=== PATIENT | female | born 1930 | race Caucasian/White ===

== ENCOUNTER 2017-12-10 09:51 | Inpatient (IN) | payer MEDICARE, OTHER ==
[~2017-12-10] VITALS: Ht 160 cm; Wt 65.5 kg
[~2017-12-10 09:51] MED LIST: ACETAMINOPHEN500 MG PO; AMLODIPINE BESYL5 MG PO; ASCORBIC ACID500 M2 PO; COUMADIN5 MG PO; CRANBERRY TABL1 EACH PO; FEROSUL325 MG PO; FUROSEMIDE20 MG PO; GLUCOSAMINE H1500 MG PO; LANOXIN125 MCG PO; LEVOTHYROXINE100 MCG PO; LOSARTAN POTAS100 MG PO; METFORMIN HCL500 M1 PO; METFORMIN HCL500 MG PO; POTASSIUM CHLO20 ME1 PO; SIMVASTATIN20 MG PO; SLOW-MAG71.5 MG PO; VERAPAMIL ER240 M1 PO; WARFARIN SODIUM5 MG PO
--- NOTE | 2017-12-10 16:32 | NUR ---
MD AWARE OF SATS AND RESPIRATIONS.
--- NOTE | 2017-12-10 18:11 | NUR ---
Patient has had her evening medications and is now eating her dinner with family at the bedside. called and ordered another 40mg IV Lasix, which has been given.
--- NOTE | 2017-12-10 19:16 | NUR ---
AT 1828 PATIENT HAD WHAT APPEARED TO BE A VASOVAGAL EPISODE GETTING UP FROM THE COMMODE. HR DROPPED INTO THE HIGH 40'S SHE SAID SHE FELT VERY HOT, BUT WAS NOT DIAPHORETIC, SHE HAD NO CHEST PAIN, NO JAW OR LEFT ARM PAIN OR NUMBNESS, BUT DID HAVE SOME NAUSEA. INCREASED HER FROM 4L/NC TO 6L/NC AND CALLED . AT THE TIME OF PHONE CALL PATIENT WAS BACK TO 4L/NC AND FEELING BACK TO NORMAL. ALSO FELT THIS WAS A VASOVAGAL EVENT AND ASKED THAT WE JUST MONITOR THE PATIENT. PATIENT IS RESTING QUIETLY NOW AT THIS TIME.
--- NOTE | 2017-12-10 19:45 | NUR ---
pt shift report recived from day shift rn. pt resting in bed with fmaily at bedside. will continue to closely monitor pt. call light in hand.
--- NOTE | 2017-12-10 20:15 | NUR ---
FAMILY HEADING HOME FOR THE NIGHT. PT USING BEDPAN TO DECREASE ACTIVITY D/T SOB AND SPO2 DESATURATION. PT IS NOT TOLERATING GETTING UP TO THE CAMMODE WELL WITH WORK OF BREATHING. PT TOLERATED BEDPAN. SPOKE WITH PT LOREE HAN PT DOES NOT WISH TO HAVE ONE AT THIS TIME, SHE FEELS THE BEDPAN IS TOLERABLE. WILL CONTINUE TO CLSOELY MONITOR SOB WITH ACTIVITY AND ENCOURAGE MUCH REST TONIGHT. PT ASSESSMENT COMPLTED. PT HAS SOME CRACKLES BILATERALLY. PT IS ON 4L NC. VITALS COMPLTED. ACTIVE BT NOTED. PT PREFERES TO SLEEP WITH LIIGHT ON. PT HAS CALL LIGHT. PT DENTURES CLEANED. WILL CONTINUE TO CLSOELY MONITOR.
--- NOTE | 2017-12-10 20:49 | EKG ---
[facility] [address] [place], [place] [address] Signed Atrial fibrillation with premature ventricular or aberrantly conducted complexes Low voltage QRS Cannot rule out Anterior infarct , age undetermined ST \T\ T wave abnormality, consider inferior ischemia Abnormal ECG No previous ECGs available Confirmed by GRACE ALMONTE MD ([id number]) on 12/10/2017 8:49:25 PM Electronically Signed By: GRACE ALMONTE MD 12/10/17 2049 PATIENT NAME: ZANDRA JAIME Electrocardiogram DATE OF : 34 PHYSICIAN: GRACE ALMONTE MD REPORT #: [id number] REPORT IS CONFIDENTIAL AND NOT TO BE RELEASED WITHOUT AUTHORIZATION
--- NOTE | 2017-12-10 21:52 | NUR ---
PT ASSISTED TO USE BEDPAN. PT STATES SHE TOLERATES THE BEDPAN MUCH BETTER THAN GETTING UP TO THE CAMMODE. BEDDING CHANGED. NO OTHER ISSUES AT THIS TIME.
--- NOTE | 2017-12-11 00:11 | NUR ---
PT CALLED TO USE BEDPAN. PT TOLERATED EVEN BETTER THAN EARLIER IN THE SHIFT. PT STATES SHE DOES NOT FEEL SOB WITH MOVING IN BED. PT TURNED TO ALLOW NEW CHUCKS PAD PLACED. PT ASSESSMENT UNCHANGED FROM PREVIOUS. WILL CONTINUE TO CLOSELY MONITOR.
--- NOTE | 2017-12-11 02:00 | NUR ---
PT RESTING WELL AT THIS TIME. PT ASKED STAFF NOT TO TURN LIGHTS OUT WHEN SHE IS SLEEPING. PTPREFFERS LIGHTS TO BE LEFT ON. LIGHTS REMAIN ON. WILL CONTINUE TO CLSOELY MONITOR.
--- NOTE | 2017-12-11 03:20 | NUR ---
PT CALLED TO USE BEDPAN. PT TOLERATES BED YU WELL. TURNED PT OXYGEN DOWN TO 3.5L NC WITH SPO2 92-95%. PT ASSESSMENT COMPLTED. PT BREATH SOUNDS ARE CLEAR BILATERALLY. WILL CONTINUE TO CLOSELY MONITOR.
--- NOTE | 2017-12-11 05:30 | NUR ---
PT CALLED TO GO TO THE BATHROOM. OTHER RN IN TO HELP PT AND SHE GOT UP TO CAMMODE PT TOLERATED WELL. PT SPO2 STAYED ABOVE 92% ON 3L NC. WILL CONTINUE O CLSOELY MONITOR. NO OTHER ISSUES AT THIS TIME. CALL LIGHT IN REACH.
--- NOTE | 2017-12-11 09:35 | NUR ---
Heart failure education and initial home management assessment. Lives independently with daughter living in upper floor apartment. Manages own meds-denies difficulty, uses 4 seperate weekly pill boxes. Owns scales, does not currently weigh QD but states she can. Transportation-drives self to coumadin clinic.Daughter, Darby,takes her to all other provider appointments. 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 She enjoys 1 caffeine free diet soda Q AM, daughter will check sodium content. When eats out does not use full amount of salad dressing. Rarely eats at [employer] but makes a meal last 2 days. Given heart failure packet with Living with HF book, zones form, daily weight/symptom log, blank [employer] home medication schedule. Rufina and her daughter were receptive to new information and agrees to follow ups and to receive more information. Plan of Care: View HF video, discuss Zones/sx management, review new drugs PRN, ensure follow up with PCP or cardiology within 7 days of DC.
--- NOTE | 2017-12-11 09:35 | NUR ---
PT AWAKE AND UP TO [facility] CHAIR FOR BREAKFAST WITH ONE PERSON ASSIST. PT ATE APPROX 50% OF BREAKFAST, DAUGHTER IN ROOM. PT USED BSC AND RETURNED TO BED. NADIA IN TO DISCUSS WITH PT AND DAUGHTER ABOUT HER HEART MEDICATIONS AND DIET. AND ANSWER ANY QUESTIONS THEY MAY HAVE. SHE WILL RETURN TOMORROW TO DISCUSS INFORMATION AGAIN.
--- NOTE | 2017-12-11 09:55 | NUR ---
UP TO BS WITH ONE PERSON ASSIST. VOIDED 375 MLS YELLOW URINE, RETURNED TO BED AND RESTING WITH HOB ELEVATED - NO C/O.
--- NOTE | 2017-12-11 14:50 | NUR ---
REPORT GIVEN FROM JASON CHAMPION. BROUGHT PATIENT OVER IN CHAIR.PATIENT TITRATED TO RA. TOLERATING SATING AT 95 PERCENT. VITALS TAKEN. ASSISTED PATIENT TO BED. TOLERATING AMBULATING TO BED WITH A STBY ASSIST. PATIENT IS STEADY ON HIS FEET. CURRENTLY PATIENT IS ORDERING DINNER. WILL BE BACK IN ROOM TO DO ASSESSMENT.
--- NOTE | 2017-12-11 15:23 | NUR ---
PATIENT ASSISTED TO THE BR. PATIENT VOIDED CLEAR YELLOW URINE. ASSISTED BACK TO BED. TOLERATED WELL.
--- NOTE | 2017-12-11 16:30 | NUR ---
PATIENT BLOOD SUGAR TAKEN. PATIENT DOING WELL. FAMILY AT BEDSIDE. EVENING MEDICATON GIVEN. REQUESTING THAT NADIA COME WITH CHF VIDEO. PATIENT HAS NO OTHER COMPLAINT AT THIS TIME. PATIENT IS CONTINUE TO TOLEATE RA. NADIA CALLED TO GIVE CHF INFORMATION.
--- NOTE | 2017-12-11 17:31 | NUR ---
NADIA IN ROOM WITH CHF VIDEO.
--- NOTE | 2017-12-11 17:31 | NUR ---
MASOUD WAS A CCU TRANSFER THIS AFTERNOON. STBY ASSIST TO BR. PATIENT IS ADA DIET. 1500 FLUID RESTRICTION. DAILY WT. NADIA FOR CARDIAC REHAB HAS BEEN IN TO PROVIDE EDUCATION. SL. LASIX AND PO POTASSIUM GIVEN. PATIENT REPORTS THAT SHE HAD A BM THIS MORNING.
--- NOTE | 2017-12-11 17:40 | NUR ---
PATIENT RESTING IN BED EATING DINNER. PATIENTS FAMILY MEMBERS IN ROOM. CALL LIGHT WITHIN REACH. PATIENT STATES SHE HAS NO PAIN. NO OTHER NEEDS AT THIS TIME.
--- NOTE | 2017-12-11 19:20 | NUR ---
RECEIVED REPORT FROM DAY SHIFT RN. PATIENT IS RESTING IN BED. PATIENT DENIES ANY NEEDS AT THIS TIME. CALL LIGHT IN REACH. FAMILY AT THE BEDSIDE.
--- NOTE | 2017-12-11 21:25 | NUR ---
PATIENT ASSSEMENT COMPLETED. PATIENTS VITALS TAKEN AND RECORDED. PATIENT RECIEVED NO INSULIN BS WAS WNL. PATIENT DENIES ANY PAIN OR SOB. PATIENTS EVENING MEDICATIONS GIVEN PER ORDER. PATIENT ASSISTED TO THE RESTROOM A SBA. PATIENT IS STEADY ON HER FEET. PATIENT GIVEN SUPPLIES TO COMPLETE NIGHTLY ORAL CARE. PATIENT IS NOW BACK IN BED RESTING. PATIENTS FAMILY IS AT THE BEDISDE. NO FURTHER NEEDS NOTED. CALL LIGHT IN REACH.
--- NOTE | 2017-12-11 22:22 | NUR ---
Up to brpw ith one assist, voided, back to bed, tolerated well, no c/o pain, no requests
--- NOTE | 2017-12-12 00:10 | NUR ---
PATIENT RESTING IN BED WATCHING TV. PATIENT DENIES ANY NEEDS CALL LIGHT IN REACH.
--- NOTE | 2017-12-12 00:11 | NUR ---
PATIENT IS RESTING IN BED WITH EYES CLOSED, RR 17. CALL LIGHT IN REACH.
--- NOTE | 2017-12-12 01:30 | NUR ---
PT SLEEPING WILL CHECK BACK ON LATER.
--- NOTE | 2017-12-12 01:36 | NUR ---
PATIENT ASSISTED TO THE RESTROOM SBA. PATIENT WAS ABLE TO VOID. PATIENT IS NOW BACK IN BED RESTING. PATIENT DENIES ANY FURTHER NEEDS CALL LIGHT IN REACH.
--- NOTE | 2017-12-12 03:12 | NUR ---
PATIENT IS RESTING IN BED WITH EYES CLOSED. PATIENTS BREATHING IS EVEN AND UNLABORED, RR 17. CALL LIGHT IN REACH.
--- NOTE | 2017-12-12 05:06 | NUR ---
PATIENT IS RESTING IN BED WITH EYES CLOSED. PATIENTS BREATHING IS EVEN ADN UNLABORED, RR 17. CALL LIGHT IN REACH.
--- NOTE | 2017-12-12 05:13 | NUR ---
PATIENT RESTED WELL THROUGHOUT THE SHIFT. PATIENT IS ON AN ADA DIET AND TOLERATING WELL, NO NAUSEA NOTED. PATIENT IS ON A 1500ML FLUID RESTRICTION. PATIENT IS A SBA AND IS STEADY ON HER FEET. PATIENT IS ON RA, NO SOB NOTED. PATIENT IS SL. PATIENT IS AAOX3 AND CALLS APPROPRIATELY.
--- NOTE | 2017-12-12 05:45 | NUR ---
did vitals and i and o on pt
--- NOTE | 2017-12-12 05:56 | NUR ---
PATIENTS DAILY WEIGHT TAKEN AND RECORDED. PATIENTS VITALS TAKE AND RECORDED BY CHAR CONVEYOR TENDER. PATIENT ASSISTED TO THE RESTROOM A SBA AND IS STEADY ON HER FEET. PATIENT IS BACK IN BED RESTING. NO FURTHER NEEDS NOTED. CALL LIGHT IN REACH.
--- NOTE | 2017-12-12 06:10 | NUR ---
PATIENTS MORNING MEDICATIONS GIVEN PER ORDER. PATIENT IN BED RESTING. PATIENT DENIES ANY FURTHER NEEDS AT THIS TIME. CALL LIGHT IN REACH.
--- NOTE | 2017-12-12 07:34 | NUR ---
RECIEVED REPORT FROM CONTENT PRODUCTION SPECIALIST NURSE. PATIENT RESTING IN BED QUILTING. DENIES NEEDS. CALL LIGHT IN REACH.
--- NOTE | 2017-12-12 07:54 | NUR ---
ASSISTED PATIENT TO BATHROOM. VOIDED. BACK TO BED. REYES (PT'S DAUGHTER) IN ROOM. REYES WOULD LIKE TO SPEAK WITH DR. URIBE BEFORE PATIENT IS D/C. COURSE SOUNDS HEARD IN LLL, OTHERWISE CLEAR. HR IRREG., NO PEDAL EDEMA. PATIENT DID BECOME MILDLY SOB WITH AMBULATING TO THE TOILET BUT SHE STATES IT HAS IMPROVED. DENIES PAIN. CALL LIGHT IN REACH.
--- NOTE | 2017-12-12 07:57 | NUR ---
PATIENT SITTING UP IN BED, DAUGHTER IN ROOM. TEETH BRUSHED, WILL DO AM CARE AFTER BREAKFAST. WOULD LIKE TO SHOWER TODAY. IS CONCERNED ABOUT KNOWING HOW TO MEASURE HER FLUIDS WHEN AT HOME. CALL LIGHT IN REACH.
[2017-12-12] MEDS ORDERED: VERAPAMIL ER P300 MG PO (09:24)
[2017-12-12] MEDS ORDERED: TYLENOL325 MG PO (09:26)
--- NOTE | 2017-12-12 09:28 | NUR ---
MED REC COMPLETE
[2017-12-12] MEDS ORDERED: LASIX40 MG PO (09:40)
--- NOTE | 2017-12-12 10:15 | NUR ---
KILEY NURSE BLANE WILL BE DOING SHOWER, VITALS AND I/O'S THIS MORNING FOR PATIENT.
--- NOTE | 2017-12-12 10:28 | NUR ---
Pt ambulated to the the bathoo and showered independently with SBA. Pt stated she experienced slight SOB with exetrion but appeared to tolerate the activity well as noted by an absence of audible wheezes or use of accessory muscles. Pt continued to persfuse well notable by pinkness in the face and an absence of cyanosis. Pt is currently resting in bed. Pt states no concerns at this time. Call light within reach.
--- NOTE | 2017-12-12 10:59 | NUR ---
E M ASSEMBLER ASSISTING PATIENT TO BATHROOM. SHE IS ALSO REMOVING HER IV SITE. PATIENT TO BE D/C SHORTLY AFTER REYES RETURNS.
--- NOTE | 2017-12-12 11:28 | NUR ---
ASSISTED PATIENT TO BATHROOM. VOIDED. BACK TO BED. REVIEWED D/C INSTRUCTIONS WITH PATIENT AND DAUGHTER REYES. QUESTIONS ANSWERED. NO FURTHER QUESTIONS. DENY NEEDS.
--- NOTE | 2017-12-12 13:30 | NUR ---
PT RESTING IN BED, ALERT AND ORIENTED. SHE SMILED AND TOLD ME SHE WAS FEELING SO MUCH BETTER. WELL ENOUGH SHE FELT TO BE DC'D TODAY. HAD A VERY PLEASANT VISIT WITH PT, PRAYED FOR HER. WILL FOLLOW NEEDED
--- NOTE | 2017-12-16 08:19 | NUR ---
Heart Failure Discharge Follow Up Call #1- Patient states she is feeling very well and plans to get out to do business this afternoon. Able to states medication changes. Pt DC on 12/12. During f/u call today patient revealed home wts have went up. Is adherent to new order for Lasix 40 mg q AM. Denies diet change. Weighs at same time q AM. DC wt 144 lb. Home wt day after DC 144#, then 150#, 148#, today 149#. States "legs are skinny", SOB when "over does it", pants are not as tight as they were on admit. Prefers afternoon visits so her daughter can accompany her. She could not get in to see Dr Menendez PCP until 01/08 for f/u visit. I have left him a high priority message requesting she sees someone in PCP office as soon as possible.
[2018-01-10] MEDS ORDERED: TOPROL XL200 MG PO (18:49)
== END 2017-12-12 11:33 | disposition home or self-care (01) | DRG 291 ==
LOC: ED 09:51 → CCU 12:11 → MS 12-11 14:40
PROVIDERS: ADMIT Internal Medicine
DX: I11.0 Hypertensive heart disease with heart failure (principal); J96.01 Acute respiratory failure with hypoxia; I50.33 Acute on chronic diastolic (congestive) heart failure; I48.2 Chronic atrial fibrillation; E11.9 Type 2 diabetes mellitus without complications; E03.9 Hypothyroidism, unspecified; E78.5 Hyperlipidemia, unspecified; Z79.84 Long term (current) use of oral hypoglycemic drugs; Z66 Do not resuscitate; Z79.01 Long term (current) use of anticoagulants; Z86.73 Personal history of transient ischemic attack (TIA), and cerebral infarction without residual deficits
CPT/HCPCS: 36415; 71045; 80048; 80053; 81001; 83735; 83880; 84484; 85025; 85610; 85730; 87502; 93005; 93010; 93306; 94640; 94667; 94668

== ENCOUNTER 2018-05-30 15:46 | Inpatient (IN) | payer MEDICARE, OTHER ==
[~2018-05-30] VITALS: Ht 160 cm; Wt 66.9 kg
--- OUTSIDE RECORDS SUMMARY | ~2018-05-30 | XMS | Encounter Summary ---
Demographics + + + | Address | [address] | | | [place] [address] | + + + | Home Phone | | + + + | Preferred Language | Unknown | + + + | Marital Status | | + + + | Restorationist Affiliation | Unknown | + + + | Race | Unknown | + + + | Ethnic Group | Unknown | + + + Author + + + | Author | [facility] [employer] [facility] | + + + | Organization | [facility] [employer] [facility] | + + + | Address | Unknown | + + + | Phone | Unavailable | + + + Support + + +---------+ + | Name | Relationship | Address | Phone | + + +---------+ + | Darby Kate | ECON | Unknown | | + + +---------+ + Care Team Providers + +------+ + | Care Water Pollution Specialist Name | Role | Phone | + +------+ + | Renan Menendez MD | PCP | | + +------+ + Reason for Referral Consultation (Routine) + + + + + + + | Status | Reason | Specialty | Diagnoses / | Referred By | Referred To | | | | | Procedures | Contact | Contact | + + + + + + + | Authorized | Specialty | Cardiology | Diagnoses | Mirza, | | | | Services | | Acute on | Arnaldo Oshea, | [facility] | | | Required | | chronic | [address] | | | | | diastolic | Denise Fountain | Abel Bond | | | | | congestive | Kev F | Saray Isbell, | | | | | heart | [place], [place] | [place] , [place] | | | | | failure | [address] | [address] | | | | | ([facility]) | Phone: | Phone: | | | | | Persistent | [phone] | [phone] | | | | | atrial | Fax: | Fax: | | | | | fibrillation | [phone] | [phone] | | | | | ([facility]) | | | | | | | Severe | | | | | | | mitral | | | | | | | regurgitatio | | | | | | | n Severe | | | | | | | tricuspid | | | | | | | regurgitatio | | | | | | | n Pulmonary | | | | | | | | | | | | | | hypertension | | | | | | | , moderate | | | | | | | to severe | | | | | | | ([facility]) | | | + + + + + + + Reason for Visit + + + | Reason | Comments | + + + | Consultation | | + + + Consultation (Routine) + +--------+ + + + + | Status | Reason | Specialty | Diagnoses / | Referred By | Referred To | | | | | Procedures | Contact | Contact | + +--------+ + + + + | New Request | | Cardiology | Diagnoses | Gemma, | Tammy, | | | | | Heart | MD Renan | MD Manohar | | | | | failure, | [address] | [address] | | | | | unspecified | [place] [address] | Dr [address] | | | | | ([facility]) | [address] [place] | | | | | Procedures | [place], | [address] Phone: | | | | | Consult | [place] [address] | [phone] | | | | | | Phone: | Fax: | | | | | | [phone] | [phone] | | | | | | Fax: | | | | | | | [phone] | | + +--------+ + + + + Encounter Details +--------+ + + + + | Date | Type | Department | Care Team | Description | +--------+ + + + + | 05/20/ | Initial | [facility] | Arnaldo Blue, | Persistent atrial | | 2018 | consult | [facility] [place] | MD [address] | fibrillation (HCC) | | | | [address] | [place], | (Primary Dx); Acute | | | | [address] | [place] [address] | on chronic diastolic | | | | [place] [address] | [phone] | congestive heart | | | | [phone] | | failure (HCC); | | | | | | Severe mitral | | | | | | regurgitation; | | | | | | Severe tricuspid | | | | | | regurgitation; | | | | | | Pulmonary | | | | | | hypertension, | | | | | | moderate to severe | | | | | | (HCC) | +--------+ + + + + Social History + +-------+ [...] + +---------+ + | Alcohol Use | Drinks/We | oz/Week | Comments | | | ek | | | + + +---------+ + | No | | | | + + +---------+ + + + + | Sex Assigned at | Date Recorded | | | | + + + | Not on file | | + + + as of this encounter Last Filed Vital Signs + + + + | Vital Sign | Reading | Time Taken | + + + + | Blood Pressure | 112/54 | 05/20/2018 9:50 AM PDT | + + + + | Pulse | 95 | 05/20/2018 9:34 AM PDT | + + + + | Temperature | - | - | + + + + | Respiratory Rate | - | - | + + + + | Oxygen Saturation | 97% | 05/20/2018 9:34 AM PDT | + + + + | Inhaled Oxygen | - | - | | Concentration | | | + + + + | Weight | 66 kg (145 lb 6.4 | 05/20/2018 9:34 AM PDT | | | oz) | | + + + + | Height | 160 cm (5' 3") | 05/20/2018 9:34 AM PDT | + + + + | Body Mass Index | 25.76 | 05/20/2018 9:34 AM PDT | + + + + in this encounter Progress Notes Arnaldo Blue MD - 05/20/2018 9:30 AM PDTFormatting of this note may be different from the original. Subjective: Patient ID: Rufina Spap is a 88 y.o. female. HPI The following portions of the patient's history were reviewed and updated as appropriate an d is available elsewhere in the record: allergies, current medications, past family history, past medical history, past social history, past surgical history and problem list. Mrs. Sapp, accompanied by her daughter (who lives with her and a separate apartment), petra rodriges to the office today for a cardiology evaluation. She was hospitalized at [facility] twice this year, the first time in November for acute diastolic heart failure, althou gh she believes that her symptoms actually began as long ago as the end of 2015, when she de veloped dyspnea on exertion with a cold. She had severe dyspnea, to the point where she cou ld not walk 1/4 block to her mailbox. She had no dyspnea at rest, denies orthopnea, PND or nocturia, but had significant pedal edema. She was hospitalized again in February, for the same problem. She has hyperdynamic LV systolic function on her echocardiogram, but marked valvul ar disease, with severe mitral regurgitation, moderately severe tricuspid regurgitation, and mild aortic stenosis. She denies any history of rheumatic fever, but had scarlet fever at age 15, which clearly could have been misdiagnosed. There is no mitral stenosis. I reviewe d the images from her echocardiogram, which also showed moderately severe pulmonary hyperten adeel and a small secundum ASD with minor etfq-rm-yofav shunting. She continues to have sign ificant dyspnea on exertion, walking about one half block, and because of this, now leaves h er home only about once per week, whereas previously, she was quite active, participating in multiple activities such as quilting. It has clearly affected her quality of life. She wo uld be classified as [place] Heart Association class III. At age 88, I do not think she is a very good candidate for open heart surgery, as she already has some mild memory deficits which would likely become worse. The MR jet is central, and she may be a candidate for a Mi traClip procedure. Experimental he, this is sometimes done on the tricuspid valve is well. After a prolonged discussion, she agreed to have an evaluation for this, and I referred her to [facility] for this purpose. She is on appropriate medications, and I made no changes. I umm l see her back in several months for follow-up. Review of Systems CONSTITUTIONAL: 15 lb weight decrease due to diuretics in the last year, previously lost 6 0-70 lbs since the with diet, denies recent fever, chills, night sweats, c/o significa nt fatigue with even minor exertion NEUROLOGIC: No history of CVA, had 2 TIAs (memory deficits 1-2 days in 2008, resolved; the other was c.2007, cannot recall the symptoms). She has a prior h/o migraines, resolved. S he denies seizures, has had 2 Syncopal events due to UTI, and another at age 18, probably va sovagal, getting BP checked in both arms simultaneously ("pumped up all the way"). No dizzi ness, lightheadedness. No numbness, tingling, paresthesias. She has mild short term memory problems ("repeats stories frequently"). EYES: No amaurosis, diplopia, recent visual changes, has early stage Cataracts, no h/o gla ucoma ENT: She has mild bilateral Hearing loss, denies tinnitus, epistaxis, has occasional dysph agia with certain foods ENDOCRINE: Type II Diabetes mellitus. Hypothyroidism, no other endocrine problems. No exc essive hunger, thirst. PULMONARY/SLEEP: Severe Dyspnea on Exertion but not at rest, denies orthopnea, paroxysmal nocturnal dyspnea. No history of asthma, emphysema. She had pneumonia at age 6. She has mil d snoring, no significant daytime somnolence. Sleep is refreshing. CARDIOVASCULAR: Denies chest pain, pressure or discomfort. No history of CAD. She has a history of acute Diastolic Heart Failure. She has persistent Atrial Fibrillation, on warfar in. No recent palpitations. She has had a heart Murmur since age 15, with marked Valvular H eart Disease, severe MR, moderately severe TR, mild . She denies a h/o rheumatic fever bu t had scarlet fever in childhood. She has moderately severe Pulmonary HTN. She has Essenti al Hypertension, Hyperlipidemia. She had significant Edema prior to diuretic treatment, use s compression stockings, no claudication symptoms. No h/o an AAA. -- Echo (12/12/17): EF > 70%, normal RV size, function. Marked bi-AE. Mild (RUFINA 1.7 cm , peak/mean gradient 17/9 mmHg). Severe MR. Moderately severe TR. Moderately severe pulmo nary hypertension, RVSP 55.8-60.8 mmHg. Small secundum ASD with mild left-to- right shuntin g GASTROINTESTINAL: No recent abdominal pain, nausea, vomiting or diarrhea. Denies PUD, dana na, hematochezia, hepatitis. RENAL/: No history of kidney disease. No dysuria, hematuria, urinary urgency, hesitancy . No active Helmet Hat Sweatband Puncher disorders. HEMATOLOGY/ONCOLOGY: No h/o bleeding disorders, DVT, PE. Denies easy bruisability or ble eding. She has a history of Iron-deficiency Anemia, denies prior blood transfusions. No hi story of cancer. MUSCULOSKELETAL: Osteoporosis. No myalgias, has Osteoarthritis with no significant arthra lgias. No history of rheumatologic or autoimmune diseases. CUTANEOUS: Eczema. No rashes, pruritus, lesions. PSYCHIATRIC: No history of significant depression, has Anxiety, denies any other psychiatr ic problems. Past Medical History Diagnosis Date Acute diastolic heart failure (HCC) ASD secundum Atrial fibrillation (HCC) 1995 persistent since then, never attempted cardioversion Congestive heart failure (HCC) 11/2017 acute/chronic Diastolic Heart Failure, NYHA class III Diabetes mellitus, type II (HCC) 2006 controlled, no complications Edema Essential hypertension Heart murmur 1944 had scarlet fever Hyperlipidemia Hypothyroidism Iron deficiency anemia Migraines resolved Mild aortic stenosis Osteoarthritis Osteoporosis Pulmonary hypertension, moderate to severe (HCC) Severe mitral regurgitation Severe tricuspid regurgitation moderately severe Past Surgical History Procedure Laterality Date APPENDECTOMY BLADDER SUSPENSION BLEPHAROPLASTY Bilateral BREAST SURGERY Right benign lesion removed BUNIONECTOMY HYSTERECTOMY partial hysterectomy separate salpingo-oophorectomy Bilateral TOE FUSION TONSILLECTOMY Family History Problem Relation Age of Onset CVA Mother 71 recurrent CVA at 74, a few days later Heart failure Mother Diabetes Mellitus II Mother CVA Father cerebral hemorrhage Coronary Artery Disease Father 63 Leukemia Sister basophilic leukemia CVA Brother Heart Disease Sister ? thrombus, not clear Deep vein thrombosis Sister CVA Daughter Obesity Daughter Arthritis Daughter Thyroid cancer Daughter Social History Substance Use Topics Smoking status: Never Smoker Smokeless tobacco: Never Used Alcohol use No Allergies Allergen Reactions Morphine Other (See Comments) Pt felt fidgety Percocet [Oxycodone-Acetaminophen] Other (See Comments) Pt felt fidgety Current Outpatient Prescriptions: acetaminophen (TYLENOL) 325 MG tablet, Take 650 mg by mouth every 6 (six) hours as nee ded for Pain., Disp: , Rfl: ascorbic acid (VITAMIN C) 1000 MG tablet, Take 1,000 mg by mouth daily., Disp: , Rfl: Cholecalciferol 2000 units CAPS, Take 2,000 Units by mouth daily., Disp: , Rfl: Cranberry 1000 MG CAPS, Take 1 capsule by mouth daily., Disp: , Rfl: furosemide (LASIX) 40 MG tablet, Take 40 mg by mouth daily., Disp: , Rfl: Lvly-Qpsoq-XEF-Boswellia-Vit D (GLUCOSAMINE CHOND TRIPLE/VIT D) TABS, Take 1 tablet by mouth daily., Disp: , Rfl: levothyroxine (SYNTHROID) 100 MCG tablet, Take 100 mcg by mouth every morning before b reakfast., Disp: , Rfl: losartan (COZAAR) 100 MG tablet, Take 100 mg by mouth daily., Disp: , Rfl: magnesium chloride (MAG64) 64 mg EC tablet, Take 1 tablet by mouth daily., Disp: , Rfl : metFORMIN (GLUMETZA) 500 MG (MOD) 24 hr tablet, Take 500 mg by mouth 2 (two) times garry ly with meals., Disp: , Rfl: metoprolol (TOPROL-XL) 200 MG 24 hr tablet, Take 100 mg by mouth every morning., Disp: , Rfl: potassium chloride SA (K-DUR,KLOR-CON) 20 MEQ tablet, Take 20 mEq by mouth daily., Dis p: , Rfl: simvastatin (ZOCOR) 20 MG tablet, Take 20 mg by mouth nightly., Disp: , Rfl: warfarin (COUMADIN) 5 MG tablet, Take 5 mg by mouth daily. 5mg daily on Mond, Wed, Sat d, Sat, and 2.5mg daily on , , Disp: , Rfl: Objective: Physical Exam BP 112/54 (BP Location: Left upper arm, Patient Position: Sitting) | Pulse 95 | Ht 1.6 m (5' 3") | Wt 66 kg (145 lb 6.4 oz) | SpO2 97% | BMI 25.76 kg/m BP 118/48 right arm GENERAL: Well developed, well nourished elderly woman, in no distress. Appears approximately stated age. HEENT: Normocephalic, atraumatic. EYES: PERRL, sclerae anicteric, no xanthelsasmas MOUTH: Oral mucosae moist, dentition adequate, no lesions noted NECK: No JVD, lymphadenopathy, thyromegaly, bruits. Carotid pulses are 2+ bilaterally LUNGS: Clear bilaterally, with no rales, rhonchi or wheezing noted, respirations unlabored HEART: Nondisplaced PMI, regular rate, irregularly irregular rhythm, S1 varied in intensit y, S2 normal. 100 2/6 systolic crescendo decrescendo murmur at the base, without radiation. 1I-6 holosystolic murmur at the apex radiating to the lower left sternal border. No rubs or gallops noted. ABDOMEN: Soft, nontender, no organomegaly, masses or bruits. Bowel sounds are normal in a ll 4 quadrants. The abdominal aortic pulsation is not palpable. EXTREMITIES: No edema. Radial pulses 2+ bilaterally. Femoral pulses are 2+ bilaterally wi thout bruits. DP and PT pulses are 1+ bilaterally. SKIN: Warm and dry, capillary refill is normal, no lesions. NEUROLOGIC: Awake, alert and oriented x 3. No focal motor deficits. PSYCHIATRIC: Appropriate, affect appears normal EKG: Atrial fibrillation, ventricular rate 68, poor R-wave progression V1-V4, cannot exclud e an old anteroseptal infarct. Nonspecific inferior ST-T abnormalities, possibly due to isc hemia. Assessment and Plan: Rufina was seen today for consultation. Persistent atrial fibrillation (HCC) - Electrocardiogram, 12-lead - AMB ref to Interventional Cardiology Acute on chronic diastolic congestive heart failure (HCC) - AMB ref to Interventional Cardiology Severe mitral regurgitation - AMB ref to Interventional Cardiology Severe tricuspid regurgitation - AMB ref to Interventional Cardiology Pulmonary hypertension, moderate to severe (HCC) - AMB ref to Interventional Cardiology in this encounter Plan of Treatment +--------+---------+ + + + | Date | Type | Specialty | Care Team | Description | +--------+---------+ + + + | 09/16/ | Office | Cardiology | Arnaldo Blue, | | | 2018 | Visit | | MD [address] | | | | | | [place], | | | | | | [place] [address] | | | | | | [phone] | | | | | | | | +--------+---------+ + + + + +--------+ + + | Name | Priori | Associated Diagnoses | Order Schedule | | | ty | | | + +--------+ + + | AMB ref to Interventional | Routin | Acute on chronic | Ordered: 05/20/2018 | | Cardiology | e | diastolic congestive | | | | | heart failure (HCC) | | | | | Persistent atrial | | | | | fibrillation (HCC) | | | | | Severe mitral | | | | | regurgitation | | | | | Severe tricuspid | | | | | regurgitation | | | | | Pulmonary | | | | | hypertension, | | | | | moderate to severe | | | | | (HCC) | | + +--------+ + + as of this encounter Procedures + +--------+ + + + | Procedure Name | Priori | Date/Time | Associated Diagnosis | Comments | | | ty | | | | + +--------+ + + + | EKG STANDARD 12 LEAD | Routin | 05/20/2018 | Persistent atrial | Results for this | | | e | 9:57 AM | fibrillation (HCC) | procedure are in the | | | | PDT | | results section. | + +--------+ + + + in this encounter Results EK STANDARD 12 LEAD (05/20/2018 9:57 AM) + + + + + | Component | Value | Ref Range | Performed At | + + + + + | Ventricular Rate | 68 | BPM | [facility] | + + + + + | Atrial Rate | 357 | BPM | [facility] | + + + + + | QRS Duration | 102 | ms | [facility] | + + + + + | Q-T Interval | 396 | ms | [facility] | + + + + + | QTC Calculation | 421 | ms | [facility] | | (Bezet) | | | | + + + + + | Calculated R [place] | 80 | degrees | [facility] | + + + + + | Calculated T [place] | 4 | degrees | [facility] | + + + + + | Diagnosis | Atrial | | [facility] | | | fibrillationAnterior | | | | | infarct , age | | | | | undeterminedAbnormal | | | | | ECGNo previous ECGs | | | | | availablePlease refer to | | | | | Providers office visit | | | | | note for Providers | | | | | Interpretation.Confirmed | | | | | by [facility] Hostetter Read Only, | | | | | [facility] Denise ([id number]), | | | | | offline editor Alec Guzman | | | | | ([id number]) on 05/20/2018 | | | | | 10:00:11 AM | | | + + + + + + + + + + | Performing | Address | City/State/Zipcode | Phone Number | | Organization | | | | + + + + + | [facility] | [address] | [place] [address] | | + + + + + in this encounter Visit Diagnoses + + | Diagnosis | + + | Persistent atrial fibrillation (HCC) - Primary | + + | Atrial fibrillation | + + | Acute on chronic diastolic congestive heart failure (HCC) | + + | Acute on chronic diastolic heart failure | + + | Severe mitral regurgitation | + + | Mitral valve disorders | + + | Severe tricuspid regurgitation | + + | Diseases of tricuspid valve | + + | Pulmonary hypertension, moderate to severe (HCC) | + + | Other chronic pulmonary heart diseases | + +
--- OUTSIDE RECORDS SUMMARY | ~2018-05-30 | XMS | Clinical Summary ---
Demographics + + + | Address | [address] | | | [place] [address] | + + + | Home Phone | | + + + | Preferred Language | Unknown | + + + | Marital Status | | + + + | Congregational Affiliation | Unknown | + + + | Race | Unknown | + + + | Ethnic Group | Unknown | + + + Author + + + | Author | [facility] | + + + | Organization | [facility] | + + + | Address | Unknown | + + + | Phone | Unavailable | + + + Support + + +---------+ + | Name | Relationship | Address | Phone | + + +---------+ + | Darby Kate | ECON | Unknown | | + + +---------+ + Care Team Providers + +------+ + | Care Cotton Picking Machine Operator Name | Role | Phone | + +------+ + | Renan Menendez MD | PP | | + +------+ + Allergies + + + + + + | Active Allergy | Reactions | Severity | Noted | Comments | | | | | Date | | + + + + + + | Morphine | Other (See Comments) | Medium | 05/19/20 | Pt felt fidgety | | | | | 18 | | + + + + + + | Oxycodone-Acetaminop | Other (See Comments) | Medium | 05/19/20 | Pt felt fidgety | | hen | | | 18 | | + + + + + + Current Medications + + +-------+---------+------+------+-------+ | Prescription | Sig. | Disp. | Refills | Star | End | Statu | | | | | | t | Date | s | | | | | | Date | | | + + +-------+---------+------+------+-------+ | levothyroxine | Take 100 mcg by | | | | | Activ | | (SYNTHROID) 100 MCG | mouth every morning | | | | | e | | tablet | before breakfast. | | | | | | + + +-------+---------+------+------+-------+ | losartan (COZAAR) | Take 100 mg by mouth | | | | | Activ | | 100 MG tablet | daily. | | | | | e | + + +-------+---------+------+------+-------+ | simvastatin | Take 20 mg by mouth | | | | | Activ | | (ZOCOR) 20 MG tablet | nightly. | | | | | e | + + +-------+---------+------+------+-------+ | warfarin | Take 5 mg by mouth | | | | | Activ | | (COUMADIN) 5 MG | daily. 5mg daily on | | | | | e | | tablet | , Sat, , | | | | | | | | Sat, and 2.5mg | | | | | | | | daily on , | | | | | | + + +-------+---------+------+------+-------+ | potassium chloride | Take 20 mEq by mouth | | | | | Activ | | SA (KJESENIA THURMAN) | daily. | | | | | e | | 20 MEQ tablet | | | | | | | + + +-------+---------+------+------+-------+ | metFORMIN | Take 500 mg by mouth | | | | | Activ | | (GLUMETZA) 500 MG | 2 (two) times daily | | | | | e | | (MOD) 24 hr tablet | with meals. | | | | | | + + +-------+---------+------+------+-------+ | magnesium chloride | Take 1 tablet by | | | | | Activ | | (MAG64) 64 mg EC | mouth daily. | | | | | e | | tablet | | | | | | | + + +-------+---------+------+------+-------+ | | Take 1 tablet by | | | | | Activ | | Vrko-Lrldd-EKSBrody | mouth daily. | | | | | e | | llia-Vit D | | | | | | | | (GLUCOSAMINE CHOND | | | | | | | | TRIPLE/VIT D) TABS | | | | | | | + + +-------+---------+------+------+-------+ | Cranberry 1000 MG | Take 1 capsule by | | | | | Activ | | CAPS | mouth daily. | | | | | e | + + +-------+---------+------+------+-------+ | ascorbic acid | Take 1,000 mg by | | | | | Activ | | (VITAMIN C) 1000 MG | mouth daily. | | | | | e | | tablet | | | | | | | + + +-------+---------+------+------+-------+ | furosemide (LASIX) | Take 40 mg by mouth | | | | | Activ | | 40 MG tablet | daily. | | | | | e | + + +-------+---------+------+------+-------+ | acetaminophen | Take 650 mg by mouth | | | | | Activ | | (TYLENOL) 325 MG | every 6 (six) hours | | | | | e | | tablet | as needed for Pain. | | | | | | + + +-------+---------+------+------+-------+ | metoprolol | Take 100 mg by mouth | | | 07/3 | | Activ | | (TOPROL-XL) 200 MG | every morning. | | | 0/20 | | e | | 24 hr tablet | | | | 18 | | | + + +-------+---------+------+------+-------+ | Cholecalciferol | Take 2,000 Units by | | | | | Activ | | 2000 units CAPS | mouth daily. | | | | | e | + + +-------+---------+------+------+-------+ | Verapamil HCl CR | Take 1 capsule by | | | | 05/07 | Disco | | 300 MG CP24 | mouth daily. | | | | 01/24 | ntinu | | | | | | | 18 | ed | + + +-------+---------+------+------+-------+ Active Problems + + + | Problem | Noted Date | + + + | Congestive heart failure (HCC) | 11/07/2017 | + + + + + | Overview: acute/chronic Diastolic Heart Failure, NYHA class | | III | + + + + + | Atrial fibrillation (HCC) | 10/07/1995 | + + + + + | Overview: persistent since then, never attempted | | cardioversion | + + + +---+ | Pulmonary hypertension, moderate to severe (HCC) | | + +---+ | Severe tricuspid regurgitation | | + +---+ + + | Overview: moderately severe | + + + +---+ | Severe mitral regurgitation | | + +---+ Encounters +--------+ + + + + | Date | Type | Specialty | Care Team | Description | +--------+ + + + + | 05/20/ | Initial | | Arnaldo Blue, | Persistent atrial | | 2018 | consult | | MD | fibrillation (HCC) | | | | | | (Primary Dx); Acute | | | | | | on chronic diastolic | | | | | | [...] (HCC) | +--------+ + + + + from Last 3 Months Family History + + +---------+ + | Medical History | Relation | Name | Comments | + + +---------+ + | CVA | Brother Ju Naylor | | + + +---------+ + | Arthritis | Daughter | | | + + +---------+ + | CVA | Daughter | | | + + +---------+ + | Obesity | Daughter | | | + + +---------+ + | Thyroid cancer | Daughter | Bia | | + + +---------+ + | CVA | Father | | cerebral hemorrhage | + + +---------+ + | Coronary Artery | Father | | | | Disease | | | | + + +---------+ + | CVA | Mother | | recurrent CVA at 74, a few days later | + + +---------+ + | Diabetes Mellitus II | Mother | | | + + +---------+ + | Heart failure | Mother | | | + + +---------+ + | Leukemia | Sister | Patricia | basophilic leukemia | + + +---------+ + | Heart Disease | Sister | Linda | ? thrombus, not clear | + + +---------+ + | Deep vein thrombosis | Sister | Carmelina | | + + +---------+ + + +---------+ + + | Relation | Name | Status | Comments | + +---------+ + + | Brother | Dayday | | CVA | | | | (Age | | | | | 75) | | + +---------+ + + | Daughter | | | cerebral thrombosis post umbilical hernia | | | | (Age | repair | | | | 56) | | + +---------+ + + | Daughter | | Alive | | + +---------+ + + | Daughter | Bia | Alive | | + +---------+ + + | Father | | | cerebral hemorrhage | | | | (Age | | | | | 63) | | + +---------+ + + | Mother | | | CHF | | | | (Age | | | | | 74) | | + +---------+ + + | Sister | Patricia | | | | | | (Age | | | | | 56) | | + +---------+ + + | Sister | Linda | Alive | | + +---------+ + + | Sister | Carmelina | Alive | | + +---------+ + + | Son | | Alive | | + +---------+ + + Social History + +-------+ +--------+------+ [...] on file | | + + + Last Filed Vital Signs + [...] AM PDT | + + + + Plan of Treatment +--------+---------+ + + + | Date | Type | Specialty | Care Team | Description | +--------+---------+ + + + | 09/16/ | Office | | Arnaldo Blue, | | | 2018 | Visit | | MD [address] | | | | | | [place], | | | | | | [place] [address] | | | | | | [phone] | | | | | | | | +--------+---------+ + + + + + + + + | Health Maintenance | Due Date | Last Done | Comments | + + + + + | Vaccine: | | | | | Dtap/Tdap/Td (1 - | 1 | | | | Tdap) | | | | + + + + + | Vaccine: Zoster (1 | | | | | of 2) | 2 | | | + + + + + | DEXA SCAN SCREENING | | | | | | 7 | | | + + + + + | Vaccine: | | | | | Pneumococcal 65+ | 7 | | | | Low/Medium Risk (1 | | | | | of 2 - PCV13) | | | | + + + + + | Vaccine: Influenza | | | | | (#1) | 8 | | | + + + + + Procedures + +--------+ + + + | [...] section. | + +--------+ + + + from Last 3 Months Results EKG STANDARD 12 LEAD (05/20/2018 9:57 AM) + + + + + | Component | Value | Ref Range | Performed At | + + + + + | Ventricular Rate | 68 | BPM | [facility] | + [...] + + + + | Calculated R [place] | 80 | degrees | [facility] | + + + + + | Calculated T [place] | 4 | degrees | [facility] | + + + + + | Diagnosis | Atrial | | [facility] | | | fibrillationAnterior | | [...] | | | | | by [facility] [place] Read Only, | | | | | I[facility] Denise ([id number]), | | | | | television news video editor Alec Guzman | | | | | ([id number]) on 05/20/2018 | | | | | 10:00:11 AM | | | + + + + + + + + + + | Performing | Address | City/State/Zipcode | Phone Number | | Organization | | | | + + + + + | [facility] | [address] | [place] [address] | | + + + + + from Last 3 Months Insurance + +--------+ +------+-------+ + | Payer | Benefi | Subscriber | Type | Phone | Address | | | t Plan | ID | | | | | | / | | | | | | | Group | | | | | + +--------+ +------+-------+ + | MEDICARE | MEDICA | [id number] | | | [address] | | | RE | | | | [place] [address] | | | IP-OP | | | | | + +--------+ +------+-------+ + | COMMERCIAL OTHER | BANKER | [id number] | | | | | | S LIFE | | | | | | | AND | | | | | | | CASUAL | | | | | | | TY | | | | | + +--------+ +------+-------+ + + +--------+ +--------+ + + | Guarantor Name | Accoun | Relation to | Date | Phone | Billing Address | | | t Type | Patient | of | | | | | | | | | | + +--------+ +--------+ + + | ZANDRA JAIME | Person | Self [birth year] | Home: | [address] | | | al/Fam | | [phone] | [phone] [place] | | | [place] | | | [phone] | [phone] | + +--------+ +--------+ + +
--- OUTSIDE RECORDS SUMMARY | ~2018-05-30 | XMS | Encounter Summary ---
Demographics + + + | Address | [address] | | | [place] [address] | + + + | Home Phone | | + + + | Preferred Language | Unknown | + + + | Marital Status | Unknown | + + + | Moravian Affiliation | Unknown | + + + | Race | Unknown | + + + | Ethnic Group | Unknown | + + + Author + + + | Author | [facility] | + + + | Organization | [facility] | + + + | Address | Unknown | + + + | Phone | Unavailable | + + + Support + + +---------+ + | Name | Relationship | Address | Phone | + + +---------+ + | Darby Kate | ECON | Unknown | | + + +---------+ + Care Team Providers + +------+ + | Care Plastic Block Boiler Reliner Name | Role | Phone | + +------+ + PCP | Unavailable | + +------+ + Reason for Visit + + + | Reason | Comments | + + + | Medical Records | [facility] review | | Review | | + + + Encounter Details +--------+ + + + + | Date | Type | Department | Care Team | Description | +--------+ + + + + | 05/21/ | Abstract | Cardiology at [facility] | Unknown . | Medical Records | | 2017 | | [address] | | Review ([facility] review) | | | | Mailcode: CH9A | | | | | | [facility] | | | | | | and Healing | | | | | | Floor [place], [place] | | | | | | [address] | | | | | | [phone] | | | +--------+ + + + [...] + + + as of this encounter Progress Notes Lorrie Mittal - 05/21/2018 10:26 AM PDTFormatting of this note may be different from the original. Heart Valve Tier 1 Review Patient Name: Rufina Sapp Referring Provider: Arnaldo Blue Designated Family/Support Person Name: Contact Number: Data Elements / Results Needed Prior Medical Review Required for Medical Review Required f or Clinic Received (Y / N) Records / Notes (Care Everywhere / Abstract Enc) Imaging (IMPAX / Disc / Not Available) Comments ECHO/TTE (if performed within the last two years) Report Report / Images yes Care Everywhere IMPAX 12/12/17 [facility] LABS CBC, BMP (from last 6 months) Results Results no CT Scan Chest / Abd / Pelvis (if performed within last two years) Report Report / Images no Stress Tests (if applicable) Report no Provider Notes - Cardiology / Cardiac Surgeon (Last two years) Notes Notes yes Abstract Encounter Provider Note PCP (Last note) Note Note no PFTs (if performed within the last two years) Report Report no CATH (if performed within the last two years) Report / Images no JUAN MANUEL (if performed within the last two years) no Operative Notes (Most recent thoracic, cardiac, vascular surgeries, breast implants) no Additional Comments: Heart Valve Tier 2 Review Patient Name: Rufina Sapp Referring Provider: Designated Family/Support Person Name: Contact Number: Refer to Tier 3 No If Yes, rationale: Tests to Schedule Yes / No Comments ECHO - TTE Y Pre HVC ECHO - JUAN MANUEL Y Post HVC LABS CBC, BMP Y Pre HVC CT Scan Chest / Abd / Pelvis Y Post HVC Dobutamine Stress Echo PFTs CATH Y Post HVC 6 Min Walk Test Y Pre-HVC For Tier 2 Review, place orders immediately For Tier 3 Review, place orders at time of HVC Attending response This data is from outside sources, and has not been individually verified. Heart Valve Tier 3 Response: Since coming from [facility], will need to consolidate trips if possible Would like to see on a Saturday, have baseline testing, 6 min walk, TTE that AM. Gated CT o f chest that afternoon. Would have her stay the night for JUAN MANUEL on Saturday. Would then need to come back for interventional HVC on a Saturday afternoon but be pre-booke d for angiogram Saturday morning prior to Int HVC that afternoon Would have to come over Saturday night for that appointment likely May need surgical MVR based on imaging of severe mitral regurgitation and moderate to sever e mitral annular calcification vs TMVR if less MAC or Valve in MAC if severe MAC. Please lena patient to see if they are up for all that testing. Will place orders once confirmed. Danny Adams MD Senior Power Plant Operator [facility] [place] in this encounter Plan of Treatment Not on fileas of this encounter Visit Diagnoses Not on filein this encounter"
--- OUTSIDE RECORDS SUMMARY | ~2018-05-30 | XMS | Encounter Summary ---
Demographics + + + | Address | [address] | | | [place] [address] | + + + | Home Phone | | + + + | Preferred Language | Unknown | + + + | Marital Status | Unknown | + + + | Catholic Affiliation | Unknown | + + + | Race | Unknown | + + + | Ethnic Group | Unknown | + + + Author + + + | Author | [facility] | + + + | Organization | [facility] | + + + | Address | Unknown | + + + | Phone | Unavailable | + + + Support + + +---------+ + | Name | Relationship | Address | Phone | + + +---------+ + | Darby Kate | ECON | Unknown | | + + +---------+ + Care Team Providers + +------+ + | Care Grating Machine Operator Name | Role | Phone | + +------+ + PCP | Unavailable | + +------+ + Reason for Visit + + + | Reason | Comments | + + + | Medical Records | [facility] review | | Review | | + + + Encounter Details +--------+ + + + + | Date | Type | Department | Care Team | Description | +--------+ + + + + | 05/21/ | Abstract | Cardiology at [facility] | Unknown . | Medical Records | | 2017 | | [address] | | Review ([facility] review) | | | | Mailcode: CH9A | | | | | | [facility] | | | | | | and Healing | | | | | | Floor [place], [place] | | | | | | [address] | | | | | | [phone] | | | +--------+ + + + [...] / Images yes Care Everywhere IMPAX 12/12/17 [facility] LABS CBC, BMP (from last 6 [...] Valve Tier 3 Response: Since coming from [facility], will need to consolidate trips if possible [...] place orders once confirmed. Danny Adams MD Clerk Entry Level [facility] Cardiovascular [place] in this encounter Plan of Treatment Not on fileas of this encounter Visit Diagnoses Not on filein this encounter"
--- OUTSIDE RECORDS SUMMARY | ~2018-05-30 | XMS | Clinical Summary ---
Demographics + + + | Address | [address] | | | [place] [address] | + + + | Home Phone | | + + + | Preferred Language | Unknown | + + + | Marital Status | | + + + | Buddhism Affiliation | Unknown | + + + | Race | Unknown | + + + | Ethnic Group | Unknown | + + + Author + + + | Author | [facility] | + + + | Organization | [facility] | + + + | Address | Unknown | + + + | Phone | Unavailable | + + + Support + + +---------+ + | Name | Relationship | Address | Phone | + + +---------+ + | Darby Kate | ECON | Unknown | | + + +---------+ + Care Team Providers + +------+ + | Care Information Technology Data Analyst Name | Role | Phone | [...] | | | | Activ | | Gyrw-Babjx-DIDBrody | mouth daily. | | | | [...] | | | | | | [place] [address] | | | | | | [phone] | | | | | | | [...] + + + + | Calculated R [place] | 80 | degrees | [facility] | + + + + + | Calculated T [place] | 4 | degrees | [facility] [...] | | | | | by [facility] [place] Read Only, | | | | | [facility]CA Denise ([id number]), | | | | | video editor Alec Guzman | | | | | ([id number]) on 05/20/2018 | | | | | 10:00:11 AM | | | + + + + + + + + + + | Performing | Address | City/State/Zipcode | Phone Number | | Organization | | | | + + + + + | [facility] | [address] | [place] [address] | | + + + + + [...] +------+-------+ + | MEDICARE | MEDICA | [id number] | | | [address] | | | RE | | | | [place] [address] | | | IP-OP | | | | | + +--------+ +------+-------+ + | COMMERCIAL OTHER | BANKER | [id number] | | | | | | S [...] | [place] | | | [address]90 | [address] | + +--------+ +--------+ + +
--- OUTSIDE RECORDS SUMMARY | ~2018-05-30 | XMS | Encounter Summary ---
Demographics + + + | Address | [address] | | | [place] [address] | + + + | Home Phone | | + + + | Preferred Language | Unknown | + + + | Marital Status | Unknown | + + + | Baptism Affiliation | Unknown | + + + | Race | Unknown | + + + | Ethnic Group | Unknown | + + + Author + + + | Author | [facility] | + + + | Organization | [facility] | + + + | Address | Unknown | + + + | Phone | Unavailable | + + + Support + + +---------+ + | Name | Relationship | Address | Phone | + + +---------+ + | Darby Kate | ECON | Unknown | | + + +---------+ + Care Team Providers + +------+ + | Care Body Cleaner Name | Role | Phone | + +------+ + PCP | Unavailable | + +------+ + Reason for Visit +--------+ + | Reason | Comments | +--------+ + | Other | [facility] appt | +--------+ + Encounter Details +--------+ + + + + | Date | Type | Department | Care Team | Description | +--------+ + + + + | 05/30/ | Telephone | Cardiology at [facility] | Danny Adams | Other ([facility] appt) | | 2017 | | [address] | | | | | Mailcode: CHACHO | [place], [place] | | | | | [facility] | [address] | | | | | and | [phone] | | | | | Floor [place], [place] | | | | | | [address] | | | | | | [phone] | | | +--------+ + + + [...] + + + as of this encounter Plan of Treatment Not on fileas of this encounter Visit Diagnoses Not on filein this encounter"
--- OUTSIDE RECORDS SUMMARY | ~2018-05-30 | XMS | Clinical Summary ---
Demographics + + + | Address | [address] | | | [place] [address] | + + + | Home Phone | | + + + | Preferred Language | Unknown | + + + | Marital Status | | + + + | Holiness Affiliation | Unknown | + + + | Race | Unknown | + + + | Ethnic Group | Unknown | + + + Author + + + | Author | [facility] | + + + | Organization | [facility] | + + + | Address | Unknown | + + + | Phone | Unavailable | + + + Support + + +---------+ + | Name | Relationship | Address | Phone | + + +---------+ + | Darby Kate | ECON | Unknown | | + + +---------+ + Care Team Providers + +------+ + | Care Desk Editor Name | Role | Phone | + [...] | | | | Activ | | Klbv-Ztuqr-FGXBrody | mouth daily. | | | | [...] | | | | | | [place] [address] | | | | | | [phone] | | | | | | | [...] + + + + | Calculated R [place] | 80 | degrees | [facility] | + + + + + | Calculated T [place] | 4 | degrees | [facility] [...] | | | | | by [facility] [place] Read Only, | | | | | [facility] Denise ([id number]), | | | | | film editor Alec Guzman | | | | | ([id number]) on 05/20/2018 | | | | | 10:00:11 AM | | | + + + + + + + + + + | Performing | Address | City/State/Zipcode | Phone Number | | Organization | | | | + + + + + | [facility] | [address] | [place] [address] | | + + + + + [...] +------+-------+ + | MEDICARE | MEDICA | [id number] | | | [address] | | | RE | | | | [place] [address] | | | IP-OP | | | | | + +--------+ +------+-------+ + | COMMERCIAL OTHER | BANKER | [id number] | | | | | | S [...] | [place] | | | [address]90 | [phone] | + +--------+ +--------+ + +
--- OUTSIDE RECORDS SUMMARY | ~2018-05-30 | XMS | Clinical Summary ---
Demographics + + + | Address | [address] | | | [place] [address] | + + + | Home Phone | | + + + | Preferred Language | Unknown | + + + | Marital Status | Unknown | + + + | Episcopal Affiliation | Unknown | + + + | Race | Unknown | + + + | Ethnic Group | Unknown | + + + Author + + + | Author | [facility] | + + + | Organization | [...] Team Providers + +------+ + | Care Grind Operator Name | Role | Phone | + +------+ + PP | Unavailable | + +------+ + Source Comments TAIWO is fully live on both [facility] Ambulatory and [facility] InPatient.[facility] Allergies Not on File Current Medications Not on file Active Problems Not on file Encounters +--------+ + + + + | Date | Type | Specialty | Care Team | Description | +--------+ + + + + | 05/30/ | Telephone | | Danny Adams | Other ([facility] appt) | | 2017 | | | MD Dayo | | +--------+ + + + + | 05/21/ | Abstract | | Unknown | Medical Records | | 2017 | | | | Review ([facility] review) | +--------+ + + + + from Last 3 Months Social History + +-------+ +--------+------+ | Tobacco [...] on file | | + + + Plan of Treatment + + + + + | Health Maintenance | Due Date | Last Done | Comments | + + + + + | INFLUENZA VACCINE | | | | | (FLU SHOT) | 8 | | | + + + + + Results Not on filefrom Last 3 Months"
--- OUTSIDE RECORDS SUMMARY | ~2018-05-30 | XMS | Encounter Summary ---
Demographics + + + | Address | [address] | | | [place] [address] | + + + | Home Phone | | + + + | Preferred Language | Unknown | + + + | Marital Status | Unknown | + + + | Spiritism Affiliation | Unknown | + + + [...] Providers + +------+ + | Care University Librarian Name | Role | Phone | + +------+ + PCP | Unavailable | + +------+ + Reason for Visit + + + | Reason | Comments | + + + | Medical Records | [facility] review | | Review | | + + + Encounter Details +--------+ + + + + | Date | Type | Department | Care Team | Description | +--------+ + + + + | 05/21/ | Abstract | Cardiology at [facility] | Unknown . | Medical Records | | 2017 | | [address] | | Review ([facility] review) | | | | Mailcode: CH9A | | | | | | [facility] | | | | | | and Healing | | | | | | Floor [place], [place] | | | | | | [address] | | | | | | [phone] | | | +--------+ + + + [...] / Images yes Care Everywhere IMPAX 12/12/17 [facility] LABS CBC, BMP (from last 6 [...] Valve Tier 3 Response: Since coming from [facility], will need to consolidate trips if possible [...] place orders once confirmed. Danny Adams MD Aligning Inspector [facility] Cardiovascular [place] in this encounter Plan of Treatment Not on fileas of this encounter Visit Diagnoses Not on filein this encounter"
--- OUTSIDE RECORDS SUMMARY | ~2018-05-30 | XMS | Clinical Summary ---
Demographics + + + | Address | [address] | | | [place] [address] | + + + | Home Phone | | + + + | Preferred Language | Unknown | + + + | Marital Status | Unknown | + + + | Orthodoxy Affiliation | Unknown | + + + [...] Team Providers + +------+ + | Care Roof Bolter Name | Role | Phone | + +------+ + PP | Unavailable | + +------+ + Source Comments TAIWO is fully live on both [facility] and [facility] InPatient.[facility] Allergies Not on File Current Medications Not on file Active Problems Not on file Encounters +--------+ + + + + | Date | Type | Specialty | Care Team | Description | +--------+ + + + + | 05/30/ | Telephone | | Danny Adams | Other ([facility] appt) | | 2017 | | | MD Dayo | | +--------+ + + + + | 05/21/ | Abstract | | Unknown | Medical Records | | 2017 | | | | Review ([facility] review) | +--------+ + + + [...]
--- OUTSIDE RECORDS SUMMARY | ~2018-05-30 | XMS | Encounter Summary ---
Demographics + + + | Address | [address] | | | [place] [address] | + + + | Home Phone | | + + + | Preferred Language | Unknown | + + + | Marital Status | Unknown | + + + | Religion Affiliation | Unknown | + + + [...] Team Providers + +------+ + | Care Marketing Assistant Manager Name | Role | Phone | + +------+ + PCP | Unavailable | + +------+ + Reason for Visit +--------+ + | Reason | Comments | +--------+ + | Other | [facility] appt | +--------+ + Encounter Details +--------+ + + + + | Date | Type | Department | Care Team | Description | +--------+ + + + + | 05/30/ | Telephone | Cardiology at [facility] | Danny Adams | Other ([facility] appt) | | 2017 | | [address] | | | | | Mailcode: CHACHO | [place], [place] | | | | | [facility] | [address] | | | | | and | [phone] | | | | | Floor [place], [place] | | | | | | [address] | | | | | | [phone] | | | +--------+ + + + [...]
--- OUTSIDE RECORDS SUMMARY | ~2018-05-30 | XMS | Clinical Summary ---
Demographics + + + | Address | [address] | | | [place] [address] | + + + | Home Phone | | + + + | Preferred Language | Unknown | + + + | Marital Status | Unknown | + + + | Scientologist Affiliation | Unknown | + + + [...] Team Providers + +------+ + | Care Horticultural Farmworker Name | Role | Phone | + +------+ + PP | Unavailable | + +------+ + Source Comments TAIWO is fully live on both [facility] and [facility] InPatient.[facility] Allergies Not on File Current Medications Not on file Active Problems Not on file Encounters +--------+ + + + + | Date | Type | Specialty | Care Team | Description | +--------+ + + + + | 05/30/ | Telephone | | Danny Adams | Other ([facility] appt) | | 2017 | | | MD Dayo | | +--------+ + + + + | 05/21/ | Abstract | | Unknown | Medical Records | | 2017 | | | | Review ([facility] review) | +--------+ + + + [...]
--- OUTSIDE RECORDS SUMMARY | ~2018-05-30 | XMS | Encounter Summary ---
Demographics + + + | Address | [address] | | | [place] [address] | + + + | Home Phone | | + + + | Preferred Language | Unknown | + + + | Marital Status | Unknown | + + + | Christian Affiliation | Unknown | + + + [...] Team Providers + +------+ + | Care Specialty Molder Name | Role | Phone | + +------+ + PCP | Unavailable | + +------+ + Reason for Visit +--------+ + | Reason | Comments | +--------+ + | Other | [facility] appt | +--------+ + Encounter Details +--------+ + + + + | Date | Type | Department | Care Team | Description | +--------+ + + + + | 05/30/ | Telephone | Cardiology at [facility] | Danny Adams | Other ([facility] appt) | | 2017 | | [address] | | | | | Mailcode: CHACHO | [place], [place] | | | | | [facility] | [address] | | | | | and | [phone] | | | | | Floor [place], [place] | | | | | | [address] | | | | | | [phone] | | | +--------+ + + + [...]
--- OUTSIDE RECORDS SUMMARY | ~2018-05-30 | XMS | Encounter Summary ---
Demographics + + + | Address | [address] | | | [place] [address] | + + + | Home Phone | | + + + | Preferred Language | Unknown | + + + | Marital Status | | + + + | Rastafarian Affiliation | Unknown | + + + | Race | Unknown | + + + | Ethnic Group | Unknown | + + + Author + + + | Author | [facility] | + + + | Organization | [facility] [facility] | + + + | Address | Unknown | + + + | Phone | Unavailable | + + + Support + + +---------+ + | Name | Relationship | Address | Phone | + + +---------+ + | Darby Kate | ECON | Unknown | | + + +---------+ + Care Team Providers + +------+ + | Care Evp And Chief Operating Officer Name | Role | Phone | [...] | | | | | heart | [place], [place] | [place] , [place] | | | | | failure | [address] | [address] | | | | | ([facility]) | Phone: | Phone: | | | | | Persistent | [phone] | [phone] | | | | | atrial | Fax: | Fax: | | | | | fibrillation | [phone] | [phone] | | | | | ([facility]) | | | | | | | [...] | | | | | | | ([facility]) | | | + + + + [...] Dr Jenkins | | | | | ([facility]) | [address] [place] | | | | | Procedures | [place], | [address] Phone: | | | | | Consult | [place] [address] | [phone] | | | | | | Phone: | Fax: | | | | | | [phone] | [phone] | | | | | | Fax: | | | | | | | [phone] | | + +--------+ + + + + Encounter Details +--------+ + + + + | Date | Type | Department | Care Team | Description | +--------+ + + + + | 05/20/ | Initial | [facility] | Arnaldo Blue, | Persistent atrial | | 2018 | consult | Cardiology [place] | MD [address] | fibrillation (HCC) | | | | [address] | [place], | (Primary Dx); Acute | | | | [address] | [place] [address] | on chronic diastolic | | | | [place]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 Subjective: Patient ID: Rufina Sapp is a 88 y.o. female. HPI The [...] a cardiology evaluation. She was hospitalized at 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 She continues to have sign ificant dyspnea on exertion, walking about one half block, and because of this, now leaves h er home only about once per week, whereas previously, she was quite active, participating in multiple activities such as quilting. It has clearly affected her quality of life. She wo uld be classified as [place] Heart Association class III. At age 88, [...] for this, and I referred her to [facility] for this purpose. She is on appropriate [...] hematuria, urinary urgency, hesitancy . No active Second Operator disorders. HEMATOLOGY/ONCOLOGY: No h/o bleeding disorders, DVT, [...] mg by mouth daily., Disp: , Rfl: Iomz-Hlyyu-XVX-Boswellia-Vit D (GLUCOSAMINE CHOND TRIPLE/VIT D) TABS, Take [...] [place], | | | | | | [place] [address] | | | | | | [phone] | | | | | | | [...] + + + + | Calculated R [place] | 80 | degrees | [facility] | + + + + + | Calculated T [place] | 4 | degrees | [facility] | + + + + + | Diagnosis | Atrial | | [facility] | | | fibrillationAnterior | | [...] | | | | | by [facility] [place] Read Only, | | | | | [facility] Denise ([id number]), | | | | | online editor Alec Guzman | | | | | ([id number]) on 05/20/2018 | | | | | 10:00:11 AM | | | + + + + + + + + + + | Performing | Address | City/State/Zipcode | Phone Number | | Organization | | | | + + + + + | [facility] | [address] | [place] [address] | | + + + + + [...]
--- OUTSIDE RECORDS SUMMARY | ~2018-05-30 | XMS | Encounter Summary ---
Demographics + + + | Address | [address] | | | [place] [address] | + + + | Home Phone | | + + + | Preferred Language | Unknown | + + + | Marital Status | | + + + | Latter Day Affiliation | Unknown | + + + | Race | Unknown | + + + | Ethnic Group | Unknown | + + + Author + + + | Author | [facility] | + + + | Organization | [facility] [facility] | + + + | Address | Unknown | + + + | Phone | Unavailable | + + + Support + + +---------+ + | Name | Relationship | Address | Phone | + + +---------+ + | Darby Kate | ECON | Unknown | | + + +---------+ + Care Team Providers + +------+ + | Care Student Teacher Name | Role | Phone | [...] | | | | | heart | [place], [place] | [place] , [place] | | | | | failure | [address] | [address] | | | | | ([facility]) | Phone: | Phone: | | | | | Persistent | [phone] | [phone] | | | | | atrial | Fax: | Fax: | | | | | fibrillation | [phone] | [phone] | | | | | ([facility]) | | | | | | | [...] | | | | | | | ([facility]) | | | + + + + [...] Dr Jenkins | | | | | ([facility]) | [address] [place] | | | | | Procedures | [place], | [address] Phone: | | | | | Consult | [place] [address] | [phone] | | | | | | Phone: | Fax: | | | | | | [phone] | [phone] | | | | | | Fax: | | | | | | | [phone] | | + +--------+ + + + + Encounter Details +--------+ + + + + | Date | Type | Department | Care Team | Description | +--------+ + + + + | 05/20/ | Initial | [facility] [place] [facility] | Arnaldo Blue, | Persistent atrial | | 2018 | consult | Cardiology [place] | MD [address] | fibrillation (HCC) | | | | [address] | [place], | (Primary Dx); Acute | | | | [address] | [place] [address] | on chronic diastolic | | | | [place] [address] | [phone] | congestive heart | | | | [phone] | | failure (HCC); | | | [...] was hospitalized at [facility] twice this year, the first time in [...] and a small secundum ASD with minor gxkc-mz-vbpix shunting. She continues to have sign ificant dyspnea on exertion, walking about one half block, and because of this, now leaves h er home only about once per week, whereas previously, she was quite active, participating in multiple activities such as quilting. It has clearly affected her quality of life. She wo uld be classified as [place] Heart Association class III. At age 88, [...] for this, and I referred her to [facility] for this purpose. She is on [...] hematuria, urinary urgency, hesitancy . No active Heating Worker disorders. HEMATOLOGY/ONCOLOGY: No h/o bleeding disorders, DVT, [...] mg by mouth daily., Disp: , Rfl: Vnve-Dhoiy-BKW-Boswellia-Vit D (GLUCOSAMINE CHOND TRIPLE/VIT D) TABS, Take [...] [place], | | | | | | [place] [address] | | | | | | [phone] | | | | | | | [...] + + + + | Calculated R [place] | 80 | degrees | [facility] | + + + + + | Calculated T [place] | 4 | degrees | [facility] | + + + + + | Diagnosis | Atrial | | [facility] | | | fibrillationAnterior [...] | | | | | by [facility] [place] Read Only, | | | | | [facility] Denise ([id number]), | | | | | loan expeditor Alec Guzman | | | | | ([id number]) on 05/20/2018 | | | | | 10:00:11 AM | | | + + + + + + + + + + | Performing | Address | City/State/Zipcode | Phone Number | | Organization | | | | + + + + + | [facility] | [address] | [place] [address] | | + + + + + [...]
[~2018-05-30 15:46] MED LIST changes: +LASIX40 MG PO; +MAG6464 MG PO; -SLOW-MAG71.5 MG PO; +TOPROL XL200 MG PO; +TYLENOL325 MG PO; +VERAPAMIL ER P300 MG PO; +VITAMIN D2000 UNI1 PO
--- NOTE | 2018-05-30 19:15 | NUR ---
RECEIVED REPORT FROM BRAYDEN IN ER. PT WILL ARRIVE ON FLOOR SOON.
--- NOTE | 2018-05-30 19:35 | NUR ---
PT ARRIVED ON FLOOR FORM ER. CHARGE TO DO ADMISSION.
--- NOTE | 2018-05-30 19:58 | NUR ---
PATIENT ARRIVED VIA STRETCHER AND WAS ABLE TO SCOOT ACROSS FROM THE STRETCHER TO THE HOSPITAL BED W/NO ASSISTANCE. PATIENTS ADMISSION COMPLETED. PATIENT GIVEN SOUP AND CRAKERS PER REQUEST. PATIENT PLACED ON TELE #4. PATIENT DENIES ANY PAIN. PATIENT OREINTED TO FLOOR AND ROOM. NO FURTHER NEEDS NOTED. CALL LIGHT IN REACH.
--- NOTE | 2018-05-30 21:52 | NUR ---
GOT PT A PILLOW FOR HER LEGS AND A BOX OF TISSUES. PT NEEDS NOTHING ELSE AT THIS TIME.
--- NOTE | 2018-05-30 22:00 | NUR ---
ALL LOBES ARE CLEAR, BOWEL TONES ARE ACTIVE. PT HAS MINIMAL PAIN IN LOWER ABD. NO FLANK PAIN. PT IS VOIDING WELL. NO EDEMA NOTED. NO NEW CONCERNS AT THIS TIME.
--- NOTE | 2018-05-31 | NUR ---
PT IS SLEEPING AT THIS TIME.
--- NOTE | 2018-05-31 00:58 | NUR ---
HELPED PT TO THE BATHROOM AND BACK TO BED. BEDSIDE TABLE AND CALL LIGHT WITHIN REACH. PT NEEDS NOTHING MORE AT THIS TIME.
--- NOTE | 2018-05-31 01:50 | NUR ---
VITALS AND I&OS DONE AND CHARTED. FRESH WATER GIVEN. BEDSIDE TABLE AND CALL LIGHT WITHIN REACH. SHE NEEDS NOTHING AT THIS TIME.
--- NOTE | 2018-05-31 02:00 | NUR ---
PT IS SLEEPING AT THIS TIME.
--- NOTE | 2018-05-31 04:40 | NUR ---
PT IS AWAKE IN BED READING A BOOK. PT DENIES PAIN AND NAUSEA. ABD SOUNDS ARE PRESENT, ALL LOBES ARE CLEAR, NO EDEMA NOTED. NO NEW CONCERNS AT THIS TIME.
--- NOTE | 2018-05-31 05:11 | NUR ---
PT ARRIVED ON FLOOR AT 1935. PT SINCE HAD NO NAUSEA, AND PAIN IN LOWER ABD IS MINIMAL. PT AT AROUND 0130 DID DEVELOPE A TEMP OF 99.4. WILL CONTINUE TO MONITOR. ABD SOUNDS ARE PRESENT. PT IS VOIDING WELL. NO EDEMA NOTED. PT STATED THIS MORNING THAT SHE IS FEELING MUCH BETTER. AT THIS TIME I HAVE NO NEW CONCERNS BESIDES HER TEMP.
--- NOTE | 2018-05-31 07:57 | NUR ---
RECEIVED REPORT FROM DAY SHIFT RN. PT IN BED, APPEARS TO BE SLEEPING. CALL LIGHT IN REACH.
--- NOTE | 2018-05-31 09:43 | NUR ---
pt had othrostatic vitals done, then pt walked to bathroom, voided, and walked back to bed. pt is now restin in bed safely with call light in reach. pt did not need anything else at the moment
--- NOTE | 2018-05-31 10:27 | NUR ---
PT IN BED. VERY TIRED. TELE #4 WITH IRREGULAR HR. HR 59. DENIES PAIN. CALL LIGHT IN REACH.
--- NOTE | 2018-05-31 11:15 | NUR ---
PT REPORTED NAUSEA. ZOFRAN GIVEN. CALL LIGHT IN REACH. FAMILY AT BEDSIDE. DENIES FURTHER NEEDS.
--- NOTE | 2018-05-31 11:27 | NUR ---
SBA TO BATHROOM. VOIDED 100ML. BACK TO BED. CALL LIGHT IN REACH. PERSONAL ITEMS AT BEDSIDE.
--- NOTE | 2018-05-31 13:15 | NUR ---
MED REC COMPLETE
--- NOTE | 2018-05-31 13:53 | NUR ---
PT RESTING AT THIS TIME. REPORTS NO N/V OR PAIN. CALL LIGHT IN REACH. DENIES NEEDS AT THIS TIME.
--- NOTE | 2018-05-31 14:01 | NUR ---
pt is resting in bed with call light in reach. pt asked for her water to be moved closer to her.
--- NOTE | 2018-05-31 16:20 | NUR ---
PT IN BED WITH FAMILY AT BEDSIDE. REPORTS NO N/V AND NO ABDOMINAL PAIN. CALL LIGHT AT REACH/ DENIES FURTHER NEEDS.
--- NOTE | 2018-05-31 16:57 | EKG ---
[facility] [address] 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 rate has increased BY 50 BPM QRS axis shifted right Nonspecific T wave abnormality no longer evident in Anterior leads Confirmed by GRACE ALMONTE MD ([id number]) on 05/31/2018 4:56:56 PM Electronically Signed By: GRACE ALMONTE MD 05/31/18 1657 PATIENT NAME: ZANDRA JAIME Electrocardiogram DATE OF : 34 PHYSICIAN: GRACE ALMONTE MD REPORT #: [id number] REPORT IS CONFIDENTIAL AND NOT TO BE RELEASED WITHOUT AUTHORIZATION
--- NOTE | 2018-05-31 17:51 | NUR ---
pt resting in bed safely. pt family in room with her. pt has no needs at this time. call light within reach.
--- NOTE | 2018-05-31 18:49 | NUR ---
GOOD DAY. MAG RIDER. NO PAIN, N/V. LR @ 75 ADDED. DECREASED APPETITE. SBA. NO NEW CONCERNS.
--- NOTE | 2018-05-31 20:00 | NUR ---
RECEIVED REPORT AT 1900, FOUND PT IN BED ON THE PHONE. PT HAD NO CONCERNS AT THAT TIME.
--- NOTE | 2018-05-31 20:25 | NUR ---
VITALS AND I&OS DONE AND CHARTED. FRESH WATER GIVEN. BEDSIDE TABLE AND CALL LIGHT WITHIN REACH. PT NEEDS NOTHING AT THIS TIME.
--- NOTE | 2018-05-31 22:00 | NUR ---
V/S AND MEDS WERE GIVEN BY TEMI CHAMPION. PT HAD A TEMP OF 100.5 AND SOME PAIN. TYLENOL PRN WAS GIVEN. WILL CONTINUE TO MONITOR. PT STATED THAT OVERALL SHE IS FEELING STRONGER. ALL LOBES ARE CLEAR, ABD SOUNDS ARE PRESENT. NO EDEMA NOTED.
--- NOTE | 2018-06-01 | NUR ---
PT IS SLEEPING AT THIS TIME.
--- NOTE | 2018-06-01 02:00 | NUR ---
PT IS AWAKE IN BED READING HER BOOK. NO NEEDS AT THIS TIME.
--- NOTE | 2018-06-01 04:05 | NUR ---
NEW IV WAS PLACED IN RIGHT AC. PT IS BACK IN BED.
--- NOTE | 2018-06-01 05:19 | NUR ---
PT AT BEGINNING OF SHIFT HAD A HEADACHE AND A TEMP OF 100.5. PRN TYLENOL WAS GIVEN. BOTH HAVE RESOLVED SINCE. PT OVERALL HAD NO ISSUES TO SPEAK OF OTHERWISE THIS SHIFT. ALL LOBES ARE CLEAR, ABD SOUNDS ARE PRESENT. NO EDEMA NOTED. PT HOWEVER WOULD BENEFIT FROM PHYSICAL THERAPY DUE TO ACTIVITY INTOLERANCE SHE STATED STARTED AFTER HER DX OF CHF. THIS ALSO MAY BE HER NEW BASELINE... IV SITE HAD TO BE CHANGED DUE TO LEAKING. NO OTHER CONCERNS AT THIS TIME.
--- NOTE | 2018-06-01 06:22 | NUR ---
VITALS AND I&OS DONE AND CHARTED. FRESH WATER GIVEN. GARBAGES EMPTIED. BEDSIDE TABLE AND CALL LIGHT WITHIN REACH.
--- NOTE | 2018-06-01 08:05 | NUR ---
PT RESTING IN BED READING HER BOOK AT THIS TIME. PT HAS NO C/O PAIN. SALINE LOCKED. BM THIS MORNING. A/0 X4 WITH NO QUESTIONS OR CONCERNS. PT REQUESTING TO TAKE HER METFORMIN AFTER HAVING SOME BITES OF BREAKFAST SO I WILL RETURN IN A WHILE WITH THAT MEDICATION. ASSESSMENT COMPLETED AT THIS TIME. CALL LIGHT AND BELONGINGS WITHIN REACH. WILL CONTINUE TO MONITOR.
--- NOTE | 2018-06-01 09:06 | NUR ---
PT RESTING IN BED AT THIS TIME. PT C/O HEADACHE OF 3/1O WITH A GOAL OF O TO 2. PRN TYLENOL GIVEN. NO OTHER REQUESTS AT THIS TIME. CALL LIGHT AND BELONGINGS WITHIN REACH. WILL CONTINUE TO MONITOR.
--- NOTE | 2018-06-01 10:31 | NUR ---
DR. ALMONTE IN ROOM WITH PT AT THIS TIME; I REASSESSED PT'S HEADACHE PAIN AFTER GETTING TYLENOL AND SHE STATED THAT HER HEAD IS BETTER AND HAS NO PAIN. CALL LIGHT WITHIN REACH. WILL CONTINUE TO MONITOR.
--- NOTE | 2018-06-01 10:46 | NUR ---
pt resting in bed. pt has no needs at this time. pt refused shower said possibly after lunch. call light within reach.
--- NOTE | 2018-06-01 10:55 | NUR ---
PT EDUCATED ON LASIX AND KCHLOR TABLETS DURING ADMINISTRATION AT THIS TIME. PT STATES HER UNDERSTANDING OF THESE MEDICATIONS AND HAS NO FURTHER QUESTIONS. CALL LIGHT WITHIN REACH. WILL CONTINUE TO MONITOR AND ENCOURAGE INCREASED CALORIC INTAKE. GLUCERNA ADDED TO PT'S DIET ORDER.
--- NOTE | 2018-06-01 12:45 | NUR ---
PT RESTING IN BED READING HER BOOK WITH NO C/O PAIN AT THIS TIME. PT HAS NO QUESTIONS OR CONCERNS AT THIS TIME. BREATHING UNDER CONTROL SHE'S RESTING. CALL LAYNE PASTRANA. WILL CONTINUE TO MONITOR.
--- NOTE | 2018-06-01 14:50 | NUR ---
PT RELAXING IN BED WITH C/O PAIN AT THIS TIME. ERICKSON AT BEDSIDE VISITING WITH PT. PT HAS NO QUESTIONS OR CONCERNS AT THIS TIME. CALL LIGHT WITHIN REACH. WILL CONTINUE TO MONITOR.
--- NOTE | 2018-06-01 15:42 | NUR ---
PT ASSISTED WITH SHOWER. HAIR WASHED. CLEAN GOWN AND SOCKS GIVEN. LINEN CHANGED. PT RESTING IN BED AND VISITING WITH FAMILY.
--- NOTE | 2018-06-01 18:30 | NUR ---
PT VS AND CONDITION STABLE TODAY ON 06/01/18 DAY SHIFT. PT PLEASANT, CALM AND COOPERATIVE WITH ONLY ONE C/O PAIN TODAY (HEADACHE) WHICH WENT AWAY AFTER GETTING PRN TYLENOL. LUNG SOUNDS GREATLY IMPROVED AFTER GETTING X1 DOSE OF PIV LASIX THIS MORNING. PT STILL HAS NO APPETITE AND TAKING IN LITTLE CALORIES. GLUCERNAS ADDED TO PT'S DIET WHICH PT HAS DONE WELL WITH DRINKING TODAY. SALINE LOCKED. ROOM AIR. PT IN BED READING HER BOOK AT THIS TIME WITH NO C/O OF PAIN, NO REQUESTIONS OR CONCERNS. CALL LIGHT WITHIN REACH, PT CALLS APPROPRIATELY. WILL CONTINUE TO MONITOR.
--- NOTE | 2018-06-01 20:00 | NUR ---
RECEIVED REPORT AT 1900, FOUND PT IN BED ON THE PHONE. NO NEW CONCERNS AT THIS TIME.
--- NOTE | 2018-06-01 21:05 | NUR ---
VITALS AND I&OS DONE AND CHARTED, NOTIFIED RN OF TEMP. FRESH WATER GIVEN. BEDSIDE TABLE AND CALL LIGHT WITHIN REACH.
--- NOTE | 2018-06-01 22:00 | NUR ---
PT HAD A TEMP OF 99.4. WILL CONTINUE TO MONITOR. OTHERWISE ALL V/S WERE WDL. ALL LOBES ARE CLEARN NO CRACKLES NOTED. PT DENIES PAIN AND NAUSEA. ABD SOUNDS ARE PRESENT, NO EDEMA NOTED PT STATED THAT SHE FEELS MUCH BETTER TODAY. PT DID NOT WANT A GLUCERNA AT THIS TIME.
--- NOTE | 2018-06-02 | NUR ---
PT IS SLEEPING AT THIS TIME BUT WILL BE WOKEN UP TO RE-EVALUATE TEMP.
--- NOTE | 2018-06-02 02:00 | NUR ---
PT IS IN RESTROOM AT THIS TIME. PT HAS BEEN SLEEPING SO FAR.
--- NOTE | 2018-06-02 03:55 | NUR ---
PT IS AWAKE IN BED READING HER BOOK. ALL LOBES ARE CLEAR. PT HAS MINIMAL PAIN IN LOWER ABD. NO NEW CONCERN AT THIS TIME. WILL CONTINUE TO MONITOR HER ELEVATED TEMP.
--- NOTE | 2018-06-02 05:08 | NUR ---
PT AT START OF SHIFT HAD A TEMP OF 99.4. AT MIDNIGHT TEMP WAS 99.3. WILL CONTINUE TO MONITOR. PT DENIES PAIN SO FAR THAT NEEDS INTERVENTION. ALL LOBES HAVE BEEN CLEAR THIS SHIFT AND PT IS VOIDING WELL. NO EDEMA NOTED ABD SOUNDS ARE PRESENT. NO OTHER CONCERNS NOTED SO FAR THIS SHIFT.
--- NOTE | 2018-06-02 05:16 | NUR ---
VITALS AND I&OS DONE AND CHARTED. FRESH WATER GIVEN. BEDSIDE TABLE AND CALL LIGHT IN REACH. HELPED PT TO THE BATHROOM AND BACK TO BED.
--- NOTE | 2018-06-02 07:50 | NUR ---
ASSESSMENT AND MEDICATIONS DUE. PATIENT IN BED. ASSISTED PATIENT UP TO BATHROOM. ASSESSMENT DONE. PATIENT REPORTS PAIN IN LOWER ABDOMEN "ONCE IN A WHILE". PATIENT REPORTS FEELING "85% BETTER" SINCE ADMISSION. PATIENT EATING BREAKFAST. NO FURTHER REQUESTS AT THIS TIME. CALL LIGHT WITHIN REACH.
--- NOTE | 2018-06-02 09:30 | NUR ---
PATIENT UP TO BATHROOM AND BACK TO BED WITH ONE PERSON ASSIST. PATIENT STATES THAT SHE ALREADY WASHED HER HANDS AND FACE ALONG WIHT ORAL CARE EARLIER THIS AM. PATIENT REFUSED SHOWER AT THIS TIME. FRESH WATER GIVEN. CALL BUTTON IN REACH. NO OTHER NEEDS AT THIS TIME.
--- NOTE | 2018-06-02 10:24 | NUR ---
MEDICATIONS DUE. THIS RN TO BEDSIDE. PT RESTING IN BED. DENIES PAIN AND NAUSEA. MEDICATIONS GIVEN ORDERED. PT READING NEWSPAPER. NO REQUESTS OR COMPALINTS. BED RAILSUP. CALL LIGHT WITHIN REACH.
--- NOTE | 2018-06-02 12:02 | NUR ---
ASSESSMENT DUE. PATIENT IN BED. TALKED ABOUT AMBULATING PATIENT AGREED TO WALK BEFORE LUNCH. PATIENT DENIES PAIN. ASSESSMENT DONE. LUNCH DELIVERED. PATIENT AMBULATED KAMLESH AGUILERA, WITH AKIRA TAO. NO FURTHER REQUESTS AT THIS TIME.
--- NOTE | 2018-06-02 12:49 | NUR ---
PT CALL LIGHT ON. PT ASSISTED BACK TO BED AFTER VOIDING. PT FINISHED WITH LUNCH. MODERATE INTAKE. PT STATES "i'M JUST GOING TO SIT HERE AND MAC AND PUFF FOR A WHILE." PT ENCOURAGED TO REST BEFORE PHYSICAL THERAPY BUT REMINDED TO WALK ANOTHER 3 TIMES TODAY (1 LAP AROUND UNIT DONE BEFORE LUNCH). PT VERBALIZES UNDERSTANDING. CALL LIGHT WITHIN REACH. BED RAILS UP.
--- NOTE | 2018-06-02 14:19 | NUR ---
THIS RN TO PATIENT'S ROOM TO CHECK IN WITH PATIENT. PATIENT UP WITH PHYSICAL THERAPY.
--- NOTE | 2018-06-02 17:21 | NUR ---
ASSESSMENT AND MEDICATIONS DUE. PATIENT EATING DINNER. PATIENT DENIED PAIN. ASSESSMENT DONE. MEDICATIONS GIVEN (SEE MAR). PATIENT VERBALIZED PLAN TO WALK HALLWAY AFTER DINNER AND A SHOWER. THREE LAPS DONE ALREADY TODAY. IS USE ENCOURAGED. PATIENT TALKING WITH CASE MANAGEMENT. CALL LIGHT WITHIN REACH.
--- NOTE | 2018-06-02 18:59 | NUR ---
PATIENT AMBULATES SBA WITH FWW/CANE. PHYSICAL THERAPY WORKED WITH PATIENT. PATIENT AMBULATED X3. PATIENT CONSUMED 60% OF MEALS ON THIS SHIFT. PATIENT USES CALL LIGHT APPROPRIATELY. EXPECTED DISCHARGE TOMORROW. SHOWER TODAY. IV ANTIBIOTICS.
--- NOTE | 2018-06-02 19:10 | NUR ---
IN ROOM FOR REPORT, PT IS AWAKE IN BED AND DENIES NEEDS AT THIS TIME. CALL LIGHT IS WITHIN REACH.
--- NOTE | 2018-06-02 19:51 | NUR ---
HELPED PT TO THE RESTROOM AND BACK TO BED, SHE DENIES PAIN AND DIZZINES. CALL LIGHT IS WITHIN REACH.
--- NOTE | 2018-06-02 21:19 | NUR ---
IN ROOM TO ASSESS PT AND ADMINISTER MEDICATIONS. VS AND I AND O COMPLETE. PT DENIES PAIN, AND DIZZINES. SHE STATES SHE JUST FEELS TIRE AFTER GETTING UP TO THE RESTROOM. VS ARE WNL. SHE HAS FRESH WATER AT BEDSIDE AND SHE DENIES FURTHER NEEDS. CALL LIGHT IS WITHIN REACH.
--- NOTE | 2018-06-02 23:05 | NUR ---
PT IS RESTING WITH EYES CLOSED, RESPIRATIONS ARE EVEN AND NONLABORED. CALL LIGHT IS WITHIN REACH.
--- NOTE | 2018-06-03 00:52 | NUR ---
PT IS RESTING WITH EYES CLOSED, RESPIRATIONS ARE EVEN AND NONLABORED. CALL LIGHT IS WITHIN REACH.
--- NOTE | 2018-06-03 01:30 | NUR ---
HELPED PT TO THE RESTROOM AND BACK TO BED. SHE DENIES FURTHER NEEDS.
--- NOTE | 2018-06-03 04:16 | NUR ---
PT CALLED REQUESTING WATER, SHE DENIES FURTHER NEEDS.
--- NOTE | 2018-06-03 05:40 | NUR ---
SBA TO THE BATHROOM AND BACK TO BED. PATIENT DID A.M. CARE, WASH HANDS AND FACE AND BRUSH TEETH.
--- NOTE | 2018-06-03 08:38 | NUR ---
PT SHOWERED WITH ASSISTANCE. HAIR WASHED. CLEAN GOWN AND SOCKS ON. PT RESTING IN BED.
--- NOTE | 2018-06-03 09:08 | NUR ---
PT REQUESTED TO AMBULATE IN HALLS. THIS RN STOOD BY PATIENT AMBULATED WITH FWW 1 LAP OF MED SURG UNIT. UP IN RECLINER NOW WITH BELONGINGS IN REACH. CALL LIGHT IN REACH. NO OTHER NEEDS AT THIS TIME.
--- NOTE | 2018-06-03 09:28 | NUR ---
PATIENT SITTING IN CHAIR SEWING. CALL LIIGHT IN REACH. NO FURTHER NEEDS AT THIS TIME.
--- NOTE | 2018-06-03 10:03 | NUR ---
ASSESMENT AND MEDICATIONS DUE. PATIENT IN CHAIR SEWING. PATIENT DENIES PAIN. PATIENT REPORTS "GREEN RUNNY STOOL". PATIENT EDUCATED TO KEEP RN INFORMED IF DIARRHEA CONTINUES OR GETS WORSE. PATIENT AMBULATED THIS AM. PATIENT REPORTS FEELING STRONG ENOUGH TO AMBULATE ALONE. ASSESSMENT DONE. MEDICATIONS GIVEN. PATIENT RETURNED TO BED AND RESTING. NO FURTHER REQUESTS AT THIS TIME. CALL LIGHT WITHIN REACH. PATIENT ANTICIPATING DISCHARGE THIS AFTERNOON. STATES DAUGHTER WILL PROVIDE TRANSPORTATION AND DAUGHTER GETS OFF WORK AROUND 1400.
[2018-06-03] MEDS ORDERED: CEPHALEXIN500 MG PO ×2 (11:07→11:09)
--- NOTE | 2018-06-03 11:46 | NUR ---
ASSESSMENT AND MEDICATIONS DUE. PATIENT IN BED EATING LUNCH. PATIENT AMBULATED TO TOILET, SBA. PATIENT REPORTED IMPROVEMENT IN APPETITE TODAY. PATIENT IS WILLING TO GET UP AND AMBULATE AGAIN. ASSESSMENT DONE. MEDICATIONS GIVEN. DISCHARGE INSTRUCTIONS GIVEN. PATIENT VERBALIZES UNDERSTANDING OF DISCHARGE INSTRUCTIONS AND STATES ALL QUESTIONS HAVE BEEN ANSWERED.
--- NOTE | 2018-06-03 12:21 | NUR ---
PATIENT WAS READING A BOOK RIGHT BEFORE LUNCH WAS DELIVERED. I CHECKED ON HER TO SEE HOW SHE WAS EATING. SHE SAID HER APPETITE WASN'T GOOD FOR SEVERAL DAYS. SHE ALWAYS FELT NAUSEOUS. SHE IS FEELING BETTER YESTERDAY AND TODAY. NOT WANTING TO EAT A LOT AT ONCE. SHE DID DRINK A FEW ENSURES SINCE SHE HAS BEEN HERE BECAUSE SHE DIDN'T WANT TO EAT SOLID FOOD. CARDIAC DIET IN PLACE. PLANS TO GO HOME THIS AFTERNOON. NO NUTRITION INTERVENTION NEEDED AT THIS TIME.
--- NOTE | 2018-06-03 14:05 | NUR ---
CHECKED IN ON PATIENT. PATIENT REPORTED THAT PHARMACY HAD SPOKEN WITH HER ABOUT DISCHARGE AND PATIENT STATED SHE HAD NO UNANSWERED QUESTIONS. SBA WHILE PATIENT AMBULATED TO TOILET. PATIENT SETTLED IN CHAIR. CALL LIGHT WITHIN REACH. DAUGHTER EXPECTED TO ARRIVE AROUND 1445 FOR DISCHARGE.
--- NOTE | 2018-06-03 15:56 | NUR ---
PATIENT READY FOR DISCHARGE. PATIENT DISCHARGE INSTRUCTIONS GIVEN. PATIENT VERBALIZES UNDERSTANDING OF INSTRUCTIONS. PATIENT STATES ALL OF HER QUESTIONS HAVE BEEN ANSWERED AND SHE HAS NO FURTHER QUESTIONS. DAUGHTER ACCOMPANIED PATIENT. PATIENT WHEELED FROM UNIT BY LEONIDES. DAUGHTER STATES HER QUESTIONS HAVE BEEN ANSWERED.
== END 2018-06-03 14:55 | disposition home or self-care (01) | DRG 872 ==
LOC: ED 15:46 → MS 18:24
PROVIDERS: ADMIT Internal Medicine
DX: A41.51 Sepsis due to Escherichia coli [E. coli] (principal); N39.0 Urinary tract infection, site not specified; E87.1 Hypo-osmolality and hyponatremia; I50.32 Chronic diastolic (congestive) heart failure; I11.0 Hypertensive heart disease with heart failure; I48.2 Chronic atrial fibrillation; Z79.01 Long term (current) use of anticoagulants; E03.9 Hypothyroidism, unspecified; E11.9 Type 2 diabetes mellitus without complications; Z79.4 Long term (current) use of insulin; E78.5 Hyperlipidemia, unspecified; I05.2 Rheumatic mitral stenosis with insufficiency
CPT/HCPCS: 36415; 51701; 71045; 80048; 80053; 81001; 83605; 83735; 83880; 85025; 85610; 93005; 93010; 96361; 96374; 96375; 97116; 97162; 99285; J0696; J0744; J2405; J3475; J7030; J7120

== ENCOUNTER 2018-10-29 14:30 | Inpatient (IN) | payer MEDICARE, OTHER ==
[~2018-10-29] VITALS: Ht 160 cm; Wt 62.8 kg
[~2018-10-29 14:30] MED LIST changes: +CEPHALEXIN500 MG PO; +GLUCOSAMINE CH1 EAC7 PO; -GLUCOSAMINE H1500 MG PO
--- NOTE | 2018-10-29 18:05 | NUR ---
PT HAS ARRIVED TO THE UNIT VIA STRETCHER AT 1805. PT ARRIVES WITH DAUGHTER AND GLASSES, PARTIAL UPPERS AND LOWERS AND GOLD WATCH ON HER WRIST. PT STATES SHE'S IN NO PAIN, NO N/V, JUST SOB AND TACHYPNEA. ARRIVES ON 2 L O2/MIN VIA NC. A/O X4. ARRIVES WITH AZITHRO RUNNING INTO RIGHT AC PIV. AFIB ON TELE.
--- NOTE | 2018-10-29 18:30 | NUR ---
URINE SAMPLE OBTAINED AND SENT TO LAB
[2018-10-29] MEDS ORDERED: CLOPIDOGREL75 MG PO (18:55)
[2018-10-29] MEDS ORDERED: ASPIR-LOW81 MG PO (18:56)
--- NOTE | 2018-10-29 19:05 | NUR ---
MED REC COMPLETE
--- NOTE | 2018-10-29 20:00 | NUR ---
ON BEDPAN TO VOID. SOMEWHAT SOB WITH MOVING IN BED, MAINTAINED SATS. RECOVERED QUICKLY AND ABLE TO SPEAK IN LONG SENTENCES. SON AT BEDSIDE.
--- NOTE | 2018-10-29 20:14 | NUR ---
UP TO BSC TO VOID, EASIER FOR PT TO USE COMMODE THAN BEDPAN, ADRIANA FAIR, HR DID GO UP TO 120 TRANSIENTLY. BACK TO BED HR 90-100.
--- NOTE | 2018-10-29 21:35 | NUR ---
HS CARE DONE THEN UP TO BSC TO VOID. ADRIANA WELL.
--- NOTE | 2018-10-29 23:00 | NUR ---
REPORT GIVEN TO ME BY AKIRA ALEXIS. PATIENT AWAKE QUILTING AND WATCHING GAME SHOWS. PATIENT IS IN NO DISTRESS. INTRODUCED MY SELF. PATIENT IN NEED OF NOTHING AT THIS TIME. WILL PERFORM FULL ASSESSMENT AT 12AM. VS STABLE.
--- NOTE | 2018-10-29 23:01 | EKG ---
[facility] [address] [place] [address] Signed Atrial fibrillation with premature ventricular or aberrantly conducted complexes Low voltage QRS Abnormal ECG When compared with ECG of 30-MAY-2018 16:34, No significant change was found Confirmed by GRACE ALMONTE MD ([id number]) on 10/29/2018 11:00:55 PM Electronically Signed By: GRACE ALMONTE MD 10/29/18 2301 PATIENT NAME: ADDISONZANDRA COELHO Electrocardiogram DATE OF : 34 PHYSICIAN: GRACE ALMONTE MD REPORT #: [id number] REPORT IS CONFIDENTIAL AND NOT TO BE RELEASED WITHOUT AUTHORIZATION
--- NOTE | 2018-10-30 | NUR ---
PATIENT JUST USED THE BEDSIDE COMMODE AND IS GOING TO TRY AND GET SOME REST NOW.
--- NOTE | 2018-10-30 01:00 | NUR ---
PATIENT READING QUIETLY IN BED.
--- NOTE | 2018-10-30 01:57 | NUR ---
PATIENT STILL CONTINUES TO LAY IN BED AND READ IN NO DISTRESS.
--- NOTE | 2018-10-30 04:35 | NUR ---
PATIENT CURRENTLY STILL READING HER BOOK IN BED.
--- NOTE | 2018-10-30 05:04 | NUR ---
PATIENT CONTINUES LAYING ON HER LEFT SIDE READING HER BOOK IN NO DISTRESS.
--- NOTE | 2018-10-30 06:26 | NUR ---
PATIENT STILL READING AND JUST ASK FOR HER THYROID WHICH WAS GIVEN. PATIENT IN NO DISTRESS AND CONTINUES TO READ HER BOOK. REALLY HAS NOT SLEPT TONIGHT.
--- NOTE | 2018-10-30 06:48 | NUR ---
PATIENT CURRENTLY UP USING THE BEDSIDE COMMODE.
--- NOTE | 2018-10-30 06:54 | NUR ---
PATIENT BACK IN BED AT THIS TIME TRYING TO DECIDE WHAT SHE WANTS FOR BREAKFAST.
--- NOTE | 2018-10-30 10:30 | NUR ---
PT UP TO BEDSIDE COMMODE TO VOID, ONE PERSON STAND BY ASSIST. PT IS ALERT AND ORIENTED X4, COOPERATIVE. PT REMAINS ON ROOM AIR, EVEN WITH ACTIVITY O2 SATS REMAIN ABOVE 90%.
--- NOTE | 2018-10-30 13:41 | NUR ---
pt up to bedside commode with standby assist. O2 SATS REMAIN ABOVE 90% WITH ACTIVITY. PT DENIES PAIN, NAUSEA AND SOB. PT HAS OCCASIONAL PRODUCTIVE COUGH. PT ALERT AND ORIENTED X4, COOPERATIVE. IV SITE INTACT, NO REDNESS OR SWELLING NOTED, PT DENIES PAIN AT SITE WITH FLUSH. HR REMAINS 60'S-70'S.
--- NOTE | 2018-10-30 17:58 | NUR ---
pt sitting up in bed eating dinner and visiting with her daughter. pt denies nausea, sob, and pain. pt alert and oiented x4. iv site intact, no redness or swelling noted, flushes easily. pt vitals wnl at this time.
--- NOTE | 2018-10-30 18:45 | NUR ---
PT TRANSPORTED TO ROOM 109 FROM ROOM 130. ALL PERSONAL BELONGINGS WENT WITH PT. PT ALERT AND ORIENTED X4. PT DAUGHTER IS AT THE BEDSIDE DURING MOVE.
--- NOTE | 2018-10-30 19:26 | NUR ---
FULL REPORT GIVEN TO CRISTIAN CHAMPION ON MED/SURG.
--- NOTE | 2018-10-30 19:50 | NUR ---
HELPED PT TO THE BSC AND BACK TO BED. BEDSIDE TABLE AND CALL LIGHT IN REACH.
--- NOTE | 2018-10-30 20:00 | NUR ---
AWAKE, VISITING WITH FAMILY, NO C/O PAIN OR SOB, TELE IN PLACE, FLUIDS AND CALL LIGHT AT BEDSIDE, NO REQUESTS
--- NOTE | 2018-10-30 20:54 | NUR ---
VITALS AND I&OS DONE AND CHARTED. BEDSIDE TABLE AND CALL LIGHT IN REACH.
--- NOTE | 2018-10-30 21:15 | NUR ---
PATIENT IN BED AND HAVING NO PAIN. PATIENT VISITING WITH FAMILY MEMBERS.
--- NOTE | 2018-10-30 23:15 | NUR ---
PATIENT UP TO THE BEDSIDE COMMODE AND THEN BACK TO BED.
--- NOTE | 2018-10-31 00:50 | NUR ---
PATIENT RESTING QUIETLY ON RIGHT SIDE. RESPIRATIONS EVEN AND REGULAR. HR ON TELE A-FIB AT 56.
--- NOTE | 2018-10-31 01:58 | NUR ---
PATIENT CONTINUES RESTING ON HER RIGHT SIDE, EYES CLOSED, RESPIRATIONS EVEN AND REGULAR. HR 58 AND IN A-FIB ON THE TELE.
--- NOTE | 2018-10-31 04:00 | NUR ---
PATIENT LAYING IN BED READING HER BOOK, HAS NOT BEEN SYMPTOMATIC FROM THE BRADYCARDIA IN THE 40'S SHE HAS HAD.
--- NOTE | 2018-10-31 05:00 | NUR ---
PATIENT UP TO THE BED SIDE COMMODE WITH 1PSBA, VS TAKEN, AND STANDING SCALE WEIGHT TAKEN. PATIENT HAS HAD SOME BRADYCARDIA INTO THE 40'S BUT HAS NOT BEEN SYMPTOMATIC.
--- NOTE | 2018-10-31 05:03 | NUR ---
up to bsc, voided dark yellow urine, back to bed, no c/o pain, slight sob noted with exertion. Continues on fluid restriction. call lit at bedside
--- NOTE | 2018-10-31 06:12 | NUR ---
PATIENT HAS RESTED WITH EYES CLOSED AND REGULAR EVEN RESPIRATIONS ABOUT HALF THE SHIFT. THE REST OF THE TIME SHE HAS READ HER BOOK IN BED, AND WAS VISITING WITH FAMILY WHEN I FIRST ARRIVED. PATIENT NAEEM HAD NO C/O PAIN. PATIENT HAS BEEN IN A FIB ON THE MONITOR AND HAS HAD SOME PAUSES AND HER HEART RATE HAS DIPPED INTO THE 40'S BUT HAS NOT BEEN SYMPTOMATIC. PATIENT DOES WELL WITH 1PSBA TO THE BEDSIDE COMMODE. PATIENT REMAINS ON TELE AND IS CURRENTLY RESTING EYES CLOSED, RESPIRATIONS REGULAR AND EVEN, HEART RATE CURRENTLY IN THE 50'S.
--- NOTE | 2018-10-31 06:46 | NUR ---
CALLED TO LET HIM KNOW ABOUT THE ASYMPTOMATIC BRADICARDIA EPISODES INTO THE 40'S THE PATIENT HAD WHILE SHE WAS SLEEPING. VERBALIZED UNDERSTANDING AND NO NEW ORDERS WERE GIVEN.
--- NOTE | 2018-10-31 08:00 | NUR ---
RECEIVED REPORT AT 0700, BRYAN PT IN BED SLEEPING. NO NEW CONCERNS NOTED AT THIS TIME.
--- NOTE | 2018-10-31 09:32 | NUR ---
PATIENT IN BED. RN IN ROOM. PATIENT WALKS TO USE BATHROOM. TWO PERSON ASSISTING. PATIENT BACKS TO BED. ONE PERSON ASSISTING. VITAL SIGNS AND I&O DONE. CALL LIGHT WITHIN REACH. NO OTHER NEEDS AT THIS TIME
--- NOTE | 2018-10-31 10:05 | NUR ---
RESPORATORY RATE IS WDL IF IN BED. WHEN PT IS UP HOWEVER, RR IS >20. PT STATED THOUGH THAT SHE FEELS BETTER WHILE WALKING THAN YESTERDAY. PT HOWEVER STILL HAS SOB WITH AMBULATING JUST SHORT DISTANCES FROM BED TO BATHROOM. ALL LOBES WERE CLEAR FOR THE MOST PART WITH MORNING ASSESSMENTBUT PT HAD SOME OCCASIONAL WHEEZES PRESENT.HR AT THIS TIME 50'S-LOWER 60'S. NO PERIPHERAL EDEMA NOTED.
--- NOTE | 2018-10-31 11:15 | NUR ---
PATIENT CALLS TO USE BATHROOM. PATIENT IN BED. PATIENT WALKS TO USE BATHROOM. ONE PERSON ASSISTING. PATIENT BACKS TO BED. PATIENT REFUSED TO TAKE A SHOWER NOW BECAUSE SHE FEELS WITHOUT ENERGY. MAYBE SHE IS GOING A TAKE A TELEMETRY REGISTERED NURSE IN THE AFTERNOON.
--- NOTE | 2018-10-31 12:06 | NUR ---
PT SINCE LASIX ADMIN HAS BEEN DIURIESING WELL. V/S ARE WDL, PT WILL WORK WITH PT AT 1300 AND ALSO GET A SHOWER BEFOREHAND. NO NEW CONCERNS NOTED SO FAR.
--- NOTE | 2018-10-31 13:18 | NUR ---
PATIENT IN BED. PATIENT WALKS TO BATHROOM TO TAKE A SHOWER. ONE PERSON ASSISTING. PATIENT TAKES A SHOWER. PATIENT BACKS TO BED. VITAL SIGNS AND I&O DONE. CALL LIGHT WITHIN REACH. NO OTHER NEEDS AT THIS TIME
--- NOTE | 2018-10-31 14:00 | NUR ---
PT DID WELL WITH PHYSICAL THERAPY AND WAS ABLE TO MAINTAIN HER O2 SATS >93% ON RA. PT IS RESTING AT THIS TIME.
--- NOTE | 2018-10-31 16:24 | NUR ---
ONLY COARSE LOBE IS HER LLL, ALL OTHER LOBES ARE CLEAR AND PT HAS NO SOB AT THIS TIME. OVERALL THERE ARE NO NEW CONCERNS NOTED SO FAR THIS PT.
--- NOTE | 2018-10-31 17:22 | NUR ---
PT OVERALL PROGRESSED WELL THE DAY WENT ON. PT WAS ABLE TO AMBULATE AND MAINTAIN HER O2 SATS>90% ON RA. LOBES IN THE MORING HAD SOME OCCASIONAL WHEEZING PRESENT. THIS AFTERNOON, LLL WAS COARSE AND OTHER LOBES WERE CLEAR. NO PERIHERAL EDEMA NOTED. URINE OUTPUT IS ADEQUATE. NO NEW ISSUES NOTED THIS SHIFT..
--- NOTE | 2018-10-31 17:58 | NUR ---
PATIENT IN BED TAKING DINNER. VITAL SIGNS AND I&O DONE. CALL LIGHT WITHIN REACH. NO OTHER NEEDS AT THIS TIME
--- NOTE | 2018-10-31 19:15 | NUR ---
REPORT RECEIVED, PT RESTING IN BED, FAMILY AT BEDSIDE, PT ON RA, NO C/O SOB/CP AT THIS TIME, PT AOX4, APPROPRIATE, PT GIVEN 200 MLS OF WATER PER FLUID RESTRICTION, NO FURTHER REQUESTS AT THIS TIME, CALL LAYNE FRANCIS REACH, FALL PRECAUITONS IN PLACE.
--- NOTE | 2018-10-31 21:19 | NUR ---
IN ROOM TO ADMIN EVENING MEDS, SHIFT ASSESSMENT COMPLETE. PT TOLERATED PO MEDS WELL, PT AOX4, LS CLEAR UPPER LOBES, BILATERAL LOWER LOBES HAVE CRACKLES, SOME SLIGHT EXP. WHEEZES IN RIGHT MIDDLE LOBES. PT DENIES ANY SOB/CP, ON RA, PT DENIES ANY NAUSEA, DENIES PAIN. CMS INTACT, NO REQUESTS AT THIS TIME, PT AGREEABLE TO POC, CALL LIGHT WITHIN REACH, FALL PRECAUTIONS IN PLACE.
--- NOTE | 2018-10-31 22:50 | NUR ---
PATIENT STATED SHE NEEDED TO USE THE RESTROOM, I ASSISTED. PATIENT WOULD LIKE TO LAY BACK DOWN IN BED.
--- NOTE | 2018-10-31 23:35 | NUR ---
PT RESTING IN BED, EYES CLOSED, BREATHS EVEN, UNLABORED, NO REQUESTS AT THIS TIME, CALL LIGHT WITHIN REACH, FALL PRECAUTIONS IN PLACE. ON TELE #9, HR 60'S.
--- NOTE | 2018-11-01 01:59 | NUR ---
PT RESTING IN BED, BREATHS EVEN, UNLABORED, ON RA, NO REQUESTS AT THIS TIME, CALL LIGHT WITHIN REACH. FALL PRECAUTIONS IN PLACE.
--- NOTE | 2018-11-01 03:30 | NUR ---
PT HELPED TO BATHROOM WITH 1PERSON SBA/FWW, TOLERATED WELL, NO C/O LIGHT HEADEDNESS OR DIZZINESS, PT ON RA, PT VOIDED AND HAD BM, PT BACK TO BED, LS REMAIN TO HAVE CRACKLES IN BILATERAL LOWER LOBES, ASSSESSMENT COMPLETE, PT ENCOURAGED TO USE IS WELL DEEP BREATH AND COUGH. PT AGREEABLE. NO FURTHER REQUESTS AT THIS TIME. CALL LIGHT WITHIN REACH.
--- NOTE | 2018-11-01 05:09 | NUR ---
PT AOX4 THIS SHIFT, APPROPRIATE, PT 1 PERSON SBA/FWW, TOLERATING AMBULATING WELL, ACTIVITY INTOLERANCE HAS DECREASED PER PT. ON RA, NO C/O SOB/CP, NO C/O PAIN. PT ON 1600 ML FLUID RESTRICTION, TOLERATING WELL, IV SL, SLEPT MOST OF THE NIGHT, VSS.
--- NOTE | 2018-11-01 06:00 | NUR ---
MORNING MEDS ADMINISTERED, PT UP TO BATHROOM, VOIDED 100 MLS OF CLEAR YELLOW URINE, PT PERFORMED ORAL HYGIENE, AND MORNING CARE, PT BACK TO BED, DENIES ANY SOB/CP, DENIES DIZZINESS OR LIGHT HEADEDNESS, PT AOX4, DENIES ANY NEEDS AT THIS TIME, CALL LIGHT WITHIN REACH, FALL PRECAUTIONS IN PLACE. LAB IN ROOM NOW.
--- NOTE | 2018-11-01 10:03 | NUR ---
AOX4. CLAM AND PLEASTNET DEMEANIOR. FACE SYMMETERICAL GLASSES ON. CRACKELS IN THE BASES BI-LATERALLY, ENCOURAGED DEEP BREATHING AND MOVEMENT. TELLY #9. ABD WNL. NORMOACTIVE BOWLE TONES. FLUID RESTIRCTION.
--- NOTE | 2018-11-01 10:17 | NUR ---
PATIENT RESTING IN BED. VITAL SIGNS AND I&O DONE. CALL LIGHT WITHIN REACH. NO OTHER NEEDS AT THIS TIME
--- NOTE | 2018-11-01 10:46 | NUR ---
pT IN BED READING BOOK. REPORTED pt WALK WENT WELL, AND SHE FEELS GOOD, NO C/O sob OR PAIN OR NAUSEA. PT HAS 150ML FREE WATER LEFT IN CUP AT THIS TIME. CALL LIGHT IN REACH
[2018-11-01] MEDS ORDERED: METOPROLOL SUCC50 MG PO (11:28)
[2018-11-01] MEDS ORDERED: LASIX40 MG PO (11:29)
--- NOTE | 2018-11-01 11:59 | NUR ---
IN TO ANSWER CALL LIGHT. PT STANDING AT BATHROOM DOOR AND AMBULATES WITH STEADY GAIT TO BED. CALL LIGHT AND H20 IN REACH AND PT DENIES FURTHER NEEDS AND APPEARS TO BE IN NO ACUTE DISTRESS.
--- NOTE | 2018-11-01 12:07 | NUR ---
PT EATIGN LUNCH. TALKING WTIH pHARM ABOUT d/c MED CHANGES. SLIGHT COUGH, EDUCATED ON DEEP BREATHING AND FORECEFUL COUGH WILL HELP TO CLEAR. PT IN GOOD SPIRITS AND WAITING FOR DAUGHTER TO ARRIVE SO SHE CAN GO HOME. COUMADIN ADMINISTERED ONCE. EDUCATED ON NOT TAKING 1600 DOSE AT HOME.
--- NOTE | 2018-11-01 12:58 | NUR ---
PT UP IN BED. PRODUCTIVE COUGH. SLOWLY EATING LUNCH. CALL LIGHT IN REACH.
== END 2018-11-01 13:21 | disposition home or self-care (01) | DRG 291 ==
LOC: ED 14:30 → CCU 17:18 → MS 10-30 18:50
PROVIDERS: ADMIT Internal Medicine
DX: I50.33 Acute on chronic diastolic (congestive) heart failure (principal); J96.01 Acute respiratory failure with hypoxia; N39.0 Urinary tract infection, site not specified; I10 Essential (primary) hypertension; I05.2 Rheumatic mitral stenosis with insufficiency; I48.2 Chronic atrial fibrillation; E78.5 Hyperlipidemia, unspecified; E11.9 Type 2 diabetes mellitus without complications; E03.9 Hypothyroidism, unspecified; J22 Unspecified acute lower respiratory infection; B96.20 Unspecified Escherichia coli [E. coli] as the cause of diseases classified elsewhere; D72.829 Elevated white blood cell count, unspecified; I25.10 Atherosclerotic heart disease of native coronary artery without angina pectoris; Z98.61 Coronary angioplasty status; Z88.5 Allergy status to narcotic agent; Z79.01 Long term (current) use of anticoagulants; Z79.84 Long term (current) use of oral hypoglycemic drugs; Z79.02 Long term (current) use of antithrombotics/antiplatelets; Z79.82 Long term (current) use of aspirin; Z79.899 Other long term (current) drug therapy
CPT/HCPCS: 36415; 71045; 80048; 80053; 81001; 83605; 83735; 83880; 84484; 85025; 85610; 85730; 87040; 87077; 87088; 87186; 87502; 93005; 93010; 94640; 96374; 96375; 97110; 97161; 97530; 99285-25; J0456; J0696; J2930

== ENCOUNTER 2019-10-07 16:41 | Observation (INO) | payer MEDICARE, OTHER ==
[~2019-10-07] VITALS: Ht 160 cm; Wt 64.5 kg
--- OUTSIDE RECORDS SUMMARY | ~2019-10-07 | XMS | Encounter Summary ---
Demographics + + + | Address | [address] | | | [place] [address] | + + + | Home Phone | | + + + | Preferred Language | Unknown | + + + | Marital Status | Single | + + + | Sikh Affiliation | NON | + + + | Race | White | + + + | Ethnic Group | Not or | + + + Author + + + | Author | [facility] | + + + | Organization | [facility] | + + + | Address | Unknown | + + + | Phone | Unavailable | + + + Support + + +---------+ + | Name | Relationship | Address | Phone | + + +---------+ + | Darby Kate | ECON | Unknown | | + + +---------+ + Care Team Providers + +------+ + | Care Vice President Investor Relations Name | Role | Phone | + +------+ + | Renan Menendez MD | PCP | | + +------+ + Reason for Visit + + + | Reason | Comments | + + + | New patient | | | consultation | | + + + Consultation (Routine) +--------+--------+ + + + + | Status | Reason | Specialty | Diagnoses / | Referred By | Referred To | | | | | Procedures | Contact | Contact | +--------+--------+ + + + + | Closed | | Cardiology | Diagnoses | Mirza, | Torri Ordonez | | | | | | Arnaldo Oshea, | MD Jared | | | | | Nonrheumatic | [address] | | | | | mitral | [address] | [address] | | | | | (valve) | [address] | [address] [place], | | | | | insufficienc | [place], [place] | [place] | | | | | y Rheumatic | [address] | [address] | | | | | tricuspid | Phone: | Phone: | | | | | insufficienc | [phone] | [phone] | | | | | y Pulmonary | Fax: | Fax: | | | | | | [phone] | [phone] | | | | | hypertension | | | | | | | , | | | | | | | unspecified | | | | | | | Procedures | | | | | | | CA NEW | | | | | | | PATIENT | | | | | | | LEVEL V | | | +--------+--------+ + + + + Encounter Details +--------+---------+ + + + | Date | Type | Department | Care Team | Description | +--------+---------+ + + + | 07/01/ | Office | Cardiology Complex | Torri Ordonez, | Non-rheumatic mitral | | 2018 | Visit | Valve at [facility] [address] | [address] | regurgitation | | | | [address] | [address] | (Primary Dx); Mitral | | | | Mailcode: [id number] | [place], [place] | annular | | | | [facility] | [address] | calcification | | | | [address] [place], | [phone] | | | | | [place] [address] | | | | | | [phone] | | | +--------+---------+ + + + Social History + +-------+ +--------+------+ | Tobacco Use | Types | Packs/Day | Years | Date | | | | | Used | | + +-------+ +--------+------+ | Never Smoker | | | | | + +-------+ +--------+------+ + +---+---+---+ | Smokeless Tobacco: | | | | | Never Used | | | | + +---+---+---+ + + +---------+ + | Alcohol Use | Drinks/Week | oz/Week | Comments | + + +---------+ + | No | | | | + + +---------+ + + + + | Sex Assigned at | Date Recorded | | | | + + + | Not on file | | + + + + + + + | Job Start Date | Occupation | Industry | + + + + | Not on file | Not on file | Not on file | + + + + + + + + | Travel History | Travel Start | Travel End | + + + + + + | No recent travel history available. | + + documented as of this encounter Last Filed Vital Signs + + + + + | Vital Sign | Reading | Time Taken | Comments | + + + + + | Blood Pressure | 110/59 | 07/01/2018 2:09 PM | | | | | PDT | | + + + + + | Pulse | 78 | 07/01/2018 2:09 PM | | | | | PDT | | + + + + + | Temperature | 36.7 C (98 F) | 07/01/2018 2:09 PM | | | | | PDT | | + + + + + | Respiratory Rate | 20 | 07/01/2018 2:09 PM | | | | | PDT | | + + + + + | Oxygen Saturation | 99% | 07/01/2018 2:09 PM | | | | | PDT | | + + + + + | Inhaled Oxygen | - | - | | | Concentration | | | | + + + + + | Weight | 66 kg (145 lb 9.6 | 07/01/2018 2:09 PM | | | | oz) | PDT | | + + + + + | Height | 160 cm (5' 3") | 07/01/2018 2:09 PM | | | | | PDT | | + + + + + | Body Mass Index | 25.79 | 07/01/2018 2:09 PM | | | | | PDT | | + + + + + documented in this encounter Progress Notes Torri Ordonez MD - 07/01/2018 2:00 PM PDTFormatting of this note might be different fr om the original. Author: TORRI ORDONEZ MD Referring Provider: Kelsey Stokes HPI: Mrs Sapp is a very pleasant 88 y/o female with a hx of recurrent heart failure adm ission for "diastolic heart failure" and valvular heart disease over the past 6 months who i s referred for considerations of options to treat severe mitral annular calcification and se ray mitral regurgitation. She has a past med Hx signifncat for persistent Afib, Tyep 2 DM, hypertension, hyperlipidemia, hypothyroidism, iron deficiency anemia, pulmonary hypertension , moderate to severe TR, and severe MR. Mrs Sapp, lives in [facility] and is brought in by her daughter today who lives w ith her. 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 She was first hospitalized at [facility] in [facility] i n November 2017 with s/s of heart failure. Over the course of the spring she has noticed new and progressive MAYA as well as new LE edema. She was previously active but could no longer walk a 1/4 block. She was re-admitted to the hospital in [facility] in February 2018 again with he art failure. Echo in february was notable for normal to hyperdynamic LV systolic function, severe MAC, severe MR, moderate to severe TR, and mild . 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 She has followed up with Dr Barbara Blue at [facility] in the [facility] and referred to [facility] consideration of MitraClip . Since February she has had no further decompensated heart failure episodes To expidite her evaluation, she has already been referred and undergone TTE, JUAN MANUEL, CT scan o f chest a week ago a well as angiogrpahy yesterday on 06/30/2018. Symptoms & Exercise/Activity Levels: Lives in [facility] with her Daughter in a 2 story house. She lives in the ground floor and her Daughter lives up stairs. She She has 7 steps to get up into the house and can still dianna erate gettign in to the house but is markedly winded and would have to rest going up stirs ( 19 steps) When walkinf up the stairs he endorses no chest pain but predominatly MAYA. Her ac tivity is limited and does not describe chest discomfort in her brief activities. She is abl e to make her bed but feels tired afterwards. 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 Any little activty such as mopping or vaccuming makes her short of breath and tired. She is worn out after activiti es and needs to rest. She walks outside of the home with a large walking stick and no walker . Denies any swellign in her legs since February 2018 but does wear compression stockings. Has no w been on Lasix 40 mg daily was previously on 20 daily prior to February and has at stable. She i s sumanth tto lay flat in bed at night and at first there is orthopnea but after a couple deep breaths she can tolerate it. She has no PND. Currently she is limited by lack of energy. On some days she can walk up to a mile, but sh e no longer feels comfortable shopping by herself [place] summer Her energy level was great. She previously was working out at [employer]. She would g o out ot her [employer]itting groups. Was completely independent In all activities and shopping co oking and cleaning. She typically has lunch outside of the house, cooks her own simple dinne rs, and has oatmeal for breakfast. She has had an appointment for consultation with Dr. Blue who will continue to follow her u p in [facility]. The patient denies rest or exertional chest pain or shortness of breath, palpitations, pres yncope, syncope, PND, orthopnea, abdominal swelling, lower extremity edema, or claudication. Review of Systems: 14 point review of systems as stated in the HPI, otherwise remainder is negative. Past Medical History: Diagnosis Date Anemia resolved with iron supplements - no large GI bleed, negative EGD. Atrial fibrillation (HCC) Hyperlipidemia Hypertension Hypothyroid Pulmonary hypertension (HCC) Type 2 diabetes mellitus (HCC) No past surgical history on file. Current Medications Include: Current Medication List Name Sig ACETAMINOPHEN 325 MG TABLET Take by mouth. ASCORBIC ACID (VITAMIN C) 500 MG TABLET Take 500 mg by mouth once daily. CHOLECALCIFEROL (VITAMIN D3) 2,000 UNIT CAPSULE Take by mouth. FUROSEMIDE 40 MG TABLET Take by mouth. GLUCOSAMINE CHONDROITIN PLUS ORAL Take 2 tablets by mouth once daily. LEVOTHYROXINE 100 MCG TABLET Take by mouth. LOSARTAN 100 MG TABLET Take 100 mg by mouth once daily. MAGNESIUM CHLORIDE ORAL Take by mouth. METFORMIN ER 500 MG 24 HR TABLET,EXTENDED RELEASE Take by mouth. METOPROLOL SUCCINATE ER 200 MG TABLET,EXTENDED RELEASE 24 HR Take 100 mg by mouth once saturnino y. POTASSIUM CHLORIDE ER 20 MEQ TABLET,EXTENDED RELEASE(PART/CRYST) Take by mouth. SIMVASTATIN 20 MG TABLET Take by mouth once daily in the evening. WARFARIN 5 MG TABLET Take by mouth. Allergies Allergen Reactions Morphine Anxiety "felt fidgety" Percocet [Oxycodone-Acetaminophen] Anxiety "felt fidgety" SocialHistory Social History Social History Marital status: Single Spouse name: N/A Number of children: N/A Years of education: N/A Occupational History Not on file. Social History Main Topics Smoking status: Never Smoker Smokeless tobacco: Never Used Alcohol use No Drug use: No Sexual activity: Not on file Other Topics Concern Not on file Social History Narrative No narrative on file FAmily Hx: non contrinbutory. Physical Exam: Last Vitals: BP 110/59 | Pulse 78 | Temp (Src) 36.7 C (98 F) (Oral) | RR 20 | Ht 1.6 m (5' 3") | Wt 66 kg (145 lb 9.6 oz) | SpO2 99% | BMI 25.79 kg/(m^2) Body mass index is 25.79 kg/m. General Appearance: Ederly appearing, well developed well nourished adult female appearing stated age in NAD. HEENT: PERRLA, EOMI, mouth without lesions. Neck: Neck w/o LAD Respiratory: CTA bilaterally. No wheezes or rales Cardiovascular: JVP at 5 cm. 2+ carotid pulses without bruits. PMI nondisplaced. RRR. Nor mal S1 covered & soft S2. 3/6 holosystolic murmur best audible at LLSB radiating to axilla. No gallops, or rubs. 2+ distal pulses. Gastrointestinal: +BS, soft, nondistended, nontender, no abdominal bruits Musculoskeletal: No gross deformities Extremities: No cyanosis, clubbing, or edema. Neurologic: Grossly nonfocal. UE and LE proximal and distal strength 5/5 and equal bilater ally. Skin: No rash or ulcers. Data Lab Results Component Value Date WBC 7.45 06/30/2018 HB 12.6 06/30/2018 HCT 37.5 06/30/2018 PLT 315 06/30/2018 MCV 87.4 06/30/2018 RDW 49.3 06/30/2018 Lab Results Component Value Date NA 136 06/30/2018 K 3.9 06/30/2018 CL 100 06/30/2018 BICARB 26 06/30/2018 BUN 16 06/30/2018 CR 0.78 06/30/2018 GLU 122 06/30/2018 CA 9.1 06/30/2018 ANIONGAP 10 06/30/2018 No results found for: NTPROBNP No results found for: A1C Lab Results Component Value Date INRPT 1.27 (H) 06/30/2018 FRAILTY ASSESSMENT: Frailty Index Date Taken: 07/01/2018 1. 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 Five Meter Walk (sec): NA 3. Serum albumin: 4. Dubois ADL (#/6) :5 Frailty Outcome: Based on Partner trial definition the patient does not qualify as frail. Dubois ADL Date Taken: 07/01/2018 Bathing: No Dressing: No Toileting: No Transferring: No Continence: Yes Feeding: No EFT FRAILTY ASSESSMENT EFT 1 to possibly 2 points 1 for low sit to stand No known albumin level EKG: Atrial fibrillation Poor anterior R wave progression Inferior mild st depression 0.5 mm 11/09. TTE 12/10/2017 1. Left ventricular systolic function is hyperdynamic with an estimated EF of >70%. 2. The right ventricle is normal in size and function. 3. The left atrium is markedly enlarged. 4. The right atrium is markedly enlarged. 5. Mild aortic stenosis with peak/mean pressure gradient of 16.83mmHg / 9.02mmHg, the aorti c valve area by continuity equation is 1.7cm. 6. Severe mitral regurgitation is present. 7. Moderate mitral stenosis, with peak/mean transvalvular gradients measured at 25.2 / 8.0 mm Hg, and MVA (by VTI) 1.50 cm . There is mi 8. Moderate to severe tricuspid regurgitation present. 9. There is moderate to severe pulmonary hypertension.The peak right ventricular systol ic pressure (pulmonary artery systolic pressure), as measured by Doppler, is 55.8 - 60.8 mm Hg. 10. There is a small secundum atrial septal defect measuring <10 mm in diameter.There i s [id number] shunting noted on color Doppler. TTE: 06/19/2018 Final Impressions: 1. The left ventricular cavity size is normal. 2. The LV function is hyperdynamic. 3. Visually estimated left ventricular ejection fraction is 70 - 75%. 4. The aortic valve is trileaflet and moderately calcified. 5. Severe mitral annular calcification as well as papillary and subchordal bulky calcification. 6. While there is calcification of the bases of the mitral valve leaflets due to the severe mitral annular calcificaiton, the mid portions of the leaflets themseleves are only midly calcified and thin, however there is the severe central mitral valve regurgitation. 7. The mean transmitral gradient is 5.5 mmHg at a heart rate of 77 bpm. The mitral valve effective regurgitant orifice area is 7 mm2. 8. Severe biatrial enlargement. 9. Right ventricular size, thickness and function are normal. JUAN MANUEL: 06/19/2018 Final Impressions: 1. The LV function is hyperdynamic. 2. The visually estimated ejection fraction is > 75%. 3. Right ventricular size, thickness and function are normal. 4. Severe circumferential mitral annular calcification. A large deposit of calcium at the posterolateral atrial aspect of themitral annulus that partially disrupts the normal mitral annular shape and size. Mitral annular area is measured at 8.26 cm2, with an AP diameter of 3.76 cm, and CC diameter of 2.52 cm. However, there is no significant mitral stenosis. Mean mitral gradient is approximately 4 mmHg at a heart rate of 83 bpm. 5. Severe mitral valve regurgitation. The EROA is 0.47 cm2 (using a PISA radius of 1.1 cm, an aliasing velocity of 0.32 m/s, and a mean MR regurgitant velocity of 5.1 m/s), the calculated regurgitant volume is 67 mL, and the calculated regurgitant fraction is 52%. 6. The mitral valve anterior leaflet measures 2.0 cm. 7. There is subvalvar and papilary muscle head calcifidation noted as well. 8. The mechanism for the severe mitral regurgitation is leaflet and annular calcification and degerneration with poor coaptation across all portions of the valve. 9. The aortic valve is moderately sclerotic and restricted. No aortic stenosis. 10. Severely enlarged left atrium. 11. There is a small fenestrated secundum atrial septal defect, with intermittent mofz-fa-cvcpf flow via color-flow Doppler. 12. Moderate tricuspid regurgitation. 13. Small plaque involving the ascending and transverse aorta. 14. The left atrial appendage is well visualized and there is no evidence of thrombus present. CARDIAC CATH: 06/30/2018 Preliminary repoot Severe MAC There is non-obstructive disease in LAD andCirc There is 95% stenosis of the distal RCA prior to the PDA and PLV's RHC: Unremarkable filling pressures Coronary Angiography: Obstructive CAD of RCA PFTS: None STS (Based Off Available Data): MV Replacement + CAB Risk of Mortality: 7.374% Morbidity or Mortality: 30.831% Long Length of Stay: 19.775% Short Length of Stay: 7.384% Permanent Stroke: 2.652% Prolonged Ventilation: 19.662% DSW Infection: 0.263% Renal Failure: 8.237% Reoperation: 12.335% Assessment and Recommendations: Ms. Rufina Sapp is a 88 y.o. female referred [facility] for assessment of treatment options for mitral valve disease. Ms. Sapp has developed progressive MAYA and LE edema over the last 6 months and currentl y reports symptoms that are NYHA functional class 3-4. A review of the echocardiogram and t he transesophageal echo show severe mitral annular calcification, severe mitral regurgitaito n, with largest jet centrally but also extending to the commisures, with a mean trasmitral g radient of 4-5 mmHg and an annular are of 830-930 mm2. In addition the echocardiogram is n otable for moderate to severe pulmonary hypertesnion with RVSP 55-60 mmHg. Additional diagno stics that have been performed include coronary angiogrpahy that demonstrates severe distal RCA stenosis. Based on her symptoms, physical exam, and diagnostic studies we agree that she has severe symptomatic Mitral regurgitation. The patient states a goal of being able to continue quilt ing, continuing with her quality of life the best she can, and not having a stroke. The patient's STS based on available data is 7-8% . I am concerned about the risk of LVOT obstruction with valve and Mac, and I explained to the patient that this procedure is off la bel use of the Wilkerson valve and it carries high risk of valve embolization, perivalvular le ak, LVOT obstruction. I also explained to her that mitral clip might be challenging given se ray mitral annulus calcification as well as already elevated transmitral gradient. The simplest option would be to either continue medical therapy plus minus PCI to the RCA a nd if she continues to be symptomatic we can consider hybrid procedure with resection of ant erior leaflet and Wilkerson valve deployment in severe dense mitral annulus I spent 45 minutes with the patient explaining all treatment options TORRI ORDONEZ MD documented in this e ncounter Plan of Treatment Not on filedocumented as of this encounter Visit Diagnoses + + | Diagnosis | + + | Non-rheumatic mitral regurgitation - Primary | + + | Mitral annular calcification Mitral valve disorders | + + documented in this encounter
--- OUTSIDE RECORDS SUMMARY | ~2019-10-07 | XMS | Encounter Summary ---
Demographics + + + | Address | [address] | | | [place] [address] | + + + | Home Phone | | + + + | Preferred Language | Unknown | + + + | Marital Status | | + + + | Faith Affiliation | Unknown | + + + | Race | Unknown | + + + | Ethnic Group | Unknown | + + + Author + + + | Author | [facility] | | | and [place] | + + + | Organization | [facility] | | | and [place] | + + + | Address | Unknown | + + + | Phone | Unavailable | + + + Support + + +---------+ + | Name | Relationship | Address | Phone | + + +---------+ + | Darby Kate | ECON | Unknown | | + + +---------+ + Care Team Providers + +------+ + | Care President [employer] Name | Role | Phone | + +------+ + | Renan Menendez MD | PCP | | + +------+ + Reason for Visit + + + | Reason | Comments | + + + | Follow-up, Office | 4 month | | Visit | | + + + Encounter Details +--------+---------+ + + + | Date | Type | Department | Care Team | Description | +--------+---------+ + + + | 06/22/ | Office | [facility] | Rochelle Gibbons | Paroxysmal atrial | | 2019 | Visit | [facility] | [address] | fibrillation (HCC) | | | | [address] | [address] | (Primary Dx); | | | | [address] | [place] [address] | Coronary artery | | | | [place] | [phone] | disease of [place]op[place] | | | | [address] | | artery of [place]op[place] | | | | [phone] | | heart with stable | | | | | | angina pectoris | | | | | | (HCC); Status post | | | | | | insertion of | | | | | | drug-eluting stent | | | | | | into right coronary | | | | | | artery for coronary | | | | | | artery disease; | | | | | | Essential | | | | | | hypertension; Severe | | | | | | mitral | | | | | | regurgitation; | | | | | | Severe tricuspid | | | | | | regurgitation; | | | | | | Chronic diastolic | | | | | | congestive heart | | | | | | failure (HCC); | | | | | | Pulmonary | | | | | | hypertension, | | | | | | moderate to severe | | | | | | (HCC); Mixed | | | | | | hyperlipidemia; | | | | | | Stage 3 chronic | | | | | | kidney disease (HCC) | +--------+---------+ + + + Social History [...] Comments | + + +---------+ + | Not Currently | | | | + + +---------+ [...] + + + | Blood Pressure | 114/52 | 06/22/2019 12:25 PM | | | | | PDT | | + + + + + | Pulse | 75 | 06/22/2019 12:25 PM | | | | | PDT | | + + + + + | Temperature | - | - | | + + + + + | Respiratory Rate | - | - | | + + + + + | Oxygen Saturation | 94% | 06/22/2019 12:25 PM | | | | | PDT | | + + + + + | Inhaled Oxygen | - | - | | | Concentration | | | | + + + + + | Weight | 65.3 kg (143 lb 14.4 | 06/22/2019 12:25 PM | | | | oz) | PDT | | + + + + + | Height | 160 cm (5' 3") | 06/22/2019 12:25 PM | | | | | PDT | | + + + + + | Body Mass Index | 25.49 | 06/22/2019 12:25 PM | | | | | PDT | | + + + + + documented in this encounter Patient Instructions Patient Instructions Rochelle Gibbons BethCHAKA - 06/22/2019 12:30 PM PDT I made no changes to medications today, but if blood pressure gets too low, or if you becom e dizzy, may need to decrease losartan . You seem very stable today, and can let me know if you want to do Echo next time See me back in 6 months , see Dr. Blue in 1 year documented in this encounter Progress Notes GustaboalyxRochelleCharlotteCHAKA - 06/22/2019 12:30 PM PDTFormatting of this note might be differe nt from the original. Date of visit: 06/22/2019 Primary Care Physician: Renan Menendez MD CHIEF COMPLAINT: Chief Complaint Patient presents with Follow-up, Office Visit 4 month HISTORY OF PRESENT ILLNESS: Ms. Rufina Sapp is a 89 year old woman who is here today for 4 month follow up. She is accompanied today by her daughter Darby, who contributed to history, and who lives n ext door to her in shared duplex. She is a patient of and last seen by him 02/17/2019 . Today, I reviewed all previous documentation available to me in electronic medical jude rd and from external sources. 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 Blue had noted at age 88 she was not a good candidate for open heart surgery, as she also had some mild memory deficits which were progressing. He reported she had an extensiv e evaluation at [facility] in the latter part of 2017, and was ultimately felt not to be a good ca ndidate for a mitral clip due to severe calcification of the mitral annulus, and not a good candidate for an off label TAVR valve in the mitral position. He noted she should be on aspirin for life, Plavix could be stopped at the end of her cu rrent prescription and she should be back on warfarin for stroke prevention for atrial fibri llation. He reported she previously been hospitalized from October 29 until November 01, 2018 for d ecompensated diastolic heart failure, that she had ongoing dyspnea with exertion, occasiona l PND but no orthopnea and no pedal edema and her weight had been stable and her blood press ure well controlled and he made no changes to her medication. Her current and previous testing and procedures are detailed below . She reports today that she continues to have dyspnea with more extreme exertion, but over all feels that it is stable since last seen, she is occasionally lightheaded, but it is very transient, her lower extremity swelling has been controlled with compression socks, and she has no edema today, and she has some mild ongoing fatigue. She denies any chest pain, palpitations, or syncope. She also denies any signs or symptoms of stroke or TIA, or any emergency room admissions or hospitalizations since last seen. She recently saw her PCP, Dr. Menendez June 18, and he has started her on iron for anemia, and she had recent labs with him as well. She brought her medications to the clinic today, and personally reviewed by me. Ports she continues to be monitored by the [facility], and that her INRs have been therapeutic, and denies any bleeding. She is a lifelong non-smoker, does not drink alcohol and denies any use of recreational o r illicit drug. Reports she is mostly independent in her activities of daily living, but does have some sit uational depression related to her loss of ability to mobilize without a cane, and needing m ore help from her daughter. REVIEW OF SYSTEMS: Negative except for pertinent items noted in HPI. Constitutional: Reports mild ongoing fatigue. Denies unexplained weight loss. Appetite is good. Weight is stable. Denies night sweats fevers or chills HENT: Denies nosebleeds. Bilateral hearing loss. Denies dysphagia Eyes: Early cataracts denies visual disturbance or double vision. Respiratory/Sleep:: MAYA more extreme exertion, not very active. Occasional PND. Denies co ugh. Denies hemoptysis or excessive sputum production. Reports mild snoring, denies orthopn ea. Cardiovascular: Lower extremity edema controlled with compression sock. Denies chest pain, palpitations. Denies history of rheumatic fever. Denies claudication . Gastrointestinal: Denies GERD. Denies PUD . Denies nausea, vomiting, abdominal pain and b lood in stool. Genitourinary:Chronic Kidney disease stage III denies hematuria. Musculoskeletal: Osteoporosis, osteoarthritis.Denies myalgias. Ambulates with cane. Skin: Eczema denies color change. Denies rash . Neurological: Short-term memory deficits. two TIA's: 2007, and [address] [place].Denies history of seizures. Denies dizziness, syncope and numbness. Hematological/Oncology . History of iron deficiency anemia. Denies previous blood transf usions. bruises easily. Denies bleeding Denies history of cancer Endocrine: Type II diabetes. Hypothyroidism. Denies excessive thirst or hunger. Psychiatric/Behavioral: Anxiety, denies previous history of depression or other psychiatr ic illness. Vaccines: Current on 2018 flu vaccine. Current on post 65 pneumonia vaccine. Habits/Social : Denies history of smoking. Denies EtOH use. Drinks 2 servings of caffeine daily . Denies recreational or illicit drug use. Exercises seldom due to joint and back p ed . Lives in [place], shares duplex with daughter Darby, independent in ADL. . Outpatient Medications Prior to Visit Medication Sig Dispense Refill acetaminophen (TYLENOL) 325 mg tablet Take 650 mg by mouth every 6 (six) hours as neede d for Pain. (Patient taking differently: Take 500 mg by mouth every 6 hours as needed (Pain) .) ascorbic acid (VITAMIN C) 1000 MG tablet Take 1,000 mg by mouth daily. aspirin 81 MG tablet Take 1 tablet by mouth daily. Start 07/28/18 30 tablet 11 Cranberry Juice Extract 1000 MG CAPS Take 1 capsule by mouth daily. furosemide (LASIX) 40 mg tablet Take 40 mg by mouth daily. (Patient taking differently: Take 40 mg by mouth 2 times daily.) Ylka-Zmfns-LEU-Boswellia-Vit D (GLUCOSAMINE CHOND TRIPLE/VIT D) TABS Take 1 tablet by m outh daily. (Patient not taking: Reported on 06/22/2019) IRON PO Take 50 mg by mouth 2 times daily. Every other day , levothyroxine (SYNTHROID) 100 mcg tablet Take 100 mcg by mouth every morning before abbey akfast. losartan (COZAAR) 100 MG tablet Take 100 mg by mouth daily. magnesium chloride (MAG64) 64 mg EC tablet Take 1 tablet by mouth daily. metFORMIN (GLUMETZA) 500 MG 24 hr tablet Take 500 mg by mouth 2 (two) times daily with meals. metoprolol succinate (TOPROL-XL) 200 mg ER tablet Take 100 mg by mouth every morning. ( Patient not taking: Reported on 06/22/2019) metoprolol succinate (TOPROL-XL) 50 mg 24 hr tablet Take 150 mg by mouth Daily. Take th ree tablets by mouth daily at bedtime potassium chloride (KLOR-CON M20) 20 mEq ER tablet Take 20 mEq by mouth daily. simvastatin (ZOCOR) 20 mg tablet Take 10 mg by mouth nightly. Turmeric Curcumin 500 MG CAPS Take by mouth. warfarin (COUMADIN) 5 mg tablet Take 5 mg by mouth daily. 1 pill daily Ndv-Ijo-Kao-Sat- Sat, 1/2 pill (2.5 mg) Sat- No facility-administered medications prior to visit. PHYSICAL EXAM: Wt Readings from Last 3 Encounters: 06/22/19 65.3 kg (143 lb 14.4 oz) 07/31/18 66.7 kg (147 lb 0.8 oz) 05/20/18 66 kg (145 lb 6.4 oz) Temp Readings from Last 3 Encounters: 07/31/18 36.6 C (97.9 F) BP Readings from Last 3 Encounters: 06/22/19 114/52 07/31/18 123/59 05/20/18 112/54 Pulse Readings from Last 3 Encounters: 06/22/19 75 07/31/18 70 05/20/18 95 Vital signs:02/17/2019: Wt: 147 Lbs. BP:126/66 . HR. 65 GENERAL: Well developed, well nourished, in no distress. Appears approximately stated age . HEENT: Normocephalic, atraumatic. EYES: PERRL, EOM normal. MOUTH: Oral mucosae moist, dentition adequate, no lesions noted NECK: No JVD, lymphadenopathy, thyromegaly, bruits. Carotid pulses are 2+ bilaterally LUNGS/CHEST: Clear bilaterally, with no rales, rhonchi or wheezing noted, respirations unl abored HEART: Nondisplaced PMI, irregularly irregular rhythm with controlled rate, S1, S2 normal. Murmur RUSB 3/6 .2/6 diastolic murmur LLB towards apex. No rubs or gallops noted. ABDOMEN: Soft, nontender, no organomegaly, masses or bruits. Bowel sounds are normal in a ll 4 quadrants. The abdominal aortic pulsation is not palpable. EXTREMITIES: No edema. Radial pulses 2+ bilaterally. Femoral pulses are 2+ bilaterally wi thout bruits. DP and PT pulses are 2+ bilaterally. No clubbing. SKIN: Warm and dry, capillary refill is normal, no lesions. NEUROLOGIC: Awake, alert and oriented x 3. No focal motor or sensory deficits. PSYCHIATRIC: Appropriate, affect appears normal DATA: Blood tests: Lab Results Component Value Date WBC 9.88 07/31/2018 RBC 3.67 (L) 07/31/2018 HGB 10.9 (L) 07/31/2018 Lab Results Component Value Date NA 136 07/31/2018 K 4.6 07/31/2018 CL 106 07/31/2018 CO2 19 (L) 07/31/2018 ANIONGAP 16 07/31/2018 GLUF 147 (H) 07/31/2018 BUN 21 07/31/2018 BCR 23 07/31/2018 EGFR 59 (L) 07/31/2018 Lab Results Component Value Date GLUF 147 (H) 07/31/2018 No results found for: BNP, TSH, CRP No results found for: TOTEPI CARDIAC PROCEDURES/IMAGING PCI (07/30/18): 3.0 x 16 mm Synergy MINH in right Posterolateral artery, complicated by a s mall branch perforation. Right/Left Cardiac Cath (06/30/18 - [facility]): RA-5, PA-mean 25, 41/13, PCWP-16, v wave-33, CO- 3.4, CI-1.93, PA sat-66%, PVI-2.64 wood units. LM-distal 20%, LAD-mid 20-30%, LCx-distal ta ndem 30-40% stenoses, dominant RCA-prox 30-40%, distal calcified 99% ECHO Limited Echo (07/31/18): EF 65-70%, no pericardial effusion Echo: 06/19/2018: [facility]: EF 70-75%. LV normal in size. Normal wall motion. Severe biatrial enlargement. RV normal in size thickness and function. Aortic valve trileaflet, moderatel y calcified, no AI, left coronary cusp immobile. Serum MAC. Mean transmitral gradient 5.5 mmHg at heart rate of 77 bpm. Severe MR. Mitral valve affected regurgitant orifice area is 7 mm. Tricuspid valve normal, mild TR. RVSP upper limits of normal at 39.9 mmHg, mild p ulmonary hypertension. Trace PI. IVC WNL. No pericardial effusion JUAN MANUEL 06/19/2018: [facility]: LV hyperdynamic. EF greater than 75%. RV normal in size thickness an d function. Severe MAC. Large positive calcium at the posterolateral atrial aspect of the mitral annulus that partially disrupts the normal mitral annular shape and size. Mitral lavell ular area 8.26 cm with an AP diameter of 3.76 cm, and a cc diameter of 2.52 cm. No signif icant mitral stenosis. Mean mitral gradient is approximately 4 mmHg at a heart rate of 83 b pm. Severe MR. EROA 0.47 cm squares regurgitant volume 67 mm, calculated regurgitant fract ion is 52%. Mitral valve anterior leaflet measures 2 cm. Subvalvular and papillary muscles had calcification noted as well. It is some of severe MR is leaflet and annular calcificat ion and degeneration with poor coaptation cross all portions of the valve. Aortic valve cur rently sclerotic and restricted no stenosis. Severely enlarged left atrium. Small fenestra rasheed secundum ASD with intermittent mxbt-dg-dyoib flow. Moderate TR. Small plaque involving the ascending and transverse aorta. Left atrial appendage is well visualized and no thromb us. 6-minute walk test: 08/26/2018: [facility]:Gait speed (time in seconds first 15 feet walked): 4 P atient walked: 720 feet in 6 minutes Beginning heart rate: 78 Beginning blood pressure: 144/70 Beginning Sp02: 99% Beginning dy spnea index (Jackelyn scale) : 0 Ending heart rate: 90 Ending blood pressure: 157/60 Ending Sp02: 98% Ending dyspnea index ( Jackelyn scale): 4 Oxygen level: Observations: No level of distress noted, patient tolerated test fairly well Physician interpretation:High risk 6 minute walk test with moderate reported dyspnea (b org scale 4) , no desaturations, and inability to walk > 900 ft. EKG/EVENT MONITOR EK05/20/2018: Atrial fibrillation, old anterior infarct, low voltage QRS to limb leads, a nd anterior leads. Rate 60 bpm, QRS 102 ms, QTC 421 ms, tracing personally reviewed by me. EK06/22/2019: Atrial fibrillation, old septal infarct, improved QRS voltage to leads II, III and aVF. Rate 81 bpm, QRS 100 ms, QTC 448 ms, tracing personally reviewed by me LABS Labs: 07/30/2018: BMP: Sodium 136, potassium 4.2, chloride 102, glucose 119, BUN 20, creati nine 0.91, GFR 59. CBC: WBC 7.58, RBC 4.06, hemoglobin 11.9, hematocrit 35.7, platelets 285 labs: 11/03/2018: CBC: WBC 10.6, RBC 4.72, hemoglobin 13, hematocrit 40, platelets 377 Labs: : 02/18/2019: Lipids: ( simvastatin 10 mg) cholesterol 150, triglycerides 135, HDL 55, LDL 68 CMP: Sodium 133, potassium 4.1, chloride 100, glucose 129, BUN 32, creatinine 0.96, GFR 55, AST 22, ALT 18, alk phos 54, total bili 0.5, albumin 4.3. Hgb A1c: 6.4 (137). Thyr oid: TSH 1.81 CBC: WBC 6.6, RBC 3.99, hemoglobin 11, hematocrit 33.8, platelets 279 ASSESSMENT & PLAN: She was is here today with her daughter Darby for 4-month follow-up. She has problems as detailed below. Overall she seems quite stable today EKG performed in the clinic showing atrial fibrillatio n with controlled ventricular response, and she seems stable since last seen by Dr. Blue. Labs performed in February by her PCP are detailed above, and show that her lipids are well c ontrolled on low-dose simvastatin 10 mg, and her CMP is normal with stable GFR in the mid 50 's, and her thyroid function is normal, but some mild anemia and her CBC, and her hemoglobin A1c was 6.4 Her blood pressure is a little lower than when previously seen, and I discussed with her and her daughter that if it continued to trend down, or if she became lightheaded or dizzy, that her losartan dose may need to be decreased. Today though she is asymptomatic. I made no changes to her cardiac medications today, and she should continue aspirin 81 m g daily, furosemide 40 mg twice daily, losartan 100 mg daily, metoprolol succinate 150 mg ni ghtly, simvastatin 10 mg nightly, and warfarin for target INR of 2-3, which is regulated by the [facility] . I discussed with her and her daughter today whether or not she wishes to have any further echoes or evaluation, as she was not felt to be a candidate for any intervention for her sev ere valvular disease. They are going to think about it and let me know, and I will follow-up with her 6 months , but sooner if needed, and she can see Dr. Blue in 1 year. 1. Paroxysmal atrial fibrillation (HCC) 2. Coronary artery disease of [place] artery of [place] heart with stable angina pectoris (HC C) 3. Status post insertion of drug-eluting stent into right coronary artery for coronary izzy ry disease 4. Essential hypertension 5. Severe mitral regurgitation 6. Severe tricuspid regurgitation 7. Chronic diastolic congestive heart failure (HCC) 8. Pulmonary hypertension, moderate to severe (HCC) 9. Mixed hyperlipidemia 10. Stage 3 chronic kidney disease (HCC) Orders Placed This Encounter Procedures ECG 12 lead The following portions of the patient's history were personally reviewed by me and updated as appropriate: EKG tracings, other specialty provider and PCP notes,any Hospital admission and discharge summaries, any ER records , current and previous cardiac testing and procedure reports and d best, medication bottles brought to visit today personally reviewed by me. Allergies, current medications.labs Family history, past medical history, past social history, past surgical history. Problem list. [facility] Cardiology 06/22/2019 Pamela aguilar in this encounter Plan of Treatment +--------+---------+ + + + | Date | Type | Specialty | Care Team | Description | +--------+---------+ + + + | 12/20/ | Office | Cardiology | Rochelle Gibbons | | | 2020 | Visit | | [facility] [address] | | | | | | [address] | | | | | | [place] [address] | | | | | | [phone] | | | | | | | | +--------+---------+ + + + documented as of this encounter Procedures + +--------+ + + + | Procedure Name | Priori | Date/Time | Associated Diagnosis | Comments | | | ty | | | | + +--------+ + + + | ECG 12 LEAD | Routin | 06/22/2019 | Paroxysmal atrial | Results for this | | | e | 12:41 PM | fibrillation (HCC) | procedure are in the | | | | PDT | Coronary artery | results section. | | | | | disease of [place]op[place] | | | | | | artery of [place] | | | | | | heart with stable | | | | | | angina pectoris | | | | | | (HCC) Status post | | | | | | insertion of | | | | | | drug-eluting stent | | | | | | into right coronary | | | | | | artery for coronary | | | | | | artery disease | | | | | | Essential | | | | | | hypertension Severe | | | | | | mitral | | | | | | regurgitation | | | | | | Severe tricuspid | | | | | | regurgitation | | | | | | Chronic diastolic | | | | | | congestive heart | | | | | | failure (HCC) | | | | | | Pulmonary | | | | | | hypertension, | | | | | | moderate to severe | | | | | | (HCC) Mixed | | | | | | hyperlipidemia | | + +--------+ + + + documented in this encounter Results ECG 12 lead (06/22/2019 12:41 PM PDT) + + + + + + | Component | Value | Ref Range | Performed | Pathologist | | | | | At | Signature | + + + + + + | VENTRICULAR | 81 | BPM | [facility] | | | RATE EKG | | | | | + + + + + + | ATRIAL RATE | 85 | BPM | [facility] | | + + + + + + | QRS | 100 | ms | [facility] | | | DURATION | | | | | + + + + + + | Q-T | 386 | ms | [facility] | | | INTERVAL | | | | | + + + + + + | Q-T | 448 | ms | [facility] | | | INTERVAL | | | | | | (CORRECTED) | | | | | + + + + + + | QRS AXIS | 83 | degrees | [facility] | | + + + + + + | T AXIS | 75 | degrees | [facility] | | + + + + + + | INTERPRETAT | Please refer to | | [facility] | | | ION TEXT | Providers office visit | | | | | | note for Providers | | | | | | Interpretation.Confirmed | | | | | | by [facility] Read Only, | | | | | | [facility] ([id number]), | | | | | | medical editor SHANIA GERARDO | | | | | | [id number]) on 06/22/2019 | | | | | | 12:48:59 PM | | | | + + + + + + + + | Specimen | + + | | + + + + + | Narrative | Performed At | + + + | | | + + + + +---------+ + + | Performing | Address | City/State/Zipcode | Phone Number | | Organization | | | | + +---------+ + + | [facility] | | | | + +---------+ + + documented in this encounter Visit Diagnoses + + | Diagnosis | + + | Paroxysmal atrial fibrillation (HCC) - Primary Atrial fibrillation | + + | Coronary artery disease of [place] artery of [place] heart with stable angina pectoris | | (HCC) | + + | Status post insertion of drug-eluting stent into right coronary artery for coronary | | artery disease | + + | Essential hypertension Unspecified essential hypertension | + + | Severe mitral regurgitation Mitral valve disorders | + + | Severe tricuspid regurgitation Diseases of tricuspid valve | + + | Chronic diastolic congestive heart failure (HCC) Chronic diastolic heart failure | + + | Pulmonary hypertension, moderate to severe (HCC) Other chronic pulmonary heart | | diseases | + + | Mixed hyperlipidemia | + + | Stage 3 chronic kidney disease (HCC) | + + documented in this encounter
--- OUTSIDE RECORDS SUMMARY | ~2019-10-07 | XMS | Encounter Summary ---
Demographics + + + | Address | [address] | | | [place] [address] | + + + | Home Phone | | + + + | Preferred Language | Unknown | + + + | Marital Status | Single | + + + | Synagogue Affiliation | NON | + + + | Race | White | + + + | Ethnic Group | Not or | + + + Author + + + | Author | [facility] | + + + | Organization | [facility] | + + + | Address | Unknown | + + + | Phone | Unavailable | + + + Support + + +---------+ + | Name | Relationship | Address | Phone | + + +---------+ + | Darby Kate | ECON | Unknown | | + + +---------+ + Care Team Providers + +------+ + | Care Store Standards Associate Name | Role | Phone | + [...] + + + | Closed | | Cardiac | Diagnoses | Mirza, | Sai, | | | | Surgery | | Arnaldo Oshea, | Lucille Arellano, | | | | | Nonrheumatic | [address] | | | | | mitral | [address] | [address] | | | | | (valve) | [address]FFANY [address] | [address] | | | | | insufficienc | [place], [place] | [place], [place] | | | | | y Rheumatic | [address] | [address] | | | | | tricuspid | Phone: | Phone: | | | | | insufficienc | [phone] | [phone] | | | | | y Pulmonary | Fax: | Fax: | | | | | | [phone] | [phone] | | | | | hypertension | | | | | | | , | | | | | | | unspecified | | | | | | | Procedures | | | | | | | LA NEW | | | | | | | PATIENT | | | | | | | LEVEL V | | | +--------+--------+ + + + + Encounter Details +--------+---------+ + + + | Date | Type | Department | Care Team | Description | +--------+---------+ + + + | 07/01/ | Office | Cardiothoracic | Emery Antunez MD | Non-rheumatic mitral | | 2018 | Visit | Surgery at [facility] [address] | [address] | regurgitation | | | | [address] | [address] [place], | (Primary Dx) | | | | Mailcode: [id number] | [place] [address] | | | | | '[facility] [place] | [phone] | | | | | [place], [place] | | | | | | [address] | | | | | | [phone] | | | +--------+---------+ + + + [...] | Blood Pressure | 110/59 | 07/01/2018 2:07 PM | | | | | PDT | | + + + + + | Pulse | 78 | 07/01/2018 2:07 PM | | | | | PDT | | + + + + + | Temperature | 36.7 C (98 F) | 07/01/2018 2:07 PM | | | | | PDT | | + + + + + | Respiratory Rate | 20 | 07/01/2018 2:07 PM | | | | | PDT | | + + + + + | Oxygen Saturation | 99% | 07/01/2018 2:07 PM | | | | | PDT | | + + + + + | Inhaled Oxygen | - | - | | | Concentration | | | | + + + + + | Weight | 66 kg (145 lb 9.6 | 07/01/2018 2:07 PM | | | | oz) | PDT | | + + + + + | Height | 160 cm (5' 3") | 07/01/2018 2:07 PM | | | | | PDT | | + + + + + | Body Mass Index | 25.79 | 07/01/2018 2:07 PM | | | | | PDT | | + + + + + documented in this encounter Progress Notes Emery Antunez MD - 07/01/2018 2:00 PM [facility] Date of Service: 07/01/2018 Referring Providers: Kelsey Stokes Patient Care Team: Renan Menendez MD as PCP - General (Internal Medicine) Chief Complaint: New patient consultation History: Ms. 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 She has developed severe progressive functional limitation. The [facility] further evaluation. Allergies: The patient is allergic to morphine and percocet [oxycodone-acetaminophen]. Medications: acetaminophen 325 mg oral tablet, Take by mouth. ascorbic acid (vitamin C) 500 mg oral tablet, Take 500 mg by mouth once daily. cholecalciferol (Vitamin D3) 2,000 unit oral capsule, Take by mouth. furosemide 40 mg oral tablet, Take by mouth. gluc/chnd/om3/dha/epa/fish/str (GLUCOSAMINE CHONDROITIN PLUS ORAL), Take 2 tablets by mouth once daily. levothyroxine 100 mcg oral tablet, Take by mouth. losartan 100 mg oral tablet, Take 100 mg by mouth once daily. MAGNESIUM CHLORIDE ORAL, Take by mouth. metFORMIN SR 500 mg oral tablet,ER todd.retention 24 hr, Take by mouth. metoprolol succinate 200 mg oral tablet extended release 24 hr, Take 100 mg by mouth once d aily. potassium chloride SR 20 mEq oral tablet,ER particles/crystals, Take by mouth. simvastatin 20 mg oral tablet, Take by mouth once daily in the evening. warfarin 5 mg oral tablet, Take by mouth. Past Medical History: No date: Anemia Comment: resolved with iron supplements - no large GI bleed, negative EGD. No date: Atrial fibrillation (HCC) No date: Hyperlipidemia No date: Hypertension No date: Hypothyroid No date: Pulmonary hypertension (HCC) No date: Type 2 diabetes mellitus (HCC) Past Surgical History: No past surgical history on file. Family History: Noncontributory Social History: The patient reports that she has never smoked. She has never used smokeless tobacco. She r eports that she does not drink alcohol or use drugs. Review of Systems: Constitutional: positive for symptoms of fatigue. Eyes:negative for symptoms ENT: negative for symptoms Respiratory: negative for symptoms Cardiovascular: MAYA Gastrointestinal: negative Genitourinary: negative. Neurological: negative for symptoms Integumentary: negative for symptoms Endocrine: negative for symptoms Musculoskeletal: Extremities normal, no deformities, edema, limited range of motion, or lamin creased strength Physical Exam: Vital Signs: BP 110/59 | Pulse 78 | Temp (Src) 36.7 C (98 F) (Oral) | RR 20 | Ht 1.6 m (5' 3") | Wt 66 kg (145 lb 9.6 oz) | SpO2 99% | BMI 25.79 kg/(m^2) BMI: Body mass index is 25.79 kg/m. Constitutional: alert and cooperative. HEENT: Normal. Respiratory: negative. Cardiovascular: RRR, systolic murmur Gastrointestinal: no hepatomegaly, nontender to palpation, no masses, aorta not grossly enl arged. Musculoskeletal: Extremities normal, no deformities, edema, limited range of motion, or lamin creased strength Neurologic: negative. Skin: No discolorations, rashes, or ulcers. Warm and dry Studies: I personally reviewed the patient's echo. It shows severe MAC. There is mild MS. There i s severe MR. The angiogram shows a severe distal RCA lesion. Assessment: In summary, Ms. 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 I had a long conversation with Ms. Sapp and her dauthter r egarding her condition and the natural history of this. The patient is aware that she is at risk for Angina, Myocardial Infarction and progressive CHF in the future. Her MV is not ideal for intervention because of the severe MAC, mild MS, and potential for LVOT obstruction. Plan: Stenting of the RCA locally. Reconsider mitral clipping if she has continued intractable symptoms after stenting. EMERY ANTUNEZ MD CARDIOTHORACIC SURGERY AT [address] Mailcode: [address] [place] [address] documented in this enco unter Plan of Treatment Not on filedocumented as of this encounter Visit Diagnoses + + | Diagnosis | + + | Non-rheumatic mitral regurgitation - Primary | + + documented in this encounter
--- OUTSIDE RECORDS SUMMARY | ~2019-10-07 | XMS | Clinical Summary ---
Demographics + + + | Address | [address] | | | [place] [address] | + + + | Home Phone | | + + + | Preferred Language | Unknown | + + + | Marital Status | Single | + + + | Yarsani Affiliation | NON | + + + | Race | White | + + + | Ethnic Group | Not or | + + + Author + + + | Author | [facility] | + + + | Organization | [facility] | + + + | Address | Unknown | + + + | Phone | Unavailable | + + + Support + + +---------+ + | Name | Relationship | Address | Phone | + + +---------+ + | Darby Kate | ECON | Unknown | | + + +---------+ + Care Team Providers + +------+ + | Care Foster Care Worker Name | Role | Phone | + +------+ + | Renan Menendez MD | PCP | | + +------+ + Source Comments TAIWO is fully live on both [facility] and [facility] InPatient.[facility] Allergies + + + + + + | Active Allergy | Reactions | Severity | Noted | Comments | | | | | Date | | + + + + + + | Morphine | Anxiety | | 06/17/20 | "felt fidgety" | | | | | 18 | | + + + + + + | Oxycodone-Acetaminop | Anxiety | | 06/17/20 | "felt fidgety" | | hen | | | 18 | | + + + + + + Medications + + + +---------+------+------+-------+ | Medication | Sig | Dispensed | Refills | Star | End | Statu | | | | | | t | Date | s | | | | | | Date | | | + + + +---------+------+------+-------+ | losartan 100 mg | Take 100 mg by mouth | | 0 | | | Activ | | oral tablet | once daily. | | | | | e | + + + +---------+------+------+-------+ | potassium chloride | Take by mouth. | | 0 | | | Activ | | SR 20 mEq oral | | | | | | e | | tablet,ER | | | | | | | | particles/crystals | | | | | | | + + + +---------+------+------+-------+ | simvastatin 20 mg | Take by mouth once | | 0 | | | Activ | | oral tablet | daily in the | | | | | e | | | evening. | | | | | | + + + +---------+------+------+-------+ | MAGNESIUM CHLORIDE | Take by mouth. | | 0 | | | Activ | | ORAL | | | | | | e | + + + +---------+------+------+-------+ | warfarin 5 mg oral | Take by mouth. | | 0 | | | Activ | | tablet | | | | | | e | + + + +---------+------+------+-------+ | levothyroxine 100 | Take by mouth. | | 0 | | | Activ | | mcg oral tablet | | | | | | e | + + + +---------+------+------+-------+ | metFORMIN SR 500 | Take by mouth. | | 0 | | | Activ | | mg oral tablet,ER | | | | | | e | | todd.retention 24 hr | | | | | | | + + + +---------+------+------+-------+ | acetaminophen 325 | Take by mouth. | | 0 | | | Activ | | mg oral tablet | | | | | | e | + + + +---------+------+------+-------+ | furosemide 40 mg | Take by mouth. | | 0 | | | Activ | | oral tablet | | | | | | e | + + + +---------+------+------+-------+ | metoprolol | Take 100 mg by mouth | | 0 | 07/3 | | Activ | | succinate 200 mg | once daily. | | | 0/20 | | e | | oral tablet extended | | | | 18 | | | | release 24 hr | | | | | | | + + + +---------+------+------+-------+ | ascorbic acid | Take 500 mg by mouth | | 0 | | | Activ | | (vitamin C) 500 mg | once daily. | | | | | e | | oral tablet | | | | | | | + + + +---------+------+------+-------+ | | Take 2 tablets by | | 0 | | | Activ | | gluc/chnd/om3/dha/ep | mouth once daily. | | | | | e | | a/fish/str | | | | | | | | (GLUCOSAMINE | | | | | | | | CHONDROITIN PLUS | | | | | | | | ORAL) | | | | | | | + + + +---------+------+------+-------+ Active Problems + + | Patient Care Coordination Note | + + | 09/23/18: discussed at | | MDR. Not appropriate for valve in MAC--mitral orifice rather large and anteriorly | | there | | | | s nothing holding the s3 [address] this patient has pure MR and the anterior leaflet | | has preserved motion. Too high a risk of atrial embolization. NICOLE notified pt that we | | cannot offer an intervention. rkt110/26/2017 Pt discussed in [facility] Multi-D review. Team | | decided to offer kgbss-di-CTP, pending 3D reconstruction. NICOLE and SC did 3D | | reconstruction, ok to proceed w/procedure. Mina from [facility] will need to be present | | for case. NICOLE talking w/Zana Dumas at [facility]. [facility] has the CT and is working on | | getting Mina's availability.Date of Procedure: Valve Size & Type: 29mm [id number]: | | RFVAnticoag PRE: warfarin, hold x5 days before procedure, bridge w/325 mg ASA. No hold | | ASA prior to procedureAnticoag POST: plavix load, then warfarin and baby ASA Dental | | status: Special Needs: confirm HS note from 07/01/18 will work for 1st CTS consult, or if | | HS can amend, or ?F/U Plan: 2 wk and 30 day w/KR Date Complete: 1st Surgeon HS 07/01 | | 2nd Surgeon DS 08/26 Consent needs Frailty 07/01/18; repeat 6" WT on day of PMC PMC | | needs Results for orders placed or performed in visit on 06/19/18 12 LEAD ECG Result | | Value Ref Range VENTRICULAR RATE 80 bpm ATRIAL RATE 0 ms P-R INTERVAL ms P AXIS | | deg QRS DURATION 107 ms QT 393 ms QTCB 451 ms R AXIS -48 deg T AXIS 6 deg ECG | | IMPRESSION Atrial fibrillation ECG IMPRESSION Minimal ST depression, inferior leads | | ECG IMPRESSION Minimal ST elevation, anterolateral leads- ABNORMAL ECG - ECG | | IMPRESSION Electronically signed by: OSCAR GIL 07-03-2018 17:39:25 07/01/18: | | discussed at [facility] and seen at [facility]. 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 Plan is to stent | | the RCA (via primary aluminum siding installer), then re-eval in HVC approx 3 mos s/p stent. CHINO said | | to schedule as a 30" visit during her lunch on an [facility] day so that way could be added | | on to [facility] that afternoon if needed.rkt | |Result Value Ref Range | | VENTRICULAR RATE 80 bpm | | ATRIAL RATE 0 ms | | P-R INTERVAL ms | | P AXIS deg | | QRS DURATION 107 ms | | QT 393 ms | | QTCB 451 ms | | R AXIS -48 deg | | T AXIS 6 deg | | ECG IMPRESSION Atrial fibrillation | | ECG IMPRESSION Minimal ST depression, inferior leads | | ECG IMPRESSION | | Minimal ST elevation, anterolateral leads- ABNORMAL ECG - | | ECG IMPRESSION | | Electronically signed by: OSCAR GIL 07-03-2018 17:39:25 | | | |07/01/18: discussed at [facility] and seen at [facility]. 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 Plan is to stent the RCA (via primary aluminum siding installer), then re-eval in HVC approx 3 mos s/p stent. CHINO sa id to schedule as | | a 30" visit during her lunch on an [facility] day so that way could be added on to [facility] that aft ernoon if needed. | |rkt | + + + + + | Problem | Noted Date | + + + | Mitral annular calcification | 07/01/2018 | + + + | Mitral regurgitation | 07/01/2018 | + + + | Atrial fibrillation | 07/01/2018 | + + + Family History + + +------+ + | Medical History | Relation | Name | Comments | + + +------+ + | Heart Attack | Father | | | + + +------+ + | Stroke | Father | | | + + +------+ + | Heart Failure | Mother | | | + + +------+ + | Sudden | Other | | likely from PE | + + +------+ + + +------+--------+ + | Relation | Name | Status | Comments | + +------+--------+ + | Father | | | | + +------+--------+ + | Mother | | | | + +------+--------+ + | Other | | | | + +------+--------+ + Social History + +-------+ +--------+------+ | [...] recent travel history available. | + + Last Filed Vital Signs + + + + + | Vital Sign | Reading | Time Taken | Comments | + + + + + | Blood Pressure | 123/62 | 08/26/2018 2:18 PM | | | | | PST | | + + + + + | Pulse | 73 | 08/26/2018 2:18 PM | | | | | PST | | + + + + + | Temperature | 36.6 C (97.9 F) | 08/26/2018 2:18 PM | | | | | PST | | + + + + + | Respiratory Rate | 14 | 08/26/2018 2:18 PM | | | | | PST | | + + + + + | Oxygen Saturation | 99% | 08/26/2018 2:18 PM | | | | | PST | | + + + + + | Inhaled Oxygen | - | - | | | Concentration | | | | + + + + + | Weight | 67 kg (147 lb 11.3 | 08/26/2018 2:18 PM | | | | oz) | PST | | + + + + + | Height | 160 cm (5' 3") | 07/01/2018 2:09 PM | | | | | PDT | | + + + + + | Body Mass Index | 26.17 | 07/01/2018 2:09 PM | | | | | PDT | | + + + + + Plan of Treatment + + + + + | Health Maintenance | Due Date | Last Done | Comments | + + + + + | Pneumococcal | | | | | vaccination (1 of 2 | 7 | | | | - PCV13) | | | | + + + + + | Influenza (Flu) | | 07/10/2017, 07/13/2016, | | | vaccination (#1) | 9 | 07/15/2014, Additional history | | | | | exists | | + + + + + Results Not on filefrom Last 3 Months Insurance + +--------+ +--------+ + +--------+ | Payer | Benefi | Subscriber | Effect | Phone | Address | Type | | | t Plan | ID | finesse | | | | | | / | | Dates | | | | | | Group | | | | | | + +--------+ +--------+ + +--------+ | MEDICARE | MEDICA | xxxxxxxxxxx | 02/04/19 | [phone] | [address] | [address] | | | RE A & | | 97-Pre | [address] | [phone] | re | | | B | | sent | | [place] | | | | | | | | [id number] | | + +--------+ +--------+ + +--------+ | COMMERCIAL | INDIVI | xxxxxxxxxxx | 10/07/19 | | | Indemn | | INDIVIDUAL | DUAL | | 18-Pre | | | ity | | | COMMER | | sent | | | | | | CIAL | | | | | | + +--------+ +--------+ + +--------+ + +--------+ +--------+ + + | Guarantor Name | Accoun | Relation to | Date | Phone | Billing Address | | | t Type | Patient | of | | | | | | | | | | + +--------+ +--------+ + + | Rufina Sapp | Person | Self | [birth year] | [address] | | | al/Fam | | [phone] | [phone] | [place] [address] | | | bacilio | | | 0 (Home) | | | | | | | [phone] | | | | | | | 0 (Work) | | + +--------+ +--------+ + + Advance Directives + + + + + | Code Status | Date | Date | Comments | | | Activated | Inactivated | | + + + + + | Full Code | 06/30/2018 | 06/30/2018 | | | | 9:53 AM | 11:28 PM | | + + + + + +---------+ + +---+ | | | | | +---------+ + +---+ | AMANDA/DANIEL | 06/19/2018 | 06/19/2018 | | | | 9:11 AM | 6:10 PM | | +---------+ + +---+
--- OUTSIDE RECORDS SUMMARY | ~2019-10-07 | XMS | Encounter Summary ---
Demographics + + + | Address | [address] | | | [place] [address] | + + + | Home Phone | | + + + | Preferred Language | Unknown | + + + | Marital Status | | + + + | Jewish Affiliation | Unknown | + + + | Race | Unknown | + + + | Ethnic Group | Unknown | + + + Author + + + | Author | [facility] | | | and [place] | + + + | Organization | [facility] | | | [...] Team Providers + +------+ + | Care Continuing Education Instructor Name | Role | Phone | + +------+ + | Renan Menendez MD | PCP | | + +------+ + Encounter Details +--------+ + + + + | Date | Type | Department | Care Team | Description | +--------+ + + + + | 05/20/ | Orders Only | [facility] | Conversion | | | 2018 | | CONVERSION DEP [address] | Transaction, | | | | | [address] | Provider Unknown | | | | | [place] | [phone] | | | | | [address] | | | | | | [phone] | | | +--------+ + + + + Social History + +-------+ +--------+------+ | Tobacco Use | Types | Packs/Day | Years | Date | | | | | Used | | + +-------+ +--------+------+ | Never Assessed | | | | | + +-------+ +--------+------+ + + + | Sex Assigned at [...] + + documented as of this encounter Plan of Treatment +--------+---------+ + + + | Date | Type | Specialty | Care Team | Description | +--------+---------+ + + + | 12/20/ | Office | Cardiology | Rochelle Gibbons | | | 2020 | Visit | | [address] | | | | | | [address] | | | | | | [place] [address] | | | | | | [phone] | | | | | | | | +--------+---------+ + + + documented as of this encounter Visit Diagnoses Not on filedocumented in this encounter"
--- OUTSIDE RECORDS SUMMARY | ~2019-10-07 | XMS | Encounter Summary ---
Demographics + + + | Address | [address] | | | [place] [address] | + + + | Home Phone | | + + + | Preferred Language | Unknown | + + + | Marital Status | | + + + | Yarsanism Affiliation | Unknown | + + + | Race | Unknown | + + + | Ethnic Group | Unknown | + + + Author + + + | Author | [facility] | | | and [place] | + + + | Organization | [facility] | | | and [...] Team Providers + +------+ + | Care Nuclear Officer Name | Role | Phone | + +------+ + | Renan Menendez MD | PCP | | + +------+ + Encounter Details +--------+ + + + + | Date | Type | Department | Care Team | Description | +--------+ + + + + | 08/05/ | Orders Only | [facility] | Conversion | | | 2018 | | CONVERSION DEP 888 | Transaction, | | | | | [address] | Provider Unknown | | | | | [place] | [phone] | | | | | [address] | | | | | | [phone] | | | +--------+ + + + [...] | | | | | [place] [address] | | | | | | [phone] | | | | | | | | +--------+---------+ + + + documented as of this encounter Visit Diagnoses Not on filedocumented in this encounter"
--- OUTSIDE RECORDS SUMMARY | ~2019-10-07 | XMS | Encounter Summary ---
Demographics + + + | Address | [address] | | | [place] [address] | + + + | Home Phone | | + + + | Preferred Language | Unknown | + + + | Marital Status | | + + + | Anglican Affiliation | Unknown | + + + | Race | Unknown | + + + | Ethnic Group | Unknown | + + + Author + + + | Author | [facility] | | | and [place] | + + + | Organization | [facility] | | | and [...] Team Providers + +------+ + | Care Wrapper Operator Name | Role | Phone | + +------+ + | Renan Menendez MD | PCP | | + +------+ + Encounter Details +--------+ + + + + | Date | Type | Department | Care Team | Description | +--------+ + + + + | 05/19/ | Orders Only | [facility] | Conversion | | | 2018 | | CONVERSION DEP [address] | Transaction, | | | | | [address] | Provider Unknown | | | | | [place] | [phone] | | | | | [address] | | | | | | [phone] | | | +--------+ + + + [...] | | | | | [place] [address] | | | | | | [phone] | | | | | | | | +--------+---------+ + + + documented as of this encounter Visit Diagnoses Not on filedocumented in this encounter"
--- OUTSIDE RECORDS SUMMARY | ~2019-10-07 | XMS | Encounter Summary ---
Demographics + + + | Address | [address] | | | [place] [address] | + + + | Home Phone | | + + + | Preferred Language | Unknown | + + + | Marital Status | Single | + + + | Hoahaoism Affiliation | NON | + + + | Race | White | + + + | Ethnic Group | Not or | + + + Author + + + | Author | [facility] | + + + | Organization | [facility] | + + + | Address | Unknown | + + + | Phone | Unavailable | + + + Support + + +---------+ + | Name | Relationship | Address | Phone | + + +---------+ + | Darby Kate | ECON | Unknown | | + + +---------+ + Care Team Providers + +------+ + | Care Hired Hand Name | Role | Phone | + +------+ + | Renan Menendez MD | PCP | | + +------+ + Encounter Details +--------+ + + + + | Date | Type | Department | Care Team | Description | +--------+ + + + + | 07/01/ | Hospital | Cardiac | [facility] | | | 2018 | Encounter | Non-Invasive Testing | [address] | | | | | at [facility] | [facility] | | | | | [address] | [place] [address] | | | | | Loop Mailcode: | | | | | | [id number] | | | | | | [facility] | | | | | | [place], [place] | | | | | | [address] | | | | | | [phone] | | | +--------+ + + + [...] + + documented as of this encounter Medications at Time of Discharge + + + +---------+ + + | Medication | Sig | Dispensed | Refills | Start | End Date | | | | | | Date | | + + + +---------+ + + | acetaminophen 325 | Take by mouth. | | 0 | | | | mg oral tablet | | | | | | + + + +---------+ + + | ascorbic acid | Take 500 mg by mouth | | 0 | | | | (vitamin C) 500 mg | once daily. | | | | | | oral tablet | | | | | | + + + +---------+ + + | furosemide 40 mg | Take by mouth. | | 0 | | | | oral tablet | | | | | | + + + +---------+ + + | | Take 2 tablets by | | 0 | | | | gluc/chnd/om3/dha/ep | mouth once daily. | | | | | | a/fish/str | | | | | | | (GLUCOSAMINE | | | | | | | CHONDROITIN PLUS | | | | | | | ORAL) | | | | | | + + + +---------+ + + | levothyroxine 100 | Take by mouth. | | 0 | | | | mcg oral tablet | | | | | | + + + +---------+ + + | losartan 100 mg | Take 100 mg by mouth | | 0 | | | | oral tablet | once daily. | | | | | + + + +---------+ + + | MAGNESIUM CHLORIDE | Take by mouth. | | 0 | | | | ORAL | | | | | | + + + +---------+ + + | metFORMIN SR 500 | Take by mouth. | | 0 | | | | mg oral tablet,ER | | | | | | | todd.retention 24 hr | | | | | | + + + +---------+ + + | metoprolol | Take 100 mg by mouth | | 0 | 05/05/ | | | succinate 200 mg | once daily. | | | 18 | | | oral tablet extended | | | | | | | release 24 hr | | | | | | + + + +---------+ + + | potassium chloride | Take by mouth. | | 0 | | | | SR 20 mEq oral | | | | | | | tablet,ER | | | | | | | particles/crystals | | | | | | + + + +---------+ + + | simvastatin 20 mg | Take by mouth once | | 0 | | | | oral tablet | daily in the | | | | | | | evening. | | | | | + + + +---------+ + + | warfarin 5 mg oral | Take by mouth. | | 0 | | | | tablet | | | | | | + + + +---------+ + + documented as of this encounter Plan of Treatment + +------+--------+ + + | Name | Type | Priori | Associated Diagnoses | Date/Time | | | | ty | | | + +------+--------+ + + | 6-MINUTE WALK TEST - | ECG | Routin | Mitral valve | 07/01/2018 | | ECG | | e | insufficiency, | | | | | | unspecified etiology | | + +------+--------+ + + documented as of this encounter Visit Diagnoses + + | Diagnosis | + + | Mitral valve insufficiency, unspecified etiology | + + documented in this encounter"
--- OUTSIDE RECORDS SUMMARY | ~2019-10-07 | XMS | Encounter Summary ---
Demographics + + + | Address | [address] | | | [place] [address] | + + + | Home Phone | | + + + | Preferred Language | Unknown | + + + | Marital Status | Single | + + + | Temple Affiliation | NON | + + + | Race | White | + + + | Ethnic Group | Not or | + + + Author + + + | Author | [facility] | + + + | Organization | [facility] | + + + | Address | Unknown | + + + | Phone | Unavailable | + + + Support + + +---------+ + | Name | Relationship | Address | Phone | + + +---------+ + | Darby Kate | ECON | Unknown | | + + +---------+ + Care Team Providers + +------+ + | Care Cable Repairer Name | Role | Phone | + +------+ + | Renan Menendez MD | PCP | | + +------+ + Encounter Details +--------+ + + + + | Date | Type | Department | Care Team | Description | +--------+ + + + + | 08/26/ | Documentati | Cardiology at [facility] | [place], | | | 2018 | on | [address] | RN [address] | | | | | Mailcode: [id number] | [address] | | | | | [facility] | [place], [place] | | | | | and [place], | [address] | | | | | | | | | | | [place], [place] | | | | | | [address] | | | | | | [phone] | | | +--------+ + + + [...] as of this encounter Plan of Treatment Not on filedocumented as of this encounter Visit Diagnoses Not on filedocumented in this encounter"
--- OUTSIDE RECORDS SUMMARY | ~2019-10-07 | XMS | Encounter Summary ---
Demographics + + + | Address | [address] | | | [place] [address] | + + + | Home Phone | | + + + | Preferred Language | Unknown | + + + | Marital Status | Single | + + + | Mandaeism Affiliation | NON | + + + | Race | White | + + + | Ethnic Group | Not or | + + + Author + + + | Author | [facility] | + + + | Organization | [facility] | + + + | Address | Unknown | + + + | Phone | Unavailable | + + + Support + + +---------+ + | Name | Relationship | Address | Phone | + + +---------+ + | Darby Kate | ECON | Unknown | | + + +---------+ + Care Team Providers + +------+ + | Care Body Presser Name | Role | Phone | + +------+ + | Renan Menendez MD | PCP | | + +------+ + Encounter Details +--------+ + + + + | Date | Type | Department | Care Team | Description | +--------+ + + + + | 08/06/ | Documentati | Cardiology General | Danny Adams | | | 2018 | on | at [facility] [address] [place] [address] | | | | | [address] Mailcode: | [place], [place] | | | | | [address] | [address] | | | | | [facility], | [phone] | | | | | | | | | | | [place], [place] | | | | | | [address] | | | | | | [phone] | | | +--------+ + + + [...]
--- OUTSIDE RECORDS SUMMARY | ~2019-10-07 | XMS | Encounter Summary ---
Demographics + + + | Address | [address] | | | [place] [address] | + + + | Home Phone | | + + + | Preferred Language | Unknown | + + + | Marital Status | Single | + + + | Congregation Affiliation | NON | + + + [...] Team Providers + +------+ + | Care School Health Assistant Name | Role | Phone | + +------+ + | Renan Menendez MD | PCP | | + +------+ + Encounter Details +--------+ + + + + | Date | Type | Department | Care Team | Description | +--------+ + + + + | 08/26/ | Documentati | Cardiology at [facility] | [place], | | | 2018 | on | [address] | RN [address] | | | | | Mailcode: [address] | [address] | | | | | [facility] | [place], [place] | | | | | and [place], | [address] | | | | | | | | | | | [place], [place] | | | | | | [address] | | | | | | [phone] | | | +--------+ + + + [...]
--- OUTSIDE RECORDS SUMMARY | ~2019-10-07 | XMS | Encounter Summary ---
Demographics + + + | Address | [address] | | | [place] [address] | + + + | Home Phone | | + + + | Preferred Language | Unknown | + + + | Marital Status | | + + + | Mandaeism Affiliation | Unknown | + + + | Race | Unknown | + + + | Ethnic Group | Unknown | + + + Author + + + | Author | [facility] | | | and [place] | + + + | Organization | [facility] | | | and [...] Team Providers + +------+ + | Care Head Of Measurement & Insights Name | Role | Phone | + +------+ + PCP | Unavailable | + +------+ + Encounter Details +--------+ + + + + | Date | Type | Department | Care Team | Description | +--------+ + + + + | 07/30/ | Hospital | [facility] | Conversion | Coronary artery | | 2017 - | Encounter | [facility] | Transaction, | disease involving | | | | CLINICAL DECISION | Provider Unknown | [place] coronary | | 07/31/ | | [address] | [phone] | artery of [place] | | 2018 | | [place], [place] | | heart, angina | | | | [address] | Arnaldo Blue MD | presence | | | | [phone] | [address] | unspecified; Anginal | | | | | [place], [place] | equivalent ([facility]); | | | | | [address] | Chronic atrial | | | | | | fibrillation ([facility]); | | | | | | Essential | | | | | | hypertension; | | | | | | Pulmonary | | | | | | hypertension, | | | | | | moderate to severe | | | | | | ([facility]); S/P drug | | | | | | eluting coronary | | | | | | stent placement; | | | | | | Severe mitral | | | | | | regurgitation; | | | | | | Severe tricuspid | | | | | | regurgitation; SOB | | | | | | (shortness of | | | | | | breath) on exertion | +--------+ + + + + Social [...] + + + | Blood Pressure | 123/59 | 07/31/2018 2:40 PM | | | | | PDT | | + + + + + | Pulse | 70 | 07/31/2018 2:40 PM | | | | | PDT | | + + + + + | Temperature | 36.6 C (97.9 F) | 07/31/2018 2:40 PM | | | | | PDT | | + + + + + | Respiratory Rate | 16 | 07/31/2018 2:40 PM | | | | | PDT | | + + + + + | Oxygen Saturation | - | - | | + + + + + | Inhaled Oxygen | - | - | | | Concentration | | | | + + + + + | Weight | 66.7 kg (147 lb 0.8 | 07/31/2018 2:40 PM | | | | oz) | PDT | | + + + + + | Height | 160 cm (5' 3") | 07/31/2018 2:40 PM | | | | | PDT | | + + + + + | Body Mass Index | 26.05 | 07/31/2018 2:40 PM | | | | | PDT | | + + + + + documented in this encounter Discharge Summaries Shanita Braswell MD - 07/31/2018 12:42 PM PDTFormatting of this note might be diffe rent from the original. 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 * Final Diagnoses: 1. Coronary artery disease with anginal equivalent status post successful PTCA and stentin g of the right posterolateral artery using 3.0 x 16 mm Synergy drug-eluting stent on 018. 2. Severe mitral regurgitation. 3. Severe tricuspid regurgitation. 4. Coronary atrial fibrillation. 5. Moderate to severe primary hypertension. 6. Hypertension. 7. Hyperlipidemia. 8. Atrial septal defect. 9. Mild aortic stenosis. Procedures: PCI 07/30/2018 Results Critical 99% calcified rPLA,, 30% prox and mid RCA Successful PTCA/stent rPLA using 3.0X16 mm Synergy MINH postdilated 3.5X12 NC balloon Probable small branch wire induced perforation with small, limited extravasation of contras t Significant Diagnostic Studies: Limited Echo 07/31/2018 Impression 1. Overall left ventricular systolic function is normal with, an EF between 65 - 70 %. 2. There is no pericardial effusion. BRIEF HISTORY OF PRESENTATION AND HOSPITAL COURSE: Rufina Sapp is a 88 y.o. female With a history of hypertension, hyperlipidemia, diabetes mellitus type 2, chronic atrial fibrillation, severe mitral and tricuspid regurgit ation, who was referred for elective outpatient PCI of right posterolateral artery. Patient was evaluated at [facility] for mitral clip and possible tricuspid clip. She had a coronary alicia ogram done there that showed the critical stenosis of a large right posterolateral artery. She was referred by her primary oil painter, Dr. Blue, for PCI. Patient had a successful P CI of the right posterolateral artery with deployment of a 3.0 x 16 mm Synergy drug-eluting stent. Patient tolerated the procedure well. There was a questionable left small extravasa tion of contrast and we suspected a small branch wire induced perforation. Patient was kept overnight for observation. She had remained hemodynamically stable without symptoms. We d id a limited echocardiogram the next day which showed no evidence of pericardial effusion. The patient ambulated well. She had chronic exertional shortness of breath which she felt m ight have improved; however, she has not exerted herself to the level that she can do a good comparison. She denies chest pain, orthopnea, paroxysmal nocturnal dyspnea, palpitations, lightheadedness, presyncope, or syncope. She has been taking aspirin and Plavix before the procedure, and that will continue. She was restarted on Coumadin on discharge to be restart ed the next day. Overall, the patient tolerated the procedure well and was discharged home in stable condition. Her renal function remained stable. PLAN: 1. Continue aspirin 81 mg for life. 2. Continue Plavix 75 mg for at least 6 months. 3. Home medications including losartan, Toprol XL, and simvastatin will continue. 4. Cardiac rehabilitation as an outpatient. 5. Patient will follow with her primary oil painter, Dr. Blue, in 1 week. Past Medical History Diagnosis Date Acute diastolic heart failure (HCC) ASD secundum Atrial fibrillation (HCC) 1995 persistent since then, never attempted cardioversion Cerebrovascular accident (CVA) (HCC) Congestive heart failure (HCC) 11/2017 acute/chronic Diastolic Heart Failure, NYHA class III Coronary artery disease of [place] artery of [place] heart with stable angina pectoris (H CC) 07/30/2018 Diabetes mellitus, type II (HCC) 2006 controlled, [...] hysterectomy separate salpingo-oophorectomy Bilateral TOE FUSION TONSILLECTOMY Allergies Allergen Reactions Morphine Other (See Comments) Pt felt fidgety Percocet [Oxycodone-Acetaminophen] Other (See Comments) Pt felt fidgety Prescriptions Prior to Admission Medication Sig Dispense Refill Last Dose acetaminophen (TYLENOL) 325 MG tablet Take 650 mg by mouth every 6 (six) hours as neede d for Pain. Taking at Unknown time ascorbic acid (VITAMIN C) 1000 MG tablet Take 1,000 mg by mouth daily. 07/29/2018 at 0800 aspirin 81 MG tablet Take 1 tablet by mouth daily. Start 07/28/18 30 tablet 11 07/30/20 18 at 0715 Cholecalciferol 2000 units CAPS Take 2,000 Units by mouth daily. 07/30/2018 at 0715 clopidogrel (PLAVIX) 75 MG tablet Take 1 tablet by mouth daily. Start 07/28/18 (stop wa rfarin 07/26/18) 30 tablet 11 07/30/2018 at 0715 Cranberry 1000 MG CAPS Take 1 capsule by mouth daily. 07/30/2018 at 0715 furosemide (LASIX) 40 MG tablet Take 40 mg by mouth daily. 07/30/2018 at 0715 Upas-Nlods-COU-Boswellia-Vit D (GLUCOSAMINE CHOND TRIPLE/VIT D) TABS Take 1 tablet by m outh daily. 07/30/2018 at 0715 levothyroxine (SYNTHROID) 100 MCG tablet Take 100 mcg by mouth every morning before abbey akfast. 07/30/2018 at 0715 losartan (COZAAR) 100 MG tablet Take 100 mg by mouth daily. 07/29/2018 at 1800 magnesium chloride (MAG64) 64 mg EC tablet Take 1 tablet by mouth daily. 07/30/2018 a t 0715 metFORMIN (GLUMETZA) 500 MG (MOD) 24 hr tablet Take 500 mg by mouth 2 (two) times daily with meals. 07/28/2018 at Unknown time metoprolol (TOPROL-XL) 200 MG 24 hr tablet Take 100 mg by mouth every morning. 2017 at 0715 potassium chloride SA (K-DUR,KLOR-CON) 20 MEQ tablet Take 20 mEq by mouth daily. 07/08 at 0715 simvastatin (ZOCOR) 20 MG tablet Take 10 mg by mouth nightly. 07/29/2018 at 1800 DISCHARGE EXAM Vital Signs: BP 123/59 (BP Location: Left upper arm) | Pulse 70 | Temp 97.9 F (36.6 C) (Oral) | R larry 16 | Ht 1.6 m (5' 3") | Wt 66.7 kg (147 lb 0.8 oz) | SpO2 98% | BMI 26.05 kg/m Temp: [97.5 F (36.4 C)-98.6 F (37 C)] 97.9 F (36.6 C) (07/31 1054) BP: (98-177)/(44-106) 114/57 (07/31 1054) Heart Rate: [51-78] 67 (07/31 1054) Resp: [11-22] 16 (07/31 1054) SpO2: [84 %-100 %] 98 % (07/31 1054) Height: [160 cm (5' 3")] 160 cm (5' 3") (07/30 135) Weight: [66.7 kg (147 lb 0.8 oz)] 66.7 kg (147 lb 0.8 oz) (07/30 135) BMI (Calculated): [26.1] 26.1 (07/30 1352) Physical Exam Constitutional: She is oriented to person, place, and time. She appears well-developed and well-nourished. No distress. HENT: Head: Normocephalic and atraumatic. Eyes: No scleral icterus. Neck: Neck supple. No JVD present. Carotid bruit is not present. Cardiovascular: Normal rate, S1 normal and S2 normal. An irregularly irregular rhythm pres ent. Exam reveals no gallop and no friction rub. Murmur (2/6 systolic) heard. Pulmonary/Chest: Effort normal. No stridor. No respiratory distress. She has no wheezes. Sh e has no rales. She exhibits no tenderness. Abdomina/Gl: Soft. Bowel sounds are normal. There is no tenderness. Musculoskeletal: She exhibits no edema or tenderness. Neurological: She is alert and oriented to person, place, and time. No cranial nerve defici t. Skin: Skin is warm and dry. No rash noted. She is not diaphoretic. No erythema. No pallor. Psychiatric: She has a normal mood and affect. DATA CBC: Lab Results Component Value Date WBC 9.88 07/31/2018 RBC 3.67 (L) 07/31/2018 HGB 10.9 (L) 07/31/2018 HCT 31.9 (L) 07/31/2018 MCV 87.0 07/31/2018 MCH 29.6 07/31/2018 MCHC 34.0 07/31/2018 RDW 46.4 07/31/2018 PLT 251 07/31/2018 MPV 9.1 07/31/2018 DIFFTYPE MANUAL 07/31/2018 BMP: Lab Results Component Value Date NA 136 07/31/2018 K 4.6 07/31/2018 CL 106 07/31/2018 CO2 19 (L) 07/31/2018 ANIONGAP 16 07/31/2018 GLUF 147 (H) 07/31/2018 BUN 21 07/31/2018 CREATININE 0.9 07/31/2018 BCR 23 07/31/2018 CA 8.6 07/31/2018 EGFR 59 (L) 07/31/2018 Disposition: Home Condition: Stable Code Status: Full Code No discharge procedures on file. Follow up: Mervin Sidhu MD [address] [place] [address] Arnaldo Blue MD [address] [place] [address] In 1 week Medication List CONTINUE taking these medications acetaminophen 325 MG tablet Refills: 0 Commonly known as: TYLENOL ascorbic acid 1000 MG tablet Refills: 0 Commonly known as: VITAMIN C aspirin 81 MG tablet QTY: 30 tablet Refills: 11 Take 1 tablet by mouth daily. Start 07/28/18 Cholecalciferol 2000 units Caps Refills: 0 clopidogrel 75 MG tablet QTY: 30 tablet Refills: 11 Commonly known as: PLAVIX Take 1 tablet by mouth daily. Start 07/28/18 (stop warfarin 07/26/18) Cranberry 1000 MG Caps Refills: 0 furosemide 40 MG tablet Refills: 0 Commonly known as: LASIX GLUCOSAMINE CHOND TRIPLE/VIT D Tabs Refills: 0 levothyroxine 100 MCG tablet Refills: 0 Commonly known as: SYNTHROID losartan 100 MG tablet Refills: 0 Commonly known as: COZAAR magnesium chloride 64 mg EC tablet Refills: 0 Commonly known as: MAG64 metFORMIN 500 MG (MOD) 24 hr tablet Refills: 0 Commonly known as: GLUMETZA metoprolol 200 MG 24 hr tablet Refills: 0 Commonly known as: TOPROL-XL potassium chloride SA 20 MEQ tablet Refills: 0 Commonly known as: K-DUR,KLOR-CON simvastatin 20 MG tablet Refills: 0 Commonly known as: ZOCOR You might also be taking other medications not listed above. If you have questions about an y of your other medications, talk to the person who prescribed them or your Primary Care Pro vider. Discharge took 40 minutes, to include final examination, discussion of admission, and prepa ration of prescriptions, instructions for on-going care, follow-up and documentation of disc harge summary. Shanita Braswell MD 07/31/2018 documented i n this encounter Medications at Time of Discharge + + + +---------+ + + | Medication | Sig | Dispensed | Refills | Start | End Date | | | | | | Date | | + + + +---------+ + + | acetaminophen | Take 650 mg by mouth | | 0 | 05/19/20 | | | (TYLENOL) 325 mg | every 6 (six) hours | | | 18 | | | tablet | as needed for Pain. | | | | | + + + +---------+ + + | ascorbic acid | Take 1,000 mg by | | 0 | 05/19/20 | | | (VITAMIN C) 1000 MG | mouth daily. | | | 18 | | | tablet | | | | | | + + + +---------+ + + | Cranberry Juice | Take 1 capsule by | | 0 | 05/19/20 | | | Extract 1000 MG CAPS | mouth daily. | | | 18 | | + + + +---------+ + + | furosemide (LASIX) | Take 40 mg by mouth | | 0 | 05/19/20 | | | 40 mg tablet | daily. | | | 18 | | + + + +---------+ + + | levothyroxine | Take 100 mcg by | | 0 | 05/19/20 | | | (SYNTHROID) 100 mcg | mouth every morning | | | 18 | | | tablet | before breakfast. | | | | | + + + +---------+ + + | losartan (COZAAR) | Take 100 mg by mouth | | 0 | 05/19/20 | | | 100 MG tablet | daily. | | | 18 | | + + + +---------+ + + | magnesium chloride | Take 1 tablet by | | 0 | 05/19/20 | | | (MAG64) 64 mg EC | mouth daily. | | | 18 | | | tablet | | | | | | + + + +---------+ + + | metFORMIN | Take 500 mg by mouth | | 0 | 05/19/20 | | | (GLUMETZA) 500 MG 24 | 2 (two) times daily | | | 18 | | | hr tablet | with meals. | | | | | + + + +---------+ + + | potassium chloride | Take 20 mEq by mouth | | 0 | 05/19/20 | | | (KLOR-CON M20) 20 | daily. | | | 18 | | | mEq ER tablet | | | | | | + + + +---------+ + + | simvastatin | Take 10 mg by mouth | | 0 | 05/19/20 | | | (ZOCOR) 20 mg tablet | nightly. | | | 18 | | + + + +---------+ + + | aspirin 81 MG | Take 1 tablet by | 30 | 11 | 07/25/20 | | | tablet | mouth daily. Start | tablet | | 18 | 9 | | | 07/28/18 | | | | | + + + +---------+ + + | | Take 1 tablet by | | 0 | 05/19/20 | | | Auao-Sqbhp-TWU-Boswe | mouth daily. | | | 18 | 9 | | llia-Vit D | | | | | | | (GLUCOSAMINE CHOND | | | | | | | TRIPLE/VIT D) TABS | | | | | | + + + +---------+ + + | metoprolol | Take 100 mg by mouth | | 0 | 05/05/20 | | | succinate | every morning. | | | 18 | 9 | | (TOPROL-XL) 200 mg | | | | | | | ER tablet | | | | | | + + + +---------+ + + documented as of this encounter Progress Notes Conversion Transaction, Provider Unknown - 07/31/2018 3:43 PM PDTFormatting of this note m ight be different from the original. Nurse Progress Note by Glo Prasad RN at 07/31/18 992 Author: Glo Prasad RN Service: (none) Author Type: Registered Nurse Filed: 07/31/18 8372 Date of Service: 07/31/181542 Status: Signed Remote Advisor: Glo Prasad RN (Registered Nurse) Discharge summary and paperwork reviewed with patient and patient's daughter. IVs removed. Belongings sent with patient. Tele notified of patient discharge. All questions adressed and there are no further concerns. Patient escorted via wheelchair to private vehicle. Glo Prasad RN. 07/31/18 3:44 PM onver adeel Transaction, Provider Unknown - 07/31/2018 9:56 AM PDT Case Management by KELLI Rivera at 07/31/18955 Author: KELLI Rivera Service: (none) Author Type: Animal Care Provider Filed: 07/31/1857 Date of Service: 07/31/18955 Status: Signed Remote Advisor: KELLI Rivera (Animal Care Provider) CM met with pt for discharge planning. Pt is 88 years old and lives with her daughter and g randchildren in a 2-level home. Pt has 7 stairs at the main entrance. Pt is independent with her mobility. Pt denied any difficulty obtaining her medications and had no resource concer ns at this time. CM will continue to follow as needed. 07/31/18953 Discharge Planning Evaluation Admitting Diagnosis Coronary Artery Disease Readmission No Living Arrangements Children Support Systems Children Type of Residence Private residence House type House 2 story Steps to enter 7 Bathrooms on 1st Floor 1-Full Independent with ADL's Yes Independent with Mobility Yes Home Care Services No Caregiver after Discharge Yes Caregiver Name Darby Kate Relationship to Patient Daughter Phone number [phone] Mental Status Oriented Anticipated Discharge Plan Post Acute Care Needs None at this time Resources Financial concerns No Transportation issues No Patient/Family concerns No Prescription Plan Yes Anticipated Disposition Facility Type Home Medicare Important Message (WALT) Not applicable Met with: Patient and discussed discharge planning, Pt is a 88 y.o., female Patient's PCP is: MERVIN SIDHU Patient's insurance: Medicare Coverage concerns: None Medication coverage/concerns: None Community resources utilized / needed: None Assistance in transportation: Not needed. Identification of any specific education / training: None Barriers to Discharge / Alternative housing needed: None Anticipated DCP: Home onver adeel Transaction, Provider Unknown - 07/31/2018 6:35 AM PDT Nurse Progress Note by Virginia Giron RN at 07/31/18634 Author: Virginia Giron RN Service: (none) Author Type: Registered Nurse Filed: 07/31/18635 Date of Service: 07/31/18634 Status: Addendum Remote Advisor: Virginia Giron RN (Registered Nurse) Related Notes: Original Note by Virginia Giron RN (Registered Nurse) filed at 07/31/[address] Braswell on BP, we will continue to observe and await echo, no need for stat. onver adeel Transaction, Provider Unknown - 07/31/2018 6:28 AM PDT Nurse Progress Note by Virginia Giron RN at 07/31/18627 Author: Virginia Giron RN Service: (none) Author Type: Registered Nurse Filed: 07/31/18628 Date of Service: 07/31/18627 Status: Signed Remote Advisor: Virginia Giron RN (Registered Nurse) Phoned and left for echo regarding the need for Stat echo according to Dr Braswell's note to rule out pericardial effusion. onver adeel Transaction, Provider Unknown - 07/31/2018 2:52 AM PDT Nurse Progress Note by Virginia Giron RN at 07/31/18251 Author: Virginia Giron RN Service: (none) Author Type: Registered Nurse Filed: 07/31/18 0253 Date of Service: 07/31/18251 Status: Signed Remote Advisor: Virginia Giron RN (Registered Nurse) Chart check complete onver adeel Transaction, Provider Unknown - 07/31/2018 1:20 AM PDT Nurse Progress Note by Virginia Giron RN at 07/31/18119 Author: Virginia Giron RN Service: (none) Author Type: Registered Nurse Filed: 07/31/18137 Date of Service: 07/31/18119 Status: Signed Remote Advisor: Virginia Giron RN (Registered Nurse) Assumed care of pt from AKIRA Girard, pt resting at this time, no c/o. onver adeel Transaction, Provider Unknown - 07/30/2018 8:31 PM PDT Pharmacy Note by Miguel Doshi RPH at 07/30/182030 Author: Miguel Doshi RPH Service: Pharmacy Author Type: Pharmacist Filed: 07/30/182030 Date of Service: 07/30/182030 Status: Signed Remote Advisor: Miguel Doshi RPH (Pharmacist) Renal Dosing Monitoring: Rufina Sapp 88 y.o. female Pharmacy dosing for renal function per Dr. Braswell Plan per protocol: Medication / Dose: crcl ~ 40.7 ml/min bsed on scr of 0.91 No renal dosage adjustments needed at this time Pharmacy will continue monitoring patient for appropriate dosing per renal function. 07/30/2018 8:30 PM Pharmacist: MIGUEL DOSHI onver adeel Transaction, Provider Unknown - 07/30/2018 6:41 PM PDT Nurse Progress Note by Barbi Tyler RN at 07/30/181840 Author: Barbi Tyler RN Service: Interventional Cardiology Author Type: Registered Nurs e Filed: 07/30/181841 Date of Service: 07/30/181840 Status: Signed Remote Advisor: Barbi Tyler RN (Registered Nurse) Groin checked at BS with AKIRA Stewart. Pt bleeding from groin site. Pressure being held by Michael garces RN. Site is soft to palpation per Terry. Barbi Tyler RN onver adeel Transaction, Provider Unknown - 07/29/2018 4:57 PM PDT Nurse Progress Note by Karen Lancaster RN at 07/29/181656 Author: Karen Lancaster RN Service: Cardiology Author Type: Registered Nurse Filed: 07/29/181702 Date of Service: 07/29/181656 Status: Signed Remote Advisor: Karen Lancaster RN (Registered Nurse) [facility] Pre-Procedure Telephone Call Type of Procedure [facility] Spoke with: Patient Folder Hand needed: No Sinhala No Mauritanian No Other: Folder Hand arranged: No Arrival Time: 1330 Check In Location: Registration Ride and Caregiver: Darby Phone Number for Ride/Caregiver: NPO from: 0700 Diabetic: Yes If Yes are they on Glucophage/Metformin No Date of last Dose {Blank single:[id number]::"NA" Is patient on Anticoagulants Yes Coumadin Date of Last Dose 07/25/2018 Iodine Allergy? No Action: NA, Pre-medicated and Physician Notified Latex Allergy? No Patient informed to bring (medication list, etc): Yes Any other comments: Karen Lancaster RN docume nted in this encounter Plan of Treatment +--------+---------+ + + + | Date | Type | Specialty | Care Team | Description | +--------+---------+ + + + | 12/20/ | Office | Cardiology | Rochelle Gibbons | | | 2019 | Visit | | [facility] [address] | | | | | | [address] | | | | | | [place] [address] | | | | | | [phone] | | | | | | | | +--------+---------+ + + + documented as of this encounter Procedures + +--------+ + + + | Procedure Name | Priori | Date/Time | Associated Diagnosis | Comments | | | ty | | | | + +--------+ + + + | POC GLUCOSE | Routin | 07/31/2018 | | Results for this | | | e | 11:18 AM | | procedure are in the | | | | PDT | | results section. | + +--------+ + + + | ECHO LIMITED | Routin | 07/31/2018 | | Results for this | | | e | 7:00 AM | | procedure are in the | | | | PDT | | results section. | + +--------+ + + + | POC GLUCOSE | Routin | 07/31/2018 | | Results for this | | | e | 5:32 AM | | procedure are in the | | | | PDT | | results section. | + +--------+ + + + | EXTERNAL LAB: CBC | Routin | 07/31/2018 | | Results for this | | | e | 4:37 AM | | procedure are in the | | | | PDT | | results section. | + +--------+ + + + | BASIC METABOLIC | Routin | 07/31/2018 | | Results for this | | PANEL | e | 4:37 AM | | procedure are in the | | | | PDT | | results section. | + +--------+ + + + | POC GLUCOSE | Routin | 07/30/2018 | | Results for this | | | e | 9:37 PM | | procedure are in the | | | | PDT | | results section. | + +--------+ + + + | CV CARDIAC PROCEDURE | Routin | 07/30/2018 | | Results for this | | | e | 6:26 PM | | procedure are in the | | | | PDT | | results section. | + +--------+ + + + | ACTIVATED CLOTTING | Routin | 07/30/2018 | | Results for this | | TIME | e | 5:47 PM | | procedure are in the | | | | PDT | | results section. | + +--------+ + + + | ACTIVATED CLOTTING | Routin | 07/30/2018 | | Results for this | | TIME | e | 5:07 PM | | procedure are in the | | | | PDT | | results section. | + +--------+ + + + | EXTERNAL LAB: CBC | Routin | 07/30/2018 | | Results for this | | | e | 1:52 PM | | procedure are in the | | | | PDT | | results section. | + +--------+ + + + | PROTIME INR | Routin | 07/30/2018 | | Results for this | | | e | 1:52 PM | | procedure are in the | | | | PDT | | results section. | + +--------+ + + + | BASIC METABOLIC | Routin | 07/30/2018 | | Results for this | | PANEL | e | 1:52 PM | | procedure are in the | | | | PDT | | results section. | + +--------+ + + + documented in this encounter Results POC Glucose (07/31/2018 11:18 AM PDT) + + + + + + | Component | Value | Ref Range | Performed | Pathologist | | | | | At | Signature | + + + + + + | Glucose, | 136 (H)Comment: Testing | 65 - 99 mg/dL | EXTERNAL | | | Fingerstick | performed at [facility];[address] | | LAB | | | | [address];[place], [place] | | | | | | [address] | | | | + + + + + + + + | Specimen | + + | | + + + +---------+ + + | Performing | Address | City/State/Zipcode | Phone Number | | Organization | | | | + +---------+ + + | EXTERNAL LAB | | | | + +---------+ + + Echo Limited (07/31/2018 7:00 AM PDT) + + | Specimen | + + | | + + + + + | Impressions | Performed At | + + + | 1. Overall left ventricular systolic function is normal with, an EF | | | between 65 - 70 %. 2. There is no pericardial effusion. | | + + + + + + | Narrative | Performed At | + + + | Patient Name: Rufina Sapp Date of : 1930 | | | Performing Physician: Shanita Braswell MD | | | | | | INDICATIONS pericardial effusion CONCLUSIONS | | | 1. Overall left ventricular systolic function is normal | | | with, an EF between 65 - 70 %. 2. There is no pericardial effusion. | | | FINDINGS -------- Study: A limited 2-dimensional transthoracic | | | echocardiogram with limited spectral and color flow Doppler was | | | performed. Left Ventricle: Overall left ventricular systolic function | | | is normal with, an EF between 65 - 70 %. Pericardium: There is no | | | pericardial effusion. MEASUREMENTS Contestant Coordinator: | | | GD Authenticated by: Shanita Braswell MD Report Date/Time: | | | 07-31-2018 12:14:37 | | + + + + + | Procedure Note | + + | Ham Pavon Conversion - 05/20/2019 3:45 PM PDT Patient Name: Dayana Sapp | | of : 1930 Performing Physician: Shanita Braswell | | MD INDICATIONS p | | ericardial effusion CONCLUSIONS 1. Overall left ventricular systolic function | | is normal with, an EF between 65 - 70 %.2. There is no pericardial effusion. | | FINDINGS--------Study: A limited 2-dimensional transthoracic echocardiogram with limited | | spectral and color flow Doppler was performed.Left Ventricle: Overall left ventricular | | systolic function is normal with, an EF between 65 - 70 %.Pericardium: There is no | | pericardial effusion. MEASUREMENTS Contestant Coordinator: Michaelticated by: | | Shanita Braswell MDReport Date/Time: 07-31-2018 12:14:37 IMPRESSION: 1. Overall left | | ventricular systolic function is normal with, an EF between 65 - 70 %.2. There is no | | pericardial effusion. | |CONCLUSIONS | | | |1. Overall left ventricular systolic function is normal with, an EF between 65 - 70 %. | |2. There is no pericardial effusion. | | | |FINDINGS | |-------- | |Study: A limited 2-dimensional transthoracic echocardiogram with limited spectral and color flow Doppler was performed. | |Left Ventricle: Overall left ventricular systolic function is normal with, an EF between 65 - 70 %. | |Pericardium: There is no pericardial effusion. | | | |MEASUREMENTS | | | | | |Contestant Coordinator: GISELLE | |Authenticated by: Shanita Braswell MD | |Report Date/Time: 07-31-2018 12:14:37 | | | |IMPRESSION: | |1. Overall left ventricular systolic function is normal with, an EF between 65 - 70 %. | |2. There is no pericardial effusion. | + + POC Glucose (07/31/2018 5:32 AM PDT) + + + + + + | Component | Value | Ref Range | Performed | Pathologist | | | | | At | Signature | + + + + + + | Glucose, | 132 (H)Comment: Testing | 65 - 99 mg/dL | EXTERNAL | | | Fingerstick | performed at [facility];[address] | | LAB | | | | [address];[place] | | | | | | [id number] | | | | + + + + + + + + | Specimen | + + | | + + + +---------+ + + | Performing | Address | City/State/Zipcode | Phone Number | | Organization | | | | + +---------+ + + | EXTERNAL LAB | | | | + +---------+ + + External Lab: CBC (07/31/2018 4:37 AM PDT) + + + + + + | Component | Value | Ref Range | Performed | Pathologist | | | | | At | Signature | + + + + + + | WBC | 9.88 | 3.80 - 11.00 | EXTERNAL | | | | | K/uL | LAB | | + + + + + + | RED CELL | 3.67 (L) | 3.70 - 5.10 | EXTERNAL | | | COUNT | | M/uL | LAB | | + + + + + + | Hgb | 10.9 (L) | 11.3 - 15.5 | EXTERNAL | | | | | g/dL | LAB | | + + + + + + | Hematocrit, | 31.9 (L) | 34.0 - 46.0 % | EXTERNAL | | | POC | | | LAB | | + + + + + + | MCV | 87.0 | 80.0 - 100.0 fl | EXTERNAL | | | | | | LAB | | + + + + + + | MCH | 29.6 | 27.0 - 34.0 pg | EXTERNAL | | | | | | LAB | | + + + + + + | MCHC | 34.0 | 32.0 - 35.5 | EXTERNAL | | | | | g/dL | LAB | | + + + + + + | RDW-CV | 46.4 | 37 - 53 fl | EXTERNAL | | | | | | LAB | | + + + + + + | Platelet | 251 | 150 - 400 K/uL | EXTERNAL | | | Count | | | LAB | | | Plasma | | | | | + + + + + + | MPV | 9.1 | fl | EXTERNAL | | | | | | LAB | | + + + + + + | Differentia | MANUAL | | EXTERNAL | | | l Type | | | LAB | | + + + + + + | Segmented | 84 | % | EXTERNAL | | | Neutrophils | | | LAB | | | Manual | | | | | + + + + + + | Lymphocytes | 13 | % | EXTERNAL | | | Manual | | | LAB | | + + + + + + | Monocytes | 3 | % | EXTERNAL | | | Manual | | | LAB | | + + + + + + | Absolute | 8.30 (H) | 1.90 - 7.40 | EXTERNAL | | | Neutrophils | | K/uL | LAB | | + + + + + + | Absolute | 1.28 | 1.00 - 3.90 | EXTERNAL | | | Lymphocytes | | K/uL | LAB | | + + + + + + | Absolute | 0.30 | 0.00 - 0.80 | EXTERNAL | | | Monocytes | | K/uL | LAB | | + + + + + + | RBC | RBC AND PLT MORPHOLOGY | | EXTERNAL | | | Morphology | APPEAR NORMALComment: | | LAB | | | | Testing performed at | | | | | | [facility], [address] [place] [address] | | | | | | [address], [place] | | | | | | [address] | | | | + + + + + + + + | Specimen | + + | Blood specimen | | (specimen) | + + + +---------+ + + | Performing | Address | City/State/Zipcode | Phone Number | | Organization | | | | + +---------+ + + | EXTERNAL LAB | | | | + +---------+ + + Basic Metabolic Panel (07/31/2018 4:37 AM PDT) + + + + + + | Component | Value | Ref Range | Performed | Pathologist | | | | | At | Signature | + + + + + + | Na | 136 | 135 - 145 | EXTERNAL | | | | | mmol/L | LAB | | + + + + + + | K | 4.6Comment: SPECIMEN | 3.5 - 4.9 | EXTERNAL | | | | SLIGHTLY HEMOLYZED | mmol/L | LAB | | + + + + + + | Cl | 106 | 99 - 109 mmol/L | EXTERNAL | | | | | | LAB | | + + + + + + | CO2 | 19 (L) | 23 - 32 mmol/L | EXTERNAL | | | | | | LAB | | + + + + + + | Anion Gap | 16 | 5 - 20 mmol/L | EXTERNAL | | | | | | LAB | | + + + + + + | Glucose, | 147 (H)Comment: SPECIMEN | 65 - 99 mg/dL | EXTERNAL | | | Fasting | SLIGHTLY HEMOLYZED | | LAB | | + + + + + + | BUN | 21 | 8 - 25 mg/dL | EXTERNAL | | | | | | LAB | | + + + + + + | Creatinine | 0.9Comment: SPECIMEN | 0.50 - 1.00 | EXTERNAL | | | | SLIGHTLY HEMOLYZED | mg/dL | LAB | | + + + + + + | BUN/Creatin | 23 | | EXTERNAL | | | ine Ratio | | | LAB | | + + + + + + | Calcium | 8.6 | 8.5 - 10.5 | EXTERNAL | | | | | mg/dL | LAB | | + + + + + + | Estimated | 59 (L)Comment: GFR <60: | mL/min/1.73m2 | EXTERNAL | | | GFR | CHRONIC KIDNEY DISEASE, | | LAB | | | | IF FOUND OVER A 3 MONTH | | | | | | PERIOD.GFR <15: KIDNEY | | | | | | FAILURE.FOR | | | | | | AMERICANS, MULTIPLY THE | | | | | | CALCULATED GFR BY | | | | | | 1.210.This eGFR is | | | | | | calculated using the | | | | | | MDRD IDMS traceable | | | | | | equation.Testing | | | | | | performed at [facility], [address] | | | | | [facility], | | | | | | [place] [address] | | | | + + + + + + + + | Specimen | + + | Blood specimen | | (specimen) | + + + +---------+ + + | Performing | Address | City/State/Zipcode | Phone Number | | Organization | | | | + +---------+ + + | EXTERNAL LAB | | | | + +---------+ + + POC Glucose (07/30/2018 9:37 PM PDT) + + + + + + | Component | Value | Ref Range | Performed | Pathologist | | | | | At | Signature | + + + + + + | Glucose, | 151 (H)Comment: Testing | 65 - 99 mg/dL | EXTERNAL | | | Fingerstick | performed at [facility];[address] | | LAB | | | | [address];[place], [place] | | | | | | [address] | | | | + + + + + + + + | Specimen | + + | | + + + +---------+ + + | Performing | Address | City/State/Zipcode | Phone Number | | Organization | | | | + +---------+ + + | EXTERNAL LAB | | | | + +---------+ + + CV CARDIAC PROCEDURE (07/30/2018 6:26 PM PDT) + + | Specimen | + + | | + + + + + | Impressions | Performed At | + + + | 1. Successful PTCA and stenting of the right posterolateral artery | | | using a 3.0 x 16 mm Synergy drug-eluting stent post-dilated using | | | 3.0 noncompliant balloon. 2. Probable limited wire-induced | | | perforation of a small branch of right posterolateral artery. | | | PLAN: The patient will be observed overnight. She has been on | | | Plavix 75 mg daily and received an additional 300 mg in the geophysical laboratory director. | | | We will continue Plavix 75 mg daily for at least 6 months. We will | | | do limited echocardiogram tomorrow morning to assess for any | | | pericardial effusion. If the patient develop any hypertension, then | | | we might consider emergent echocardiogram to rule out pericardial | | | effusion. Read by SHANITA BRASWELL MD 08/03/2018 04:56 P | | | | | + + + + + + | Narrative | Performed At | + + + | | | | | | | PROCEDURES PERFORMED: 1. Selective right coronary artery | | | angiogram. 2. Successful PTCA and stenting of the right | | | posterolateral artery using a 3.0 x 16 mm Synergy drug-eluting stent | | | post-dilated using a 3.0 noncompliant balloon. 3. Right common | | | femoral artery angiogram. 4. Successful Angio-seal closure of the | | | right common femoral artery. INDICATION: Shortness of breath, | | | angina equivalent, severe mitral and tricuspid regurgitation, | | | anticipated MitraClip procedure. HISTORY OF PRESENT ILLNESS: | | | This is an 88-year-old female with history of hypertension, | | | hyperlipidemia, chronic atrial fibrillation, type 2 diabetes mellitus | | | and severe mitral and tricuspid regurgitation, who was evaluated at | | | [facility] for possible mitral and tricuspid valve percutaneous | | | interventions. Coronary angiogram was done there and reported as | | | critical distal right coronary artery disease. The patient was | | | referred for intervention in the right coronary artery. The patient | | | had been experiencing significant exertional shortness of breath | | | that has been progressively worse. The procedure, risks, benefits, | | | alternatives were discussed with the patient and she agreed to | | | proceed. FRAILTY SCORE: 6 TECHNIQUE: The patient was brought | | | to the cardiac catheterization laboratory in the fasting state. | | | After informed consent obtained the patient was prepped and draped | | | in the usual sterile fashion. Time-out for patient safety was | | | performed. One percent lidocaine was used for local anesthesia of | | | the right groin. The right femoral artery was accessed using | | | micropuncture needle. A 6-Serbian sheath was placed in the right | | | femoral artery without difficulty. The patient was given 5000 units | | | of heparin intravenously. ACT was monitored. The patient | | | received additional heparin boluses to keep ACT more than 250. A | | | 6-Serbian JR4 guiding catheter was used for selective engagement of the | | | right coronary system and baseline angiogram was obtained. | | | Engagement was suboptimal, and there is diffusely calcified and | | | tortuous right coronary artery and tortuous right posterolateral | | | artery with critical calcified lesion in the right posterolateral | | | artery. The patient was also having some oozing from around the | | | 6-Serbian sheath at this time, and we decided to proceed with the | | | 7-Serbian system to have more support. The 6-Serbian sheath was | | | upgraded to a 7-Serbian for a 5-cm sheath. A 7-Serbian AL1 guiding | | | catheter was used for selective engagement of the right coronary | | | artery. A BMW wire was advanced. I was not able to cross the | | | heavily calcified subtotally occluded right posterolateral artery. | | | A 2.25 x 12 mm balloon was advanced to help to provide more | | | support, and even with this support the balloon was not able to | | | cross. At this time the balloon and the BMW wire were removed. | | | Fielder FC wire was advanced and 2.25 x 12 mm balloon was advanced. | | | With the help of the balloon I was able to cross the lesion and | | | advanced into the distal right posterolateral artery. I was not able | | | to advance the balloon across the lesion. The balloon was removed. | | | A 5.5-Serbian GuideLiner catheter was advanced and at one point 5 x | | | 12 mm balloon was advanced. With the help of the GuideLiner I was | | | able to cross the lesion. The lesion was predilated up to 10 | | | atmospheres. The 1.5 balloon was removed and 2.25 x 12 mm balloon | | | was advanced. I was able to advance it across the lesion only with | | | the help of the GuideLiner, advanced all the way to the distal right | | | coronary artery. The balloon was inflated multiple times up to 10 | | | atmospheres. The balloon was removed and a 3.0 x 16 mm Synergy | | | drug-eluting stent was advanced. The stent would not go and the | | | stent was then advanced gradually and the GuideLiner was advanced over | | | the stent. I was able to advance the stent to the right | | | posterolateral artery. Given the combination of calcification and | | | tortuosity in the right posterolateral artery, it was difficult to | | | advance the stent. The GuideLiner was advanced all the way to the | | | right posterolateral artery and then I was able to deliver the stent. | | | Angiogram for positioning was obtained after removing the | | | GuideLiner and the stent was deployed at 12 atmospheres. The stent | | | was then postdilated using a 3.0 x 12 mm noncompliant Quantum balloon | | | which was again advanced with the help of the GuideLiner. The | | | balloon was inflated multiple times up to 18 atmospheres. Distant | | | balloon and the GuideLiner were removed. Post-intervention | | | angiogram was obtained, which shows excellent results with reduction | | | of degree of stenosis from 99 percent down to 0 percent with LORENE 3 | | | flow. No evidence of dissection or perforation. The long 7-Serbian | | | sheath was removed off of the guidewire and a short 7-Serbian sheath | | | was placed into the right femoral artery. Angiogram of the right | | | common femoral artery was obtained at the beginning by injection of | | | contrast through the micropuncture sheath which showed the puncture | | | site above the bifurcation at the end of the procedure. Angio-seal | | | closure of the right common femoral artery was done successfully. | | | We have noted in the post-intervention angiogram there is some | | | possible dye extravasation in the pericardium; however, there was no | | | active bleeding or active extravasation of blood flow from any of the | | | branches; however, I suspected this might be a wire-induced | | | perforation of a small branch. The patient had remained | | | hemodynamically stable throughout the procedure and after the | | | procedure. I decided to follow that clinically and with followup | | | echocardiogram in the morning. Overall, the patient tolerated the | | | procedure well. TOTAL CONTRAST: 128 mL of Isovue. TOTAL | | | BLOOD LOSS: Less than 20 mL. RESULTS: 1. Selective right | | | coronary artery angiogram. 2. Right coronary artery is the large | | | dominant vessel that gives rise to a large right posterolateral | | | artery and gives rise to right posterior descending artery. Right | | | coronary artery is diffusely calcified and tortuous vessel. The | | | right posterolateral artery is tortuous proximally with high-grade | | | heavily calcified lesion in the range of 99 percent in the | | | midportion. The proximal right coronary artery had moderate | | | disease in the range of 30 percent. Mid right coronary artery had | | | diffuse yakz-qv-aohnaaep disease in the range of 30 percent. | | + + + + + | Procedure Note | + + | Ham Pavon Conversion - 05/27/2019 3:57 PM PDT | | | | | | PROCEDURES PERFORMED: | | 1. Selective right coronary artery angiogram. | | 2. Successful PTCA and stenting of the right posterolateral artery using a | | 3.0 x 16 mm Synergy drug-eluting stent post-dilated using a 3.0 | | noncompliant balloon. | | 3. Right common femoral artery angiogram. | | 4. Successful Angio-seal closure of the right common femoral artery. | | | | INDICATION: Shortness of breath, angina equivalent, severe mitral and | | tricuspid regurgitation, anticipated MitraClip procedure. | | | | HISTORY OF PRESENT ILLNESS: This is an 88-year-old female with history of | | hypertension, hyperlipidemia, chronic atrial fibrillation, type 2 diabetes | | mellitus and severe mitral and tricuspid regurgitation, who was evaluated | | at [facility] for possible mitral and tricuspid valve percutaneous interventions. | | Coronary angiogram was done there and reported as critical distal right | | coronary artery disease. The patient was referred for intervention in the | | right coronary artery. The patient had been experiencing significant | | exertional shortness of breath that has been progressively worse. The | | procedure, risks, benefits, alternatives were discussed with the patient | | and she agreed to proceed. | | | | FRAILTY SCORE: 6 | | | | TECHNIQUE: The patient was brought to the cardiac catheterization | | laboratory in the fasting state. After informed consent obtained the | | patient was prepped and draped in the usual sterile fashion. Time-out for | | patient safety was performed. One percent lidocaine was used for local | | anesthesia of the right groin. The right femoral artery was accessed using | | micropuncture needle. A 6-Serbian sheath was placed in the right femoral | | artery without difficulty. The patient was given 5000 units of heparin | | intravenously. ACT was monitored. The patient received additional heparin | | boluses to keep ACT more than 250. | | | | A 6-Serbian JR4 guiding catheter was used for selective engagement of the | | right coronary system and baseline angiogram was obtained. Engagement was | | suboptimal, and there is diffusely calcified and tortuous right coronary | | artery and tortuous right posterolateral artery with critical calcified | | lesion in the right posterolateral artery. The patient was also having | | some oozing from around the 6-Serbian sheath at this time, and we decided to | | proceed with the 7-Serbian system to have more support. The 6-Serbian sheath | | was upgraded to a 7-Serbian for a 5-cm sheath. A 7-Serbian AL1 guiding | | catheter was used for selective engagement of the right coronary artery. A | | BMW wire was advanced. I was not able to cross the heavily calcified | | subtotally occluded right posterolateral artery. A 2.25 x 12 mm balloon | | was advanced to help to provide more support, and even with this support | | the balloon was not able to cross. At this time the balloon and the BMW | | wire were removed. Fielder FC wire was advanced and 2.25 x 12 mm balloon | | was advanced. With the help of the balloon I was able to cross the lesion | | and advanced into the distal right posterolateral artery. I was not able | | to advance the balloon across the lesion. The balloon was removed. A | | 5.5-Serbian GuideLiner catheter was advanced and at one point 5 x 12 mm | | balloon was advanced. With the help of the GuideLiner I was able to cross | | the lesion. The lesion was predilated up to 10 atmospheres. The 1.5 | | balloon was removed and 2.25 x 12 mm balloon was advanced. I was able to | | advance it across the lesion only with the help of the GuideLiner, advanced | | all the way to the distal right coronary artery. The balloon was inflated | | multiple times up to 10 atmospheres. The balloon was removed and a 3.0 x | | 16 mm Synergy drug-eluting stent was advanced. The stent would not go and | | the stent was then advanced gradually and the GuideLiner was advanced over | | the stent. I was able to advance the stent to the right posterolateral | | artery. Given the combination of calcification and tortuosity in the right | | posterolateral artery, it was difficult to advance the stent. The | | GuideLiner was advanced all the way to the right posterolateral artery and | | then I was able to deliver the stent. Angiogram for positioning was | | obtained after removing the GuideLiner and the stent was deployed at 12 | | atmospheres. The stent was then postdilated using a 3.0 x 12 mm | | noncompliant Quantum balloon which was again advanced with the help of the | | GuideLiner. The balloon was inflated multiple times up to 18 atmospheres. | | Distant balloon and the GuideLiner were removed. Post-intervention | | angiogram was obtained, which shows excellent results with reduction of | | degree of stenosis from 99 percent down to 0 percent with LORENE 3 flow. No | | evidence of dissection or perforation. The long 7-Serbian sheath was | | removed off of the guidewire and a short 7-Serbian sheath was placed into | | the right femoral artery. Angiogram of the right common femoral artery was | | obtained at the beginning by injection of contrast through the | | micropuncture sheath which showed the puncture site above the bifurcation | | at the end of the procedure. Angio-seal closure of the right common | | femoral artery was done successfully. We have noted in the | | post-intervention angiogram there is some possible dye extravasation in the | | pericardium; however, there was no active bleeding or active extravasation | | of blood flow from any of the branches; however, I suspected this might be | | a wire-induced perforation of a small branch. The patient had remained | | hemodynamically stable throughout the procedure and after the procedure. I | | decided to follow that clinically and with followup echocardiogram in the | | morning. Overall, the patient tolerated the procedure well. | | | | TOTAL CONTRAST: 128 mL of Isovue. | | | | TOTAL BLOOD LOSS: Less than 20 mL. | | | | RESULTS: | | 1. Selective right coronary artery angiogram. | | 2. Right coronary artery is the large dominant vessel that gives rise to a | | large right posterolateral artery and gives rise to right posterior | | descending artery. Right coronary artery is diffusely calcified and | | tortuous vessel. The right posterolateral artery is tortuous proximally | | with high-grade heavily calcified lesion in the range of 99 percent in the | | midportion. The proximal right coronary artery had moderate disease in | | the range of 30 percent. Mid right coronary artery had diffuse | | xcsg-ob-bdpsmdin disease in the range of 30 percent. | | | | IMPRESSION: | | 1. Successful PTCA and stenting of the right posterolateral artery using a | | 3.0 x 16 mm Synergy drug-eluting stent post-dilated using 3.0 noncompliant | | balloon. | | 2. Probable limited wire-induced perforation of a small branch of right | | posterolateral artery. | | | | PLAN: The patient will be observed overnight. She has been on Plavix 75 | | mg daily and received an additional 300 mg in the geophysical laboratory director. We will | | continue Plavix 75 mg daily for at least 6 months. We will do limited | | echocardiogram tomorrow morning to assess for any pericardial effusion. If | | the patient develop any hypertension, then we might consider emergent | | echocardiogram to rule out pericardial effusion. | | | | Read by SHANITA BRASWELL MD 08/03/2018 04:56 P | | | | | + + Activated clotting time (07/30/2018 5:47 PM PDT) + + + + + + | Component | Value | Ref Range | Performed | Pathologist | | | | | At | Signature | + + + + + + | Activated | 235 (H)Comment: Testing | 74 - 137 | EXTERNAL | | | Clotting | performed at [facility];[address] | seconds | LAB | | | time, POC | [address];[place], [place] | | | | | | [address] | | | | + + + + + + + + | Specimen | + + | | + + + +---------+ + + | Performing | Address | City/State/Zipcode | Phone Number | | Organization | | | | + +---------+ + + | EXTERNAL LAB | | | | + +---------+ + + Activated clotting time (07/30/2018 5:07 PM PDT) + + + + + + | Component | Value | Ref Range | Performed | Pathologist | | | | | At | Signature | + + + + + + | Activated | 169 (H)Comment: Testing | 74 - 137 | EXTERNAL | | | Clotting | performed at [facility];[address] | seconds | LAB | | | time, POC | [address];[place] | | | | | | [address] | | | | + + + + + + + + | Specimen | + + | | + + + +---------+ + + | Performing | Address | City/State/Zipcode | Phone Number | | Organization | | | | + +---------+ + + | EXTERNAL LAB | | | | + +---------+ + + Protime INR (07/30/2018 1:52 PM PDT) + + + + + + | Component | Value | Ref Range | Performed | Pathologist | | | | | At | Signature | + + + + + + | INR | 1.2Comment: REFERENCE | | EXTERNAL | | | | RANGE:0.9 - 1.2 | | LAB | | | | NON-ANTICOAGULATED2.0 | | | | | | - 3.0 ALL OTHER | | | | | | THERAPEUTIC | | | | | | INDICATIONS2.5 - 3.5 | | | | | | MECHANICAL HEART VALVES, | | | | | | RECURRENT OR SYSTEMIC | | | | | | EMBOLISMTesting | | | | | | performed at [facility];[address] | | | | | | [address];[place], [place] | | | | | | [address] | | | | + + + + + + + + | Specimen | + + | Blood specimen | | (specimen) | + + + +---------+ + + | Performing | Address | City/State/Zipcode | Phone Number | | Organization | | | | + +---------+ + + | EXTERNAL LAB | | | | + +---------+ + + External Lab: [facility] (07/30/2018 1:52 PM PDT) + + + + + + | Component | Value | Ref Range | Performed | Pathologist | | | | | At | Signature | + + + + + + | WBC | 7.58 | 3.80 - 11.00 | EXTERNAL | | | | | K/uL | LAB | | + + + + + + | RED CELL | 4.06 | 3.70 - 5.10 | EXTERNAL | | | COUNT | | M/uL | LAB | | + + + + + + | Hgb | 11.9 | 11.3 - 15.5 | EXTERNAL | | | | | g/dL | LAB | | + + + + + + | Hematocrit, | 35.7 | 34.0 - 46.0 % | EXTERNAL | | | POC | | | LAB | | + + + + + + | MCV | 87.9 | 80.0 - 100.0 fl | EXTERNAL | | | | | | LAB | | + + + + + + | MCH | 29.3 | 27.0 - 34.0 pg | EXTERNAL | | | | | | LAB | | + + + + + + | MCHC | 33.4 | 32.0 - 35.5 | EXTERNAL | | | | | g/dL | LAB | | + + + + + + | RDW-CV | 46.4 | 37 - 53 fl | EXTERNAL | | | | | | LAB | | + + + + + + | Platelet | 285 | 150 - 400 K/uL | EXTERNAL | | | Count | | | LAB | | | Plasma | | | | | + + + + + + | MPV | 8.4 | fl | EXTERNAL | | | | | | LAB | | + + + + + + | Differentia | AUTOMATED | | EXTERNAL | | | l Type | | | LAB | | + + + + + + | % Segmented | 61.46 | % | EXTERNAL | | | | | | LAB | | | Neutrophils | | | | | + + + + + + | % | 25.43 | % | EXTERNAL | | | Lymphocytes | | | LAB | | + + + + + + | % Monocytes | 7.59 | % | EXTERNAL | | | | | | LAB | | + + + + + + | % | 4.36 | % | EXTERNAL | | | Eosinophils | | | LAB | | + + + + + + | % Basophils | 1.16 | % | EXTERNAL | | | | | | LAB | | + + + + + + | Absolute | 4.66 | 1.90 - 7.40 | EXTERNAL | | | Segmented | | K/uL | LAB | | | Neutrophils | | | | | + + + + + + | Absolute | 1.93 | 1.00 - 3.90 | EXTERNAL | | | Lymphocytes | | K/uL | LAB | | + + + + + + | Absolute | 0.58 | 0.00 - 0.80 | EXTERNAL | | | Monocytes | | K/uL | LAB | | + + + + + + | Absolute | 0.33 | 0.00 - 0.50 | EXTERNAL | | | Eosinophils | | K/uL | LAB | | + + + + + + | Absolute | 0.09Comment: Testing | 0.00 - 0.10 | EXTERNAL | | | Basophils | performed at [facility];[address] | K/uL | LAB | | | | [address];[place] | | | | | | [address] | | | | + + + + + + + + | Specimen | + + | Blood specimen | | (specimen) | + + + +---------+ + + | Performing | Address | City/State/Zipcode | Phone Number | | Organization | | | | + +---------+ + + | EXTERNAL LAB | | | | + +---------+ + + Basic Metabolic Panel (07/30/2018 1:52 PM PDT) + + + + + + | Component | Value | Ref Range | Performed | Pathologist | | | | | At | Signature | + + + + + + | Na | 136 | 135 - 145 | EXTERNAL | | | | | mmol/L | LAB | | + + + + + + | K | 4.2 | 3.5 - 4.9 | EXTERNAL | | | | | mmol/L | LAB | | + + + + + + | Cl | 102 | 99 - 109 mmol/L | EXTERNAL | | | | | | LAB | | + + + + + + | CO2 | 23 | 23 - 32 mmol/L | EXTERNAL | | | | | | LAB | | + + + + + + | Anion Gap | 15 | 5 - 20 mmol/L | EXTERNAL | | | | | | LAB | | + + + + + + | Glucose, | 119 (H) | 65 - 99 mg/dL | EXTERNAL | | | Fasting | | | LAB | | + + + + + + | BUN | 20 | 8 - 25 mg/dL | EXTERNAL | | | | | | LAB | | + + + + + + | Creatinine | 0.91 | 0.50 - 1.00 | EXTERNAL | | | | | mg/dL | LAB | | + + + + + + | BUN/Creatin | 22 | | EXTERNAL | | | ine Ratio | | | LAB | | + + + + + + | Calcium | 9.0 | 8.5 - 10.5 | EXTERNAL | | | | | mg/dL | LAB | | + + + + + + | Estimated | 59 (L)Comment: GFR <60: | mL/min/1.73m2 | EXTERNAL | | | GFR | CHRONIC KIDNEY DISEASE, | | LAB | | | | IF FOUND OVER A 3 MONTH | | | | | | PERIOD.GFR <15: KIDNEY | | | | | | FAILURE.FOR | | | | | | AMERICANS, MULTIPLY THE | | | | | | CALCULATED GFR BY | | | | | | 1.210.This eGFR is | | | | | | calculated using the | | | | | | MDRD IDMS traceable | | | | | | equation.Testing | | | | | | performed at [facility];[address] | | | | | | [facility];[place], [place] | | | | | | [address] | | | | + + + + + + + + | Specimen | + + | Blood specimen | | (specimen) | + + + +---------+ + + | Performing | Address | City/State/Zipcode | Phone Number | | Organization | | | | + +---------+ + + | EXTERNAL LAB | | | | + +---------+ + + documented in this encounter Visit Diagnoses + + | Diagnosis | + + | Coronary artery disease involving [place] coronary artery of [place] heart, angina | | presence unspecified | + + | Anginal equivalent (HCC) | + + | Chronic atrial fibrillation Atrial fibrillation | + + | Essential hypertension Unspecified essential hypertension | + + | Pulmonary hypertension, 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
--- OUTSIDE RECORDS SUMMARY | ~2019-10-07 | XMS | Encounter Summary ---
Demographics + + + | Address | [address] | | | [place] [address] | + + + | Home Phone | | + + + | Preferred Language | Unknown | + + + | Marital Status | | + + + | Taoism Affiliation | Unknown | + + + | Race | Unknown | + + + | Ethnic Group | Unknown | + + + Author + + + | Author | [facility] | | | and [place] | + + + | Organization | [facility] | | | [...] Team Providers + +------+ + | Care Sous Chef Name | Role | Phone | + [...] + + | 06/22/ | Office | [facility] | Rochelle Gibbons | Paroxysmal atrial | | 2019 | Visit | [facility] | [address] | fibrillation (HCC) | | | | [address] | [address] ALLEN [address] | (Primary Dx); | | | | [address] | [place] [address] | Coronary artery | | | | [place] | [phone] | disease of [place] | | | | [address] | | artery of [place] | | | | [phone] | | heart with stable | | [...] she had an extensiv e evaluation at [facility] in the latter part of 2017, and [...] she continues to be monitored by the [facility], and that her INRs have [...] and back p ed . Lives in [place], shares duplex with daughter Darby, independent in [...] 40 mg by mouth 2 times daily.) Jhgz-Erxht-UIL-Boswellia-Vit D (GLUCOSAMINE CHOND TRIPLE/VIT D) TABS Take [...] mg by mouth daily. 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 Moderate TR. Small plaque involving the [...] of 2-3, which is regulated by the [facility] . I discussed with her [...] fibrillation (HCC) 2. 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 Problem list. [facility] Cardiology 06/22/2019 Pamela aguilar in this encounter [...] [address] | | | | | | [place] [address] | | | | | | [phone] | | | | | | | [...] | | | | | disease of [place] | | | | | | artery of [place] | | | | | | heart [...] | | | | | by [employer] Read Only, | | | | | | [employer] Christian ([id number]), | | | | | | technical editor SHANIA GERARDO | | | | [...] + + | Coronary artery disease of [place] artery of [place] heart with stable angina pectoris | | [...]
--- OUTSIDE RECORDS SUMMARY | ~2019-10-07 | XMS | Encounter Summary ---
Demographics + + + | Address | [address] | | | [place] [address] | + + + | Home Phone | | + + + | Preferred Language | Unknown | + + + | Marital Status | Single | + + + | Oriental Orthodox Affiliation | NON | + + + | Race | White | + + + | Ethnic Group | Not or | + + + Author + + + | Author | [facility] | + + + | Organization | [facility] | + + + | Address | Unknown | + + + | Phone | Unavailable | + + + Support + + +---------+ + | Name | Relationship | Address | Phone | + + +---------+ + | Darby Kate | ECON | Unknown | | + + +---------+ + Care Team Providers + +------+ + | Care Material Handling Crew Supervisor Name | Role | Phone | + +------+ + | Renan Menendez MD | PCP | | + +------+ + Encounter Details +--------+ + + + + | Date | Type | Department | Care Team | Description | +--------+ + + + + | 06/02/ | Procedure | Diagnostic Imaging | | | | 2017 | Pass | Services at [facility] | | | | | | [address] | | | | | | [address]bell Mailcode: | | | | | | [address] [facility] | | | | | | [place], [place] | | | | | | [address] | | | | | | [phone] | | | +--------+ + + + [...]
--- OUTSIDE RECORDS SUMMARY | ~2019-10-07 | XMS | Encounter Summary ---
Demographics + + + | Address | [address] | | | [place] [address] | + + + | Home Phone | | + + + | Preferred Language | Unknown | + + + | Marital Status | Single | + + + | Methodist Affiliation | NON | + + + | Race | White | + + + | Ethnic Group | Not or | + + + Author + + + | Author | [facility] | + + + | Organization | [facility] | + + + | Address | Unknown | + + + | Phone | Unavailable | + + + Support + + +---------+ + | Name | Relationship | Address | Phone | + + +---------+ + | Darby Kate | ECON | Unknown | | + + +---------+ + Care Team Providers + +------+ + | Care Rn Geriatric Name | Role | Phone | + +------+ + | No Pcp Per Patient | PCP | Unavailable | + +------+ + Reason for Referral Diagnostic Testing (Routine) +--------+--------+ + + + + | Status | Reason | Specialty | Diagnoses / | Referred By | Referred To | | | | | Procedures | Contact | Contact | +--------+--------+ + + + + | Closed | | Cardiac | Diagnoses | | Car Cardiac | | | | Catheterizati | Mitral | Bryan, | Cuff Slitter | | | | on | valve | Danny Oshea MD | [address] | | | | | stenosis, | [address] | [address] | | | | | unspecified | [address] | [address] [facility] | | | | | etiology | [place], [place] | Hospital | | | | | Procedures | [address] | [place], [place] | | | | | PILE OPERATOR INT | Phone: | [phone] | | | | | CORONARY | [phone] | Phone: | | | | | ANGIOGRAM | Fax: | [phone] | | | | | NV R HRT | [phone] | Fax: | | | | | CORONARY | | [phone] | | | | | ARTERY ANGIO | | | +--------+--------+ + + + + Reason for Visit + + + | Reason | Comments | + + + | Procedure | | + + + Encounter Details +--------+ + + + + | Date | Type | Department | Care Team | Description | +--------+ + + + + | 06/02/ | Telephone | Cardiac Cuff Slitter | Danny Adams | Procedure | | 2017 | | at [facility] [address] Oshea MD [address] | | | | | [address] | [place], [place] | | | | | [facility] | [address] | | | | | [place], [place] | [phone] | | | | | [address] | | | | | | [phone] | | | +--------+ + + + [...] Not on filedocumented as of this encounter Procedures + +--------+ + + + | Procedure Name | Priori | Date/Time | Associated Diagnosis | Comments | | | ty | | | | + +--------+ + + + | LAB REPORTS | | 06/02/2018 | | Results for this | | | | 12:00 AM | | procedure are in the | | | | PDT | | results section. | + +--------+ + + + documented in this encounter Results PILE OPERATOR INT CORONARY ANGIOGRAM (06/30/2018 9:37 AM PDT) + + | Specimen | + + | | + + + + + | Narrative | Performed At | + + + | Procedure performed in the Cardiac Cuff Slitter. See procedure notes | [facility] - | | for details. | [facility], | | | POINT OF CARE | | | TESTS | + + + + + + + + | Performing | Address | City/State/Zipcode | Phone Number | | Organization | | | | + + + + + | [facility] | [address] | [place], [place] | | | [facility] | [address] | [address] | | | TESTS | | | | + + + + + LAB REPORTS (06/02/2018 12:00 AM PDT) + + + | Narrative | Performed At | + + + | | | + + + documented in this encounter Visit Diagnoses + + | Diagnosis | + + | Mitral valve stenosis, unspecified etiology - Primary | + + documented in this encounter"
--- OUTSIDE RECORDS SUMMARY | ~2019-10-07 | XMS | Encounter Summary ---
Demographics + + + | Address | [address] | | | [place] [address] | + + + | Home Phone | | + + + | Preferred Language | Unknown | + + + | Marital Status | | + + + | Restorationism Affiliation | Unknown | + + + | Race | Unknown | + + + | Ethnic Group | Unknown | + + + Author + + + | Author | [facility] | | | and [place] | + + + | Organization | [facility] | | | [...] Team Providers + +------+ + | Care Senior Compliance Analyst Name | Role | Phone | + [...] | | | | [place] | [phone] | | | | | [address] | | | | | | [phone] | | | +--------+ + + + [...] | | | | | [place] [address] | | | | | | [phone] | | | | | | | | +--------+---------+ + + + documented as of this encounter Visit Diagnoses Not on filedocumented in this encounter"
--- OUTSIDE RECORDS SUMMARY | ~2019-10-07 | XMS | Encounter Summary ---
Demographics + + + | Address | [address] | | | [place] [address] | + + + | Home Phone | | + + + | Preferred Language | Unknown | + + + | Marital Status | Single | + + + | Adventist Affiliation | NON | + + + | Race | White | + + + | Ethnic Group | Not or | + + + Author + + + | Author | [facility] | + + + | Organization | [facility] | + + + | Address | Unknown | + + + | Phone | Unavailable | + + + Support + + +---------+ + | Name | Relationship | Address | Phone | + + +---------+ + | Darby Kate | ECON | Unknown | | + + +---------+ + Care Team Providers + +------+ + | Care Psychology Lecturer Name | Role | Phone | + [...] | | | | | insufficienc | [place], [place] | [place] | | | | | y Rheumatic | [address] | [address] | | | | | tricuspid | Phone: | Phone: | | | | | insufficienc | [phone] | [phone] | | | | | y Pulmonary | Fax: | Fax: | | | | | | [phone] | [phone] | | | | | hypertension | | | | | | | , | | | | | | | unspecified | | | | | | | Procedures | | | | | | | [place] | | | | | | [...] | | | [address] | [address] | (Primary Dx); Mitral | | | | Mailcode: [id number] | [place], [place] | annular | | | | [facility] | [address] | calcification | | | | [address] [place], | [phone] | | | | | [place] [address] | | | | | | [phone] | | | +--------+---------+ + + + [...] and severe MR. Mrs Sapp, lives in [facility] and is brought in by her daughter today who lives w ith her. 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 She was first hospitalized at [facility] in [facility] i n November 2017 with s/s of heart failure. Over the course of the spring she has noticed new and progressive MAYA as well as new LE edema. She was previously active but could no longer walk a 1/4 block. She was re-admitted to the hospital in [facility] in February 2018 again with he art failure. Echo in february was notable for normal to hyperdynamic LV systolic function, severe MAC, severe MR, moderate to severe TR, and mild . 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 She has followed up with Dr Barbara Blue at [facility] in the [facility] and referred to [facility] for consideration of MitraClip . Since February she has had no further decompensated heart failure episodes To expidite her evaluation, she has already been referred and undergone TTE, JUAN MANUEL, CT scan o f chest a week ago a well as angiogrpahy yesterday on 06/30/2018. Symptoms & Exercise/Activity Levels: Lives in [facility] with her Daughter in a 2 story [...] afterwards. Her activities are typically quilting for [employer] and the [employer] and sedentary without dyspnea. Any little activty [...] great. She previously was working out at [employer]. She would g o out ot her Tivityitting groups. Was completely independent In all activities and shopping co oking and cleaning. She typically has lunch outside of the house, cooks her own simple dinne rs, and has oatmeal for breakfast. She has had an appointment for consultation with Dr. Blue who will continue to follow her u p in [facility]. The patient denies rest or exertional chest [...] Frailty Index Date Taken: 07/01/2018 1. Left Hygiene Coordinator Strength (kg): 12 Right Hygiene Coordinator Strength (kg): 10 2. Five Meter Walk [...] measuring <10 mm in diameter.There i s xxbm-ie-qgwrj shunting noted on color Doppler. TTE: 06/19/2018 [...] fenestrated secundum atrial septal defect, with intermittent ands-jh-opiiw flow via color-flow Doppler. 12. Moderate tricuspid [...]
--- OUTSIDE RECORDS SUMMARY | ~2019-10-07 | XMS | Encounter Summary ---
Demographics + + + | Address | [address] | | | [place] [address] | + + + | Home Phone | | + + + | Preferred Language | Unknown | + + + | Marital Status | Single | + + + | Restorationism Affiliation | NON | + + + | Race | White | + + + | Ethnic Group | Not or | + + + Author + + + | Author | [facility] | + + + | Organization | [facility] | + + + | Address | Unknown | + + + | Phone | Unavailable | + + + Support + + +---------+ + | Name | Relationship | Address | Phone | + + +---------+ + | Darby Kate | ECON | Unknown | | + + +---------+ + Care Team Providers + +------+ + | Care Rheologist Name | Role | Phone | + [...] + +--------+ + + + + | Medical | | Cardiology | Diagnoses | Mirza, | Bryan, | | Review | | | | Anraldo Oshea, | Maynor Oshea MD | | | | | Nonrheumatic | [address] | | | | | mitral | [address] | Ave | | | | | (valve) | [address] | [place], [place] | | | | | insufficienc | [place], [place] | [address] | | | | | y Rheumatic | [address] | Phone: | | | | | tricuspid | Phone: | [phone] | | | | | insufficienc | [phone] | Fax: | | | | | y Pulmonary | Fax: | [phone] | | | | | | [phone] | | | | | | hypertension | | | | | | | , | | | | | | | unspecified | | | | | | | Procedures | | | | | | | TX NEW | | | | | | | PATIENT | | | | | | | LEVEL V | | | + +--------+ + + + + Encounter Details +--------+---------+ + + + | Date | Type | Department | Care Team | Description | +--------+---------+ + + + | 07/01/ | Office | Cardiology at [facility] | Maynor Adams | Mitral valve | | 2017 | Visit | [address] | MD Dayo [address] | insufficiency, | | | | Mailcode: CH9A | Ave [place], [place] | unspecified etiology | | | | [facility] | [address] | (Primary Dx); | | | | and Healing, | [phone] | Mitral annular | | | | Building | | calcification; | | | | Floor [place], [place] | | Persistent atrial | | | | [address] | | fibrillation (HCC) | | | | [phone] | | | +--------+---------+ + + + [...] | Blood Pressure | 110/59 | 07/01/2018 12:11 PM | | | | | PDT | | + + + + + | Pulse | 78 | 07/01/2018 12:11 PM | | | | | PDT | | + + + + + | Temperature | 36.7 C (98 F) | 07/01/2018 12:11 PM | | | | | PDT | | + + + + + | Respiratory Rate | 20 | 07/01/2018 12:11 PM | | | | | PDT | | + + + + + | Oxygen Saturation | 99% | 07/01/2018 12:11 PM | | | | | PDT | | + + + + + | Inhaled Oxygen | - | - | | | Concentration | | | | + + + + + | Weight | 66 kg (145 lb 9.6 | 07/01/2018 12:11 PM | | | | oz) | PDT | | + + + + + | Height | 160 cm (5' 3") | 07/01/2018 12:11 PM | | | | | PDT | | + + + + + | Body Mass Index | 25.79 | 07/01/2018 12:11 PM | | | | | PDT | | + + + + + documented in this encounter Patient Instructions Patient Instructions Maynor Adams MD - 07/01/2018 12:00 PM PDT1. We would recommend that you continue to follow up with Dr. Blue in [facility] for your heart care. Discuss the options of stenting of the right coronary artery with him in follow up as needed if chest pa in develops 2. Go up to the [facility] [place] to meet with Dr. Ordonez, Dr. Tam, and Dr. Jairo Slade ed on your preferences options are to continue with medical therapy or to consider a possibl e clip procedure, though the likelyhood of a successful placement of a clip we think is low and risk is higher for possible complication. Given your wishes, we will not pursue a hybrid surgical procedure. 3. We will discuss your the group decision (yourself and our doctors) with Dr. Blue to let him know the final plans. 4. IT was a pleasure meeting you today. It was our pleasure being involved in your care. C all Miladis Dumas RN or Devorah Pizarro PA-C in the valve clinic at [phone] if you have a ny questions. documented in this encounter Progress Notes Ken Whitten MA - 07/01/2018 12:00 PM PDTCumberland Cardiomyopathy Questionnaire Over the past two weeks: 1. How much are you limited by heart failure to do the following: a. Showering/bathing:SLIGHTLY LIMITED 4 b. Walking 1 block on level ground: MODERATELY LIMITED 3 c. Hurrying or jogging:MODERATELY LIMITED 3 2. How many times did you have swelling in your feet, ankles or legs when you woke up in th morning: NEVER OVER THE PAST 2 WEEKS 5 3. How many times has fatigue limited your ability to do what you wanted: SEVERAL TIMES PER DAY 2 4. How many times has shortness of breath limited your ability to do what you wanted:SEVER AL TIMES PER DAY 2 5. How many times did you sleep sitting up in a chair or with at least 3 pillows to prop yo u up because of shortness of breath: NEVER OVER THE PAST 2 WEEKS 5 6. How much has your heart failure limited your enjoyment of life:EXTREMELY LIMITED 1 7. If you had to spend the rest of your life with your heart failure the way it is right no w, how would you feel about this?: NOT AT ALL SATISFIED 1 8. How much does your heart failure affect your lifestyle in the following: a. Hobbies, recreational activities: EXTREMELY LIMITED 1 b. 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 Visiting outside the home: EXTREMELY LIMITED 1 RESULTS: 29 Maynor Peterson M D - 07/01/2018 12:00 PM PDT Heart Valve Clinic - Initial Consultation Date: 06/30/2018 Author: MAYNOR ADAMS MD Referring Provider: Kelsey Stokes HPI: Mrs [...] and severe MR. Mrs Sapp, lives in [facility] and is brought in by her daughter today who lives w ith her. 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 She was first hospitalized at [facility] in [facility] i n November 2017 with s/s of heart failure. Over the course of the spring she has noticed new and progressive MAYA as well as new LE edema. She was previously active but could no longer walk a 1/4 block. She was re-admitted to the hospital in [facility] in February 2018 again with he art failure. Echo in february was notable for normal to hyperdynamic LV systolic function, severe MAC, severe MR, moderate to severe TR, and mild . 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 She has followed up with Dr Barbara Blue at [facility] in the [facility] and referred to [facility] for consideration of MitraClip . Since February she has had no further decompensated heart failure episodes To expidite her evaluation, she has already been referred and undergone TTE, JUAN MANUEL, CT scan o f chest a week ago a well as angiogrpahy yesterday on 06/30/2018. Symptoms & Exercise/Activity Levels: Lives in [facility] with her Daughter in a 2 story [...] afterwards. Her activities are typically quilting for [employer] and the [employer] and sedentary without dyspnea. Any little activty [...] can walk up to a mile, but timothy smith no longer feels comfortable shopping by herself [employer] summer Her energy level was great. She previously was working out at [employer]. She would g o out ot her [employer] groups. Was completely independent In all activities and shopping co oking and cleaning. She typically has lunch outside of the house, cooks her own simple dinne rs, and has oatmeal for breakfast. She has had an appointment for consultation with Dr. Blue who will continue to follow her u p in [facility]. The patient denies rest or exertional chest [...] "felt fidgety" Percocet [Oxycodone-Acetaminophen] Anxiety "felt fidgety" Social History Social History Marital status: Single [...] Frailty Index Date Taken: 07/01/2018 1. Left Carbonation Tester Strength (kg): 12 Right Carbonation Tester Strength (kg): 10 2. Five Meter Walk [...] measuring <10 mm in diameter.There i s ibbv-uh-bdhbc shunting noted on color Doppler. TTE: 06/19/2018 [...] fenestrated secundum atrial septal defect, with intermittent qhca-gt-xubgd flow via color-flow Doppler. 12. Moderate tricuspid [...] A review of the echocardiogram and t transesophageal echo show severe mitral annular calcification, [...] STS based on available data is 7-8% Surgical risk may be modified in follow up based on further diagnostic workup; a full surgical risk evaluation will be re-assessed by the Multidisciplinary Heart Valve Team at a subsequent visit once workup is complete. The diagnostic workup plan is as follows: 1. We would recommend that you continue to follow up with Dr. Blue in [facility]. Discuss the options of stenting of the right coronary artery with him in follow up as needed if chest pain develops 2. Go up to the [facility] [place] to meet with Dr. Ordonez, Dr. Tam, and Dr. Jairo Slade ed on your preferences options are to continue with medical therapy or to consider a possibl e clip procedure, though the likelyhood of a successful placement of a clip we think is low and risk is higher for possible complication. Given your wishes, we will not pursue a hybrid surgical procedure. 3. We will discuss your the group decision (yourself and our doctors) with Dr. Blue to let him know the final plans. 4. IT was a pleasure meeting you today. It was our pleasure being involved in your care. C all Miladis Dumas RN or Devorah Pizarro PA-C in the valve clinic at [phone] if you have a ny questions. The patient and their family agree with the plan. We will follow up with the patient to co ordinate next steps once all relevant data has been completed and reviewed. Maynor Adams MD Operations Manager Assistant [facility] [place] documented in thi s encounter Plan of Treatment Not on filedocumented as of this encounter Visit Diagnoses + + | Diagnosis | + + | Mitral valve insufficiency, unspecified etiology - Primary | + + | Mitral annular calcification Mitral valve disorders | + + | Persistent atrial fibrillation Atrial fibrillation | + + documented in this encounter
--- OUTSIDE RECORDS SUMMARY | ~2019-10-07 | XMS | Encounter Summary ---
Demographics + + + | Address | [address] | | | [place] [address] | + + + | Home Phone | | + + + | Preferred Language | Unknown | + + + | Marital Status | Single | + + + | Zoroastrian Affiliation | NON | + + + | Race | White | + + + | Ethnic Group | Not or | + + + Author + + + | Author | [facility] | + + + | Organization | [facility] | + + + | Address | Unknown | + + + | Phone | Unavailable | + + + Support + + +---------+ + | Name | Relationship | Address | Phone | + + +---------+ + | Darby Kate | ECON | Unknown | | + + +---------+ + Care Team Providers + +------+ + | Care Carpet Jack Name | Role | Phone | + +------+ + | Renan Menendez MD | PCP | | + +------+ + Reason for Referral Diagnostic Testing (Routine) + +--------+ + + + + | Status | Reason | Specialty | Diagnoses / | Referred By | Referred To | | | | | Procedures | Contact | Contact | + +--------+ + + + + | New Request | | Cardiology | Diagnoses | Car Valve | | | | | | | [address] | | | | | | Non-rheumati | [address] | | | | | | c mitral | Mailcode: | | | | | | regurgitatio | [facility] | | | | | | n | for Health | | | | | | Procedures | and Healing, | | | | | | TRANSTHORACI | [address], | | | | | | C | 9th Floor | | | | | | ECHOCARDIOGR | [place], [place] | | | | | | AM, ADULT | [address] | | | | | | | Phone: | | | | | | | [phone] | | | | | | | Fax: | | | | | | | [phone] | | + +--------+ + + + + Diagnostic Testing (Routine) +--------+--------+ + + + + | Status | Reason | Specialty | Diagnoses / | Referred By | Referred To | | | | | Procedures | Contact | Contact | +--------+--------+ + + + + | Closed | | Cardiology | Diagnoses | Car Valve | Car Echo | | | | | | [address] | [address] | | | | | Non-rheumati | [address] | [address] | | | | | c mitral | Mailcode: | Mailcode: | | | | | regurgitatio | [facility] | [id number] | | | | | n | for Health | [facility] | | | | | Procedures | and Healing, | Building | | | | | TRANSESOPHAG | [address], | [place], [place] | | | | | EAL | 9th Floor | [address] | | | | | ECHOCARDIOGR | [place], [place] | Phone: | | | | | AM, ADULT | [address] | [phone] | | | | | IN ECHO | Phone: | | | | | | HEART,TRANSE | [phone] | | | | | | [place] | Fax: | | | | | | MPLETE IN | [phone] | | | | | | DOPPLER ECHO | | | | | | | | | | | | | | HEART,LIMITE | | | | | | | D,F/U IN | | | | | | | DOPPLER | | | | | | | COLOR FLOW | | | | | | | VELOCITY MAP | | | | | | | IN | | | | | | | ECHOCARDIOGR | | | | | | | APHY, | | | | | | | TRANSESOPHAG | | | | | | | EAL (JUAN MANUEL) | | | | | | | FOR GUIDANCE | | | +--------+--------+ + + + + Reason for Visit + + + | Reason | Comments | + + + | Surgery Scheduling | MitraClip 08/27/18 | + + + Encounter Details +--------+ + + + + | Date | Type | Department | Care Team | Description | +--------+ + + + + | 08/13/ | Telephone | Cardiology at [facility] | Miladis Dumas, | Surgery Scheduling | | 2018 | | [address] | RN [address] | [facility] | | | | Mailcode: [facility] | [address] | | | | | [facility] | [place], [place] | | | | | and [place], | [address] | | | | | [facility] [address], | | | | | | [place], [place] | | | | | | [address] | | | | | | [phone] | | | +--------+ + + + [...] Type | Priori | Associated Diagnoses | Order Schedule | | | | ty | | | + +------+--------+ + + | TRANSESOPHAGEAL | ECG | Routin | Non-rheumatic | Ordered: 08/14/2018 | | ECHOCARDIOGRAM, | | e | mitral regurgitation | | | ADULT | | | | | + +------+--------+ + + | TRANSTHORACIC | ECG | Routin | Non-rheumatic | Ordered: 08/14/2018 | | ECHOCARDIOGRAM, | | e | mitral regurgitation | | | ADULT | | | | | + +------+--------+ + + documented as of this encounter Procedures + +--------+ + + + | Procedure Name | Priori | Date/Time | Associated Diagnosis | Comments | | | ty | | | | + +--------+ + + + | 6-MINUTE WALK TEST - | Routin | 08/26/2018 | Non-rheumatic | Results for this | | ECG | e | | mitral regurgitation | procedure are in the | | | | | | results section. | + +--------+ + + + documented in this encounter Results 6-MINUTE WALK TEST - ECG (08/26/2018) + + + | Narrative | Performed At | + + + | [facility] Non Invasive Cardiac Services Test Date: 08/26/2018 | | | Clinic Site: [facility] Supervising Provider: Padma Pizarro Clinical Cytogenetics Director: | | | VS Referring Provider: Padma Pizarro Diagnosis: Non-rheumatic | | | mitral regurgitation Reason for Test: dyspnea Patient Sypmtoms : | | | Are you short of breath at rest? No Six-Minute Walk Test | | | Results: Gait speed (time in seconds first 15 feet walked): 4 | | | Patient walked: 720 feet in 6 minutes Beginning heart rate: 78 | | | Beginning blood pressure: 144/70 Beginning Sp02: 99% Beginning | | | dyspnea index (Jackelyn scale) : 0 Ending heart rate: 90 Ending blood | | | pressure: 157/60 Ending Sp02: 98% Ending dyspnea index (Jackelyn | | | scale): 4 Oxygen level: Observations: No level of distress | | | noted, patient tolerated test fairly well Physician | | | interpretation: High risk 6 minute walk test with moderate reported | | | dyspnea (jackelyn scale 4) , no desaturations, and inability to walk > 900 | | | ft. Danny Adams MD [facility] | | | Cardiovascular [place] | | + + + documented in this encounter Visit Diagnoses + + | Diagnosis | + + | Non-rheumatic mitral regurgitation - Primary | + + documented in this encounter"
--- OUTSIDE RECORDS SUMMARY | ~2019-10-07 | XMS | Encounter Summary ---
Demographics + + + | Address | [address] | | | [place] [address] | + + + | Home Phone | | + + + | Preferred Language | Unknown | + + + | Marital Status | Single | + + + | Uatsdin Affiliation | NON | + + + | Race | White | + + + | Ethnic Group | Not or | + + + Author + + + | Author | [facility] | + + + | Organization | [facility] | + + + | Address | Unknown | + + + | Phone | Unavailable | + + + Support + + +---------+ + | Name | Relationship | Address | Phone | + + +---------+ + | Darby Kate | ECON | Unknown | | + + +---------+ + Care Team Providers + +------+ + | Care Educational Institution Curator Name | Role | Phone | + [...] | | | Catheterizati | Mitral | Bryna, | Film Sound Engineer | | | | on | valve | Danny Oshea MD | [address] | | | | | stenosis, | [address] | [address] | | | | | unspecified | [address] | [address] [facility] | | | | | etiology | [place], [place] | [facility] | | | | | Procedures | [address] | [place], [place] | | | | | STUDENT SERVICES VICE PRESIDENT INT | Phone: | [phone] | | | | | CORONARY | [phone] | Phone: | | | | | ANGIOGRAM | Fax: | [phone] | | | | | UT R HRT | [phone] | Fax: | | | | | CORONARY | | [phone] | | | | | ARTERY ANGIO | | | +--------+--------+ + + + + Reason for Visit AUTH/CERT +--------+--------+ + + + + | Status | Reason | Specialty | Diagnoses / | Referred By | Referred To | | | | | Procedures | Contact | Contact | +--------+--------+ + + + + | | | | | | | +--------+--------+ + + + + Encounter Details +--------+ + + + + | Date | Type | Department | Care Team | Description | +--------+ + + + + | 06/30/ | Hospital | [facility] [address] | Elpidio Quinn, | | | 2018 | Encounter | [address] | [address] | | | | | [address] [facility] | [address] [place], | | | | | [place], [place] | [place] [address] | | | | | [address] | [phone] | | | | | [phone] | | | +--------+ + + + [...] + + + | Blood Pressure | 108/50 | 06/30/2018 4:00 PM | | | | | PDT | | + + + + + | Pulse | 56 | 06/30/2018 4:00 PM | | | | | PDT | | + + + + + | Temperature | 36.8 C (98.2 F) | 06/30/2018 10:13 AM | | | | | PDT | | + + + + + | Respiratory Rate | 13 | 06/30/2018 4:00 PM | | | | | PDT | | + + + + + | Oxygen Saturation | 96% | 06/30/2018 4:00 PM | | | | | PDT | | + + + + + | Inhaled Oxygen | - | - | | | Concentration | | | | + + + + + | Weight | 63.9 kg (140 lb 14 | 06/30/2018 9:50 AM | | | | oz) | PDT | | + + + + + | Height | 160 cm (5' 3") | 06/30/2018 9:50 AM | | | | | PDT | | + + + + + | Body Mass Index | 24.95 | 06/30/2018 9:50 AM | | | | | PDT | | + + + + + documented in this encounter Discharge Instructions Instructions Julio Palu RN - 06/30/2018.Home Care for Cardiac Catheterization Call your doctor if you notice any unusual symptoms. Remember: you are under the influence of medicines. You must have someone else take you home, either by car or taxi. Don t drive , operate machinery or power tools. Don t drink any alcoholic beverages. Don t make any important decisions or sign legal papers. Wound Care ? Change dressing as needed. Dressing can be removed in the morning. ? You may shower, but do not take a bath, hot tub, or swim for 5 days. ? If you have any bleeding from the puncture site: 1. Sit down and apply firm pressure to site with your fingers x 10 minutes. 2. If the bleeding stops, continue to sit quietly, keeping your wrist straight for 2 hours. Notify your physician as soon as possible. 3. If bleeding does not stop after 10 minutes, or if there is a large amount of bleeding or spurting, call bleeding or spurting, call 911 immediately[address] yourself to the [facility]. Diet ? Resume your regular diet. ? Drink an extra 3 to 4 glasses of fluid tonight. Avoid drinks with caffeine (coffee, tea, cola) or alcohol (wine, beer, liquor). Rest and Activity ? For 24 hours, no blood pressures on affected arm, no excessive wrist movement and do not drive a car. ? Take it easy for the rest of the day. ? Do not lift anything over 1 pound for the next 48 hours. ? For 1 week, no activity with excessive pushing or pulling of the affected arm. Call your doctor if: Call your Doctor right away or go to the Emergency Room if your arm looks or feels differen t. Call if your arm is: Pale, cold, numb, tingling (pins & needles) or turns purple or red. How to Reach your Doctor Saturday 8:00 4:00 call Cardiac Catheterization Lab at . For Cardiac Catheterization related emergencies after hours, weekends, and holidays, call [facility] Hospital X Ray Technologist at and ask to have the Coating Supervisor on-call brayan dumont documented in this encounter Medications at Time of Discharge [...] 0 | 05/05/20 | | | succinate 200 mg | [...] documented as of this encounter Progress Notes Yuniel Dawson MD - 06/30/2018 3:20 PM PDT Post-Procedure Access Site Check S: Feels well following the procedure, no complaints. Daughter at bedside, staying in [facility]. Last Vitals: BP 127/56 | Pulse 62 | Temp 36.8 C (98.2 F) | RR 22 | Ht 1.6 m (5' 3") | W t 63.9 kg (140 lb 14 oz) | SpO2 96% | BMI 24.95 kg/(m^2) 24 Hour Vital Min/Max: Systolic (24hrs), Av , Min:117 , Max:158 Diastolic (24hrs), Av, Min:56, Max:75 Pulse Min: 54 Max: 78 Temp Min: 36.8 C (98.2 F) Max: 36.8 C (98.2 F) Resp Min: 12 Max: 31 SpO2 Min: 95 % Max: 98 % Intake/Output Summary (Last 24 hours) at 06/30/18 1520 Last data filed at 06/30/18 1500 Gross per 24 hour Intake 8 ml Output 13 ml Net -5 ml Gen: comfortable appearing. Access Site: No hematoma or oozing around right radial artery or right IJ Barbeau: Type A Pulse:right radial: 2+ Skin: No embolic phenomena in hands/feet. Neuro: Gait normal. Reflexes normal and symmetric. Sensation grossly intact A/P: No evidence of acute complications following procedure. Continue current post-cath car e. Yuniel Dawson MD Coating Supervisor Yuniel Anand MD - 0 06/30/2018 12:35 PM PDTCardiology Preliminary Procedure Note (Full report to follow) Primary Care Provider: Renan Menendez MD Referring Provider: Danny Adams MD Film Sound Engineer Staff: Elpidio Quinn MD Procedure(s): Coronary Angiography Right Heart Catheterization Indications: Pre-mitral valve intervention workup Access: 5F RRA 7F RIJ Post Procedure Access: No evidence of bleeding or hematoma right Radial access site bleeding, oozing, hematoma. a nd No evidence of distal limb ischemia or distal embolization Or any immediate complication s noted in right IJ. Estimated Blood Loss: 35 mL Medications: Heparin 3000 units Route: IV Midazolam 1 mg Route: IV Nitroglycerin 200 mcg Route: IA Verapamil 2 mg Route: IA Contrast: 55 mL Omnipaque Findings: PRESSURES RHC: Unremarkable filling pressures Coronary Angiography: Obstructive CAD of RCA Intervention: None Complications: None Hemostasis: Manual compression in laborer salvage. Site: [facility]. Recommendations: Patient Status: Day patient Usual post cath care. documented in this enc ounter Plan of Treatment Not on filedocumented as of this encounter Procedures + +--------+ + + + | Procedure Name | Priori | Date/Time | Associated Diagnosis | Comments | | | ty | | | | + +--------+ + + + | CARDIAC CATH | | 06/30/2018 | | Results for this | | | | 1:58 PM | | procedure are in the | | | | PDT | | results section. | + +--------+ + + + | INR | Urgent | 06/30/2018 | | Results for this | | | | 10:15 AM | | procedure are in the | | | | PDT | | results section. | + +--------+ + + + | BASIC METABOLIC SET | Routin | 06/30/2018 | | Results for this | | (NA, K, CL, TCO2, | e | 10:15 AM | | procedure are in the | | BUN, CR, GLU, CA) | | PDT | | results section. | + +--------+ + + + | CBC (HEMOGRAM) ONLY | Routin | 06/30/2018 | | Results for this | | | e | 10:14 AM | | procedure are in the | | | | PDT | | results section. | + +--------+ + + + | CBC ONLY | Routin | 06/30/2018 | | Results for this | | | e | 10:14 AM | | procedure are in the | | | | PDT | | results section. 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 | + +--------+ + + + | INTRAPROCEDURE | Routin | 06/30/2018 | | Results for this | | IMAGING | e | 9:53 AM | | procedure are in the | | | | PDT | | results section. 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 | + +--------+ + + + | CARDIOLOGY | | 06/30/2018 | | Results for this | | | | 12:00 AM | | procedure are in the | | | | PDT | | results section. | + +--------+ + + + | CARDIOLOGY | | 06/30/2018 | | Results for this | | | | 12:00 AM | | procedure are in the | | | | PDT | | results section. | + +--------+ + + + documented in this encounter Results CARDIAC CATH (06/30/2018 1:58 PM PDT) + + | Procedure Note | + + | Elpidio Quinn MD - 06/30/2018 1:58 PM PDT DATE OF PROCEDURE:June 30 | | 2017PATIENT DATA:Height 160 cmWeight 76.6 kgBSA 1.76 [id number] PHYSICIAN:Elpidio | | Cheyenne LewisSupervisor Facepiece Line, MedicineDepartment of CardiologyFELLOW:Caesar Gonzalez, | | FellowGeneral CardiologyINDICATIONS:Severe MRREFERRING PHYSICIAN:Danny Adams, | | DebbieSupervisor Facepiece Line, CardiologyPROCEDURES PERFORMED:1. Right heart | | catheterization.2. Selective coronary angiography.MEDICATIONS:1. Heparin IV 3000 | | units.2. Midazolam IV 1 mg.3. Nitroglycerin 200 mcg intra-arterial.4. Verapamil 2 mg | | intra-arterial.CONTRAST:Omnipaque 55 mL.FLUOROSCOPY TIME:6.4 minutes.FLUOROSCOPY | | DAP:4151.0 [id number] PROCEDURE:The procedure, its risks, benefits, and | | alternatives, were discussed with the patient and the patient was brought to the cath | | lab in the non-sedated state. A full PARQ was performed. A team pause was performed | | before the start of the procedure. A 7-Estonian sheath was placed in the right internal | | jugular vein using ultrasound guidance and micropuncture needle. Through the 7-Estonian | | sheath, we introduced a 7-Estonian balloon wedge catheter all the way up to the pulmonary | | capillary wedge position, and pressures were obtained in the various cardiac chambers. | | After the right catheterization was completed, we proceeded toward selective coronary | | angiography. Initially, we went with the Landen catheter. However, it was difficult to | | engage the Landen catheter into the left or the right coronary artery, and henceforth we | | decided to switch to JL3.5 and JR4 catheters. We were very gentle with using the Landen | | catheter as well because the patient had a lot of aortic calcium. We were able to | | easily engage the left and the right coronary artery using JL3.5 and JR4 catheters. | | After multiple cineangiographic views were obtained, after we had sufficient | | information, we discussed the case with Dr. Danny Adams, the General Cardiology | | attending for this patient, and we decided to complete the case. The TR band was used | | for achieving local hemostasis at the right radial artery access site and the right IJ | | was removed and manual compression was applied for achievement of local | | hemostasis.FINDINGS:1. Hemodynamic findings right heart catheterization: a. Right | | arterial pressure mean of 5 mmHg. b. Right ventricular pressure of 36/0 and a right | | ventricular end-diastolic pressure of 40 mmHg.c. Pulmonary artery pressure of 41/13 with | | a mean pulmonary artery pressure of 25 mmHg.d. Pulmonary capillary wedge pressure of 16 | | mmHg with V wave up to 33 mmHg.e. Heart rate of 60 beats per minute.f. Cardiac output | | of 3.4 L/min per Mark method and cardiac index of 1.93 L/min/sq m. g. Opening aortic | | pressure of 128/68 mmHg with a mean aortic pressure of 72 mmHg.h. Pulmonary artery | | saturation of 66% and aortic saturation of 99%.i. Pulmonary vascular resistance of 2.64 | | Wood units. j. Systemic vascular resistance of 19.98 Wood units.2. Left heart | | catheterization:a. Left main coronary artery. The left main coronary artery is a | | large-sized vessel which has about 20% calcific stenosis in its distal portion at its | | bifurcation with the left anterior descending and the left circumflex artery.b. Left | | anterior descending artery. The left anterior descending artery is a moderate-sized | | vessel which courses all the way up to the apex. It is tortuous in nature. It has mild | | 20% to 30% stenosis in its midportion at its branch point with the diagonal artery. | | Otherwise, the left anterior descending artery has no other major angiographic | | stenosis.c. Left circumflex artery. The left circumflex artery has 2 stenoses in tandem | | which are about 30% to 40% each as it courses around the posterior intraventricular | | groove.d. Right coronary artery the right coronary artery is a dominant vessel. The | | proximal portion of the right coronary artery has about 30% to 40% calcific stenosis | | which may be an under-estimate given the eccentricity of the plaque.e. The distal RCA | | has 99% calcific stenosis prior to its bifurcation with the PDA and PLV branches. It is | | an extremely tortuous right coronary artery.ASSESSMENT:1. One-vessel coronary artery | | disease with significant stenosis of the distal right coronary artery at 99% prior to | | the posterior descending artery posterior left ventricular branches.2. Non-obstructive | | coronary artery disease in the left anterior descending and left circumflex branches.3. | | Mildly elevated left heart filling pressures.PLAN:The patient will be seen in the clinic | | tomorrow by Dr. Danny Adams, and after the clinic the the PCI option will be | | discussed.PENNY Blue/MANJUD: 06/30/2018 13:06:40"A resident/fellow assisted | | with documenting this service. I saw the patient and reviewed and verified all | | information documented by the resident/fellow and made modifications to such | | information, when appropriate. The risks and benefits of the procedure were explained to | | the patient in its entirety and all the questions were answered to patient | | satisfaction. I was present and supervised all the aspects of this procedure. "lEpidio | | Ti Quinn Interventional/Structural Heart CardiologistK[facility] | | [place], [facility] [place] [facility] HospitalDT: 06/30/2018 13:58:20Job #: | | [id number] | |h. Pulmonary artery saturation of 66% and aortic saturation of 99%. | |i. Pulmonary vascular resistance of 2.64 Wood units. | |j. Systemic vascular resistance of 19.98 Wood units. | |2. Left heart catheterization: | |a. Left main coronary artery. The left main coronary artery is a large-sized vessel which has about 20% calcific stenosis in its distal portion at its bifurcation with the left anter ior descending and the left circumflex artery. | |b. Left anterior descending artery. The left anterior descending artery is a moderate-size d vessel which courses all the way up to the apex. It is tortuous in nature. It has mild 20 % to 30% stenosis in its midportion at | |its branch point with the diagonal artery. Otherwise, the left anterior descending artery has no other major angiographic stenosis. | |c. Left circumflex artery. The left circumflex artery has 2 stenoses in tandem which are a bout 30% to 40% each as it courses around the posterior intraventricular groove. | |d. Right coronary artery the right coronary artery is a dominant vessel. The proximal port ion of the right coronary artery has about 30% to 40% calcific stenosis which may be an unde r-estimate given the eccentricity of the plaque. | |e. The distal RCA has 99% calcific stenosis prior to its bifurcation with the PDA and PLV b ranches. It is an extremely tortuous right coronary artery. | | | |ASSESSMENT: | |1. One-vessel coronary artery disease with significant stenosis of the distal right coronar y artery at 99% prior to the posterior descending artery posterior left ventricular branches . | |2. Non-obstructive coronary artery disease in the left anterior descending and left circumf carlyn branches. | |3. Mildly elevated left heart filling pressures. | | | |PLAN: | |The patient will be seen in the clinic tomorrow by Dr. Danny Adams, and after the cl inic the the PCI option will be discussed. | | | |Elpidio Quinn MD | |HG/MODL | | | | | |"A resident/fellow assisted with documenting this service. I saw the patient and reviewed and verified all information documented by the resident/fellow and made modifications to becerril ch information, when | |appropriate. The risks and benefits of the procedure were explained to the patient in its e ntirety and all the questions were answered to patient satisfaction. I was present and super vised all the aspects of this procedure. " | | | |Elpidio Quinn MD | |Attending Interventional/Structural Heart Nurse Sexual Assault | |[facility] Cardiovascular [place], [facility] [place] | | | | /[id number] | + + INR (06/30/2018 10:15 AM PDT) + + + + + + | Component | Value | Ref Range | Performed | Pathologist | | | | | At | Signature | + + + + + + | INR | 1.27 (H) | 0.90 - 1.20 INR | [facility] | | | | | | LABORATORY | | | | | | SERVICES, | | | | | | CORE | | + + + + + + + + | Specimen | + + | Blood - Blood | | (substance) | + + + + + | Narrative | Performed At | + + + | INR Therapeutic ranges for full anticoagulation: INR for | [facility] | | Venous Thromboembolism (2.0 - 3.0) INR INR for | LABORATORY | | most patients with mech. valves (2.5 - 3.5) INR | [facility] | + + + + + + + + | Performing | Address | City/State/Zipcode | Phone Number | | Organization | | | | + + + + + | [facility] | [address] | [place] [address] | | | [facility] | [address] | | | + + + + + BASIC METABOLIC SET (NA, K, CL, TCO2, BUN, CR, GLU, CA) (06/30/2018 10:15 AM PDT) + +---------+ + + + | Component | Value | Ref Range | Performed | Pathologist | | | | | At | Signature | + +---------+ + + + | GLUCOSE, | 122 (H) | 70 - 99 mg/dL | [facility] | | | PLASMA | | | LABORATORY | | | (LAB) | | | SERVICES, | | | | | | CORE | | + +---------+ + + + | BUN, PLASMA | 16 | 6 - 20 mg/dL | [facility] | | | (LAB) | | | LABORATORY | | | | | | SERVICES, | | | | | | CORE | | + +---------+ + + + | CREATININE | 0.78 | 0.60 - 1.10 | [facility] | | | PLASMA | | mg/dL | LABORATORY | | | (LAB) | | | SERVICES, | | | | | | CORE | | + +---------+ + + + | EGFR | >60 | >60 mL/min | [facility] | | | - | | | LABORATORY | | | LITHUANIAN | | | SERVICES, | | | | | | CORE | | + +---------+ + + + | EGFR NON | >60 | >60 mL/min | [facility] | | | -LEEROY | | | LABORATORY | | | RICAN | | | SERVICES, | | | | | | CORE | | + +---------+ + + + | SODIUM, | 136 | 136 - 145 | [facility] | | | PLASMA | | mmol/L | LABORATORY | | | (LAB) | | | SERVICES, | | | | | | CORE | | + +---------+ + + + | POTASSIUM, | 3.9 | 3.4 - 5.0 | [facility] | | | PLASMA | | mmol/L | LABORATORY | | | (LAB) | | | SERVICES, | | | | | | CORE | | + +---------+ + + + | CHLORIDE, | 100 | 97 - 108 mmol/L | [facility] | | | PLASMA | | | LABORATORY | | | (LAB) | | | SERVICES, | | | | | | CORE | | + +---------+ + + + | TOTAL CO2, | 26 | 21 - 32 mmol/L | [facility] | | | PLASMA | | | LABORATORY | | | (LAB) | | | SERVICES, | | | | | | CORE | | + +---------+ + + + | CALCIUM, | 9.1 | 8.6 - 10.2 | [facility] | | | PLASMA | | mg/dL | LABORATORY | | | (LAB) | | | SERVICES, | | | | | | CORE | | + +---------+ + + + | ANION GAP | 10 | 4 - 11 mmol/L | [facility] | | | | | | LABORATORY | | | | | | SERVICES, | | | | | | CORE | | + +---------+ + + + | POTASSIUM | No Hemo | | [facility] | | | CMNT | | | LABORATORY | | | | | | SERVICES, | | | | | | CORE | | + +---------+ + + + + + | Specimen | + + | Blood - Blood | | (substance) | + + + + + | Narrative | Performed At | + + + | GFR is estimated using the MDRD equation recommended by the | [facility] | | National Kidney Disease Education Program. Estimated GFR | LABORATORY | | Interpretive Information: <60 mL/min/1.73 sq m | SERVICES, CORE | | Chronic Kidney Disease <15 mL/min/1.73 sq m | | | Kidney Failure Estimated GFR greater that 60 mL/min/1.73 sq m is of | | | limited clinical value. The MDRD equation is not valid in the | | | following situations: - Patients under 18 years of age - Severe | | | malnutrition or obesity - Vegetarian diet - Rapidly changing kidney | | | function - Amputees, paraplegics, or other muscle-wasting diseses | | + + + + + + + + | Performing | Address | City/State/Zipcode | Phone Number | | Organization | | | | + + + + + | [facility] | [address] | [place] [address] | | | SERVICES, CORE | [address] | | | + + + + + CBC (HEMOGRAM) ONLY (06/30/2018 10:14 AM PDT) + + + + + + | Component | Value | Ref Range | Performed | Pathologist | | | | | At | Signature | + + + + + + | WHITE CELL | 7.45 | 3.50 - 10.80 | [facility] | | | COUNT | | K/cu mm | LABORATORY | | | | | | SERVICES, | | | | | | CORE | | + + + + + + | RED CELL | 4.29 | 4.00 - 5.20 | [facility] | | | COUNT | | M/cu mm | LABORATORY | | | | | | SERVICES, | | | | | | CORE | | + + + + + + | HEMOGLOBIN | 12.6 | 12.0 - 16.0 | [facility] | | | | | g/dL | LABORATORY | | | | | | SERVICES, | | | | | | CORE | | + + + + + + | HEMATOCRIT | 37.5 | 36.0 - 46.0 % | [facility] | | | | | | LABORATORY | | | | | | SERVICES, | | | | | | CORE | | + + + + + + | MCV | 87.4 | 80.0 - 100.0 fL | [facility] | | | | | | LABORATORY | | | | | | SERVICES, | | | | | | CORE | | + + + + + + | MCHC | 33.6 | 32.0 - 36.0 | [facility] | | | | | g/dL | LABORATORY | | | | | | SERVICES, | | | | | | CORE | | + + + + + + | RDW SD | 49.3 (H) | 35.1 - 46.3 fL | [facility] | | | | | | LABORATORY | | | | | | SERVICES, | | | | | | CORE | | + + + + + + | PLATELET | 315 | 150 - 400 K/cu | [facility] | | | COUNT | | mm | LABORATORY | | | | | | SERVICES, | | | | | | CORE | | + + + + + + | MPV | 10.0 | 9.7 - 12.3 fL | [facility] | | | | | | LABORATORY | | | | | | SERVICES, | | | | | | CORE | | + + + + + + | NRBC% | 0.0 | 0.0 - 0.3 % | [facility] | | | | | | LABORATORY | | | | | | SERVICES, | | | | | | CORE | | + + + + + + | NRBC# | 0.00 | 0.00 - 0.02 | [facility] | | | | | K/cu mm | LABORATORY | | | | | | SERVICES, | | | | | | CORE | | + + + + + + + + | Specimen | + + | Blood - Blood | | (substance) | + + + + + | Narrative | Performed At | + + + | New reference ranges for MCV, MCHC, PLT, IG% and IG# effective | [facility] | | 02/13/2018 | LABORATORY | | | SERVICES, CORE | + + + + + + + + | Performing | Address | City/State/Zipcode | Phone Number | | Organization | | | | + + + + + | [facility] | [address] | [place] [address] | | | [facility] | [address] | | | + + + + + CAPILLARY BLOOD GLUCOSE (NO CHG), POC (06/30/2018 10:08 AM PDT) + +---------+ + + + | Component | Value | Ref Range | Performed | Pathologist | | | | | At | Signature | + +---------+ + + + | BLOOD | 142 (H) | 60 - 99 mg/dL | [facility] - | | | GLUCOSE, | | | [facility] | | | POC | | | [facility] | | | | | | OF CARE | | | | | | TESTS | | + +---------+ + + + + + | Specimen | + + | | + + + + + + + | Performing | Address | City/State/Zipcode | Phone Number | | Organization | | | | + + + + + | [facility] | [address] | [place], [place] | | | [facility] OF [facility] | [address] | [address] | | | TESTS | | | | + + + + + INTRAPROCEDURE IMAGING (06/30/2018 9:53 AM PDT) + + | Specimen | + + | | + + + + + | Narrative | Performed At | + + + | See admission or procedure notes for details of any intraprocedure | | | images obtained. | | + + + STUDENT SERVICES VICE PRESIDENT INT CORONARY ANGIOGRAM (06/30/2018 9:37 AM PDT) + + | Specimen | + + | | + + + + + | Narrative | Performed At | + + + | Procedure performed in the Cardiac Film Sound Engineer. See procedure notes | [facility] - | | for details. | [facility], | | | POINT OF CARE | | | TESTS | + + + + + + + + | Performing | Address | City/State/Zipcode | Phone Number | | Organization | | | | + + + + + | [facility] | [address] | [place], [place] | | | HERNAN KAMARA [facility] | [address] | [address] | | | TESTS | | | | + + + + + CARDIOLOGY (06/30/2018 12:00 AM PDT) + + + | Narrative | Performed At | + + + | | | + + + CARDIOLOGY (06/30/2018 12:00 AM PDT) + + + | Narrative | Performed At | + + + | | | + + + documented in this encounter Visit Diagnoses + + | Diagnosis | + + | Mitral valve stenosis, unspecified etiology | + + documented in this encounter Administered Medications + +--------+ +--------+------+------+ | Medication Order | MAR | Action | Dose | Rate | Site | | | Action | Date | | | | + +--------+ +--------+------+------+ | heparin injection intravenous, | Given | 06/30/20 | 3,000 | | | | INTRAPROCEDURE PRN, Starting Mon | | 18 12:01 | Units | | | | 06/30/18 at 1201, Until Mon | | PM PDT | | | | | 06/30/18 at 1201 | | | | | | + +--------+ +--------+------+------+ +---+---+ | | | +---+---+ + +-------+ +-------+---+---+ | iohexol (OMNIPAQUE) 350 mg | Given | 06/30/20 | 55 mL | | | | iodine/mL injection | | 18 12:32 | | | | | INTRAPROCEDURE PRN, Starting Mon | | PM PDT | | | | | 06/30/18 at 1232, Until Mon | | | | | | | 06/30/18 at 1232 | | | | | | + +-------+ +-------+---+---+ +---+---+ | | | +---+---+ + +-------+ +------+---+---+ | lidocaine (XYLOCAINE) 10 mg/mL | Given | 06/30/20 | 1 mL | | | | (1 %) injection infiltration, | | 18 11:43 | | | | | INTRAPROCEDURE PRN, Starting Mon | | AM PDT | | | | | 06/30/18 at 1127, Until Mon | | | | | | | 06/30/18 at 1143 | | | | | | + +-------+ +------+---+---+ +-------+ +------+---+---+ | Given | 06/30/20 | 5 mL | | | | | 18 11:27 | | | | | | AM PDT | | | | +-------+ +------+---+---+ +---+---+ | | | +---+---+ + +-------+ +--------+---+---+ | midazolam (PF) (VERSED) | Given | 06/30/20 | 0.5 mg | | | | injection INTRAPROCEDURE PRN, | | 18 11:56 | | | | | Starting Sat06/30/18 at 1116, | | AM PDT | | | | | Until Sat06/30/18 at 1156 | | | | | | + +-------+ +--------+---+---+ +-------+ +--------+---+---+ | Given | 06/30/20 | 0.5 mg | | | | | 18 11:16 | | | | | | AM PDT | | | | +-------+ +--------+---+---+ +---+---+ | | | +---+---+ + +-------+ +---------+---+---+ | nitroGLYCERIN 2 mg/10 mL (200 | Given | 06/30/20 | 200 mcg | | | | mcg/mL) in D5W IV INTRAPROCEDURE | | 18 11:54 | | | | | PRN, Starting Sat06/30/18 at | | AM PDT | | | | | 1154, Until Sat06/30/18 at 1154 | | | | | | + +-------+ +---------+---+---+ +---+---+ | | | +---+---+ + +---------+ +--------+---+---+ | sodium chloride 0.9 % (NS) IV | New Bag | 06/30/20 | 150 mL | | | | infusion INTRAPROCEDURE | | 18 12:32 | | | | | CONTINUOUS PRN, Starting Mon | | PM PDT | | | | | 06/30/18 at 1232, Until Mon | | | | | | | 06/30/18 at 1232 | | | | | | + +---------+ +--------+---+---+ +---+---+ | | | +---+---+ + +-------+ +------+---+---+ | verapamil (ISOPTIN) injection | Given | 06/30/20 | 2 mg | | | | INTRAPROCEDURE PRN, Starting Mon | | 18 11:54 | | | | | 06/30/18 at 1154, Until Mon | | AM PDT | | | | | 9/24/18 at 1154 | | | | | | + +-------+ +------+---+---+ +---+---+ | | | +---+---+ documented in this encounter
--- OUTSIDE RECORDS SUMMARY | ~2019-10-07 | XMS | Encounter Summary ---
Demographics + + + | Address | [address] | | | [place] [address] | + + + | Home Phone | | + + + | Preferred Language | Unknown | + + + | Marital Status | Single | + + + | Gnosticist Affiliation | NON | + + + | Race | White | + + + | Ethnic Group | Not or | + + + Author + + + | Author | [facility] | + + + | Organization | [facility] | + + + | Address | Unknown | + + + | Phone | Unavailable | + + + Support + + +---------+ + | Name | Relationship | Address | Phone | + + +---------+ + | Darby Kate | ECON | Unknown | | + + +---------+ + Care Team Providers + +------+ + | Care Fruit Shipper Name | Role | Phone | + +------+ + | No Pcp Per Patient | PCP | Unavailable | + +------+ + Reason for Visit + + + | Reason | Comments | + + + | Medical Records | [facility] review | | Review | | + + + Encounter Details +--------+ + + + + | Date | Type | Department | Care Team | Description | +--------+ + + + + | 05/21/ | Abstract | Cardiology at [facility] | Unknown . | Medical Records | | 2017 | | [address] | | Review ([facility] review) | | | | Mailcode: CHACHO | | | | | | [facility] | | | | | | and Healing, | | | | | | Building | | | | | | Floor [place], [place] | | | | | | [address] | | | | | | [phone] | | | +--------+ + + + [...] + documented as of this encounter Progress Lorrie Bhatia - 05/21/2018 10:26 AM PDTAppt info sent in mail Lorrie Ferguson - 018 10:26 AM PDT Heart Valve Tier 1 Review Patient Name: Rufina Sapp Referring Provider: Arnaldo lBue Designated Family/Support Person Name: Contact Number: Data Elements / Results Needed Prior Medical Review Required for Medical Review Required f or Clinic Received (Y / N) Records / Notes (Care Everywhere / Abstract Enc) Imaging (IMPAX / Disc / Not Available) Comments ECHO/TTE (if performed within the last two years) Report Report / Images yes Care Everywhere IMPAX 12/12/17 [facility] CBC, BMP (from last 6 [...] Valve Tier 3 Response: Since coming from [facility] [place], will need to consolidate trips if possible Would like to see on a Saturday, have baseline testing, 6 min walk, TTE that AM. Gated CT o f chest that afternoon. Would have her stay the night for JUAN MANUEL on Saturday. Would then need to come back for interventional HVC on a Saturday afternoon but be pre-booke d for angiogram Saturday prior to Int HVC that afternoon Would [...] place orders once confirmed. Danny Adams MD [facility] [place] documented in thi s encounter Plan of Treatment Not on filedocumented as of this encounter Visit Diagnoses Not on filedocumented in this encounter"
--- OUTSIDE RECORDS SUMMARY | ~2019-10-07 | XMS | Encounter Summary ---
Demographics + + + | Address | [address] | | | [place] [address] | + + + | Home Phone | | + + + | Preferred Language | Unknown | + + + | Marital Status | | + + + | Alevism Affiliation | Unknown | + + + | Race | Unknown | + + + | Ethnic Group | Unknown | + + + Author + + + | Author | [facility] | | | and [place] | + + + | Organization | [facility] | | | [...] Team Providers + +------+ + | Care Quality Control Director Name | Role | Phone | + +------+ + PCP | Unavailable | + +------+ + Encounter Details +--------+ + + + + | Date | Type | Department | Care Team | Description | +--------+ + + + + | 07/30/ | Hospital | [facility] | Conversion | Coronary artery | | 2017 - | Encounter | [facility] | Transaction, | disease involving | | | | CLINICAL DECISION | Provider Unknown | quechan coronary | | 07/31/ | | [address] | [phone] | artery of quechan | | 2018 | | [place], [place] | | heart, angina | | | | [address] | Arnaldo Blue MD | presence | | | | [phone] | [address] | unspecified; Anginal | | | | | [place], [place] | equivalent ([facility]); | | | | | [address] | Chronic atrial | | | | | | fibrillation ([facility]); | | | | | | Essential | | | | | | hypertension; | | | | | | Pulmonary | | | | | | hypertension, | | | | | | moderate to severe | | | | | | ([facility]); S/P drug | | | | | [...] Summaries by Shanita Braswell MD at 07/31/18 0862 Author: Shanita Braswell MD Service: Cardiology Author Type: Physician Filed: 08/03/181956 Date of Service: 07/31/182 Status: Signed Pathology Lab Technician: Shanita Braswell MD (Physician) Related Notes: Original Note by Shanita Braswell MD (Physician) filed at 08/01/182132 [facility] Service: Cardiology Discharge Summary Date of Admission: 07/30/2018 Date of Discharge: 07/31/2018 Discharge Provider: Shanita Braswell MD Treatment Team: Admitting Provider: Arnaldo Blue MD Discharge Diagnoses: Active Problems: Pulmonary hypertension, moderate to severe (HCC) Atrial fibrillation (HCC) Severe tricuspid regurgitation Severe mitral regurgitation SOB (shortness of breath) on exertion Anginal equivalent (HCC) Essential hypertension 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 Patient was evaluated at [facility] for mitral clip and possible tricuspid clip. She had a coronary alicia ogram done there that showed the critical stenosis of a large right posterolateral artery. She was referred by her primary high voltage electrician, Dr. Blue, for PCI. Patient had a [...] 5. Patient will follow with her primary high voltage electrician, Dr. Blue, in 1 week. 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 07/30/2018 at 0715 Xgor-Ekzoj-EUL-Boswellia-Vit D (GLUCOSAMINE CHOND TRIPLE/VIT D) TABS Take [...] [place] [address] Arnaldo Blue MD [address] [place] [address] In 1 week Medication List CONTINUE [...] | 0 | 05/19/20 | | | Xgnf-Dqvyw-IOY-Boswe | mouth daily. | | | 18 [...] Note by Glo Prasad RN at 07/31/18 649 Author: Glo Prasad RN Service: (none) Author Type: Registered Nurse Filed: 07/31/18 7960 Date of Service: 07/31/181542 Status: Signed Pathology Lab Technician: Glo Prasad RN (Registered Nurse) Discharge summary [...] Author: KELLI Rivera Service: (none) Author Type: Market Specialist Filed: 07/31/1857 Date of Service: 07/31/18955 Status: Signed Pathology Lab Technician: KELLI Rivera (Market Specialist) CM met with pt for discharge planning. [...] Kate Relationship to Patient Daughter Phone number [phone] Mental Status Oriented Anticipated Discharge Plan Post [...] 07/31/18635 Date of Service: 07/31/18634 Status: Addendum Pathology Lab Technician: Virginia Giron RN (Registered Nurse) Related Notes: [...] 07/31/18628 Date of Service: 07/31/18627 Status: Signed Pathology Lab Technician: Virginia Giron RN (Registered Nurse) Phoned and left for echo regarding the need for Stat echo according to Dr Braswell's note to rule out pericardial effusion. onver aedel Transaction, Provider Unknown - 07/31/2018 2:52 AM PDT Nurse Progress Note by Virginia Giron RN at 07/31/18251 Author: Virginia Giron RN Service: (none) Author Type: Registered Nurse Filed: 07/31/18 0253 Date of Service: 07/31/18251 Status: Signed Pathology Lab Technician: Virginia Giron RN (Registered Nurse) Chart check complete onver adeel Transaction, Provider Unknown - 07/31/2018 1:20 AM PDT Nurse Progress Note by Virginia Giron RN at 07/31/18119 Author: Virginia Giron RN Service: (none) Author Type: Registered Nurse Filed: 07/31/18137 Date of Service: 07/31/18119 Status: Signed Pathology Lab Technician: Virginia Giron RN (Registered Nurse) Assumed care of pt from AKIRA Girard, pt resting at this time, no c/o. onver adeel Transaction, Provider Unknown - 07/30/2018 8:31 PM PDT Pharmacy Note by Miguel Doshi RPH at 07/30/182030 Author: Miguel Doshi RPH Service: Pharmacy Author Type: Pharmacist Filed: 07/30/182030 Date of Service: 07/30/182030 Status: Signed Pathology Lab Technician: Miguel Doshi RPH (Pharmacist) Renal Dosing Monitoring: [...] 07/30/181841 Date of Service: 07/30/181840 Status: Signed Pathology Lab Technician: Barbi Tyler RN (Registered Nurse) Groin checked [...] 07/29/181702 Date of Service: 07/29/181656 Status: Signed Pathology Lab Technician: Karen Lancaster RN (Registered Nurse) [facility] Pre-Procedure Telephone Call Type of Procedure [facility] Spoke with: Patient Splitter Hand needed: No Ukrainian No Slovenian No Other: Splitter Hand arranged: No Arrival Time: 1330 Check In Location: Registration Ride and Caregiver: Darby Phone Number for Ride/Caregiver: NPO from: 0700 Diabetic: Yes If Yes are they on Glucophage/Metformin No Date of last Dose {Blank single:02795::"NA" Is patient on Anticoagulants Yes Coumadin Date [...] | 12/20/ | Office | Cardiology | oRchelle Gibbons | | | 2019 | Visit | | [address] | | | | | | [address] | | | | | | [place] [address] | | | | | | [phone] | | | | | | | [...] | | | Fingerstick | performed at [facility];[address] | | LAB | | | | [address];[place], [place] | | | | | | [address] | | | | + + + [...] no | | | pericardial effusion. MEASUREMENTS Placing Judge: | | | GD Authenticated by: Shanita [...] is no | | pericardial effusion. MEASUREMENTS Placing Judge: Michaelticated by: | | Shanita Braswell MDReport [...] | |MEASUREMENTS | | | | | |Placing Judge: GISELLE | |Authenticated by: Shanita Braswell MD [...] | | | Fingerstick | performed at [facility];[address] | | LAB | | | | [address];[place] | | | | | | [address] | | | | + + + [...] at | | | | | | [facility], [address] [place] [address] | | | | | | [place], [place] | | | | | | [address] | | | | + + + [...] | | | | | performed at [facility], [address] | | | | | | [facility], | | | | | | [place] [address] | | | | + + + [...] | | | Fingerstick | performed at [facility];[address] | | LAB | | | [address];[place], [place] | | | | | | [address] | | | | + + + [...] received an additional 300 mg in the chemical laboratory tester. | | | We will continue Plavix [...] who was evaluated at | | | [facility] for possible mitral and tricuspid valve percutaneous [...] using | | | micropuncture needle. A 6-Citizen Of [place] sheath was placed in the right | | | femoral artery without difficulty. The patient was given 5000 units | | | of heparin intravenously. ACT was monitored. The patient | | | received additional heparin boluses to keep ACT more than 250. A | | | 6-Citizen [place] JR4 guiding catheter was used for selective [...] oozing from around the | | | 6-Citizen [place] sheath at this time, and we decided to proceed with the | | | 7-Citizen [place] system to have more support. The 6-Citizen [place] sheath was | | | upgraded to a 7-Citizen [place] for a 5-cm sheath. A 7-Citizen [place] AL1 guiding | | | catheter was [...] balloon was removed. | | | A 5.5-Citizen Of [place] GuideLiner catheter was advanced and at one [...] evidence of dissection or perforation. The long 7-Citizen [place] | | | sheath was removed off of the guidewire and a short 7-Citizen [place] sheath | | | was placed into [...] coronary artery had | | | diffuse xzmh-xx-zirfkaoh disease in the range of 30 percent. [...] regurgitation, who was evaluated | | at [facility] for possible mitral and tricuspid valve percutaneous [...] accessed using | | micropuncture needle. A 6-Citizen [place] sheath was placed in the right femoral | | artery without difficulty. The patient was given 5000 units of heparin | | intravenously. ACT was monitored. The patient received additional heparin | | boluses to keep ACT more than 250. | | | | A 6-Citizen [place] JR4 guiding catheter was used for selective [...] | | some oozing from around the 6-Citizen [place] sheath at this time, and we decided to | | proceed with the 7-Citizen [place] system to have more support. The 6-Citizen [place] sheath | | was upgraded to a 7-Citizen [place] for a 5-cm sheath. A 7-Citizen [place] AL1 guiding | | catheter was used [...] The balloon was removed. A | | 5.5-Citizen [place] GuideLiner catheter was advanced and at one [...] evidence of dissection or perforation. The long 7-Citizen [place] sheath was | | removed off of the guidewire and a short 7-Citizen [place] sheath was placed into | | the [...] right coronary artery had diffuse | | jeoq-vp-qpjgfwaj disease in the range of 30 percent. [...] received an additional 300 mg in the chemical laboratory tester. We will | | continue Plavix 75 [...] | | | Clotting | performed at [facility];[address] | seconds | LAB | | | time, POC | [address];[place], [place] | | | | | | [address] | | | | + + + [...] | | | Clotting | performed at [facility];[address] | seconds | LAB | | | time, POC | [address];[place] | | | | | | [address] | | | | + + + [...] | | | | | performed at [facility];[address] | | | | | | [address];[place], [place] | | | | | | [address] | | | | + + + [...] | | | Basophils | performed at [facility];[address] | K/uL | LAB | | | | [address];[place] | | | | | | [address] | | | | + + + [...] | | | | | performed at [facility];[address] | | | | | | [facility];[place], [place] | | | | | | [address] | | | | + + + [...] + + | Coronary artery disease involving quechan coronary artery of quechan heart, angina | | presence unspecified | [...]
--- OUTSIDE RECORDS SUMMARY | ~2019-10-07 | XMS | Encounter Summary ---
Demographics + + + | Address | [address] | | | [place] [address] | + + + | Home Phone | | + + + | Preferred Language | Unknown | + + + | Marital Status | | + + + | Anabaptist Affiliation | Unknown | + + + | Race | Unknown | + + + | Ethnic Group | Unknown | + + + Author + + + | Author | [facility] | | | and [place] | + + + | Organization | [facility] | | | [...] Team Providers + +------+ + | Care Juvenile Justice Specialist Name | Role | Phone | + +------+ + | Renan Menendez MD | PCP | | + +------+ + Encounter Details +--------+ + + + + | Date | Type | Department | Care Team | Description | +--------+ + + + + | 12/10/ | Orders Only | [facility] | Isha Laguna V, | | | 2018 | | CONVERSION [address] | [address] | | | | | [place] | [place] | | | | | [place], [place] | [address] | | | | | [address] | | | | | | [phone] | | | +--------+ + + + [...] RAMOS | | | | | | [place] [address] | | | | | | [phone] | | | | | | | | +--------+---------+ + + + documented as of this encounter Procedures + +--------+ + + + | Procedure Name | Priori | Date/Time | Associated Diagnosis | Comments | | | ty | | | | + +--------+ + + + | ECHO INTERPRETATION | Routin | 12/10/2017 | | Results for this | | OF OUTSIDE FILMS | e | 3:06 PM | | procedure are in the | | | | PST | | results section. | + +--------+ + + + documented in this encounter Results ECHO Interpretation of Outside Films (12/10/2017 3:06 PM PST) + + | Specimen | + + | | + + + + + | Impressions | Performed At | + + + | 1. Left ventricular systolic function is hyperdynamic with an | | | estimated EF of >70%. 2. The right ventricle is normal in size and | | | function. 3. The left atrium is markedly enlarged. 4. The right | | | atrium is markedly enlarged. 5. Mild aortic stenosis with peak/mean | | | pressure gradient of 16.83mmHg / 9.02mmHg, the aortic valve area by | | | continuity equation is 1.7cm . 6. Severe mitral regurgitation is | | | present. 7. Moderate mitral stenosis, with peak/mean transvalvular | | | gradients measured at 25.2 / 8.0 mm Hg, and MVA (by VTI) 1.50 cm | | | . There is mi 8. Moderate to severe tricuspid regurgitation present. | | | 9. There is moderate to severe pulmonary hypertension. The peak | | | right ventricular systolic pressure (pulmonary artery systolic | | | pressure), as measured by Doppler, is 55.8 - 60.8 mm Hg. 10. There is | | | a small secundum atrial septal defect measuring <10 mm in diameter. | | | There is vfru-cx-vezka shunting noted on color Doppler. | | + + + + + + | Narrative | Performed At | + + + | Patient Name: Rufina Sapp Date of : 1930 | | | Performing Physician: ELIOT JOHNSTON MD | | | | | | INDICATIONS CHF CONCLUSIONS 1. Left | | | ventricular systolic function is hyperdynamic with an estimated EF of | | | >70%. 2. The right ventricle is normal in size and function. 3. The | | | left atrium is markedly enlarged. 4. The right atrium is markedly | | | enlarged. 5. Mild aortic stenosis with peak/mean pressure gradient of | | | 16.83mmHg / 9.02mmHg, the aortic valve area by continuity equation is | | | 1.7cm . 6. Severe mitral regurgitation is present. 7. Moderate | | | mitral stenosis, with peak/mean transvalvular gradients measured at | | | 25.2 / 8.0 mm Hg, and MVA (by VTI) 1.50 cm . There is mi 8. | | | Moderate to severe tricuspid regurgitation present. 9. There is | | | moderate to severe pulmonary hypertension. The peak right | | | ventricular systolic pressure (pulmonary artery systolic pressure), as | | | measured by Doppler, is 55.8 - 60.8 mm Hg. 10. There is a small | | | secundum atrial septal defect measuring <10 mm in diameter. There is | | | xcnm-qx-jwrph shunting noted on color Doppler. FINDINGS -------- | | | ECG rhythm: Atrial fibrillation. Study: A 2-dimensional | | | transthoracic echocardiogram with m-mode, spectral and color flow | | | Doppler was perfomed. Study: This was a technically adequate study. | | | Left Ventricle: Left ventricular systolic function is hyperdynamic | | | with an estimated EF of >70%. Left Ventricle: The left ventricle | | | cavity size is normal. Left Ventricle: Left ventricular wall | | | thickness is normal. Left Ventricle: No regional wall motion | | | abnormalities. Left Ventricle: Atrial fibrillation prevents accurate | | | assessment of diastolic function. Right Ventricle: The right | | | ventricle is normal in size and function. Left Atrium: The left | | | atrium is markedly enlarged. Right Atrium: The right atrium is | | | markedly enlarged. Aortic Valve: Aortic valve is trileaflet and is | | | mildly thickened. Aortic Valve: The aortic valve is mildly calcified. | | | Aortic Valve: Trace amount of aortic regurgitation. Aortic Valve: | | | Mild aortic stenosis with peak/mean pressure gradient of 16.83mmHg / | | | 9.02mmHg, the aortic valve area by continuity equation is 1.7cm . | | | Mitral Valve: Mitral valve is thickened. Mitral Valve: Severe | | | mitral regurgitation is present. Mitral Valve: No evidence of MVP | | | Mitral Valve: Severe mitral annular calcification present. Mitral | | | Valve: Moderate mitral stenosis, with peak/mean transvalvular | | | gradients measured at 25.2 / 8.0 mm Hg, and MVA (by VTI) 1.50 cm | | | . There is mi Mitral Valve: ld thickening of the mitral valve | | | leaflets. Tricuspid Valve: The tricuspid valve appears structurally | | | normal. Tricuspid Valve: Moderate to severe tricuspid regurgitation | | | present. Tricuspid Valve: There is moderate to severe pulmonary | | | hypertension. Tricuspid Valve: The right ventricular systolic | | | pressure (pulmonary artery systolic pressure), as measured by Doppler, | | | is 55.8 - 60.8 mm Hg. Pulmonic Valve: The pulmonic valve is normal. | | | Pulmonic Valve: Trace pulmonic regurgitation. Pericardium: There | | | is no pericardial effusion. IVC/Hepatic Veins: The IVC is normal size | | | (1.5-2.5cm) and collapses <50% with sniff, consistent with central | | | venous pressures of 10-15mmHg. Aorta: The aortic root, ascending | | | aorta and aortic arch are normal. Mass: No mass visualized Thrombus: | | | No clot visualized Thrombus: No vegetation visualized. Septum: | | | There is a small secundum atrial septal defect measuring < 10 mm in | | | diameter. There is vbqf-wd-cjpbq shunting noted on color Doppler. | | | MEASUREMENTS Ao asc: 3.46 cm Ao Diam: 2.93 cm | | | Ao sinus: 3.[address] junct: 2.99 cm IVC: 2.34 cm LA | | | Diam: 4.73 cm LA Major: 7.82 cm EDV(Teich): 81.83 ml IVSd: | | | 0.71 cm LVIDd: 4.27 cm LVPWd: 0.96 cm LVOT Area: 3.30 | | | cm2 LVOT Diam: 2.05 cm %FS: 36.87 % EF(Teich): 67.07 % | | | ESV(Teich): 26.94 ml LVIDs: 2.69 cm SV(Teich): 54.89 ml RV | | | Major: 7.48 cm RVIDd: 2.51 cm LVEF MOD A2C: 73.51 % SV | | | MOD A2C: 67.80 ml LVEF MOD A4C: 67.34 % SV MOD A4C: 46.92 | | | ml EF Biplane: 70.64 % LVEDV MOD BP: 79.68 ml LVESV MOD BP: | | | 23.39 ml LVEDV MOD A2C: 92.23 ml LVLd A2C: 6.84 cm LVEDV | | | MOD A4C: 69.67 ml LVLd A4C: 6.84 cm LVESV MOD A2C: 24.42 ml | | | LVLs A2C: 5.79 cm LVESV MOD A4C: 22.75 ml LVLs A4C: 5.80 | | | cm LAESV(A-L): 218.68 ml LAESV Index (A-L): 125.68 ml/m2 LAAs | | | A2C: 39.65 cm2 LAESV A-L A2C: 180.64 ml LALs A2C: 7.38 cm | | | LAAs A4C: 48.00 cm2 LAESV A-L A4C: 234.29 ml LALs A4C: | | | 8.34 cm RAAs: 32.48 cm2 RAESV A-L: 108.99 ml RAESV MOD: | | | 105.43 ml RALs: 8.37 cm TAPSE: 2.67 cm AR Dec Jerauld: 1.97 | | | m/s2 AR Dec Time: 1769.87 ms AR maxP.66 mmHg AR PHT: | | | 513.26 ms AR Vmax: 3.48 m/s AV maxP.83 mmHg AV meanPG: | | | 9.01 mmHg AV Vmax: 2.05 m/s AV Vmean: 1.43 m/s AV VTI: | | | 38.96 cm RUFINA Vmax: 1.63 cm2 RUFINA (VTI): 1.73 cm2 AVAI Vmax: | | | 0.00 cm2/m2 AVAI (VTI): 0.00 cm2/m2 LVOT maxP.14 mmHg | | | LVOT meanP.17 mmHg LVSI Dopp: 38.90 ml/m2 LVSV Dopp: | | | 67.70 ml LVOT Vmax: 1.01 m/s LVOT Vmean: 0.69 m/s LVOT VTI: | | | 20.50 cm MV A Leobardo: 0.04 m/s MV DecT: 225.03 ms MV E Leobardo: | | | 1.54 m/s MV E/A Ratio: 35.2 MV PHT: 65.25 ms MVA By PHT: | | | 3.37 cm2 MV maxP.70 mmHg MV meanP.33 mmHg MV | | | Vmax: 2.53 m/s MV Vmean: 1.28 m/s MV VTI: 45.02 cm MVA | | | (VTI): 1.50 cm2 Septal e': 0.04 m/s Septal E/e': 34.18 | | | Lateral e': 0.04 m/s Lateral E/e': 37.69 RAP: 10 mmHg | | | RVSP: 57.42 mmHg TR maxP.42 mmHg TR Vmax: 3.44 m/s | | | Automatic Thread Winder: Authenticated by: ELIOT JOHNSTON MD Report Date/Time: | | | 12-10-2017 18:58:12 | | + + + + --+ | Procedure Note | + --+ | [facility] Rad Conversion - 05/28/2019 5:25 PM PDT Patient Name: Dayana Sapp | | of : 1930 Performing Physician: ELIOT JOHNSTON, | | MD INDICATIONS C | | HF CONCLUSIONS 1. Left ventricular systolic function is hyperdynamic with an | | estimated EF of >70%.2. The right ventricle is normal in size and function.3. The left | | atrium is markedly enlarged.4. The right atrium is markedly enlarged.5. Mild aortic | | stenosis with peak/mean pressure gradient of 16.83mmHg / 9.02mmHg, the aortic valve area | | by continuity equation is 1.7cm .6. Severe mitral regurgitation is present.7. | | Moderate mitral stenosis, with peak/mean transvalvular gradients measured at 25.2 / 8.0 | | mm Hg, and MVA (by VTI) 1.50 cm . There is mi8. Moderate to severe tricuspid | | regurgitation present.9. There is moderate to severe pulmonary hypertension. The peak | | right ventricular systolic pressure (pulmonary artery systolic pressure), as measured by | | Doppler, is 55.8 - 60.8 mm Hg.10. There is a small secundum atrial septal defect | | measuring <10 mm in diameter. There is xmvm-ym-vcpdt shunting noted on color Doppler. | | FINDINGS--------ECG rhythm: Atrial fibrillation.Study: A 2-dimensional transthoracic | | echocardiogram with m-mode, spectral and color flow Doppler was perfomed.Study: This was | | a technically adequate study.Left Ventricle: Left ventricular systolic function is | | hyperdynamic with an estimated EF of >70%.Left Ventricle: The left ventricle cavity size | | is normal.Left Ventricle: Left ventricular wall thickness is normal.Left Ventricle: No | | regional wall motion abnormalities.Left Ventricle: Atrial fibrillation prevents accurate | | assessment of diastolic function.Right Ventricle: The right ventricle is normal in size | | and function.Left Atrium: The left atrium is markedly enlarged.Right Atrium: The right | | atrium is markedly enlarged.Aortic Valve: Aortic valve is trileaflet and is mildly | | thickened.Aortic Valve: The aortic valve is mildly calcified.Aortic Valve: Trace amount | | of aortic regurgitation.Aortic Valve: Mild aortic stenosis with peak/mean pressure | | gradient of 16.83mmHg / 9.02mmHg, the aortic valve area by continuity equation is | | 1.7cm .Mitral Valve: Mitral valve is thickened.Mitral Valve: Severe mitral | | regurgitation is present.Mitral Valve: No evidence of MVPMitral Valve: Severe mitral | | annular calcification present.Mitral Valve: Moderate mitral stenosis, with peak/mean | | transvalvular gradients measured at 25.2 / 8.0 mm Hg, and MVA (by VTI) 1.50 cm . | | There is miMitral Valve: ld thickening of the mitral valve leaflets.Tricuspid Valve: | | The tricuspid valve appears structurally normal.Tricuspid Valve: Moderate to severe | | tricuspid regurgitation present.Tricuspid Valve: There is moderate to severe pulmonary | | hypertension.Tricuspid Valve: The right ventricular systolic pressure (pulmonary artery | | systolic pressure), as measured by Doppler, is 55.8 - 60.8 mm Hg.Pulmonic Valve: The | | pulmonic valve is normal.Pulmonic Valve: Trace pulmonic regurgitation.Pericardium: | | There is no pericardial effusion.IVC/Hepatic Veins: The IVC is normal size (1.5-2.5cm) | | and collapses <50% with sniff, consistent with central venous pressures of | | 10-15mmHg.Aorta: The aortic root, ascending aorta and aortic arch are normal.Mass: No | | mass visualizedThrombus: No clot visualizedThrombus: No vegetation visualized.Septum: | | There is a small secundum atrial septal defect measuring < 10 mm in diameter. There is | | ftvk-pk-ajjai shunting noted on color Doppler. MEASUREMENTS Ao asc: 3.46 | | cmAo Diam: 2.93 cmAo sinus: 3.[address] junct: 2.99 cmIVC: 2.34 cmLA Diam: | | 4.73 cmLA Major: 7.82 cmEDV(Teich): 81.83 mlIVSd: 0.71 cmLVIDd: 4.27 cmLVPWd: | | 0.96 cmLVOT Area: 3.30 [id number] Diam: 2.05 cm%FS: 36.87 %EF(Teich): 67.07 | | %ESV(Teich): 26.94 mlLVIDs: 2.69 cmSV(Teich): 54.89 mlRV Major: 7.48 cmRVIDd: | | 2.51 cmLVEF MOD A2C: 73.51 %SV MOD A2C: 67.80 mlLVEF MOD A4C: 67.34 %SV MOD A4C: | | 46.92 mlEF Biplane: 70.64 %LVEDV MOD BP: 79.68 mlLVESV MOD BP: 23.39 mlLVEDV MOD | | A2C: 92.23 mlLVLd A2C: 6.84 cmLVEDV MOD A4C: 69.67 mlLVLd A4C: 6.84 cmLVESV MOD | | A2C: 24.42 mlLVLs A2C: 5.79 cmLVESV MOD A4C: 22.75 mlLVLs A4C: 5.80 | | cmLAESV(A-L): 218.68 mlLAESV Index (A-L): 125.68 ml/m2LAAs A2C: 39.65 [id number] A-L | | A2C: 180.64 mlLALs A2C: 7.38 cmLAAs A4C: 48.00 [id number] A-L A4C: 234.29 mlLALs | | A4C: 8.34 cmRAAs: 32.48 [id number] A-L: 108.99 mlRAESV MOD: 105.43 mlRALs: 8.37 | | cmTAPSE: 2.67 cmAR Dec Jerauld: 1.97 m/s2AR Dec Time: 1769.87 msAR maxP.66 | | mmHgAR PHT: 513.26 msAR Vmax: 3.48 m/Antonella maxP.83 mmHgAV meanP.01 mmHgAV | | Vmax: 2.05 m/Antonella Vmean: 1.43 m/Antonella VTI: 38.96 cmAVA Vmax: 1.63 cm2AVA (VTI): | | 1.73 [id number] Vmax: 0.00 cm2/m2AVAI (VTI): 0.00 cm2/m2LVOT maxP.14 mmHgLVOT | | meanP.17 mmHgLVSI Dopp: 38.90 ml/m2LVSV Dopp: 67.70 mlLVOT Vmax: 1.01 | | m/sLVOT Vmean: 0.69 m/sLVOT VTI: 20.50 cmMV A Leobardo: 0.04 m/sMV DecT: 225.03 msMV | | E Leobardo: 1.54 m/sMV E/A Ratio: 35.2MV PHT: 65.25 msMVA By PHT: 3.37 cm2MV maxPG: | | 25.70 mmHgMV meanP.33 mmHgMV Vmax: 2.53 m/sMV Vmean: 1.28 m/sMV VTI: 45.02 | | cmMVA (VTI): 1.50 [id number] e': 0.04 m/sSeptal E/e': 34.18Lateral e': 0.04 | | m/sLateral E/e': 37.69RAP: 10 mmHgRVSP: 57.42 mmHgTR maxP.42 mmHgTR Vmax: | | 3.44 m/s Automatic Thread Winder:Authenticated by: Tonio RAHMAN Date/Time: 12-10-2017 | | 18:58:12 IMPRESSION: 1. Left ventricular systolic function is hyperdynamic with an | | estimated EF of >70%.2. The right ventricle is normal in size and function.3. The left | | atrium is markedly enlarged.4. The right atrium is markedly enlarged.5. Mild aortic | | stenosis with peak/mean pressure gradient of 16.83mmHg / 9.02mmHg, the aortic valve area | | by continuity equation is 1.7cm .6. Severe mitral regurgitation is present.7. | | Moderate mitral stenosis, with peak/mean transvalvular gradients measured at 25.2 / 8.0 | | mm Hg, and MVA (by VTI) 1.50 cm . There is mi8. Moderate to severe tricuspid | | regurgitation present.9. There is moderate to severe pulmonary hypertension. The peak | | right ventricular systolic pressure (pulmonary artery systolic pressure), as measured by | | Doppler, is 55.8 - 60.8 mm Hg.10. There is a small secundum atrial septal defect | | measuring <10 mm in diameter. There is vpge-ih-kiexp shunting noted on color Doppler. | |LVOT Area: 3.30 cm2 | |LVOT Diam: 2.05 cm | |%FS: 36.87 % | |EF(Teich): 67.07 % | |ESV(Teich): 26.94 ml | |LVIDs: 2.69 cm | |SV(Teich): 54.89 ml | |RV Major: 7.48 cm | |RVIDd: 2.51 cm | |LVEF MOD A2C: 73.51 % | |SV MOD A2C: 67.80 ml | |LVEF MOD A4C: 67.34 % | |SV MOD A4C: 46.92 ml | |EF Biplane: 70.64 % | |LVEDV MOD BP: 79.68 ml | |LVESV MOD BP: 23.39 ml | |LVEDV MOD A2C: 92.23 ml | |LVLd A2C: 6.84 cm | |LVEDV MOD A4C: 69.67 ml | |LVLd A4C: 6.84 cm | |LVESV MOD A2C: 24.42 ml | |LVLs A2C: 5.79 cm | |LVESV MOD A4C: 22.75 ml | |LVLs A4C: 5.80 cm | |LAESV(A-L): 218.68 ml | |LAESV Index (A-L): 125.68 ml/m2 | |LAAs A2C: 39.65 cm2 | |LAESV A-L A2C: 180.64 ml | |LALs A2C: 7.38 cm | |LAAs A4C: 48.00 cm2 | |LAESV A-L A4C: 234.29 ml | |LALs A4C: 8.34 cm | |RAAs: 32.48 cm2 | |RAESV A-L: 108.99 ml | |RAESV MOD: 105.43 ml | |RALs: 8.37 cm | |TAPSE: 2.67 cm | |AR Dec Jerauld: 1.97 m/s2 | |AR Dec Time: 1769.87 ms | |AR maxP.66 mmHg | |AR PHT: 513.26 ms | |AR Vmax: 3.48 m/s | |AV maxP.83 mmHg | |AV meanP.01 mmHg | |AV Vmax: 2.05 m/s | |AV Vmean: 1.43 m/s | |AV VTI: 38.96 cm | |RUFINA Vmax: 1.63 cm2 | |RUFINA (VTI): 1.73 cm2 | |AVAI Vmax: 0.00 cm2/m2 | |AVAI (VTI): 0.00 cm2/m2 | |LVOT maxP.14 mmHg | |LVOT meanP.17 mmHg | |LVSI Dopp: 38.90 ml/m2 | |LVSV Dopp: 67.70 ml | |LVOT Vmax: 1.01 m/s | |LVOT Vmean: 0.69 m/s | |LVOT VTI: 20.50 cm | |MV A Leobardo: 0.04 m/s | |MV DecT: 225.03 ms | |MV E Leobardo: 1.54 m/s | |MV E/A Ratio: 35.2 | |MV PHT: 65.25 ms | |MVA By PHT: 3.37 cm2 | |MV maxP.70 mmHg | |MV meanP.33 mmHg | |MV Vmax: 2.53 m/s | |MV Vmean: 1.28 m/s | |MV VTI: 45.02 cm | |MVA (VTI): 1.50 cm2 | |Septal e': 0.04 m/s | |Septal E/e': 34.18 | |Lateral e': 0.04 m/s | |Lateral E/e': 37.69 | |RAP: 10 mmHg | |RVSP: 57.42 mmHg | |TR maxP.42 mmHg | |TR Vmax: 3.44 m/s | | | |Automatic Thread Winder: | |Authenticated by: ELIOT JOHNSTON MD | |Report Date/Time: 12-10-2017 18:58:12 | | | |IMPRESSION: | |1. Left ventricular systolic function is hyperdynamic with an estimated EF of >70%. | |2. The right ventricle is normal in size and function. | |3. The left atrium is markedly enlarged. | |4. The right atrium is markedly enlarged. | |5. Mild aortic stenosis with peak/mean pressure gradient of 16.83mmHg / 9.02mmHg, the aorti c valve area by continuity equation is 1.7cm . | |6. Severe mitral regurgitation is present. | |7. Moderate mitral stenosis, with peak/mean transvalvular gradients measured at 25.2 / 8.0 mm Hg, and MVA (by VTI) 1.50 cm . There is mi | |8. Moderate to severe tricuspid regurgitation present. | |9. There is moderate to severe pulmonary hypertension. The peak right ventricular systolic pressure (pulmonary artery systolic pressure), as measured by Doppler, is 55.8 - 60.8 mm Hg . | |10. There is a small secundum atrial septal defect measuring <10 mm in diameter. There is zddw-an-uljed shunting noted on color Doppler. | + --+ documented in this encounter Visit Diagnoses Not on filedocumented in this encounter"
--- OUTSIDE RECORDS SUMMARY | ~2019-10-07 | XMS | Encounter Summary ---
Demographics + + + | Address | [address] | | | [place] [address] | + + + | Home Phone | | + + + | Preferred Language | Unknown | + + + | Marital Status | Single | + + + | Episcopalian Affiliation | NON | + + + | Race | White | + + + | Ethnic Group | Not or | + + + Author + + + | Author | [facility] | + + + | Organization | [facility] | + + + | Address | Unknown | + + + | Phone | Unavailable | + + + Support + + +---------+ + | Name | Relationship | Address | Phone | + + +---------+ + | Darby Kate | ECON | Unknown | | + + +---------+ + Care Team Providers + +------+ + | Care Water Attendant Name | Role | Phone | + [...] | | | Nonrheumatic | [address] | | | | | mitral | [address] | [address] | | | | | (valve) | TIFF[address] | [address] | | | | | insufficienc | [place], [place] | [place], [place] | | | | | y Rheumatic | [address] | [address] | | | | | tricuspid | Phone: | Phone: | | | | | insufficienc | [phone] | [phone] | | | | | y Pulmonary | Fax: | Fax: | | | | | | [phone] | [phone] | | | | | hypertension | | | | | | | , | | | | | | | unspecified | | | | | | | Procedures | | | | | | | [place] NEW | | | | | | [...] | [address] | [address] [place], | (Primary Dx) | | | | Mailcode: [id number] | [place] [address] | | | | | [address] | [phone] | | | | | [place], [place] | | | | | | [address] | | | | | | [phone] | | | +--------+---------+ + + + [...] stenting. EMERY ANTUNEZ MD CARDIOTHORACIC SURGERY AT [address] Mailcode: [address] [place] [address] documented in this enco unter Plan of Treatment Not on filedocumented as of this encounter Visit Diagnoses + + | Diagnosis | + + | Non-rheumatic mitral regurgitation - Primary | + + documented in this encounter
--- OUTSIDE RECORDS SUMMARY | ~2019-10-07 | XMS | Clinical Summary ---
Demographics + + + | Address | [address] | | | [place] [address] | + + + | Home Phone | | + + + | Preferred Language | Unknown | + + + | Marital Status | | + + + | Anabaptist Affiliation | Unknown | + + + | Race | Unknown | + + + | Ethnic Group | Unknown | + + + Author + + + | Author | [facility] (Historical as of | | | 05-23-19) | + + + | Organization | [facility] (Historical as of | | | 05-23-19) | + + + | Address | Unknown | + + + | Phone | Unavailable | + + + Support + + +---------+ + | Name | Relationship | Address | Phone | + + +---------+ + | Darby Kate | ECON | Unknown | | + + +---------+ + Care Team Providers + +------+ + | Care Ship Yard Electrical Person Name | Role | Phone | + [...] + + +-------+---------+------+------+-------+ | simvastatin | Take 10 mg by mouth | | | | | Activ | | (ZOCOR) 20 MG tablet | nightly. | | | | | e | + + +-------+---------+------+------+-------+ | potassium chloride [...] | | | | Activ | | Tevh-Kuvhs-IRF-Boswe | mouth daily. | | | | [...] | | | + + +-------+---------+------+------+-------+ | warfarin | Take 5 mg by mouth | | | | | Activ | | (COUMADIN) 5 MG | daily. 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) | | + + + | S/P drug eluting coronary stent placement | 07/30/2018 | + + + | Status post insertion of drug-eluting stent into right coronary | 07/30/2018 | | artery for coronary artery disease | | + + + + + | Overview: 3.0 x 16 mm Synergy MINH in right Posterolateral | | artery | + + + + + | Congestive heart failure [...] Severe mitral regurgitation | | + +---+ Family History + + +---------+ + | Medical History | Relation | Name | Comments | + + +---------+ + | CVA | Brother | Dayday | | + + +---------+ + | [...] | | + +---------+ + + | | Linda | Alive | | + +---------+ + + | | Carmelina | Alive | | + +---------+ + + | Isai | | Alive | | + +---------+ [...] + + + | Blood Pressure | 126/66 | 02/17/2019 9:27 AM PDT | + + + + | Pulse | 65 | 02/17/2019 9:27 AM PDT | + + + + | Temperature | 36.6 C (97.9 F) | 07/31/2018 10:54 AM PDT | + + + + | Respiratory Rate | 16 | 07/31/2018 10:54 AM PDT | + + + + | Oxygen Saturation | 96% | 02/17/2019 9:27 AM PDT | + + + + | Inhaled Oxygen | - | - | | Concentration | | | + + + + | Weight | 66.8 kg (147 lb 3.2 | 02/17/2019 9:27 AM PDT | | | oz) | | + + + + | Height | 160 cm (5' 3") | 02/17/2019 9:27 AM PDT | + + + + | Body Mass Index | 26.08 | 02/17/2019 9:27 AM PDT | + + + + [...] | | | | | (#1) | 9 | | | + + + + + Implants + +-------+-------+ +--------+--------+--------+ | Implanted | Type | Area | Manufacture | Device | Expira | Model | | | | | r | | tion | / | | | | | | Identi | Date | Serial | | | | | | fier | | / Lot | + +-------+-------+ +--------+--------+--------+ | Synergy | Stent | Heart | [place] | | 02/02/ | [id number] | | Stent-07/30/2018Implanted: | | | SCIENTIFIC | | 2020 | [id number] | | 07/30/2018 by Martin, | | | | | | 00 / | | Shanita Gaytan MD (Quantity not | | | | | | /[id number] | | on file) | | | | | | 221 | + +-------+-------+ +--------+--------+--------+ Results Not on filefrom Last 3 Months Insurance + +--------+ +------+-------+ + | Payer | Benefi | Subscriber | Type | Phone | Address | | | t Plan | ID | | | | | | / | | | | | | | Group | | | | | + +--------+ +------+-------+ + | MEDICARE | MEDICA | [id number] | | | [address] | | | RE | | | | [place], [place] [address] | | | IP-OP | | | | | + +--------+ +------+-------+ + | COMMERCIAL OTHER | BANKER | [id number] | | | | | | S [...] Self | [birth year] | Home: | [address] | | | al/Fam | | [phone] | [phone] | BRIAN ALEJANDRE | | | bacilio | | | [phone] | [phone] | + +--------+ +--------+ + +
--- OUTSIDE RECORDS SUMMARY | ~2019-10-07 | XMS | Encounter Summary ---
Demographics + + + | Address | [address] | | | [place] [address] | + + + | Home Phone | | + + + | Preferred Language | Unknown | + + + | Marital Status | Single | + + + | Amish Affiliation | NON | + + + | Race | White | + + + | Ethnic Group | Not or | + + + Author + + + | Author | [facility] | + + + | Organization | [facility] | + + + | Address | Unknown | + + + | Phone | Unavailable | + + + Support + + +---------+ + | Name | Relationship | Address | Phone | + + +---------+ + | Darby Kate | ECON | Unknown | | + + +---------+ + Care Team Providers + +------+ + | Care Product Marketer Name | Role | Phone | + +------+ + | Renan Menendez MD | PCP | | + +------+ + Encounter Details +--------+ + + + + | Date | Type | Department | Care Team | Description | +--------+ + + + + | 06/19/ | 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 | 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 at [facility] | [place] | Mitral valve | | 2018 | | [address] | MD Dayo [address] | insufficiency, | | | | Mailcode: CH9A | [place], [place] | unspecified etiology | | | | [place] [facility] | [address] | (Primary Dx) | | | | and Healing, | [phone] | | | | | | | | | | | Floor [place], [place] | | | | | | [address] | | | | | | [phone] | | | +--------+ + + + [...] | + +--------+ + + + | 12 LEAD ECG | Routin | 07/01/2018 | Mitral valve | Results for this | | | e | 12:04 PM | insufficiency, | procedure are in the | | | | PDT | unspecified etiology | results section. | + +--------+ + + + documented in this encounter Results 12 LEAD ECG (07/01/2018 12:04 PM PDT) + + + + + + | Component | Value | Ref Range | Performed | Pathologist | | | | | At | Signature | + + + + + + | VENTRICULAR | 80 | bpm | [facility] | | | RATE | | | OF | | | | | | CARDIOLOGY | | + + + + + + | ATRIAL RATE | 0 | ms | [facility] | | | | | | OF | | | | | | CARDIOLOGY | | + + + + + + | P-R | | ms | [facility] | | | INTERVAL | | | OF | | | | | | CARDIOLOGY | | + + + + + + | P AXIS | | deg | [facility] | | | | | | OF | | | | | | CARDIOLOGY | | + + + + + + | QRS | 107 | ms | [facility] | | | DURATION | | | OF | | | | | | CARDIOLOGY | | + + + + + + | QT | 393 | ms | [facility] | | | | | | OF | | | | | | CARDIOLOGY | | + + + + + + | QTC-BAGLENTT | 451 | ms | [facility] | | | | | | OF | | | | | | CARDIOLOGY | | + + + + + + | R AXIS | -48 | deg | [facility] | | | | | | OF | | | | | | CARDIOLOGY | | + + + + + + | T AXIS | 6 | deg | [facility] | | | | | | OF | | | | | | CARDIOLOGY | | + + + + + + | ECG | Atrial fibrillation | | [facility] | | | IMPRESSION | | | OF | | | | | | CARDIOLOGY | | + + + + + + | ECG | Minimal ST depression, | | [facility] | | | IMPRESSION | inferior leads | | OF | | | | | | CARDIOLOGY | | + + + + + + | ECG | Minimal ST elevation, | | [facility] | | | IMPRESSION | anterolateral leads- | | OF | | | | ABNORMAL ECG - | | CARDIOLOGY | | + + + + + + | ECG | Electronically signed | | [facility] | | | IMPRESSION | by: OSCAR GIL | | OF | | | | 07-03-2018 17:39:25 | | CARDIOLOGY | | + + + + + [...] + + + + + | TAIWO RENDON OF | [address] | [place], [place] | | | CARDIOLOGY | [address] | [address] | | + + + + + documented in this encounter Visit Diagnoses + + | Diagnosis | + + | Mitral valve insufficiency, unspecified etiology - Primary | + + documented in this encounter"
--- OUTSIDE RECORDS SUMMARY | ~2019-10-07 | XMS | Encounter Summary ---
Demographics + + + | Address | [address] | | | [place] [address] | + + + | Home Phone | | + + + | Preferred Language | Unknown | + + + | Marital Status | Single | + + + | Restorationist Affiliation | NON | + + + | Race | White | + + + | Ethnic Group | Not or | + + + Author + + + | Author | [facility] | + + + | Organization | [facility] | + + + | Address | Unknown | + + + | Phone | Unavailable | + + + Support + + +---------+ + | Name | Relationship | Address | Phone | + + +---------+ + | Darby Kate | ECON | Unknown | | + + +---------+ + Care Team Providers + +------+ + | Care Cargo Service Agent Name | Role | Phone | + +------+ + | Renan Menendez MD | PCP | | + +------+ + Reason for Visit + + + | Reason | Comments | + + + | Education procedure | angiogram, [facility] | + + + Encounter Details +--------+ + + + + | Date | Type | Department | Care Team | Description | +--------+ + + + + | 06/26/ | Telephone | Cardiac Stem Frazer | Niki Donnelly RN | Education procedure | | 2018 | | at [address] | [address] | (angiogram, [facility]) | | | | [address] | [place], | | | | | [facility] | [place] [address] | | | | | [place], [place] | | | | | | [address] | | | | | | [phone] | | | +--------+ + + + [...]
--- OUTSIDE RECORDS SUMMARY | ~2019-10-07 | XMS | Encounter Summary ---
Demographics + + + | Address | [address] | | | [place] [address] | + + + | Home Phone | | + + + | Preferred Language | Unknown | + + + | Marital Status | Single | + + + | Sabianist Affiliation | NON | + + + | Race | White | + + + | Ethnic Group | Not or | + + + Author + + + | Author | [facility] | + + + | Organization | [facility] | + + + | Address | Unknown | + + + | Phone | Unavailable | + + + Support + + +---------+ + | Name | Relationship | Address | Phone | + + +---------+ + | Darby Kate | ECON | Unknown | | + + +---------+ + Care Team Providers + +------+ + | Care Doctor'S Assistant Name | Role | Phone | + +------+ + | Renan Menendez MD | PCP | | + +------+ + Reason for Visit + + + | Reason | Comments | + + + | Education procedure | [facility] | + + + Encounter Details +--------+ + + + + | Date | Type | Department | Care Team | Description | +--------+ + + + + | 06/17/ | Telephone | Cardiac Necktie Maker | Niki Donnelly RN | Education procedure | | 2018 | | at [facility] [address] | [address] | ([place]) | | | | [address] | [place], | | | | | [facility] | [place] [address] | | | | | [place], [place] | | | | | | [address] | | | | | | [phone] | | | +--------+ + + + [...]
--- OUTSIDE RECORDS SUMMARY | ~2019-10-07 | XMS | Encounter Summary ---
Demographics + + + | Address | [address] | | | [place] [address] | + + + | Home Phone | | + + + | Preferred Language | Unknown | + + + | Marital Status | Single | + + + | Orthodoxy Affiliation | NON | + + + | Race | White | + + + | Ethnic Group | Not or | + + + Author + + + | Author | [facility] | + + + | Organization | [facility] | + + + | Address | Unknown | + + + | Phone | Unavailable | + + + Support + + +---------+ + | Name | Relationship | Address | Phone | + + +---------+ + | Darby Kate | ECON | Unknown | | + + +---------+ + Care Team Providers + +------+ + | Care Party Coordinator Name | Role | Phone | + [...] Roman | | | | | at [facility] | [facility] | | | | | [address] | [place] [address] | | | | | Loop Mailcode: | | | | | | [id number] | | | | | | [facility] | | | | | | [place], [place] | | | | | | [address] | | | | | | [phone] | | | +--------+ + + + [...]
--- OUTSIDE RECORDS SUMMARY | ~2019-10-07 | XMS | Encounter Summary ---
Demographics + + + | Address | [address] | | | [place] [address] | + + + | Home Phone | | + + + | Preferred Language | Unknown | + + + | Marital Status | | + + + | Buddhism Affiliation | Unknown | + + + | Race | Unknown | + + + | Ethnic Group | Unknown | + + + Author + + + | Author | [facility] | | | and [place] | + + + | Organization | [facility] | | | [...] Team Providers + +------+ + | Care Wharf Labourer Name | Role | Phone | + +------+ + | Renan Menendez MD | PCP | | + +------+ + Encounter Details +--------+ + + + + | Date | Type | Department | Care Team | Description | +--------+ + + + + | 07/25/ | Orders Only | [facility] | Arnaldo Blue, | | | 2018 | | CARDIOLOGY [place] | MD [address] | | | | | [address] | [place], | | | | | [place], [place] | [place] [address] | | | | | [address] | [phone] | | | | | [phone] | | | +--------+ + + + [...] [address] | | | | | | [place] [address] | | | | | | [phone] | | | | | | | | +--------+---------+ + + + documented as of this encounter Visit Diagnoses Not on filedocumented in this encounter"
--- OUTSIDE RECORDS SUMMARY | ~2019-10-07 | XMS | Encounter Summary ---
Demographics + + + | Address | [address] | | | [place] [address] | + + + | Home Phone | | + + + | Preferred Language | Unknown | + + + | Marital Status | | + + + | Sabianist Affiliation | Unknown | + + + | Race | Unknown | + + + | Ethnic Group | Unknown | + + + Author + + + | Author | [facility] | | | and [place] | + + + | Organization | [facility] | | [...] Team Providers + +------+ + | Care Guncotton Packer Name | Role | Phone | + [...] [address] | | | | | [place], [place] | [address] | | | | | [address] | | | | | | [phone] | | | +--------+ + + + [...] [address] | | | | | | [place] [address] | | | | | | [phone] | | | | | | | [...] in diameter. | | | There is rjzy-yj-wnsfc shunting noted on color Doppler. | | [...] in diameter. There is | | | prmb-md-htcqz shunting noted on color Doppler. FINDINGS -------- [...] in | | | diameter. There is jbau-bl-jnszv shunting noted on color Doppler. | | [...] 8.37 cm TAPSE: 2.67 cm AR Dec [place]: 1.97 | | | m/s2 AR Dec [...] TR Vmax: 3.44 m/s | | | Gamma Facilities Operator: Authenticated by: ELIOT JOHNSTON MD Report Date/Time: [...] measuring <10 mm in diameter. There is sjqm-he-lnpaf shunting noted on color Doppler. | | [...] mm in diameter. There is | | kcve-ri-pzqow shunting noted on color Doppler. MEASUREMENTS Ao asc: 3.46 | | cmAo Diam: 2.93 cmAo sinus: 3.[address] junct: 2.99 cmIVC: 2.34 cmLA Diam: | | 4.73 cmLA Major: 7.82 cmEDV(Teich): 81.83 mlIVSd: 0.71 cmLVIDd: 4.27 cmLVPWd: | | 0.96 cmLVOT Area: 3.30 de8JMMG Diam: 2.05 cm%FS: 36.87 %EF(Teich): 67.07 | [...] mlLAESV Index (A-L): 125.68 ml/m2LAAs A2C: 39.65 [id number] A-L | | A2C: 180.64 mlLALs A2C: 7.38 cmLAAs A4C: 48.00 vg2QTPVD A-L A4C: 234.29 mlLALs | | A4C: 8.34 cmRAAs: 32.48 ah3TWNSM A-L: 108.99 mlRAESV MOD: 105.43 mlRALs: 8.37 | | cmTAPSE: 2.67 cmAR Dec [place]: 1.97 m/s2AR Dec Time: 1769.87 msAR maxP.66 | | mmHgAR PHT: 513.26 msAR Vmax: 3.48 m/Antonella maxP.83 mmHgAV meanP.01 mmHgAV | | Vmax: 2.05 m/Antonella Vmean: 1.43 m/Antonella VTI: 38.96 cmAVA Vmax: 1.63 cm2AVA (VTI): | | 1.73 he0HZAE Vmax: 0.00 cm2/m2AVAI (VTI): 0.00 cm2/m2LVOT maxP.14 [...] VTI: 45.02 | | cmMVA (VTI): 1.50 zd1Mgddys e': 0.04 m/sSeptal E/e': 34.18Lateral e': 0.04 | | m/sLateral E/e': 37.69RAP: 10 mmHgRVSP: 57.42 mmHgTR maxP.42 mmHgTR Vmax: | | 3.44 m/s Gamma Facilities Operator:Authenticated by: Tonio RAHMAN Date/Time: 12-10-2017 | | [...] measuring <10 mm in diameter. There is szwr-mu-dlsml shunting noted on color Doppler. | |LVOT [...] | |TAPSE: 2.67 cm | |AR Dec [place]: 1.97 m/s2 | |AR Dec Time: 1769.87 [...] |TR Vmax: 3.44 m/s | | | |Gamma Facilities Operator: | |Authenticated by: ELIOT JOHNSTON MD | [...] measuring <10 mm in diameter. There is vmij-ra-rfpjw shunting noted on color Doppler. | + --+ documented in this encounter Visit Diagnoses Not on filedocumented in this encounter"
--- OUTSIDE RECORDS SUMMARY | ~2019-10-07 | XMS | Clinical Summary ---
Demographics + + + | Address | [address] | | | [place] [address] | + + + | Home Phone | | + + + | Preferred Language | Unknown | + + + | Marital Status | | + + + | Jehovah'S Witness Affiliation | Unknown | + + + | Race | Unknown | + + + | Ethnic Group | Unknown | + + + Author + + + | Author | [facility] | | | and [place] | + + + | Organization | [facility] | | | [...] Team Providers + +------+ + | Care Sole Inker Name | Role | Phone | + +------+ + | Renan Menendez MD | PCP | | + +------+ + Allergies + [...] | | + + + +---------+------+------+-------+ | levothyroxine | Take 100 mcg by | | 0 | 05/07 | | Activ | | (SYNTHROID) 100 mcg | mouth every morning | | | 12/24 | | e | | tablet | before breakfast. | | | 18 | | | + + + +---------+------+------+-------+ | losartan (COZAAR) | Take 100 mg by mouth | | 0 | 08/1 | | Activ | | 100 MG tablet | daily. | | | 3/20 | | e | | | | | | 18 | | | + + + +---------+------+------+-------+ | simvastatin | Take 10 mg by mouth | | 0 | 08/1 | | Activ | | (ZOCOR) 20 mg tablet | nightly. | | | 3/20 | | e | | | | | | 18 | | | + + + +---------+------+------+-------+ | potassium chloride | Take 20 mEq by mouth | | 0 | 08/1 | | Activ | | (KLOR-CON M20) 20 | daily. | | | 3/20 | | e | | mEq ER tablet | | | | 18 | | | + + + +---------+------+------+-------+ | metFORMIN | Take 500 mg by mouth | | 0 | 08/1 | | Activ | | (GLUMETZA) 500 MG 24 | 2 (two) times daily | | | 3/20 | | e | | hr tablet | with meals. | | | 18 | | | + + + +---------+------+------+-------+ | magnesium chloride | Take 1 tablet by | | 0 | 08/1 | | Activ | | (MAG64) 64 mg EC | mouth daily. | | | 3/20 | | e | | tablet | | | | 18 | | | + + + +---------+------+------+-------+ | Cranberry Juice | Take 1 capsule by | | 0 | 08/1 | | Activ | | Extract 1000 MG CAPS | mouth daily. | | | 3/20 | | e | | | | | | 18 | | | + + + +---------+------+------+-------+ | ascorbic acid | Take 1,000 mg by | | 0 | 08/1 | | Activ | | (VITAMIN C) 1000 MG | mouth daily. | | | 3/20 | | e | | tablet | | | | 18 | | | + + + +---------+------+------+-------+ | furosemide (LASIX) | Take 40 mg by mouth | | 0 | 08/1 | | Activ | | 40 mg tablet | daily. | | | 3/20 | | e | | | | | | 18 | | | + + + +---------+------+------+-------+ | acetaminophen | Take 650 mg by mouth | | 0 | 08/1 | | Activ | | (TYLENOL) 325 mg | every 6 (six) hours | | | 3/20 | | e | | tablet | as needed for Pain. | | | 18 | | | + + + +---------+------+------+-------+ | warfarin | Take 5 mg by mouth | | 0 | 10/3 | | Activ | | (COUMADIN) 5 mg | daily. 1 pill daily | | | 0/20 | | e | | tablet | , | | | 18 | | | | | 1/2 pill (2.5 mg) | | | | | | | | Ira-Jeison | | | | | | + + + +---------+------+------+-------+ | Turmeric Curcumin | Take by mouth. | | 0 | | | Activ | | 500 MG CAPS | | | | | | e | + + + +---------+------+------+-------+ | IRON PO | Take 50 mg by mouth | | 0 | | | Activ | | | 2 times daily. Every | | | | | e | | | other day , | | | | | | + + + +---------+------+------+-------+ | metoprolol | Take 150 mg by mouth | | 0 | | | Activ | | succinate | Daily. 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 | | + + + | S/P [...] + + + | Congestive heart failure | 11/07/2017 | + + + + + | Overview: acute/chronic Diastolic Heart Failure, NYHA class | | III | + + + + + | Atrial fibrillation | 10/07/1995 | + + + + + | Overview: persistent since then, never attempted | | cardioversion | + + + +---+ | Pulmonary hypertension, moderate to severe | | + +---+ | Severe tricuspid regurgitation | | + +---+ + + | Overview: moderately severe | + + + +---+ | Severe mitral regurgitation | | + +---+ Family History + + +---------+ + | Medical History | Relation | Name | Comments | + + +---------+ + | Other (see comment) | Brother Ju Naylor | CVA | + + +---------+ + | Thyroid cancer | Daughter | Bia | | + + +---------+ + | Other (see comment) | Daughter | | CVA | + + +---------+ + | Obesity | Daughter | | | + + +---------+ + | Arthritis | Daughter | | | + + +---------+ + | Coronary artery | Father | | | | disease | | | | + + +---------+ + | Other (see comment) | Father | | CVA - cerebral hemorrhage | + + +---------+ + | Heart failure | Mother | | | + + +---------+ + | Other (see comment) | Mother | | CVA - recurrent CVA at 74, a few days | | | | | later/Diabetes Mellitus II | + + +---------+ + | Other (see comment) | Sister | Patricia | Leukemia - basophilic leukemia | + + +---------+ + | Heart disease | Sister | Linda | ? thrombus, [...] + + | Daughter | | | | + +---------+ + + | Daughter | | | | + +---------+ + + | Daughter | | | | + +---------+ + [...] | | | | | [place] [id number] | | | | | | [phone] | | | | | | | | +--------+---------+ + + + + + + + + | Health Maintenance | Due Date | Last Done | Comments | + + + + + | Vaccine: | | | | | Dtap/Tdap/Td (1 - | 3 | | | | Tdap) | | | | + + + + + | Vaccine: | | | | | Pneumococcal 65+ (1 | 7 | | | | of 2 - PCV13) | | | | + + + + + | Vaccine: Zoster (2 | | 09/12/2016 | | | of 3) | 7 | | | + + + + + | Adult Annual | | | | | Wellness Visit | 9 | | | + + + + + | Vaccine: Influenza | Completed | 06/18/2019, 07/21/2018, | | | | | 07/10/2017, Additional history | | | | | exists | | + + + + + Results Not on filefrom Last 3 Months Insurance + +--------+ +--------+ +---------+--------+ | Payer | Benefi | Subscriber | Effect | Phone | Address | Type | | | t Plan | ID | finesse | | | | | | / | | Dates | | | | | | Group | | | | | | + +--------+ +--------+ +---------+--------+ | MEDICARE | MEDICA | [id number] | 02/04/19 | [phone] | | Medica | | | RE | | 97-Pre | 5 | | re | | | PART A | | sent | | | | | | AND B | | | | | | + +--------+ +--------+ +---------+--------+ | [employer] | BANKER | [id number] | 02/05/20 | [phone] | | Indemn | | | S LIFE | | 07-Pre | 4 | | ity | | | INS | | sent | | | | + +--------+ +--------+ +---------+--------+ + +--------+ +--------+ + + | Guarantor [...] | | al/Fam | | 1930 | [phone] | [place], [place] | | | bac[place] | | | 0 (Home) | [phone] | + +--------+ +--------+ + + Advance Directives + + + + + | Type | Date Recorded | Patient | Explanation | | | | Colored Liquid Plastic Applier | | + + + + + | Power of | | | | | Patient Observer | | | | + + + + + | Advance | | | | | Directive | | | | + + + + +
--- OUTSIDE RECORDS SUMMARY | ~2019-10-07 | XMS | Encounter Summary ---
Demographics + + + | Address | [address] | | | [place] [address] | + + + | Home Phone | | + + + | Preferred Language | Unknown | + + + | Marital Status | Single | + + + | Anabaptist Affiliation | NON | + + + | Race | White | + + + | Ethnic Group | Not or | + + + Author + + + | Author | [facility] | + + + | Organization | [facility] | + + + | Address | Unknown | + + + | Phone | Unavailable | + + + Support + + +---------+ + | Name | Relationship | Address | Phone | + + +---------+ + | Darby Kate | ECON | Unknown | | + + +---------+ + Care Team Providers + +------+ + | Care Research Editor Name | Role | Phone | [...] + + + | Closed | | Radiology | Diagnoses | | | | | | | Mitral | Bryan, | | | | | | valve | Danny Oshea MD | | | | | | insufficienc | [address] | | | | | | y, | [address] | | | | | | unspecified | [place], [place] | | | | | | etiology | [address] | | | | | | Procedures | Phone: | | | | | | CTA CHEST - | [phone] | | | | | | GATED W | Fax: | | | | | | CONTRAST | [phone] | | +--------+--------+ + + + + [...] + + + + | 06/19/ | Hospital | [facility] [address] | Danny Adams | | | 2018 | Encounter | Luca Oshea MD [address] | | | | | [address] [facility] | [address] [place], [place] | | | | | [place], [place] | [address] | | | | | [address] | [phone] | | | | | [phone] | | | +--------+ + + + [...] this encounter Last Filed Vital Signs + +---------+ + + | Vital Sign | Reading | Time Taken | Comments | + +---------+ + + | Blood Pressure | 136/98 | 06/19/2018 11:50 AM | | | | | PDT | | + +---------+ + + | Pulse | 66 | 06/19/2018 11:50 AM | | | | | PDT | | + +---------+ + + | Temperature | - | - | | + +---------+ + + | Respiratory Rate | 16 | 06/19/2018 11:50 AM | | | | | PDT | | + +---------+ + + | Oxygen Saturation | 100% | 06/19/2018 11:50 AM | | | | | PDT | | + +---------+ + + | Inhaled Oxygen | - | - | | | Concentration | | | | + +---------+ + + | Weight | - | - | | + +---------+ + + | Height | - | - | | + +---------+ + + | Body Mass Index | - | - | | + +---------+ + + documented in this encounter Discharge Instructions Instructions Zuly Hoskins RN - 06/19/2018Post-transesophageal Echocardiogram Pat ient Discharge Instructions If you have undergone a transesophageal echocardiogram (JUAN MANUEL), please follow these instructi ons: Activity Limits ? You must have a responsible adult drive you or take you home. Do not drive for the remain lorrie of the day. ? Rest and relax today. Have someone stay with you through the day. For the next 24 hours: ? Do not use any equipment that could injure you or others. ? Do not make any legal decisions. ? Do not drink any alcohol. Medicines and Follow Up ? Take your medicine as your doctor ordered. ? Follow up with the doctor that ordered this test Call your doctor or go to the emergency room if you have: ? Severe abdominal or chest pain ? Shortness of breath or heavy breathing ? Bleeding that will not stop How to Reach Us Call the Hospital Acetylene Torch Operator at and ask to have your doctor paged. documented in this encounter Medications at Time [...] + documented as of this encounter Progress Felix Aviles - 06/19/2018 11:13 AM PDTTransesophageal echocardiogram was completed. F inal report to follow. documented in this enc ounter Plan of Treatment Not on filedocumented as of this encounter Procedures + +--------+ + + + | Procedure Name | Priori | Date/Time | Associated Diagnosis | Comments | | | ty | | | | + +--------+ + + + | CTA CHEST - GATED W | Routin | 06/19/2018 | Mitral valve | Results for this | | CONTRAST | e | 2:35 PM | insufficiency, | procedure are in the | | | | PDT | unspecified etiology | results section. | + +--------+ + + + | CREATININE, POC | Routin | 06/19/2018 | Mitral valve | Results for this | | | e | 2:02 PM | insufficiency, | procedure are in the | | | | PDT | unspecified etiology | results section. | + +--------+ + + + | TRANSESOPHAGEAL | Routin | 06/19/2018 | | Results for this | | ECHOCARDIOGRAM | e | 11:19 AM | | procedure are in the | | | | PDT | | results section. | + +--------+ + + + | INR (PT), POC | Urgent | 06/19/2018 | | Results for this | | | | 10:02 AM | | procedure are in the | | | | PDT | | results section. | + +--------+ + + + documented in this encounter Results CTA CHEST - GATED W CONTRAST (06/19/2018 2:35 PM PDT) + + | Specimen | + + | | + + + + + | Narrative | Performed At | + + + | EXAM: CTA CHEST OTHER HISTORY: Mitral valve disease, | [facility] | | anticipation of TMVR. COMPARISON: None. TECHNIQUE; Following | RADIOLOGY VOICE | | uneventful administration of intravenous contrast, cardiac gated | RECOGNITION 2 | | helical scanning was obtained of the chest and reviewed in soft tissue | | | and lung algorithm. 3D reformatted images were generated at an | | | independent workstation and also reviewed. CONTRAST: IOHEXOL 300 | | | MG IODINE/ML INTRAVENOUS SOLUTION 90 mL FINDINGS: CARDIAC | | | MORPHOLOGY: The aortic arch, cardiac apex and gastric lumen are on | | | the left. Mitral valve area: 9.3 cm2 Perimeter: 10.7 mm TT: | | | 27 mm SL: 34mm CHEST: The heart is enlarged with preferential | | | enlargement of both atria. There is extensive mitral annular | | | calcifications. Minimal mitral aortic valvular and coronary arterial | | | calcifications are also noted. There is no pericardial or pleural | | | effusion. There is no pneumothorax. There are no suspicious | | | mediastinal, or axillary lymph nodes. The lungs are clear without | | | suspicious pulmonary nodules, masses or consolidative opacities. | | | Minimal bibasilar linear atelectasis/scarring is noted. The spleen | | | is lobulated and diminutive in size. Rim calcified right superior | | | renal pole 5 cm cyst is not fully evaluated. Remaining visualized | | | upper abdominal organs are unremarkable. There is no suspicious | | | focal osseous abnormality. IMPRESSION: Extensive mitral annular | | | calcifications. Mitral valvular measurements as above. I | | | have personally reviewed the images and, if necessary, edited the | | | report. I agree with the report as now presented. Final | | | signature: Tawnya Chow MD 06/19/2018 4:05 PM Preliminary: | | | Tawnya Chow MD Dictation initiated: Tawnya Chow MD | | | 06/19/2018 3:01 PM | | + + + + + | Procedure Note | + + | Service Account, [employer] In Interface - 06/19/2018 4:06 PM PDT EXAM: CTA CHEST | | OTHER HISTORY: Mitral valve disease, anticipation of TMVR. COMPARISON: None. | | TECHNIQUE;Following uneventful administration of intravenous contrast, cardiac gated | | helical scanning was obtained of the chest and reviewed in soft tissue and lung | | algorithm. 3D reformatted images were generated at an independent workstation and also | | reviewed. CONTRAST: IOHEXOL 300 MG IODINE/ML INTRAVENOUS SOLUTION 90 mL FINDINGS: | | CARDIAC MORPHOLOGY:The aortic arch, cardiac apex and gastric lumen are on the left. | | Mitral valve area: 9.3 wz7Jkspnuhmj: 10.7 mmTT: 27 mmSL: 34mm CHEST:The heart is | | enlarged with preferential enlargement of both atria. There is extensive mitral annular | | calcifications. Minimal mitral aortic valvular and coronary arterial calcifications are | | also noted. There is no pericardial or pleural effusion. There is no pneumothorax. There | | are no suspicious mediastinal, or axillary lymph nodes. The lungs are clear without | | suspicious pulmonary nodules, masses or consolidative opacities. Minimal bibasilar | | linear atelectasis/scarring is noted. The spleen is lobulated and diminutive in size. | | Rim calcified right superior renal pole 5 cm cyst is not fully evaluated. Remaining | | visualized upper abdominal organs are unremarkable. There is no suspicious focal osseous | | abnormality. IMPRESSION:Extensive mitral annular calcifications. Mitral valvular | | measurements as above. I have personally reviewed the images and, if necessary, edited | | the report. I agree with the report as now presented. Final signature: Ju Trent MD 06/19/2018 4:05 PM Preliminary: Tawnya Chow MD Dictation initiated: Tawnya Chow MD 06/19/2018 3:01 PM | |CHEST: | |The heart is enlarged with preferential enlargement of both atria. There is extensive bunny l annular calcifications. Minimal mitral aortic valvular and coronary arterial calcification s are also noted. There is no | |pericardial or pleural effusion. There is no pneumothorax. | | | |There are no suspicious mediastinal, or axillary lymph nodes. | | | |The lungs are clear without suspicious pulmonary nodules, masses or consolidative opacities . Minimal bibasilar linear atelectasis/scarring is noted. | | | |The spleen is lobulated and diminutive in size. Rim calcified right superior renal pole 5 c m cyst is not fully evaluated. | | | |Remaining visualized upper abdominal organs are unremarkable. | | | |There is no suspicious focal osseous abnormality. | | | |IMPRESSION: | |Extensive mitral annular calcifications. | | | |Mitral valvular measurements as above. | | | | | |I have personally reviewed the images and, if necessary, edited the report. I agree with th e report as now presented. | | | |Final signature: Tawnya Chow MD 06/19/2018 4:05 PM | |Preliminary: Tawnya Chow MD | |Dictation initiated: Tawnya Chow MD 06/19/2018 3:01 PM | + + + +---------+ + + | Performing | Address | City/State/Zipcode | Phone Number | | Organization | | | | + +---------+ + + | [facility] | | | | | VOICE RECOGNITION 2 | | | | + +---------+ + + CREATININE, POC (06/19/2018 2:02 PM PDT) + +-------+ + + + | Component | Value | Ref Range | Performed | Pathologist | | | | | At | Signature | + +-------+ + + + | CREATININE, | 0.7 | 0.6 - 1.1 mg/dL | [facility] - | | | POC | | | [facility] | | | | | | [facility] | | | | | | OF CARE | | | | | | TESTS | | + +-------+ + + + + + | Specimen | + + | Blood - Blood | | (substance) | + + + + + + + | Performing | Address | City/State/Zipcode | Phone Number | | Organization | | | | + + + + + | [facility] | [address] | [place], [place] | | | [facility] | [address] | [address] | | | TESTS | | | | + + + + + TRANSESOPHAGEAL ECHOCARDIOGRAM (06/19/2018 11:19 AM PDT) + + + | Narrative | Performed At | + + + | Vee Clarke MD,MPH 06/19/2018 11:20 AM Cardiology | | | Preliminary Procedure Note (Full report to follow) Primary Care | | | Provider: Renan Menendez MD Referring Provider: Danny Adams | | | Echo Lab Staff: Danny Adams MD (attending) VEE Oshea | | | MD KATIE,MPH (fellow) Procedure(s): Transesophageal | | | Echocardiogram Indications: mitral regurgitation Consent: | | | After full PARQ, signed consent was obtained. Description: Time | | | out performed at the bedside. Oropharynx examined (Mallampati II) | | | and anesthetized with 5 ml of 2% viscous lidocaine and 3 ml of 4% | | | aerosolized lidocaine. Bite block placed. Sedation per anesthesia | | | with propofol. The probe was passed without difficulty. No abnormal | | | hemodynamic, arrythmic or hypoxemic events noted during the | | | procedure. Estimated blood loss was 0 mL. ? Findings: Severe | | | MR, moderate TR. Full report to follow. ? Complications: None. | | | Vee Clarke MD, MPH Fellow (PGY-6), Cardiovascular Medicine | | | Pager #[phone] | | + + + INR (PT), POC (06/19/2018 10:02 AM PDT) + +---------+ + + + | Component | Value | Ref Range | Performed | Pathologist | | | | | At | Signature | + +---------+ + + + | PROTHROMBIN | 2.6 (H) | 0.9 - 1.2 INR | [facility] | | | TIME | | | [facility] | | | (INR), POC | | | [facility] | | | | | | OF CARE | | | | | | TESTS | | + +---------+ + + + + + | Specimen | + + | Blood - Blood | | (substance) | + + + + + + + | Performing | Address | City/State/Zipcode | Phone Number | | Organization | | | | + + + + + | [facility] | [address] | [place], [place] | | | [facility] | [address] | [address] | | | TESTS | | | | + + + + + documented in this encounter Visit Diagnoses + + | Diagnosis | + + | Mitral valve insufficiency, unspecified etiology | + + documented in this encounter Administered Medications + +--------+---------+------+------+------+ | Medication Order | MAR | Action | Dose | Rate | Site | | | Action | Date | | | | + +--------+---------+------+------+------+ + +---+ | fentaNYL (SUBLIMAZE) injection | | | 25 mcg 25 mcg, intravenous, | | | PROCEDURE PRN, 8 doses, Starting | | | [place] 06/19/18 at 0911, Until Victoria | | | 06/19/18 at 1805, until RASS of -3 | | | achieved | | + +---+ | | | + +---+ | flumazenil (ROMAZICON) | | | injection 0.2 mg 0.2 mg, | | | intravenous, PROCEDURE PRN, | | | Starting [place] 06/19/18 at 0911, | | | Until Victoria 06/19/18 at 1805, | | | reversal of conscious sedation | | | and general anesthesia | | + +---+ | | | + +---+ + +---------+ +-------+---+---+ | iohexol (OMNIPAQUE) 300 mg | IV Push | 06/19/20 | 90 mL | | | | iodine/mL 100 mL 100 mL, | | 18 2:45 | | | | | intravenous, PROCEDURE ONCE, 1 | | PM PDT | | | | | dose, [facility] 06/19/18 at 1445 | | | | | | + +---------+ +-------+---+---+ + +---+ | | | + +---+ | midazolam (PF) (VERSED) | | | injection 1 mg 1 mg, | | | intravenous, PROCEDURE PRN, 10 | | | doses, Starting [facility] 06/19/18 at | | | 0911, Until Victoria 06/19/18 at 1805, | | | until RASS of -3 achieved. | | + +---+ | | | + +---+ documented in this encounter"
--- OUTSIDE RECORDS SUMMARY | ~2019-10-07 | XMS | Encounter Summary ---
Demographics + + + | Address | [address] | | | [place] [address] | + + + | Home Phone | | + + + | Preferred Language | Unknown | + + + | Marital Status | Single | + + + | Zoroastrianism Affiliation | NON | + + + [...] Team Providers + +------+ + | Care Education And Outreach Coordinator Name | Role | Phone | + +------+ + | Renan Menendez MD | PCP | | + +------+ + Encounter Details +--------+ + + + + | Date | Type | Department | Care Team | Description | +--------+ + + + + | 08/26/ | Hospital | Cardiology - | [facility] | Canceled (Scheduling | | 2018 | Encounter | Non-Invasive Testing | [address] | error) | | | | [address] | [place] [address] | | | | | Mailcode: CH9A | | | | | | [facility] | | | | | | and Healing, | | | | | | [address] | | | | | | [place], [place] | | | | | | [address] | | | | | | [phone] | | | +--------+ + + + [...] mg by mouth | | 0 | 07/30/20 | | | succinate 200 mg | [...] + documented as of this encounter Progress Betty Wong - 08/26/2018 1:05 PM [facility] Non Invasive Cardiac Services Test Date: 08/26/2018 Clinic Site: [facility] Supervising Provider: Padma Pizarro Compensation Specialist: SYDNEE Referring Provider: Padma Pizarro Diagnosis: Non-rheumatic mitral regurgitation Reason for Test: dyspnea Patient Sypmtoms : Are you short of breath at rest? No Six-Minute Walk Test Results: Gait speed (time in seconds first 15 feet walked): 4 Patient walked: 720 feet in 6 minutes Beginning heart rate: 78 Beginning blood pressure: 144/70 Beginning Sp02: 99% Beginning dyspnea index (Jackelyn scale) : 0 Ending heart rate: 90 Ending blood pressure: 157/60 Ending Sp02: 98% Ending dyspnea index (Jackelyn scale): 4 Oxygen level: Observations: No level of distress noted, patient tolerated test fairly well Physician interpretation: documented in this enco unter Plan of Treatment Not on filedocumented as of this encounter Visit Diagnoses Not on filedocumented in this encounter"
--- OUTSIDE RECORDS SUMMARY | ~2019-10-07 | XMS | Encounter Summary ---
Demographics + + + | Address | [address] | | | [place] [address] | + + + | Home Phone | | + + + | Preferred Language | Unknown | + + + | Marital Status | Single | + + + | Pentecostal Affiliation | NON | + + + | Race | White | + + + | Ethnic Group | Not or | + + + Author + + + | Author | [facility] | + + + | Organization | [facility] | + + + | Address | Unknown | + + + | Phone | Unavailable | + + + Support + + +---------+ + | Name | Relationship | Address | Phone | + + +---------+ + | Darby Kate | ECON | Unknown | | + + +---------+ + Care Team Providers + +------+ + | Care Music Journalist Name | Role | Phone | + +------+ + | Renan Menendez MD | PCP | | + +------+ + Encounter Details +--------+ + + + + | Date | Type | Department | Care Team | Description | +--------+ + + + + | 08/26/ | Hospital | Cardiac | [facility] | | | 2018 | Encounter | Non-Invasive Testing | [address] | | | | | at [facility] | [facility] | | | | | [address] | [place] [address] | | | | | Loop Mailcode: | | | | | | [id number] | | | | | | [facility] | | | | | | [place], [place] | | | | | | [address] | | | | | | [phone] | | | +--------+ + + + [...] ECG | Routin | Mitral valve | Ordered: 06/02/2018 | | ECG | | e | insufficiency, | | | | | | unspecified etiology | | + +------+--------+ + + documented as of this encounter Visit Diagnoses + + | Diagnosis | + + | Mitral valve insufficiency, unspecified etiology | + + documented in this encounter"
--- OUTSIDE RECORDS SUMMARY | ~2019-10-07 | XMS | Encounter Summary ---
Demographics + + + | Address | [address] | | | [place] [address] | + + + | Home Phone | | + + + | Preferred Language | Unknown | + + + | Marital Status | Single | + + + | Latter-Day Affiliation | NON | + + + | Race | White | + + + | Ethnic Group | Not or | + + + Author + + + | Author | [facility] | + + + | Organization | [facility] | + + + | Address | Unknown | + + + | Phone | Unavailable | + + + Support + + +---------+ + | Name | Relationship | Address | Phone | + + +---------+ + | Darby Kate | ECON | Unknown | | + + +---------+ + Care Team Providers + +------+ + | Care Nursing Teacher Name | Role | Phone | + [...] | | | Nonrheumatic | [address] | | | | | mitral | CHRISTIAN KC | [address] | | | | | (valve) | TIFFANY F | [address] | | | | | insufficienc | [place], [place] | [place], [place] | | | | | y Rheumatic | [address] | [address] | | | | | tricuspid | Phone: | Phone: | | | | | insufficienc | [phone] | [phone] | | | | | y Pulmonary | Fax: | Fax: | | | | | | [phone] | [phone] | | | | | hypertension | | | | | | | , | | | | | | | unspecified | | | | | | | Procedures | | | | | | | ID NEW | | | | | | | PATIENT | | | | | | | LEVEL V | | | +--------+--------+ + + + + Encounter Details +--------+---------+ + + + | Date | Type | Department | Care Team | Description | +--------+---------+ + + + | 08/26/ | Office | Cardiothoracic | Lucille Gibbs, | Severe mitral | | 2018 | Visit | Surgery at [facility] | [address] | regurgitation | | | | [address] | [address] | (Primary Dx) | | | | Mailcode: L[address] | [place], [place] | | | | | [facility] | [address] | | | | | [place], [place] | [phone] | | | | | [address] | | | | | | [phone] | | | +--------+---------+ + + + [...] | Blood Pressure | 123/62 | 08/26/2018 2:12 PM | | | | | PST | | + + + + + | Pulse | 73 | 08/26/2018 2:12 PM | | | | | PST | | + + + + + | Temperature | 36.6 C (97.9 F) | 08/26/2018 2:12 PM | | | | | PST | | + + + + + | Respiratory Rate | 14 | 08/26/2018 2:12 PM | | | | | PST | | + + + + + | Oxygen Saturation | 99% | 08/26/2018 2:12 PM | | | | | PST | | + + + + + | Inhaled Oxygen | - | - | | | Concentration | | | | + + + + + | Weight | 67 kg (147 lb 9.6 | 08/26/2018 2:12 PM | | | | oz) | PST | | + + + + + | Height | - | - | | + + + + + | Body Mass Index | 26.15 | 07/01/2018 2:09 PM | | | | | PDT | | + + + + + documented in this encounter Progress Notes Lucille Gibbs MD - 08/26/2018 2:00 PM PSTFormatting of this note might be different f rom the original. Complex Valve Clinic Evaluation History of present illness: Rufina Sapp is a 88 y.o. female with a past medical hist ory significant for DM on oral hypoglycemics, pHTN, HTN, HL, AF on coumadin, CAD and severe mitral regurgitation. They complain of fatigue with daily chores and shortness of breath. Th ey have lower extremity edema that is controlled with lasix and compression hose. They deny chest pain, palpitations and orthopnea. They had two admissions for heart failure exacerbati on this year. Once in November and again in February 2018. No admissions since February and lower extr emity edema has improved. They are accompanied by one of their children today in clinic, who seems quite invested in their care. DENTAL: saw dentist one week ago, explained need for dental clearance for possible valve pr ocedure Past Medical History: Diagnosis Date Anemia resolved with iron supplements - no large GI bleed, negative EGD. Atrial fibrillation (HCC) Coronary artery disease 06/2018 One-vessel coronary artery disease with significant stenosis of the distal right coronary artery at 99% prior to the posterior descending artery posterior left ventricular branches. 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 06/19/18 Severe mitral regurgitation 06/2018 Type 2 diabetes mellitus (HCC) Past Surgical History Procedure Laterality Date Tonsillectomy Hysterectomy age ~37-38 Bladder suspension Laparoscopic cholecystectomy Umbilical hernia repair Bso (bilateral salpingo-oophorectomy) age ~57-60 Bladder suspension second bladder suspension 1970-80s Toe surgery 2nd toe on left Bunion surgery left foot Appendectomy concurrent with major procedure at time of completion hysterectomy Blepharoplasty of both upper eyelids had this donce twice Family History Problem Relation Heart Failure Mother Stroke Father Heart Attack Father Sudden Other likely from PE Social History Social History Marital status: Single Spouse name: N/A Number of children: N/A Years of education: N/A Occupational History Not on file. Social History Main Topics Smoking status: Never Smoker Smokeless tobacco: Never Used Alcohol use No Drug use: No Sexual activity: Not on file Other Topics Concern Not on file Social History Narrative No narrative on file Review of Systems Constitutional: Positive for diaphoresis and malaise/fatigue. Fatigued with daily chores HENT: Positive for hearing loss and nosebleeds. Eyes: Negative for blurred vision and double vision. Respiratory: Positive for shortness of breath. Negative for cough. Cardiovascular: Negative for chest pain, palpitations, orthopnea and leg swelling. Had palpitations in the pas but not for many years. No edema with compression hose. LE edema back in November Gastrointestinal: Negative for abdominal pain, constipation, diarrhea, heartburn, nausea an d vomiting. Genitourinary: Positive for urgency. Musculoskeletal: Negative for back pain, joint pain, myalgias and neck pain. Skin: Positive for itching and rash. Fungal skin patches on right arm and face. Notes a rash in groin area from shaving, pr uritis Neurological: Negative for dizziness and headaches. Occasional lightheadedness when overdoing it Endo/Heme/Allergies: Bruises/bleeds easily. Psychiatric/Behavioral: Positive for depression. The patient is nervous/anxious. Current Medication List Name Sig ACETAMINOPHEN 325 MG TABLET Take by mouth. ASCORBIC ACID (VITAMIN C) 500 MG TABLET Take 500 mg by mouth once daily. FUROSEMIDE 40 MG TABLET Take by mouth. [...] "felt fidgety" Percocet [Oxycodone-Acetaminophen] Anxiety "felt fidgety" Filed Vitals: 08/26/2018 2:12 PM Weight: 67 kg (147 lb 9.6 oz) BP: 123/62 Pulse: 73 Temp: 36.6 C (97.9 F) TempSrc: Oral Resp: 14 SpO2: 99% PainSc: 0 - Zero BMI: 26.15 kg/(m^2) Physical exam: Constitutional: frail, elderly person in wheelchair Eyes: no scleral icterus, EOMI ENT: oropharynx clear, some missing teeth Lymph: no cervical or supraclavicular LAD Respiratory: CTAB Cardiovascular: irregularly irregular rhythm, +murmur, no carotid bruits Gastro: normal bowel sounds, no tenderness Skin: bruises over left forearm, rash over right forearm and left chin Musculoskeletal: 5/5 strength in upper and lower extremities Psychiatric: normal insight, no anxious or depressive affect Neurologic: cranial nerves intact, no gross deficits Studies personally reviewed with uniformer. Cardiac cath 06/30/18 FINDINGS: 1. Hemodynamic findings right heart catheterization: a. Right arterial pressure mean of 5 mmHg. b. Right ventricular pressure of 36/0 and a right ventricular end-diastolic pressur e of 40 mmHg. c. Pulmonary artery pressure of 41/13 with a mean pulmonary artery pressure of 25 m mHg. d. Pulmonary capillary wedge pressure of 16 mmHg with V wave up to 33 mmHg. e. Heart rate of 60 beats per minute. f. Cardiac output of 3.4 L/min per Mark method and cardiac index of 1.93 L/min/sq m. g. Opening aortic pressure of 128/68 mmHg with a mean aortic pressure of 72 mmHg. h. Pulmonary artery saturation of 66% and aortic saturation of 99%. i. Pulmonary vascular resistance of 2.64 Wood units. j. Systemic vascular resistance of 19.98 Wood units. 2. Left heart catheterization: a. Left main coronary artery. The left main coronary artery is a large-sized vesse l which has about 20% calcific stenosis in its distal portion at its bifurcation with the le ft anterior descending and the left circumflex artery. b. Left anterior descending artery. The left anterior descending artery is a moder ate-sized vessel which courses all the way up to the apex. It is tortuous in nature. It has mild 20% to 30% stenosis in its midportion at its branch point with the diagonal artery. O therwise, the left anterior descending artery has no other major angiographic stenosis. c. Left circumflex artery. The left circumflex artery has 2 stenoses in tandem whi ch are about 30% to 40% each as it courses around the posterior intraventricular groove. d. Right coronary artery the right coronary artery is a dominant vessel. The proxi mal portion of the right coronary artery has about 30% to 40% calcific stenosis which may be an under-estimate given the eccentricity of the plaque. e. The distal RCA has 99% calcific stenosis prior to its bifurcation with the PDA a nd PLV branches. It is an extremely tortuous right coronary artery. ASSESSMENT: 1. One-vessel coronary artery disease with significant stenosis of the distal right coronary artery at 99% prior to the posterior descending artery posterior left ventricular branches. 2. Non-obstructive coronary artery disease in the left anterior descending and left circumflex branches. 3. Mildly elevated left heart filling pressures. Transthoracic echo 06/19/18 1. The left ventricular cavity size is [...] at a heart rate of 77 bpm. 8. Severe biatrial enlargement. 9. Right ventricular size, thickness and function are normal. + + Description of Findings: Cardiac Rhythm: Normal sinus rhythm. Left Ventricle: The left ventricular cavity size is normal. Visually estimated left ventricular ejection fraction is 70 - 75%. The LV function is hyperdynamic. Left Ventricular Wall Motion: Left ventricular systolic thickening is normal in all segments. Atria: Severe biatrial enlargement. Right Ventricle: Right ventricular size, thickness and function are normal. TAPSE measures 1.8cm. The RV TDI s' velocity is 12.0cm/sec. Aortic Valve: The aortic valve is trileaflet and moderately calcified. No indication of aortic valve regurgitation. The left coronary cusp is immobile. Mitral Valve: Severe mitral annular calcification. The mean transmitral gradient is 5.5 mmHg at a heart rate of 77 bpm. Severe mitral valve regurgitation. The mitral valve effective regurgitant orifice area is 7 mm2. Tricuspid Valve: The tricuspid valve is structurally normal. Mild tricuspid regurgitation. The tricuspid regurgitant velocity is 2.95 m/s, and with an assumed right atrial pressure of 5 mmHg, the estimated right ventricular systolic pressure is upper limits of normal at 39.9 mmHg. Pulmonic Valve: The pulmonic valve is structurally normal. Trace pulmonary valve regurgitation. Venous: Inferior vena cava is normal with normal inspiratory collapse. Pericardium: No pericardial effusion is seen. Transesophageal echo 06/19/18 1. The LV function is hyperdynamic. 2. [...] regurgitation is leaflet and annular calcification and degeneration with poor coaptation across all portions of the valve. 9. The aortic valve is moderately sclerotic and restricted. No aortic stenosis. 10. Severely enlarged left atrium. 11. There is a small fenestrated secundum atrial septal defect, with intermittent njuh-oa-djwgt flow via color-flow Doppler. 12. Moderate tricuspid regurgitation. 13. Small plaque involving the ascending and transverse aorta. 14. The left atrial appendage is well visualized and there is no evidence of thrombus present. + + Findings: Cardiac Rhythm: atrial fibrillation Left Ventricle: The LV function is hyperdynamic. Left ventricular systolic thickening is normal in all segments. The visually estimated ejection fraction is > 75%. Left Atrium: Left atrial size is severely enlarged. Left atrial appendage: The left atrial appendage is well visualized and there is no evidence of thrombus present. Right Ventricle: Right ventricular size, thickness and function are normal. Aortic Valve: The aortic valve is moderately sclerotic and restricted. No aortic stenosis. No indication of aortic valve regurgitation. On this study, transgastric Doppler evaluation reveals an aortic valve peak velocity of 1.8 m/s, peak gradient of 13 mmHg, mean gradient of 5.6 mmHg, and DVI of 0.75 (with an AV VTI of 0.299 and LVOT VTI of 0.226). Mitral Valve: Mitral leaflet mobility is normal. Severe mitral annular calcification. Severe mitral valve regurgitation. The jet is centrally-directed. The EROA is 0.47 cm2, using a PISA radius of 1.1 cm, an aliasing velocity of 0.32 m/s, and a mean MR regurgitant velocity of 5.1 m/s. There is no mitral stenosis. Mean mitral gradient is approximately 4 mmHg at a heart rate of 83 bpm. Tricuspid Valve: The tricuspid valve is structurally normal. Moderate tricuspid regurgitation. Pulmonic Valve: The pulmonic valve is structurally normal. Aorta: There is a small, layered, immobile plaque, involving the ascending and transverse aorta. Venous: The inferior vena cava was not well visualized. Septa: There is a small fenestrated secundum atrial septal defect, with intermittent dkjh-ym-fnfns flow via color-flow Doppler. Assessment and plan: Rufina Sapp is a 88 year old female with AF, DM, and severe symptomatic mitral regur gitation. I have reviewed all of the patient's imaging and studies with a the multidisciplin barneveld complex valve team. The patient is not an ideal candidate for off-label [id number]-[id number] dep loyment of a TAVR valve in the mitral position due to high risk of LVOT obstruction. The CT scan will be further reviewed with an experienced chest radiologist to determine the feasibi lity of this procedure. Unfortunately, the mitral valve is not likely amenable to mitraclip therapy due to leaflet morphology and severe MAC. Given the patient's advanced age and frail ty, they are not a candidate for surgical repair. I spent 41 minutes face to face with the patient. Greater than 50% of this time was spent on counseling and coordination of care. Lucille Gibbs MD Associate Manager Affiliate Marketing of Cardiac Surgery CARDIOTHORACIC SURGERY AT [address] Mailcode: L353 [place] [address] documented in this encounter Plan of Treatment Not on filedocumented as of this encounter Visit Diagnoses + + | Diagnosis | + + | Severe mitral regurgitation - Primary Mitral valve disorders | + + documented in this encounter
--- OUTSIDE RECORDS SUMMARY | ~2019-10-07 | XMS | Encounter Summary ---
Demographics + + + | Address | [address] | | | [place] [address] | + + + | Home Phone [...] Team Providers + +------+ + | Care Clinical Resource Director Name | Role | Phone | + +------+ + | Renan Menendez MD | PCP | | + +------+ + Reason for Visit AUTH/CERT +--------+--------+ + [...] + + + + | 06/19/ | Anesthesia | Cardiac | Rosa Gonzalez MD | | | 2018 | Event | Non-Invasive Testing | [address] [facility] [address] [address] | | | | | at [facility] | [address] | | | | | [address] | [place], [place] | | | | | [place] Mailcode: | [address] | | | | | [id number] | [phone] | | | | | [facility] | | | | | | [place], [place] | [place], | | | | | [address] | [employer] [facility] [address] [address] | | | | | [phone] | [address] | | | | | | [place], [place] | | | | | | [address] | | | | | | [phone] | | | | | | | | +--------+ + + + + Anesthesia Record + + + + + | Procedure Name | Responsible | Anesthesia Start | Anesthesia Stop Time | | | Anesthesiologist | Time | | + + + + + | TRANSESOPHAGEAL | | | | | ECHOCARDIOGRAM, | | | | | ADULT | | | | + + + + + +----+---+ + + | Da | T | Event | Comment | | te | i | | | | | m | | | | | e | | | +----+---+ + + | 09 | 0 | | | | /1 | 9 | | | | 3/ | 4 | | | | 20 | 4 | | | | 18 | | | | +----+---+ + + | | 0 | Pt. Check | Prior to anesthesia start, pt. Identified, examined, chart | | | 9 | | reviewed, PARQ held, anesthetic plan made or approved by | | | 4 | | attending anesthesiologist. NPO status confirmed as appropriate | | | 4 | | for procedure Preoperative evaluation: unchanged | +----+---+ + + +------+ | Meds | +------+ + + + No medications | on file. | + + + + + | No agents on file. | + + + + | No blood administrations on file. | + + + + | No LDAs on file. | + + documented in this encounter Social History + +-------+ +--------+------+ | Tobacco [...]
--- OUTSIDE RECORDS SUMMARY | ~2019-10-07 | XMS | Encounter Summary ---
Demographics + + + | Address | [address] | | | [place] [address] | + + + | Home Phone | | + + + | Preferred Language | Unknown | + + + | Marital Status | Single | + + + | Presybeterian Affiliation | NON | + + + | Race | White | + + + | Ethnic Group | Not or | + + + Author + + + | Author | [facility] | + + + | Organization | [facility] | + + + | Address | Unknown | + + + | Phone | Unavailable | + + + Support + + +---------+ + | Name | Relationship | Address | Phone | + + +---------+ + | Darby Kate | ECON | Unknown | | + + +---------+ + Care Team Providers + +------+ + | Care Manager Mass Name | Role | Phone | + [...] | | | Nonrheumatic | [address] | | | | | mitral | CHRISTIAN KC | [address] | | | | | (valve) | TIFFANY [address] | [address] | | | | | insufficienc | [place], [place] | [place], [place] | | | | | y Rheumatic | [address] | [address] | | | | | tricuspid | Phone: | Phone: | | | | | insufficienc | [phone] | [phone] | | | | | y Pulmonary | Fax: | Fax: | | | | | | [phone] | [phone] | | | | | hypertension | | | | | | | , | | | | | | | unspecified | | | | | | | Procedures | | | | | | | AL NEW | | | | | | [...] | [address] | [address] [place], | (Primary Dx) | | | | Mailcode: [address] | [place] [address] | | | | | [facility] [place] | [phone] | | | | | [place], [place] | | | | | | [address] | | | | | | [phone] | | | +--------+---------+ + + + [...] stenting. EMERY ANTUNEZ MD CARDIOTHORACIC SURGERY AT [address] Mailcode: [address] [place] [address] documented in this enco unter Plan of Treatment Not on filedocumented as of this encounter Visit Diagnoses + + | Diagnosis | + + | Non-rheumatic mitral regurgitation - Primary | + + documented in this encounter
--- OUTSIDE RECORDS SUMMARY | ~2019-10-07 | XMS | Encounter Summary ---
Demographics + + + | Address | [address] | | | [place] [address] | + + + | Home Phone | | + + + | Preferred Language | Unknown | + + + | Marital Status | Single | + + + | Mormonism Affiliation | NON | + + + [...] Team Providers + +------+ + | Care Frame Maker Name | Role | Phone | + +------+ + | Renan Menendez MD | PCP | | + +------+ + Encounter Details +--------+ + + + + | Date | Type | Department | Care Team | Description | +--------+ + + + + | 06/19/ | Explosive Man | Cardiology at [facility] | Danny Adams | Mitral valve | | 2018 | | [address] | MD Dayo [address] | insufficiency, | | | | Mailcode: [id number] | [place], [place] | unspecified etiology | | | | [facility] | [address] | (Primary Dx) | | | | and Healing, | [phone] | | | | | | | | | | | Floor [place], [place] | | | | | | [address] | | | | | | [phone] | | | +--------+ + + + [...] RENDON OF | [address] | [place], [place] | | | CARDIOLOGY | [address] | [address] | | + + + + + documented in this encounter Visit Diagnoses + + | Diagnosis | + + | Mitral valve insufficiency, unspecified etiology - Primary | + + documented in this encounter"
--- OUTSIDE RECORDS SUMMARY | ~2019-10-07 | XMS | Encounter Summary ---
Demographics + + + | Address | [address] | | | [place] [address] | + + + | Home Phone | | + + + | Preferred Language | Unknown | + + + | Marital Status | Single | + + + | Holiness Affiliation | NON | + + + | Race | White | + + + | Ethnic Group | Not or | + + + Author + + + | Author | [facility] | + + + | Organization | [facility] | + + + | Address | Unknown | + + + | Phone | Unavailable | + + + Support + + +---------+ + | Name | Relationship | Address | Phone | + + +---------+ + | Darby Kate | ECON | Unknown | | + + +---------+ + Care Team Providers + +------+ + | Care Adoption Specialist Name | Role | Phone | [...] + | 06/17/ | Telephone | Cardiac Nursing Director | Niki Donnelly RN | Education procedure | | 2018 | | at [facility] [address] | [address] | (JUAN MANUEL) | | | | [address] | [address] [place], | | | | | [facility] | [place] [address] | | | | | [place], [place] | | | | | | [address] | | | | | | [phone] | | | +--------+ + + + [...]
--- OUTSIDE RECORDS SUMMARY | ~2019-10-07 | XMS | Encounter Summary ---
Demographics + + + | Address | [address] | | | [place] [address] | + + + | Home Phone | | + + + | Preferred Language | Unknown | + + + | Marital Status | Single | + + + | Moravian Affiliation | NON | + + + | Race | White | + + + | Ethnic Group | Not or | + + + Author + + + | Author | [facility] | + + + | Organization | [facility] | + + + | Address | Unknown | + + + | Phone | Unavailable | + + + Support + + +---------+ + | Name | Relationship | Address | Phone | + + +---------+ + | Darby Kate | ECON | Unknown | | + + +---------+ + Care Team Providers + +------+ + | Care Wallpaper Inspector Name | Role | Phone | + [...] + | 06/26/ | Telephone | Cardiac Radiation Control Health Physicist | Niki Donnelly RN | Education procedure | | 2018 | | at [address] | [address] | (angiogram, [facility]) | | | | [address] | [address] [place], | | | | | [facility] | [place] [address] | | | | | [place], [place] | | | | | | [address] | | | | | | [phone] | | | +--------+ + + + [...]
--- OUTSIDE RECORDS SUMMARY | ~2019-10-07 | XMS | Encounter Summary ---
Demographics + + + | Address | [address] | | | [place] [address] | + + + | Home Phone | | + + + | Preferred Language | Unknown | + + + | Marital Status | Single | + + + | Cheondoism Affiliation | NON | + + + [...] Team Providers + +------+ + | Care Central Supply Clerk Name | Role | Phone | + [...] | | | | | insufficienc | [place], [place] | [place] | | | | | y Rheumatic | [address] | [address] | | | | | tricuspid | Phone: | Phone: | | | | | insufficienc | [phone] | [phone] | | | | | y Pulmonary | Fax: | Fax: | | | | | | [phone] | [phone] | | | | | hypertension | | | | | | | , | | | | | | | unspecified | | | | | | | Procedures | | | | | | | HI NEW | | | | | | | PATIENT | | | | | | | LEVEL V | | | +--------+--------+ + + + + Encounter Details +--------+---------+ + + + | Date | Type | Department | Care Team | Description | +--------+---------+ + + + | 08/26/ | Office | Cardiology Complex | Torri Ordonez, | Mitral annular | | 2018 | Visit | Valve at [facility] [address] | [address] | calcification | | | | [address] | [address] | (Primary Dx) | | | | Mailcode: [id number] | [place], [place] | | | | | Physician's [facility] | [address] | | | | | [address], | [phone] | | | | | [place] [address] | | | | | | [phone] | | | +--------+---------+ + + + [...] encounter Progress Notes Torri Ordonez MD - 08/26/2018 2:00 PM PSTFormatting of this note might be different fr [...] and severe MR. Mrs Sapp, lives in [facility] and is brought in by her daughter today who lives w ith her. 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 She was first hospitalized at [facility] in [facility] i n November 2017 with s/s of heart failure. Over the course of the spring she has noticed new and progressive MAYA as well as new LE edema. She was previously active but could no longer walk a 1/4 block. She was re-admitted to the hospital in [facility] in February 2018 again with he art failure. Echo in february was notable for normal to hyperdynamic LV systolic function, severe MAC, severe MR, moderate to severe TR, and mild . 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 She has followed up with Dr Barbara Blue at [facility] and referred to [facility] for consideration of MitraClip . Since February she has had no further decompensated heart failure episodes To expidite her evaluation, she has already been referred and undergone TTE, JUAN MANUEL, CT scan o f chest a week ago a well as angiogrpahy yesterday on 06/30/2018. Symptoms & Exercise/Activity Levels: Lives in [facility] with her Daughter in a 2 story [...] afterwards. 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 Any little activty such as mopping or vaccuming makes her short of breath and tired. She is worn out after activiti es and needs to rest. She walks outside of the home with a large walking stick and no walker . Review of Systems: 14 point review of [...] Frailty Index Date Taken: 07/01/2018 1. Left Nitro Worker Strength (kg): 12 Right Nitro Worker Strength (kg): 10 2. Five Meter Walk [...] measuring <10 mm in diameter.There i s [id number]-[id number] shunting noted on color Doppler. TTE: 06/19/2018 [...] fenestrated secundum atrial septal defect, with intermittent hbpw-wq-dgzja flow via color-flow Doppler. 12. Moderate tricuspid [...] as well as already elevated transmitral gradient. Explained off label use for valve in MAC, limited experience, increase risk of complication s. Will plan to review her CT in details for LVOT obstruction and valve sizing. 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
--- OUTSIDE RECORDS SUMMARY | ~2019-10-07 | XMS | Clinical Summary ---
Demographics + + + | Address | [address] | | | [place] [address] | + + + | Home Phone | | + + + | Preferred Language | Unknown | + + + | Marital Status | | + + + | Caodaism Affiliation | Unknown | + + + | Race | Unknown | + + + | Ethnic Group | Unknown | + + + Author + + + | Author | [facility] | | | and [place] | + + + | Organization | 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/2018 | | stable [...] | | | | | [place] [id number] | | | | | | [phone] | | | | | | | [...] +--------+ +---------+--------+ | MEDICARE | MEDICA | [id number] | 02/04/19 | [phone] | | Medica | | | RE | | 97-Pre | 5 | | re | | | PART A | | sent | | | | | | AND B | | | | | | + +--------+ +--------+ +---------+--------+ | [employer] | BANKER | [id number] | 02/05/20 | [phone] | | Indemn [...] bacilio | | | 0 (Home) | [address] | + +--------+ +--------+ + + Advance Directives + + + + + | Type | Date Recorded | Patient | Explanation | | | | Cutter Gas | | + + + + + | Power of | | | | | Director Home Health | | | | + + + + + | Advance | | | | | Directive | | | | + + + + +
--- OUTSIDE RECORDS SUMMARY | ~2019-10-07 | XMS | Encounter Summary ---
Demographics + + + | Address | [address] | | | [place] [address] | + + + | Home Phone [...] Author + + + | Author | [facility] | + + + | Organization | [facility] | + + + | Address | Unknown | + + + | Phone | Unavailable | + + + Support + + +---------+ + | Name | Relationship | Address | Phone | + + +---------+ + | Darby Kate | ECON | Unknown | | + + +---------+ + Care Team Providers + +------+ + | Care Credit Collections Analyst Name | Role | Phone | [...] Closed | | Cardiology | Diagnoses | | | | | | | Mitral | Bryan, | | | | | | valve | Danny Oshea MD | | | | | | insufficienc | [address] | | | | | | y, | [address] | | | | | | unspecified | [place], [place] | | | | | | etiology | [address] | | | | | | Procedures | Phone: | | | | | | TRANSTHORACI | [phone] | | | | | | C | Fax: | | | | | | ECHOCARDIOGR | [phone] | | | | | | AM, ADULT | | | +--------+--------+ + + + + Diagnostic Testing (Routine) +--------+--------+ + + + + | Status | Reason | Specialty | Diagnoses / | Referred By | Referred To | | | | | Procedures | Contact | Contact | +--------+--------+ + + + + | Closed | | Cardiology | Diagnoses | | Car Echo | | | | | Mitral | Bryan, | [facility] [address] | | | | | valve | Danny Oshea MD | [address] | | | | | insufficienc | [address] | Mailcode: | | | | | y, | [address] | [id number] | | | | | unspecified | [place], [place] | Varun Walsh | | | | | etiology | [address] | Building | | | | | Procedures | Phone: | [place], [place] | | | | | TRANSESOPHAG | [phone] | [address] | | | | | EAL | Fax: | Phone: | | | | | ECHOCARDIOGR | [phone] | [phone] | | | | | AM, ADULT | | | | | | | ME ECHO | | | | | | | HEART,TRANSE | | | | | | | SOPHAGEAL,CO | | | | | | | MPLETE ME | | | | | | | DOPPLER ECHO | | | | | | | | | | | | | | HEART,LIMITE | | | | | | | D,F/U ME | | | | | | | DOPPLER | | | | | | | COLOR FLOW | | | | | | | VELOCITY MAP | | | +--------+--------+ + + + + Diagnostic Testing (Routine) [...] | | | | | insufficienc | [address] | | | | | | y, | [address] | | | | | | unspecified | [place], [place] | | | | | | etiology | [address] | | | | | | Procedures | Phone: | | | | | | CTA CHEST - | [phone] | | | | | | GATED W | Fax: | | | | | | CONTRAST | [phone] | | +--------+--------+ + + + + Reason for Visit +--------+ + | Reason | Comments | +--------+ + | Other | [facility] appt | +--------+ + Encounter Details +--------+ + + + + | Date | Type | Department | Care Team | Description | +--------+ + + + + | 05/30/ | Telephone | Cardiology at [facility] | Danny Adams | Other ([facility] appt) | | 2017 | | [address] O[address] MD [address] | | | | | Mailcode: CH9A | Kaylee [place], [place] | | | | | [facility] | [address] | | | | | and Malinda, | [phone] | | | | | | | | | | | [place], [place] | | | | | | [address] | | | | | | [phone] | | | +--------+ + + + [...] | | + +------+--------+ + + | 12 LEAD ECG | ECG | Routin | Mitral valve | Ordered: 06/02/2018 | | | | e | insufficiency, | | | | | | unspecified etiology | | + +------+--------+ + + | [...] | TRANSESOPHAGEAL | Routin | 06/19/2018 | Mitral valve | Results for this | | ECHOCARDIOGRAM, | e | 9:51 AM | insufficiency, | procedure are in the | | ADULT | | PDT | unspecified etiology | results section. | + +--------+ + + + | TRANSTHORACIC | Routin | 06/19/2018 | Mitral valve | Results for this | | ECHOCARDIOGRAM, | e | 7:31 AM | insufficiency, | procedure are in the | | ADULT | | PDT | unspecified etiology | [...] Note | + + | Service Account, [employer] In Interface - 06/19/2018 4:06 PM PDT [...] left. | | Mitral valve area: 9.3 pn9Hbdrvwdrj: 10.7 mmTT: 27 mmSL: 34mm CHEST:The heart [...] as now presented. Final signature: Ju Trent | 06/19/2018 4:05 PM Preliminary: Tawnya Chow MD [...] | | | + +---------+ + + TRANSESOPHAGEAL ECHOCARDIOGRAM, ADULT (06/19/2018 9:51 AM PDT) + + + + + + | Component | Value | Ref Range | Performed | Pathologist | | | | | At | Signature | + + + + + + | EJECTION | greater than 75 | | [facility] | | | FRACTION | | | OF | | | | | | CARDIOLOGY | | + + + + + + | EJECTION | 75 | % | [facility] | | | FRACTION | | | OF | | | RANGE MEAN | | | CARDIOLOGY | | | VALUE | | | | | + + + + + + + + | Specimen | + + | | + + + +---- + | Narrative | Per formed At | + +---- + | Replaced By [facility] | [facility]PT OF | | [facility]chocardiography [facility] [address] | | [place], [place] [address] Ph: | | | Pt Name: ZANDRA JAIME | | | Study Date/Time 06/19/2018 / 9:51:19 AMMRN: [id number] | | | Most recent prior: 06/19/18Acc #: [id number] | | | No. previous echos: 1DOB: 1930 88 years Heart Rate: | | | 83 bpmHeight: 63.0 in Blood Pressure: | | | 136/75 mm/HgWeight: 145.0 lb Gender: | | | FBSA: 1.69 m2 Order ID: | | | [id number] Pantograph Operator: kristen Referring Provider: Danny Oshea | | | Jose [facility] Performed: Transesophageal | | | echocardiogram and Due to incomplete visualization of the mitral valve | | | structure, online 3D reconstruction was clinically indicated and | | | performed under the concurrent supervision of the interpreting | | | gas plant dispatcher.Study Quality: Good.Exam Indication: Mitral | | | regurgitationHistory: 88 yO f with severe MR, mod-severe TR, mild , | | | and small secundum ASD referred for percuteanous MV repair / | | | replacement +/- tricuspid valve intervention . This history was | | | obtained from the patient's EHR.Transesophageal Echocardiographic | | | ReportConsent and Probe Insertion:The risks and benefits of JUAN MANUEL were | | | explained to the patient and informed written consent was obtained. | | | The oropharynx was anesthetized with topical lidocaine. Sedation | | | administered by Anesthesiology. The JUAN MANUEL probe was placed into the | | | esophagus, without complications. The patient was monitored throughout | | | the exam with a single lead electrocardiogram and blood pressure | | | cuff. Oxygen was administered via nasal cannula. Direct visualization | | | of the oropharynx has shown a Mallampati score of Class II.Conscious | | | sedation duration: | | | + | | | ---------+Final Impressions: | | | | | | | | | | | | | | | 1. The LV function is hyperdynamic. | | | 2. The visually estimated ejection | | | fraction is > 75%. 3. Right | | | ventricular size, thickness and function are normal. | | | 4. Severe circumferential mitral annular calcification. A large | | | deposit of calcium at the posterolateral atrial aspect of | | | themitral annulus that partially disrupts the normal | | | mitral annular shape and size. Mitral annular area is measured at | | | 8.26 cm2, with an AP diameter of 3.76 cm, and CC | | | diameter of 2.52 cm. However, there is no significant mitral | | | stenosis. Mean mitral gradient is approximately 4 mmHg at a heart | | | rate of 83 bpm. 5. Severe mitral valve regurgitation. | | | The EROA is 0.47 cm2 (using a PISA radius of 1.1 cm, an | | | aliasing velocity of 0.32 m/s, and a mean MR | | | regurgitant velocity of 5.1 m/s), the calculated regurgitant volume is | | | 67 mL, and the calculated regurgitant fraction is 52%. | | | 6. The mitral valve anterior leaflet | | | measures 2.0 cm. 7. There is | | | subvalvar and papilary muscle head calcifidation noted as well. 8. | | | The mechanism for the severe mitral regurgitation is leaflet and | | | annular calcification and degerneration with poor coaptation across | | | all portions of the valve. | | | 9. The | | | aortic valve is moderately sclerotic and restricted. No aortic | | | stenosis. | | | 10. Severely enlarged | | | left atrium. | | | 11. There is a small fenestrated secundum atrial septal | | | defect, with intermittent cani-aw-lijad flow via | | | color-flow Doppler. 12. Moderate | | | tricuspid regurgitation. | | | 13. Small plaque involving the ascending and transverse | | | aorta. 14. The left atrial appendage is well | | | visualized and there is no evidence of thrombus present. | | | | | | | | | | | | + | | | + Findings:Cardiac Rhythm: atrial fibrillation Left | | | Ventricle: The LV function is hyperdynamic. Left ventricular systolic | | | thickening is normal in all segments. The visually estimated ejection | | | fraction is > 75%. Left Atrium: Left atrial size is severely enlarged. | | | Left atrial appendage: The left atrial appendage is well visualized | | | and there is no evidence of thrombus present. Right Ventricle: Right | | | ventricular size, thickness and function are normal. Aortic Valve: The | | | aortic valve is moderately sclerotic and restricted. No aortic | | | stenosis. No indication of aortic valve regurgitation. On this study, | | | transgastric Doppler evaluation reveals an aortic valve peak velocity | | | of 1.8 m/s, peak gradient of 13 mmHg, mean gradient of 5.6 mmHg, and | | | DVI of 0.75 (with an AV VTI of 0.299 and LVOT VTI of 0.226). Mitral | | | Valve: Mitral leaflet mobility is normal. Severe mitral annular | | | calcification. Severe mitral valve regurgitation. The jet is | | | centrally-directed. The EROA is 0.47 cm2, using a PISA radius of 1.1 | | | cm, an aliasing velocity of 0.32 m/s, and a mean MR regurgitant | | | velocity of 5.1 m/s. There is no mitral stenosis. Mean mitral gradient | | | is approximately 4 mmHg at a heart rate of 83 bpm. Tricuspid Valve: | | | The tricuspid valve is structurally normal. Moderate tricuspid | | | regurgitation. Pulmonic Valve: The pulmonic valve is structurally | | | normal. Aorta: There is a small, layered, immobile plaque, involving | | | the ascending and transverse aorta. Venous: The inferior vena cava was | | | not well visualized. Septa: There is a small fenestrated secundum | | | atrial septal defect, with intermittent mfft-zv-pdxma flow via | | | color-flow Doppler.[employer]iemens JUAN MANUEL probe SN# [id number].Transesophageal echo | | | probe was passed by Rn Maternal Child: Yes. Fellow participating in exam: | | | Rashard BRITOeport electronically signed by: [id number] Danny | | | Bryan Lewis (06/19/2018 6:28:58 PM) Final | | |Tricuspid Valve: The tricuspid valve is structurally normal. Moderate tricuspid | | |regurgitation. | | | | | |Pulmonic Valve: The pulmonic valve is structurally normal. | | | | | |Aorta: There is a small, layered, immobile plaque, involving the ascending and | | |transverse aorta. | | | | | |Venous: The inferior vena cava was not well visualized. | | | | | |Septa: There is a small fenestrated secundum atrial septal defect, with intermittent | | |ewac-kz-tbjfw flow via color-flow Doppler. | | |[employer]iemens JUAN MANUEL probe SN# [id number]. | | |Transesophageal echo probe was passed by Rn Maternal Child: Yes. | | | | | |Fellow participating in exam: Rashard Clarke MD | | |Report electronically signed by: [id number] Danny Adams M.D. (06/19/2018 6:28:58 | | |PM) | | | | | | | | | | | | Final | | + +---- + + + | Procedure Note | + + | Interface, Cardiology Results - 06/19/2018 6:[address] [facility] | | [facility] Echocardiography Laboratory [address] [place] [address] | | [place], [place] [address] Pt Name: ZANDRA Edward | | MYRANDACallie Study Date/Time 06/19/2018 / 9:51:19 AMMRN: [id number] Most | | recent prior: 06/19/18Acc #: [id number] No. previous echos: 1DOB: | | 1930 88 years Heart Rate: 83 bpmHeight: 63.0 in Blood | | Pressure: 136/75 mm/HgWeight: 145.0 lb Gender: FBSA: | | 1.69 m2 Order ID: [id number]: kristen Referring Provider: | | Danny Garcia Location: [facility] Performed: Transesophageal | | echocardiogram and Due to incomplete visualization of the mitral valve structure, online | | 3D reconstruction was clinically indicated and performed under the concurrent | | supervision of the interpreting gas plant dispatcher.Study Quality: Good.Exam Indication: Mitral | | regurgitationHistory: 88 yO f with severe MR, mod-severe TR, mild , and small | | secundum ASD referred for percuteanous MV repair / replacement +/- tricuspid valve | | intervention . This history was obtained from the patient's EHR.Transesophageal | | Echocardiographic ReportConsent and Probe Insertion:The risks and benefits of JUAN MANUEL were | | explained to the patient and informed written consent was obtained. The oropharynx was | | anesthetized with topical lidocaine. Sedation administered by Anesthesiology. The JUAN MANUEL | | probe was placed into the esophagus, without complications. The patient was monitored | | throughout the exam with a single lead electrocardiogram and blood pressure cuff. Oxygen | | was administered via nasal cannula. Direct visualization of the oropharynx has shown a | | Mallampati score of Class II.Conscious sedation | | duration:+ | | +Final Impressions: | | | | 1. The LV function is | | hyperdynamic. 2. The visually estimated | | ejection fraction is > 75%. 3. Right ventricular size, thickness | | and function are normal. 4. Severe circumferential mitral annular | | calcification. A large deposit of calcium at the posterolateral atrial aspect of | | themitral annulus that partially disrupts the normal mitral annular shape and | | size. Mitral annular area is measured at 8.26 cm2, with an AP diameter of 3.76 cm, and | | CC diameter of 2.52 cm. However, there is no significant mitral stenosis. Mean | | mitral gradient is approximately 4 mmHg at a heart rate of 83 bpm. 5. | | Severe mitral valve regurgitation. The EROA is 0.47 cm2 (using a PISA radius of 1.1 | | cm, an aliasing velocity of 0.32 m/s, and a mean MR regurgitant velocity of | | 5.1 m/s), the calculated regurgitant volume is 67 mL, and the calculated | | regurgitant fraction is 52%. 6. The mitral valve anterior | | leaflet measures 2.0 cm. 7. There is subvalvar and papilary | | muscle head calcifidation noted as well. 8. The mechanism for the severe mitral | | regurgitation is leaflet and annular calcification and degerneration with poor | | coaptation across all portions of the valve. | | 9. The aortic valve is moderately sclerotic and restricted. No | | aortic stenosis. | | 10. Severely enlarged left atrium. 11. | | There is a small fenestrated secundum atrial septal defect, with intermittent | | ochp-dd-pytvt flow via color-flow Doppler. 12. Moderate tricuspid | | regurgitation. 13. Small plaque involving the | | ascending and transverse aorta. 14. The left atrial appendage is well | | visualized and there is no evidence of thrombus present. | | | | | | + + | | Findings:Cardiac Rhythm: atrial fibrillation Left Ventricle: The LV function is | | hyperdynamic. Left ventricular systolic thickening is normal in all segments. The | | visually estimated ejection fraction is > 75%. Left Atrium: Left atrial size is severely | | enlarged. Left atrial appendage: The left atrial appendage is well visualized and there | | is no evidence of thrombus present. Right Ventricle: Right ventricular size, thickness | | and function are normal. Aortic Valve: The aortic valve is moderately sclerotic and | | restricted. No aortic stenosis. No indication of aortic valve regurgitation. On this | | study, transgastric Doppler evaluation reveals an aortic valve peak velocity of 1.8 m/s, | | peak gradient of 13 mmHg, mean gradient of 5.6 mmHg, and DVI of 0.75 (with an AV VTI of | | 0.299 and LVOT VTI of 0.226). Mitral Valve: Mitral leaflet mobility is normal. Severe | | mitral annular calcification. Severe mitral valve regurgitation. The jet is | | centrally-directed. The EROA is 0.47 cm2, using a PISA radius of 1.1 cm, an aliasing | | velocity of 0.32 m/s, and a mean MR regurgitant velocity of 5.1 m/s. There is no mitral | | stenosis. Mean mitral gradient is approximately 4 mmHg at a heart rate of 83 bpm. | | Tricuspid Valve: The tricuspid valve is structurally normal. Moderate tricuspid | | regurgitation. Pulmonic Valve: The pulmonic valve is structurally normal. Aorta: There | | is a small, layered, immobile plaque, involving the ascending and transverse aorta. | | Venous: The inferior vena cava was not well visualized. Septa: There is a small | | fenestrated secundum atrial septal defect, with intermittent sheg-cr-xmttf flow via | | color-flow Doppler.S[employer] JUAN MANUEL probe SN# [id number].Transesophageal echo probe was passed | | by Rn Maternal Child: Yes.Fellow participating in exam: Rashard Clarke [facility] electronically | | signed by: [id number] Danny Adams M.D. (06/19/2018 6:28:58 PM) Final | | | |Findings: | |Cardiac Rhythm: atrial fibrillation | | | |Left Ventricle: The LV function is hyperdynamic. Left ventricular systolic thickening | | is normal in all segments. The visually estimated ejection fraction is > 75%. | | | |Left Atrium: Left atrial size is severely enlarged. | | | |Left atrial appendage: The left atrial appendage is well visualized and there is no | |evidence of thrombus present. | | | |Right Ventricle: Right ventricular size, thickness and function are normal. | | | |Aortic Valve: The aortic valve is moderately sclerotic and restricted. No aortic | |stenosis. No indication of aortic valve regurgitation. On this study, transgastric | |Doppler evaluation reveals an aortic valve peak velocity of 1.8 m/s, peak gradient of | | 13 mmHg, mean gradient of 5.6 mmHg, and DVI of 0.75 (with an AV VTI of 0.299 and | |LVOT VTI of 0.226). | | | |Mitral Valve: Mitral leaflet mobility is normal. Severe mitral annular calcification. | | Severe mitral valve regurgitation. The jet is centrally-directed. The EROA is 0.47 | |cm2, using a PISA radius of 1.1 cm, an aliasing velocity of 0.32 m/s, and a mean MR | |regurgitant velocity of 5.1 m/s. There is no mitral stenosis. Mean mitral gradient is | | approximately 4 mmHg at a heart rate of 83 bpm. | | | |Tricuspid Valve: The tricuspid valve is structurally normal. Moderate tricuspid | |regurgitation. | | | |Pulmonic Valve: The pulmonic valve is structurally normal. | | | |Aorta: There is a small, layered, immobile plaque, involving the ascending and | |transverse aorta. | | | |Venous: The inferior vena cava was not well visualized. | | | |Septa: There is a small fenestrated secundum atrial septal defect, with intermittent | |dnbh-yy-ehyzp flow via color-flow Doppler. | |S[employer]ens JUAN MANUEL probe SN# [id number]. | |Transesophageal echo probe was passed by Rn Maternal Child: Yes. | | | |Fellow participating in exam: Rashard Clarke MD | |Report electronically signed by: [id number] Danny Adams M.D. (06/19/2018 6:28:58 | |PM) | | | | | | | | Final | + + + + + + + | Performing | Address | City/State/Zipcode | Phone Number | | Organization | | | | + + + + + | [facility] | [address] | [place], [place] | | | CARDIOLOGY | [address] | [address] | | + + + + + TRANSTHORACIC ECHOCARDIOGRAM, ADULT (06/19/2018 7:31 AM PDT) + + + + + + | Component | Value | Ref Range | Performed | Pathologist | | | | | At | Signature | + + + + + + | EJECTION | 70 to 75 | | [facility] | | | FRACTION | | | OF | | | | | | CARDIOLOGY | | + + + + + + | LA | 4.4 | | [facility] | | | DIMENSION | | | OF | | | | | | CARDIOLOGY | | + + + + + + | LVIDD | 4.4 | | [facility] | | | | | | OF | | | | | | CARDIOLOGY | | + + + + + + | MV E? | 0.0 | | [facility] | | | | | | OF | | | | | | CARDIOLOGY | | + + + + + + | MV E VMAX | 1.7 | | [facility] | | | | | | OF | | | | | | CARDIOLOGY | | + + + + + + | RVSP | 40 | | [facility] | | | | | | OF | | | | | | CARDIOLOGY | | + + + + + + | RV TAPSE | 1.8 | | [facility] | | | | | | OF | | | | | | CARDIOLOGY | | + + + + + + | RV TDI S? | 12.0 | | [facility] | | | | | | OF | | | | | | CARDIOLOGY | | + + + + + + | EJECTION | 72.5 | % | [facility] | | | FRACTION | | | OF | | | RANGE MEAN | | | CARDIOLOGY | | | VALUE | | | | | + + + + + + + + | Specimen | + + | | + + + +- + | Narrative | Performed At | + +- + | Replaced By [facility] | [facility] OF | | [facility] Adult Echocardiography [facility] [address] | CARDIOLOGY | | [place], [place] [address] Ph: | | | Pt Name: ZANDRA JAIME | | | Study Date/Time 06/19/2018 / 7:31:24 [facility] [id number] | | | Most recent prior: -[facility] #: [id number] | | | No. previous echos: 0DOB: 1930 88 years Heart Rate: | | | 77 bpmHeight: 63.0 in Blood Pressure: | | | 124/61 mm/HgWeight: 142.0 lb Gender: | | | FBSA: 1.67 m2 Order ID: | | | [id number] Pantograph Operator: Rosanna Keith RDCSSonographer 2:Referring | | | Provider: Danny Garcia [facility] Performed: | | | 2D, Color flow, Spectral Doppler.Study Quality: Good.Exam Indication: | | | DyspneaHistory: Acute diastolic heart failure. She has hyperdynamic LV | | | systolic function on her echocardiogram, but marked valvular disease, | | | with severe mitral regurgitation, moderately severe tricuspid | | | regurgitation, and mild aortic stenosis. She denies any history of | | | rheumatic fever, but had scarlet fever at age 15, which clearly could | | | have been misdiagnosed. There is no mitral stenosis. Moderately severe | | | pulmonary hypertension and a small secundum ASD with minor | | | nhzd-mx-nabqs shunting. Patient history has been obtained from the EHR | | | Transthoracic Echocardiographic Report | | | + | | | ---------+Final Impressions: | | | | | | | | | | | | | | | 1. The left ventricular cavity size is normal. | | | 2. The LV function is hyperdynamic. | | | 3. Visually | | | estimated left ventricular ejection fraction is 70 - 75%. | | | 4. The aortic valve is trileaflet and moderately calcified. | | | 5. Severe mitral annular calcification as well as | | | papillary and subchordal bulky calcification. | | | 6. | | | While there is calcification of the bases of the mitral valve | | | leaflets due to the severe mitral annular calcificaiton, the mid | | | portions of the leaflets themseleves are only midly | | | calcified and thin, however there is the severe central mitral valve | | | regurgitation. | | | 7. The mean transmitral gradient is 5.5 mmHg at a heart rate of 77 | | | bpm. | | | 8. | | | Severe biatrial enlargement. | | | 9. Right ventricular size, thickness and | | | function are normal. | | | | | | | | | + | | | + Description of Findings: Cardiac Rhythm: Normal sinus | | | rhythm.Left Ventricle: The left ventricular cavity size is normal. | | | Visually estimated left ventricular ejection fraction is 70 - 75%. The | | | LV function is hyperdynamic.Left Ventricular Wall Motion: Left | | | ventricular systolic thickening is normal in all segments.Atria: | | | Severe biatrial enlargement.Right Ventricle: Right ventricular size, | | | thickness and function are normal. TAPSE measures 1.8cm. The RV TDI s' | | | velocity is 12.0cm/sec.Aortic Valve: The aortic valve is trileaflet | | | and moderately calcified. No indication of aortic valve regurgitation. | | | The left coronary cusp is immobile.Mitral Valve: Severe mitral | | | annular calcification. The mean transmitral gradient is 5.5 mmHg at a | | | heart rate of 77 bpm. Severe mitral valve regurgitation. The mitral | | | valve effective regurgitant orifice area is 7 mm2.Tricuspid Valve: The | | | tricuspid valve is structurally normal. Mild tricuspid regurgitation. | | | The tricuspid regurgitant velocity is 2.95 m/s, and with an assumed | | | right atrial pressure of 5 mmHg, the estimated right ventricular | | | systolic pressure is upper limits of normal at 39.9 mmHg.Pulmonic | | | Valve: The pulmonic valve is structurally normal. Trace pulmonary | | | valve regurgitation.Venous: Inferior vena cava is normal with normal | | | inspiratory collapse.Pericardium: No pericardial effusion is seen.2D | | | Measurements Doppler Measurements | | | 2D NL Values Aortic MitralLVID(d) 4.43 | | | (3.5-5.7cm) Max Leobardo 1.54 Peak E 1.68 cm | | | m/s m/sLVID(s) | | | 3.45 Mean grad 4.6 Peak A | | | cm mmHgIVS(d) 0.83 | | | (0.6-1.1cm) LVOT Leobardo 0.96 E/A Ratio cm | | | m/sLVPW(d) 1.75 (0.6-1.1cm) | | | TDI (E/e') 42.1 cm | | | LVOT Diam 1.95 MV mn gd 6 mmHgLA A/Ps 2D 4.41 (2.7-3.9cm) | | | cm cm AI P1/2 | | | MR ERO 7 mm2LA vol A/L 187.9 (40-73ml) timeBP | | | ml MR Volume | | | 11 mlLA vol A/L 112.4 (16-34) Tricuspid | | | Pulmonicindex ml/m2 TR Vmax 2.95 PV | | | Vmax 0.8 | | | m/s m/s | | | RA Press 5 RVOT VTI 10.1 | | | mmHg cm | | | RVSP 40 PV mn gd | | | mmHg | | | Aorta: | | | Index: Ao Sinus 2.87 | | | (2.1-3.5cm) | | | cm Asc Ao 2.73 | | | (prox) cmEvaluation of | | | chamber size and geometry is accomplished through the incorporation of | | | linear, volumetric, and indexed values Report electronically signed | | | by: [id number] Danny Adams M.D. (06/19/2018, 12:57:18 PM) | | | Final | | | | | | Aorta: Index: | | | Ao Sinus 2.87 (2.1-3.5cm) | | | cm | | | Asc Ao 2.73 | | | (prox) cm | | |Evaluation of chamber size and geometry is accomplished through the incorporation of | | |linear, volumetric, and indexed values | | | | | |Report electronically signed by: [id number] Danny Adams M.D. (06/19/2018, | | |12:57:18 PM) | | | | | | | | | | | | Final | | + +- + + + | Procedure Note | + + | Interface, Cardiology Results - 06/19/2018 12:57 PM [facility] | | [facility] Echocardiography Laboratory [address] [place] [address] | | [place], [place] [address] Pt Name: ZANDRA JAIME Study Date/Time 06/19/2018 / 7:31:24 [id number] Most | | recent prior: -[facility] #: [id number] No. previous echos: 0DOB: 1930 88 | | years Heart Rate: 77 bpmHeight: 63.0 in Blood Pressure: 124/61 | | mm/HgWeight: 142.0 lb Gender: FBSA: 1.67 m2 | | Order ID: [id number] Pantograph Operator: Rosanna Keith RDCSSonographer 2:Referring | | Provider: Danny Garcia Location: OPModalities Performed: 2D, Color flow, | | Spectral Doppler.Study Quality: Good.Exam Indication: DyspneaHistory: Acute diastolic | | heart failure. She has hyperdynamic LV systolic function on her echocardiogram, but | | marked valvular disease, with severe mitral regurgitation, moderately severe tricuspid | | regurgitation, and mild aortic stenosis. She denies any history of rheumatic fever, but | | had scarlet fever at age 15, which clearly could have been misdiagnosed. There is no | | mitral stenosis. Moderately severe pulmonary hypertension and a small secundum ASD with | | minor dvbg-sm-dzuwa shunting. Patient history has been obtained from the EHR | | Transthoracic Echocardiographic | | Report+ +Fi | | nal Impressions: | | | | 1. The left ventricular cavity | | size is normal. 2. The LV function is hyperdynamic. | | 3. Visually estimated left ventricular ejection | | fraction is 70 - 75%. 4. The aortic valve is trileaflet and moderately | | calcified. 5. Severe mitral annular calcification as well as papillary | | and subchordal bulky calcification. | | 6. While there is calcification of the bases of the mitral valve leaflets | | due to the severe mitral annular calcificaiton, the mid portions of the leaflets | | themseleves are only midly calcified and thin, however there is the severe central | | mitral valve regurgitation. 7. The mean transmitral | | gradient is 5.5 mmHg at a heart rate of 77 bpm. | | 8. Severe biatrial enlargement. | | 9. Right ventricular size, thickness and function are | | normal. | | | | + + | | Description of Findings: Cardiac Rhythm: Normal sinus rhythm.Left Ventricle: The left | | ventricular cavity size is normal. Visually estimated left ventricular ejection fraction | | is 70 - 75%. The LV function is hyperdynamic.Left Ventricular Wall Motion: Left | | ventricular systolic thickening is normal in all segments.Atria: Severe biatrial | | enlargement.Right Ventricle: Right ventricular size, thickness and function are normal. | | TAPSE measures 1.8cm. The RV TDI s' velocity is 12.0cm/sec.Aortic Valve: The aortic | | valve is trileaflet and moderately calcified. No indication of aortic valve | | regurgitation. The left coronary cusp is immobile.Mitral Valve: Severe mitral annular | | calcification. The mean transmitral gradient is 5.5 mmHg at a heart rate of 77 bpm. | | Severe mitral valve regurgitation. The mitral valve effective regurgitant orifice area | | is 7 mm2.Tricuspid Valve: The tricuspid valve is structurally normal. Mild tricuspid | | regurgitation. The tricuspid regurgitant velocity is 2.95 m/s, and with an assumed right | | atrial pressure of 5 mmHg, the estimated right ventricular systolic pressure is upper | | limits of normal at 39.9 mmHg.Pulmonic Valve: The pulmonic valve is structurally normal. | | Trace pulmonary valve regurgitation.Venous: Inferior vena cava is normal with normal | | inspiratory collapse.Pericardium: No pericardial effusion is seen.2D Measurements | | Doppler Measurements 2D NL Values Aortic MitralLVID(d) | | 4.43 (3.5-5.7cm) Max Leobardo 1.54 Peak E 1.68 cm | | m/s m/sLVID(s) 3.45 Mean grad 4.6 Peak A | | cm mmHgIVS(d) 0.83 (0.6-1.1cm) LVOT Leobardo 0.96 E/A Ratio | | cm m/sLVPW(d) 1.75 (0.6-1.1cm) | | TDI (E/e') 42.1 cm LVOT Diam 1.95 MV mn gd 6 mmHgLA A/Ps | | 2D 4.41 (2.7-3.9cm) cm cm AI P1/2 MR ERO | | 7 mm2LA vol A/L 187.9 (40-73ml) timeBP ml | | MR Volume 11 mlLA vol A/L 112.4 (16-34) Tricuspid Pulmonicindex ml/m2 | | TR Vmax 2.95 PV Vmax 0.8 m/s | | m/s RA Press 5 RVOT VTI 10.1 | | mmHg cm RVSP 40 | | PV mn gd mmHg | | Aorta: Index: Ao Sinus 2.87 | | (2.1-3.5cm) cm Asc | | Ao 2.73 (prox) cmEvaluation of chamber size and | | geometry is accomplished through the incorporation of linear, volumetric, and indexed | | values Report electronically signed by: [id number] Danny Adams M.D. (06/19/2018, | | 12:57:18 PM) Final | |regurgitation. The tricuspid regurgitant velocity is 2.95 m/s, and with an assumed | |right atrial pressure of 5 mmHg, the estimated right ventricular systolic pressure is | | upper limits of normal at 39.9 mmHg. | |Pulmonic Valve: The pulmonic valve is structurally normal. Trace pulmonary valve | |regurgitation. | |Venous: Inferior vena cava is normal with normal inspiratory collapse. | |Pericardium: No pericardial effusion is seen. | |2D Measurements Doppler Measurements | | | | 2D NL Values Aortic Mitral | |LVID(d) 4.43 (3.5-5.7cm) Max Leobardo 1.54 Peak E 1.68 | | cm m/s m/s | |LVID(s) 3.45 Mean grad 4.6 Peak A | | cm mmHg | |IVS(d) 0.83 (0.6-1.1cm) LVOT Leobardo 0.96 E/A Ratio | | cm m/s | |LVPW(d) 1.75 (0.6-1.1cm) TDI (E/e') 42.1 | | cm LVOT Diam 1.95 MV mn gd 6 mmHg | |LA A/Ps 2D 4.41 (2.7-3.9cm) cm | | cm AI P1/2 MR ERO 7 mm2 | |LA vol A/L 187.9 (40-73ml) time | |BP ml MR Volume 11 ml | |LA vol A/L 112.4 (16-34) Tricuspid Pulmonic | |index ml/m2 TR Vmax 2.95 PV Vmax 0.8 | | m/s m/s | | RA Press 5 RVOT VTI 10.1 | | mmHg cm | | RVSP 40 PV mn gd | | mmHg | | | | Aorta: Index: | | Ao Sinus 2.87 (2.1-3.5cm) | | cm | | Asc Ao 2.73 | | (prox) cm | |Evaluation of chamber size and geometry is accomplished through the incorporation of | |linear, volumetric, and indexed values | | | |Report electronically signed by: [id number] Danny Adams M.D. (06/19/2018, | |12:57:18 PM) | | | | | | | | Final | + + + + + + + | Performing | Address | City/State/Zipcode | Phone Number | | Organization | | | | + + + + + | [facility] | [address] | [place], [place] | | | CARDIOLOGY | [address] | [address] | | + + + + + documented in this encounter Visit Diagnoses + + | Diagnosis | + + | Mitral valve insufficiency, unspecified etiology - Primary | + + documented in this encounter"
--- OUTSIDE RECORDS SUMMARY | ~2019-10-07 | XMS | Encounter Summary ---
Demographics + + + | Address | [address] | | | [place] [address] | + + + | Home Phone | | + + + | Preferred Language | Unknown | + + + | Marital Status | Single | + + + | Muslim Affiliation | NON | + + + | Race | White | + + + | Ethnic Group | Not or | + + + Author + + + | Author | [facility] | + + + | Organization | [facility] | + + + | Address | Unknown | + + + | Phone | Unavailable | + + + Support + + +---------+ + | Name | Relationship | Address | Phone | + + +---------+ + | Darby Kate | ECON | Unknown | | + + +---------+ + Care Team Providers + +------+ + | Care University Controller Name | Role | Phone | + [...] | | | Nonrheumatic | [address] | | | | | mitral | CHRISTIAN KC | [address] | | | | | (valve) | TIFFANY F | [address] | | | | | insufficienc | [place], [place] | [place], [place] | | | | | y Rheumatic | [address] | [address] | | | | | tricuspid | Phone: | Phone: | | | | | insufficienc | [phone] | [phone] | | | | | y Pulmonary | Fax: | Fax: | | | | | | [phone] | [phone] | | | | | hypertension | | | | | | | , | | | | | | | unspecified | | | | | | | Procedures | | | | | | | [place] NEW | | | | | | [...] | | | | Mailcode: [address] | [place], [place] | | | | | [facility] | [address] | | | | | [place], [place] | [phone] | | | | | [address] | | | | | | [phone] | | | +--------+---------+ + + + [...] no gross deficits Studies personally reviewed with hydraulic technician. Cardiac cath 06/30/18 FINDINGS: 1. Hemodynamic findings [...] fenestrated secundum atrial septal defect, with intermittent hdvs-oo-bktdn flow via color-flow Doppler. 12. Moderate tricuspid [...] fenestrated secundum atrial septal defect, with intermittent vcml-xy-vxzlp flow via color-flow Doppler. Assessment and plan: Rufina Sapp is a 88 year old female with AF, DM, and severe symptomatic mitral regur gitation. I have reviewed all of the patient's imaging and studies with a the multidisciplin [place] valve team. The patient is not an ideal candidate for off-label vvtjf-zs-FKF dep loyment of a TAVR valve in [...] and coordination of care. Lucille Gibbs MD Upholsterer Helper of Cardiac Surgery CARDIOTHORACIC SURGERY AT [address] Mailcode: [address] [place] [address] documented in this encounter Plan of Treatment Not on filedocumented as of this encounter Visit Diagnoses + + | Diagnosis | + + | Severe mitral regurgitation - Primary Mitral valve disorders | + + documented in this encounter
--- OUTSIDE RECORDS SUMMARY | ~2019-10-07 | XMS | Encounter Summary ---
Demographics + + + | Address | [address] | | | [place] [address] | + + + | Home Phone | | + + + | Preferred Language | Unknown | + + + | Marital Status | Single | + + + | Mu-Ism Affiliation | NON | + + + | Race | White | + + + | Ethnic Group | Not or | + + + Author + + + | Author | [facility] | + + + | Organization | [facility] | + + + | Address | Unknown | + + + | Phone | Unavailable | + + + Support + + +---------+ + | Name | Relationship | Address | Phone | + + +---------+ + | Darby Kate | ECON | Unknown | | + + +---------+ + Care Team Providers + +------+ + | Care Yoga Instructor Name | Role | Phone | + +------+ + | Renan Menendez MD | PCP | | + +------+ + Reason for Visit + + + | Reason | Comments | + + + | Surgery Scheduling | cancel MitraClip on 08/27/18 | + + + Encounter Details +--------+ + + + + | Date | Type | Department | Care Team | Description | +--------+ + + + + | 08/22/ | Telephone | Cardiology at [facility] | Paradise Dumasalessandra Guerra, | Surgery Scheduling | | 2018 | | [address] | RN [address] | (cancel MitraClip on | | | | Mailcode: [address] | [address] | 08/27/18) | | | | [facility] | [place], [place] | | | | | and Healing, | [address] | | | | | [address], | | | | | | [place], [place] | | | | | | [address] | | | | | | [phone] | | | +--------+ + + + [...]
--- OUTSIDE RECORDS SUMMARY | ~2019-10-07 | XMS | Encounter Summary ---
Demographics + + + | Address | [address] | | | [place] [address] | + + + | Home Phone | | + + + | Preferred Language | Unknown | + + + | Marital Status | | + + + | Hindu Affiliation | Unknown | + + + | Race | Unknown | + + + | Ethnic Group | Unknown | + + + Author + + + | Author | [facility] | | | and [place] | + + + | Organization | [facility] | | [...] Team Providers + +------+ + | Care Fish Inspector Name | Role | Phone | [...] | | | | [place] | [phone] | | | | | [address] | | | | | | [phone] | | | +--------+ + + + [...] | | | | | [place] [address] | | | | | | [phone] | | | | | | | | +--------+---------+ + + + documented as of this encounter Visit Diagnoses Not on filedocumented in this encounter"
--- OUTSIDE RECORDS SUMMARY | ~2019-10-07 | XMS | Encounter Summary ---
Demographics + + + | Address | [address] | | | [place] [address] | + + + | Home Phone | | + + + | Preferred Language | Unknown | + + + | Marital Status | Single | + + + | Restoration Affiliation | NON | + + + | Race | White | + + + | Ethnic Group | Not or | + + + Author + + + | Author | [facility] | + + + | Organization | [facility] | + + + | Address | Unknown | + + + | Phone | Unavailable | + + + Support + + +---------+ + | Name | Relationship | Address | Phone | + + +---------+ + | Darby Kate | ECON | Unknown | | + + +---------+ + Care Team Providers + +------+ + | Care Wood Planer Name | Role | Phone | + +------+ + | Renan Menendez MD | PCP | | + +------+ + Encounter Details +--------+ + + + + | Date | Type | Department | Care Team | Description | +--------+ + + + + | 09/25/ | Abstract | Cardiology at [facility] | Danny Adams | | | 2018 | | [address] MD [address] | | | | | Mailcode: CH[address]A | [place], [place] | | | | | [facility] | [address] | | | | | and [place], | [phone] | | | | | | | | | | | [place], [place] | | | | | | [address] | | | | | | [phone] | | | +--------+ + + + [...]
--- OUTSIDE RECORDS SUMMARY | ~2019-10-07 | XMS | Encounter Summary ---
Demographics + + + | Address | [address] | | | [place] [address] | + + + | Home Phone | | + + + | Preferred Language | Unknown | + + + | Marital Status | Single | + + + | Buddhist Affiliation | NON | + + + [...] Team Providers + +------+ + | Care Spring Salvage Worker Name | Role | Phone | [...] | | | Nonrheumatic | [address] | | | | | mitral | CHRISTIAN KC | [address] | | | | | (valve) | TIFFANY F | [address] | | | | | insufficienc | [place], [place] | [place], [place] | | | | | y Rheumatic | [address] | [address] | | | | | tricuspid | Phone: | Phone: | | | | | insufficienc | [phone] | [phone] | | | | | y Pulmonary | Fax: | Fax: | | | | | | [phone] | [phone] | | | | | hypertension | | | | | | | , | | | | | | | unspecified | | | | | | | Procedures | | | | | | | [place] NEW | | | | | | [...] | | | | Mailcode: [address] | [place], [place] | | | | | [facility] | [address] | | | | | [place], [place] | [phone] | | | | | [address] | | | | | | [phone] | | | +--------+---------+ + + + [...] no gross deficits Studies personally reviewed with automobile body repair supervisor. Cardiac cath 06/30/18 FINDINGS: 1. Hemodynamic findings [...] fenestrated secundum atrial septal defect, with intermittent ocxk-ta-ecciz flow via color-flow Doppler. 12. Moderate tricuspid [...] fenestrated secundum atrial septal defect, with intermittent tpsb-cq-kqxzo flow via color-flow Doppler. Assessment and plan: Rufina Sapp is a 88 year old female with AF, DM, and severe symptomatic mitral regur gitation. I have reviewed all of the patient's imaging and studies with a the multidisciplin [place] valve team. The patient is not an ideal candidate for off-label crwzo-ph-PWP dep loyment of a TAVR valve in [...] and coordination of care. Lucille Gibbs MD Special Assemblies Supervisor of Cardiac Surgery CARDIOTHORACIC SURGERY AT [address] Mailcode: [address] [place] [address] documented in this encounter Plan of Treatment Not on filedocumented as of this encounter Visit Diagnoses + + | Diagnosis | + + | Severe mitral regurgitation - Primary Mitral valve disorders | + + documented in this encounter
--- OUTSIDE RECORDS SUMMARY | ~2019-10-07 | XMS | Encounter Summary ---
Demographics + + + | Address | [address] | | | [place] [address] | + + + | Home Phone | | + + + | Preferred Language | Unknown | + + + | Marital Status | Single | + + + | Protestant Affiliation | NON | + + + | Race | White | + + + | Ethnic Group | Not or | + + + Author + + + | Author | [facility] | + + + | Organization | [facility] | + + + | Address | Unknown | + + + | Phone | Unavailable | + + + Support + + +---------+ + | Name | Relationship | Address | Phone | + + +---------+ + | Darby Kate | ECON | Unknown | | + + +---------+ + Care Team Providers + +------+ + | Care Purchasing Associate Name | Role | Phone | [...] | Event | Non-Invasive Testing | [address] | | | | | at [facility] | [address] | | | | | [address] | [place], [place] | | | | | [place] Mailcode: | [address] | | | | | [id number] | [phone] | | | | | [facility] | | | | | | [place], [place] | [place], | | | | | [address] | SAWDUST MACHINE OPERATOR [address] | | | | | [phone] | [address] | | | | | | [place], [place] | | | | | | [address] | | | | | | [phone] | | | | | | | [...]
--- OUTSIDE RECORDS SUMMARY | ~2019-10-07 | XMS | Encounter Summary ---
Demographics + + + | Address | [address] | | | [place] [address] | + + + | Home Phone [...] Author + + + | Author | [facility] | + + + | Organization | [facility] | + + + | Address | Unknown | + + + | Phone | Unavailable | + + + Support + + +---------+ + | Name | Relationship | Address | Phone | + + +---------+ + | Darby Kate | ECON | Unknown | | + + +---------+ + Care Team Providers + +------+ + | Care Linoleum Printer Name | Role | Phone | + [...] | | | | | insufficienc | [address] | | | | | | y, | [address] | | | | | | unspecified | [place], [place] | | | | | | etiology | [address] | | | | | | Procedures | Phone: | | | | | | CTA CHEST - | [phone] | | | | | | GATED W | Fax: | | | | | | CONTRAST | [phone] | | +--------+--------+ + + + + [...] + + | 06/19/ | Hospital | [facility] [address] | Danny Adams | | | 2018 | Encounter | Luca Oshea MD [address] | | | | | [address] [facility] | [address] [place], [place] | | | | | [place], [place] | [address] | | | | | [address] | [phone] | | | | | [phone] | | | +--------+ + + + [...] How to Reach Us Call the Hospital Budder at and ask to have your doctor [...] Note | + + | Service Account, [place] In Interface - 06/19/2018 4:06 PM PDT [...] left. | | Mitral valve area: 9.3 un6Bsilpkizo: 10.7 mmTT: 27 mmSL: 34mm CHEST:The heart [...] MARQUAM | [address] | [place], [place] | | | [facility] POINT OF CARE | [address] | [address] | | | TESTS | | | [...] (attending) VEE Oshea | | | MD KTAIE,MPH (fellow) Procedure(s): Transesophageal | | | Echocardiogram [...] (PGY-6), Cardiovascular Medicine | | | Pager #[phone] | | + + + INR (PT), [...] [facility] | [address] | [place], [place] | | | [facility] | [address] | [address] | | | TESTS | | | [...]
--- OUTSIDE RECORDS SUMMARY | ~2019-10-07 | XMS | Encounter Summary ---
Demographics + + + | Address | [address] | | | [place] [address] | + + + | Home Phone [...] Team Providers + +------+ + | Care Health Practice Manager Name | Role | Phone | + [...] | | | | | insufficienc | [address] | | | | | | y, | [address] | | | | | | unspecified | [place], [place] | | | | | | etiology | [address] | | | | | | Procedures | Phone: | | | | | | CTA CHEST - | [phone] | | | | | | GATED W | Fax: | | | | | | CONTRAST | [phone] | | +--------+--------+ + + + + [...] + | 06/19/ | Hospital | [facility] [address] | Danny Adams | | | 2018 | Encounter | Luca Oshea MD [address] | | | | | [address] [facility] | [address] [place], [place] | | | | | [place], [place] | [address] | | | | | [address] | [phone] | | | | | [phone] | | | +--------+ + + + [...] How to Reach Us Call the Hospital Photovoltaic Installer at and ask to have your doctor [...] Note | + + | Service Account, [place] In Interface - 06/19/2018 4:06 PM PDT [...] left. | | Mitral valve area: 9.3 dl7Hpsojryxs: 10.7 mmTT: 27 mmSL: 34mm CHEST:The heart [...] MARQUAM | | | | | | HERNNA KAMARA | | | | | | [...] MARQUAM | [address] | [place], [place] | | | [facility] POINT OF CARE | [address] | [address] | | | TESTS | | | [...] (PGY-6), Cardiovascular Medicine | | | Pager #[phone] | | + + + INR (PT), [...] HD[facility] | [address] | [place], [place] | | | [facility] OF CARE | [address] | [address] | | | TESTS | | | [...] PDT | | | | | dose, [facility] 06/19/18 at 1445 | | | | | | + +---------+ +-------+---+---+ + +---+ | | | + +---+ | midazolam (PF) (VERSED) | | | injection 1 mg 1 mg, | | | intravenous, PROCEDURE PRN, 10 | | | doses, Starting [facility] 06/19/18 at | | | 0911, Until [place] 06/19/18 at 1805, | | | until RASS of -3 achieved. | | + +---+ | | | + +---+ documented in this encounter"
--- OUTSIDE RECORDS SUMMARY | ~2019-10-07 | XMS | Encounter Summary ---
Demographics + + + | Address | [address] | | | [place] [address] | + + + | Home Phone | | + + + | Preferred Language | Unknown | + + + | Marital Status | | + + + | Orthodox Affiliation | Unknown | + + + | Race | Unknown | + + + | Ethnic Group | Unknown | + + + Author + + + | Author | [facility] | | | and [place] | + + + | Organization | [facility] | | | and [...] Team Providers + +------+ + | Care Social Services Director Name | Role | Phone | [...] BRIAN Rajan | | | | | [place], [place] | [address] | | | | | [address] | | | | | | [phone] | | | +--------+ + + + [...] RAMOS | | | | | | [place] [address] | | | | | | [phone] | | | | | | | [...] in diameter. | | | There is ccvt-cf-pjmvu shunting noted on color Doppler. | | [...] in diameter. There is | | | kslh-hw-kmrwo shunting noted on color Doppler. FINDINGS -------- [...] in | | | diameter. There is sfqk-dk-aywof shunting noted on color Doppler. | | [...] 8.37 cm TAPSE: 2.67 cm AR Dec Ashley: 1.97 | | | m/s2 AR Dec [...] TR Vmax: 3.44 m/s | | | Skiver Operator: Authenticated by: ELIOT JOHNSTON MD Report [...] measuring <10 mm in diameter. There is wrnp-wt-nhdvs shunting noted on color Doppler. | | [...] mm in diameter. There is | | jkhg-kg-qfufk shunting noted on color Doppler. MEASUREMENTS Ao asc: 3.46 | | cmAo Diam: 2.93 cmAo sinus: 3.[address] junct: 2.99 cmIVC: 2.34 cmLA Diam: | | 4.73 cmLA Major: 7.82 cmEDV(Teich): 81.83 mlIVSd: 0.71 cmLVIDd: 4.27 cmLVPWd: | | 0.96 cmLVOT Area: 3.30 vp3YVSW Diam: 2.05 cm%FS: 36.87 %EF(Teich): 67.07 | [...] mlLAESV Index (A-L): 125.68 ml/m2LAAs A2C: 39.65 [id number] A-L | | A2C: 180.64 mlLALs A2C: 7.38 cmLAAs A4C: 48.00 px6FVOJO A-L A4C: 234.29 mlLALs | | A4C: 8.34 cmRAAs: 32.48 [id number] A-L: 108.99 mlRAESV MOD: 105.43 mlRALs: 8.37 | | cmTAPSE: 2.67 cmAR Dec Ashley: 1.97 m/s2AR Dec Time: 1769.87 msAR maxP.66 | | mmHgAR PHT: 513.26 msAR Vmax: 3.48 m/Antonella maxP.83 mmHgAV meanP.01 mmHgAV | | Vmax: 2.05 m/Antonella Vmean: 1.43 m/Antonella VTI: 38.96 cmAVA Vmax: 1.63 cm2AVA (VTI): | | 1.73 xe7NHHE Vmax: 0.00 cm2/m2AVAI (VTI): 0.00 cm2/m2LVOT maxP.14 mmHgLVOT | | meanP.17 mmHgLVSI Dopp: 38.90 ml/m2LVSV Dopp: 67.70 mlLVOT Vmax: 1.01 | | m/sLVOT Vmean: 0.69 m/sLVOT VTI: 20.50 cmMV A Leobrado: 0.04 m/sMV DecT: 225.03 msMV | | E Leobardo: 1.54 m/sMV E/A Ratio: 35.2MV PHT: 65.25 msMVA By PHT: 3.37 cm2MV maxPG: | | 25.70 mmHgMV meanP.33 mmHgMV Vmax: 2.53 m/sMV Vmean: 1.28 m/sMV VTI: 45.02 | | cmMVA (VTI): 1.50 kt1Iagiwj e': 0.04 m/sSeptal E/e': 34.18Lateral e': 0.04 | | m/sLateral E/e': 37.69RAP: 10 mmHgRVSP: 57.42 mmHgTR maxP.42 mmHgTR Vmax: | | 3.44 m/s Skiver Operator:Authenticated by: Tonio RAHMAN Date/Time: 12-10-2017 | [...] measuring <10 mm in diameter. There is yxbt-za-hbbfh shunting noted on color Doppler. | |LVOT [...] | |TAPSE: 2.67 cm | |AR Dec Ashley: 1.97 m/s2 | |AR Dec Time: 1769.87 [...] |TR Vmax: 3.44 m/s | | | |Skiver Operator: | |Authenticated by: ELIOT JOHNSTON MD [...] measuring <10 mm in diameter. There is fycr-kd-wgkmt shunting noted on color Doppler. | + --+ documented in this encounter Visit Diagnoses Not on filedocumented in this encounter"
--- OUTSIDE RECORDS SUMMARY | ~2019-10-07 | XMS | Encounter Summary ---
Demographics + + + | Address | [address] | | | [place] [address] | + + + | Home Phone [...] Author + + + | Author | [facility] | + + + | Organization | [facility] | + + + | Address | Unknown | + + + | Phone | Unavailable | + + + Support + + +---------+ + | Name | Relationship | Address | Phone | + + +---------+ + | Darby Kate | ECON | Unknown | | + + +---------+ + Care Team Providers + +------+ + | Care Home Coordinator Name | Role | Phone | [...] | | | | | insufficienc | [place], [place] | [place] | | | | | y Rheumatic | [address] | [address] | | | | | tricuspid | Phone: | Phone: | | | | | insufficienc | [phone] | [phone] | | | | | y Pulmonary | Fax: | Fax: | | | | | | [phone] | [phone] | | | | | hypertension | | | | | | | , | | | | | | | unspecified | | | | | | | Procedures | | | | | | | [place] | | | | | | [...] | | | | Mailcode: [id number] | [place], [place] | annular | | | | [facility] | [address] | calcification | | | | [address], | [phone] | | | | | [place] [address] | | | | | | [phone] | | | +--------+---------+ + + + [...] and severe MR. Mrs Sapp, lives in [facility] and is brought in by her daughter today who lives w ith her. 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 She was first hospitalized at [facility] in [facility] i n November 2017 with s/s of heart failure. Over the course of the spring she has noticed new and progressive MAYA as well as new LE edema. She was previously active but could no longer walk a 1/4 block. She was re-admitted to the hospital in [facility] in February 2018 again with he art failure. Echo in february was notable for normal to hyperdynamic LV systolic function, severe MAC, severe MR, moderate to severe TR, and mild . 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 She has followed up with Dr Barbara Blue at [facility] in the [facility] and referred to [facility] for consideration of MitraClip . Since February she has had no further decompensated heart failure episodes To expidite her evaluation, she has already been referred and undergone TTE, JUAN MANUEL, CT scan o f chest a week ago a well as angiogrpahy yesterday on 06/30/2018. Symptoms & Exercise/Activity Levels: Lives in [facility] with her Daughter in a 2 story [...] afterwards. Her activities are typically quilting for [employer] and the [employer] and sedentary without dyspnea. Any little activty [...] great. She previously was working out at [employer]. She would g o out ot her [employer] groups. Was completely independent In all activities and shopping co oking and cleaning. She typically has lunch outside of the house, cooks her own simple dinne rs, and has oatmeal for breakfast. She has had an appointment for consultation with Dr. Blue who will continue to follow her u p in [facility]. The patient denies rest or exertional [...] Frailty Index Date Taken: 07/01/2018 1. Left Change Management Director Strength (kg): 12 Right Change Management Director Strength (kg): 10 2. Five Meter Walk [...] measuring <10 mm in diameter.There i s rcgy-ie-ekrjj shunting noted on color Doppler. TTE: 06/19/2018 [...] fenestrated secundum atrial septal defect, with intermittent wvrt-oy-ushjy flow via color-flow Doppler. 12. Moderate tricuspid [...]
--- OUTSIDE RECORDS SUMMARY | ~2019-10-07 | XMS | Encounter Summary ---
Demographics + + + | Address | [address] | | | [place] [address] | + + + | Home Phone | | + + + | Preferred Language | Unknown | + + + | Marital Status | Single | + + + | Scientology Affiliation | NON | + + + [...] Team Providers + +------+ + | Care Bus Analyst Name | Role | Phone | + +------+ + | Renan Menendez MD | PCP | | + +------+ + Encounter Details +--------+ + + + + | Date | Type | Department | Care Team | Description | +--------+ + + + + | 06/02/ | Procedure | Diagnostic Imaging | | | | 2017 | Pass | Services at [facility] | | | | | | [address] | | | | | | Saray Isbell Mailcode: | | | | | | [address] [facility] | | | | | | [place], [place] | | | | | | [address] | | | | | | [phone] | | | +--------+ + + + [...]
--- OUTSIDE RECORDS SUMMARY | ~2019-10-07 | XMS | Encounter Summary ---
Demographics + + + | Address | [address] | | | [place] [address] | + + + | Home Phone | | + + + | Preferred Language | Unknown | + + + | Marital Status | | + + + | Gnosticist Affiliation | Unknown | + + + | Race | Unknown | + + + | Ethnic Group | Unknown | + + + Author + + + | Author | [facility] | | | and [place] | + + + | Organization | [facility] | | | [...] Team Providers + +------+ + | Care Respiratory Therapy Director Name | Role | Phone | [...] + + | 06/22/ | Office | [facility] | Rochelle Gibbons | Paroxysmal atrial | | 2019 | Visit | CARDIOLOGY [facility] | [address] | fibrillation (HCC) | | | | [address] | CHRISTIAN ALLEN F | (Primary Dx); | | | | [address] | [place] [address] | Coronary artery | | | | [place] | [phone] | disease of [place] | | | | [address] | | artery of [place] | | | | [phone] | | heart with stable | | [...] she had an extensiv e evaluation at [facility] in the latter part of 2017, [...] she continues to be monitored by the [facility], and that her INRs have [...] and back p ed . Lives in [place], shares duplex with daughter Darby, independent in [...] 40 mg by mouth 2 times daily.) Svrc-Xjqrd-DVJ-Boswellia-Vit D (GLUCOSAMINE CHOND TRIPLE/VIT D) TABS Take [...] mg by mouth daily. 1 pill daily Soc-Qhv-Lhu-Sat- Sat, 1/2 pill (2.5 mg) Sat- No [...] Small fenestra rasheed secundum ASD with intermittent etrg-xb-ovols flow. Moderate TR. Small plaque involving the [...] of 2-3, which is regulated by the [facility] . I discussed with her [...] fibrillation (HCC) 2. 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 Problem list. [facility] 06/22/2019 Pamela aguilar in this [...] RAMOS | | | | | | [place] [address] | | | | | | [phone] | | | | | | | [...] | | | | | disease of [place] | | | | | | artery of [place] | | | | | | heart [...] | | | | | by [employer] Read [employer], | | | | | | [employer] ([id number]), | | | | | | editor newspaper SHANIA GERARDO | | | | | [...] + + | Coronary artery disease of [place] artery of [place] heart with stable angina pectoris | | [...]
--- OUTSIDE RECORDS SUMMARY | ~2019-10-07 | XMS | Encounter Summary ---
Demographics + + + | Address | [address] | | | [place] [address] | + + + | Home Phone [...] Team Providers + +------+ + | Care Melter Loader Name | Role | Phone | + +------+ + | Renan Menendez MD | PCP | | + +------+ + Encounter Details +--------+ + + + + | Date | Type | Department | Care Team | Description | +--------+ + + + + | 08/26/ | Documentati | Cardiology at [facility] | Miladis Dumas, | | | 2018 | on | [address] | RN [address] | | | | | Mailcode: CH[address]A | [address] | | | | | [facility] | [place], [place] | | | | | and [place], | [address] | | | | | | | | | | | [place], [place] | | | | | | [address] | | | | | | [phone] | | | +--------+ + + + [...]
--- OUTSIDE RECORDS SUMMARY | ~2019-10-07 | XMS | Encounter Summary ---
Demographics + + + | Address | [address] | | | [place] [address] | + + + | Home Phone | | + + + | Preferred Language | Unknown | + + + | Marital Status | Single | + + + | Caodaism Affiliation | NON | + + + | Race | White | + + + | Ethnic Group | Not or | + + + Author + + + | Author | [facility] | + + + | Organization | [facility] | + + + | Address | Unknown | + + + | Phone | Unavailable | + + + Support + + +---------+ + | Name | Relationship | Address | Phone | + + +---------+ + | Darby Kate | ECON | Unknown | | + + +---------+ + Care Team Providers + +------+ + | Care Culinary Assistant Name | Role | Phone | + +------+ + | Renan Menendez MD | PCP | | + +------+ + Reason for Visit +--------+ + | Reason | Comments | +--------+ + | Other | surgery | +--------+ + Encounter Details +--------+ + + + + | Date | Type | Department | Care Team | Description | +--------+ + + + + | 10/15/ | Telephone | Cardiology at [facility] | Torri Ordonez, | Other (surgery ) | | 2019 | | [address] | [address] [facility] | | | | | Mailcode: [address] | [address] | | | | | [facility] | [place], [place] | | | | | and Healing, | [address] | | | | | [facility] | [phone] | | | | | Floor [place], [place] | | | | | | [address] | | | | | | [phone] | | | +--------+ + + + [...]
--- OUTSIDE RECORDS SUMMARY | ~2019-10-07 | XMS | Encounter Summary ---
Demographics + + + | Address | [address] | | | [place] [address] | + + + | Home Phone [...] Team Providers + +------+ + | Care Energy Sales Broker Name | Role | Phone | + +------+ + | Renan Menendez MD | PCP | | + +------+ + Encounter Details +--------+ + + + + | Date | Type | Department | Care Team | Description | +--------+ + + + + | 09/25/ | Abstract | Cardiology at [facility] | Danny Adams | | | 2018 | | [address] MD [address] | | | | | Mailcode: CH[address]A | [place], [place] | | | | | [facility] | [address] | | | | | and [place], | [phone] | | | | | | | | | | | [place], [place] | | | | | | [address] | | | | | | [phone] | | | +--------+ + + + [...]
--- OUTSIDE RECORDS SUMMARY | ~2019-10-07 | XMS | Encounter Summary ---
Demographics + + + | Address | [address] | | | [place] [address] | + + + | Home Phone | | + + + | Preferred Language | Unknown | + + + | Marital Status | Single | + + + | Jehovah'S Witness Affiliation | NON | + + + [...] Team Providers + +------+ + | Care Accreditation Coordinator Name | Role | Phone | + +------+ + | Renan Menendez MD | PCP | | + +------+ + Reason for Visit +--------+ + | Reason | Comments | +--------+ + | Other | appts on 11/25 | +--------+ + Encounter Details +--------+ + + + + | Date | Type | Department | Care Team | Description | +--------+ + + + + | 11/06/ | Telephone | Cardiology Complex | Torri Ordonez, | Other (appts on | | 2019 | | Valve at [facility] [address] | [address] | 02/19) | | | | [address] | [address] | | | | | Mailcode: [address] | [place], [place] | | | | | [facility] | [address] | | | | | [address], | [phone] | | | | | [place] [address] | | | | | | [phone] | | | +--------+ + + + [...]
--- OUTSIDE RECORDS SUMMARY | ~2019-10-07 | XMS | Encounter Summary ---
Demographics + + + | Address | [address] | | | [place] [address] | + + + | Home Phone | | + + + | Preferred Language | Unknown | + + + | Marital Status | Single | + + + | Confucianism Affiliation | NON | + + + [...] Team Providers + +------+ + | Care Seed Technician Name | Role | Phone | + [...] | | Review | | | | Arnaldo Oshea, | Maynor Oshea MD | | | | | Nonrheumatic | [address] | [address] | | | | | mitral | [address] | Ave | | | | | (valve) | [address] | [place], [place] | | | | | insufficienc | [place], [place] | [address] | | | | | y Rheumatic | [address] | Phone: | | | | | tricuspid | Phone: | [phone] | | | | | insufficienc | [phone] | Fax: | | | | | y Pulmonary | Fax: | [phone] | | | | | | [phone] | | | | | | hypertension | | | | | | | , | | | | | | | unspecified | | | | | | | Procedures | | | | | | | DE NEW | | | | | | | PATIENT | | | | | | | LEVEL V | | | + +--------+ + + + + Encounter Details +--------+---------+ + + + | Date | Type | Department | Care Team | Description | +--------+---------+ + + + | 07/01/ | Office | Cardiology at [facility] | Maynor Adams | Mitral valve | | 2017 | Visit | [address] | MD Dayo [address]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 Blue in [facility] for your heart care. Discuss the options of stenting of the right coronary artery with him in follow up as needed if chest pa in develops 2. Go up to the [facility] to meet with Dr. Ordonez, Dr. Tam, [...] Pizarro PA-C in the valve clinic at [phone] if you have a ny questions. documented in this encounter Progress Notes Ken Whitten MA - 07/01/2018 12:00 PM [place] Cardiomyopathy Questionnaire Over the past two weeks: [...] Hobbies, recreational activities: EXTREMELY LIMITED 1 b. Working/turf keeper: EXTREMELY LIMITED 1 c. Visiting outside the [...] and severe MR. Mrs Sapp, lives in [facility] and is brought in by her daughter today who lives w ith her. 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 She was first hospitalized at [facility] in [facility] i n November 2017 with s/s of heart failure. Over the course of the spring she has noticed new and progressive MAYA as well as new LE edema. She was previously active but could no longer walk a 1/4 block. She was re-admitted to the hospital in [facility] in February 2018 again with he art failure. Echo in february was notable for normal to hyperdynamic LV systolic function, severe MAC, severe MR, moderate to severe TR, and mild . 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 She has followed up with Dr Barbara Blue at [facility] in the [facility] and referred to [facility] for consideration of MitraClip . Since February she has had no further decompensated heart failure episodes To expidite her evaluation, she has already been referred and undergone TTE, JUAN MANUEL, CT scan o f chest a week ago a well as angiogrpahy yesterday on 06/30/2018. Symptoms & Exercise/Activity Levels: Lives in [facility] with her Daughter in a 2 story [...] afterwards. Her activities are typically quilting for [employer] and the [employer] and sedentary without dyspnea. Any little activty [...] great. She previously was working out at [employer]. She would g o out ot her [employer] groups. Was completely independent In all activities and shopping co oking and cleaning. She typically has lunch outside of the house, cooks her own simple dinne rs, and has oatmeal for breakfast. She has had an appointment for consultation with Dr. Blue who will continue to follow her u p in [facility]. The patient denies rest or exertional [...] Frailty Index Date Taken: 07/01/2018 1. Left Last Cleaner Strength (kg): 12 Right Last Cleaner Strength (kg): 10 2. Five Meter Walk [...] measuring <10 mm in diameter.There i s aqku-vu-tncoq shunting noted on color Doppler. TTE: 06/19/2018 [...] fenestrated secundum atrial septal defect, with intermittent zgrt-iw-btfin flow via color-flow Doppler. 12. Moderate tricuspid [...] to follow up with Dr. Blue in [facility] for your [facility] care. Discuss the options of stenting of the right coronary artery with him in follow up as needed if chest pain develops 2. Go up to [facility] to meet with Dr. Ordonez, Dr. Tam, [...] Pizarro PA-C in the valve clinic at [phone] if you have a ny questions. The patient and their family agree with the plan. We will follow up with the patient to co ordinate next steps once all relevant data has been completed and reviewed. Maynor Adams MD Preassembler And Inspector [facility] [place] documented in thi s encounter Plan of [...]
--- OUTSIDE RECORDS SUMMARY | ~2019-10-07 | XMS | Clinical Summary ---
Demographics + + + | Address | [address] | | | [place] [address] | + + + | Home Phone | | + + + | Preferred Language | Unknown | + + + | Marital Status | Single | + + + | Quaker Affiliation | NON | + + + [...] Team Providers + +------+ + | Care Laborer Cement Gun Placing Name | Role | Phone | + +------+ + | Renan Menendez MD | PCP | | + +------+ + Source Comments TAIWO is fully live on both [facility] and [facility] In[facility] Allergies + + + + + + [...] review. Team | | decided to offer bsqej-sh-DVQ, pending 3D reconstruction. NICOLE and SC did 3D | | reconstruction, ok to proceed w/procedure. Mina from [facility] will need to be present | | for case. NICOLE talking w/Zana Dumas at [employer]. [employer] has the CT and is working on | | getting Mina's availability.Date of Procedure: Valve Size & Type: 29mm I7Zvfnzb: | | RFVAnticoag PRE: warfarin, hold x5 [...] 07-03-2018 17:39:25 07/01/18: | | discussed at [facility] and seen at [facility]. 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 Plan is to stent | | the RCA (via primary warrant clerk), then re-eval in [facility] approx 3 mos s/p stent. CHINO said | | to schedule as a 30" visit during her lunch on an [facility] day so that way could be added | | on to [facility] that afternoon if needed.rkt | |Result Value [...] 17:39:25 | | | |07/01/18: discussed at [facility] and seen at [facility]. 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 Plan is to stent the RCA (via primary warrant clerk), then re-eval in [facility] approx 3 mos s/p stent. CHION sa id to schedule as | | a 30" visit during her lunch on an [facility] day so that way could be added on to [facility] that aft ernoon if needed. | |rkt [...] | | | | | | | [address] | | + +--------+ +--------+ + +--------+ [...] | | al/Fam | | 1930 | [phone] | [place] [address] | | | bacilio | | | 0 (Home) | | | | | | | [phone] | | | | | | | [...]
--- OUTSIDE RECORDS SUMMARY | ~2019-10-07 | XMS | Encounter Summary ---
Demographics + + + | Address | [address] | | | [place] [address] | + + + | Home Phone | | + + + | Preferred Language | Unknown | + + + | Marital Status | Single | + + + | Adventism Affiliation | NON | + + + | Race | White | + + + | Ethnic Group | Not or | + + + Author + + + | Author | [facility] | + + + | Organization | [facility] | + + + | Address | Unknown | + + + | Phone | Unavailable | + + + Support + + +---------+ + | Name | Relationship | Address | Phone | + + +---------+ + | Darby Kate | ECON | Unknown | | + + +---------+ + Care Team Providers + +------+ + | Care Copy Director Name | Role | Phone | + +------+ + | Renan Menendez MD | PCP | | + +------+ + Encounter Details +--------+ + + + + | Date | Type | Department | Care Team | Description | +--------+ + + + + | 09/25/ | Abstract | Cardiology at [facility] | Danny Adams | | | 2018 | | [address] MD [address] | | | | | Mailcode: CH[address]A | [place], [place] | | | | | [facility] | [address] | | | | | and [place], | [phone] | | | | | | | | | | | [place], [place] | | | | | | [address] | | | | | | [phone] | | | +--------+ + + + [...]
--- OUTSIDE RECORDS SUMMARY | ~2019-10-07 | XMS | Encounter Summary ---
Demographics + + + | Address | [address] | | | [place] [address] | + + + | Home Phone | | + + + | Preferred Language | Unknown | + + + | Marital Status | Single | + + + | Bahai Affiliation | NON | + + + | Race | White | + + + | Ethnic Group | Not or | + + + Author + + + | Author | [facility] | + + + | Organization | [facility] | + + + | Address | Unknown | + + + | Phone | Unavailable | + + + Support + + +---------+ + | Name | Relationship | Address | Phone | + + +---------+ + | Darby Kate | ECON | Unknown | | + + +---------+ + Care Team Providers + +------+ + | Care Fish Cutting Machine Operator Name | Role | Phone [...] | Catheterizati | Mitral | Bryan, | Program Rep | | | | on | valve | Danny Oshea MD | [address] | | | | | stenosis, | [address] | [address] | | | | | unspecified | [address] | Rd [facility] | | | | | etiology | [place], [place] | [facility] | | | | | Procedures | [address] | [place], [place] | | | | | CUSTOMER SERVICE ENGINEER INT | Phone: | [address] | | | | | CORONARY | [phone] | Phone: | | | | | ANGIOGRAM | Fax: | [phone] | | | | | OH R HRT | [phone] | Fax: | | | | | CORONARY | | [phone] | | | | | ARTERY ANGIO [...] + + | 06/30/ | Hospital | [facility] [address] | Elpidio Quinn, | | | 2018 | Encounter | [address] | [address] | | | | | [address] [facility] | [address] [place], | | | | | [place], [place] | [place] [address] | | | | | [address] | [phone] | | | | | [phone] | | | +--------+ + + + [...] in this encounter Discharge Instructions Instructions Julio Paul RN - 06/30/2018.Home Care for Cardiac Catheterization [...] immediately. Do not drive yourself to the [facility]. Diet ? Resume your regular diet. ? [...] emergencies after hours, weekends, and holidays, call [facility] Senior Nuclear Medicine Technologist at and ask to have the Internet Assessor on-call brayan dumont documented in this encounter [...] no complaints. Daughter at bedside, staying in [facility]. Last Vitals: BP 127/56 | Pulse 62 [...] current post-cath car e. Yuniel Dawson MD Internet Assessor Yuniel Anand MD - 0 06/30/2018 12:35 PM PDTCardiology Preliminary Procedure Note (Full report to follow) Primary Care Provider: Renan Menendez MD Referring Provider: Danny Adams MD Program Rep Staff: Elpidio Quinn MD Procedure(s): Coronary Angiography [...] None Complications: None Hemostasis: Manual compression in optical lab technician. Site: [facility]. Recommendations: Patient Status: Day patient Usual [...] | + +--------+ + + + | CUSTOMER SERVICE ENGINEER INT | Routin | 06/30/2018 | Mitral [...] 2017PATIENT DATA:Height 160 cmWeight 76.6 kgBSA 1.76 t3DMIKTMAPJA PHYSICIAN:Elpidio | | Cheyenne LewisPipe Insulator Helper, MedicineDepartment of CardiologyFELLOW:Caesar Gonzalez, | | FellowGeneral CardiologyINDICATIONS:Severe MRREFERRING PHYSICIAN:Danny Adams, | | DebbiePipe Insulator Helper, CardiologyPROCEDURES PERFORMED:1. Right heart | | catheterization.2. Selective coronary angiography.MEDICATIONS:1. Heparin IV 3000 | | units.2. Midazolam IV 1 mg.3. Nitroglycerin 200 mcg intra-arterial.4. Verapamil 2 mg | | intra-arterial.CONTRAST:Omnipaque 55 mL.FLUOROSCOPY TIME:6.4 minutes.FLUOROSCOPY | | DAP:4151.0 [id number] OF PROCEDURE:The procedure, its risks, benefits, and | | alternatives, were discussed with the patient and the patient was brought to the cath | | lab in the non-sedated state. A full PARQ was performed. A team pause was performed | | before the start of the procedure. A 7-Ugandan sheath was placed in the right internal | | jugular vein using ultrasound guidance and micropuncture needle. Through the 7-Ugandan | | sheath, we introduced a 7-Ugandan balloon wedge catheter all the way up [...] supervised all the aspects of this procedure. "Elpidio | | Ti Quinn Interventional/Structural Heart CardiologistK[facility] | | [place], [facility] HospitalDT: 06/30/2018 13:58:20Job #: | | [id number] | |h. Pulmonary artery saturation of 66% [...] |Elpidio Quinn MD | |Attending Interventional/Structural Heart Stud Beef Cattle Farmer | |[facility] [place], [facility] [place] | | | | /[id number] | + + INR (06/30/2018 10:15 AM [...] [facility] | [address] | [place] [address] | | | MARICARMEN TEE | JAMARI [...] | | | LABORATORY | | | ANGUILLAN | | | SERVICES, | | | [...] | + + + + + | [facility] | [address] | [place] [address] | | | SERVICES, CORE | JAMARI [...] | + + + + + | [facility] | [address] | [place] [address] | | | MARICARMEN TEE | JAMARI [...] (H) | 60 - 99 mg/dL | [facility] - | | | GLUCOSE, | [...] + + + | [facility] | [address] | [place], [place] | | | [facility] | [address] | [address] | | | TESTS | | | | + + + + + INTRAPROCEDURE IMAGING (06/30/2018 9:53 AM PDT) + + | Specimen | + + | | + + + + + | Narrative | Performed At | + + + | See admission or procedure notes for details of any intraprocedure | | | images obtained. | | + + + CUSTOMER SERVICE ENGINEER INT CORONARY ANGIOGRAM (06/30/2018 9:37 AM PDT) + + | Specimen | + + | | + + + + + | Narrative | Performed At | + + + | Procedure performed in the Cardiac Program Rep. See procedure notes | [facility] - | | for details. | [facility]RE[facility], | | | POINT OF CARE | | | TESTS | + + + + + + + + | Performing | Address | City/State/Zipcode | Phone Number | | Organization | | | | + + + + + | [facility] | [address] | [place], [place] | | | [facility] | [address] | [address] | | | TESTS | | | [...]
--- OUTSIDE RECORDS SUMMARY | ~2019-10-07 | XMS | Encounter Summary ---
Demographics + + + | Address | [address] | | | [place] [address] | + + + | Home Phone | | + + + | Preferred Language | Unknown | + + + | Marital Status | Single | + + + | Orthodox Affiliation | NON | + + + | Race | White | + + + | Ethnic Group | Not or | + + + Author + + + | Author | [facility] | + + + | Organization | [facility] | + + + | Address | Unknown | + + + | Phone | Unavailable | + + + Support + + +---------+ + | Name | Relationship | Address | Phone | + + +---------+ + | Darby Kate | ECON | Unknown | | + + +---------+ + Care Team Providers + +------+ + | Care Cad Cam Programmer Name | Role | Phone | + [...] | | [address] | [place] [address] | | | | | Mailcode: CH9A | | | | | | [facility] | | | | | | and Healing, | | | | | | Building [address] | | | | | | [place], [place] | | | | | | [address] | | | | | | [phone] | | | +--------+ + + + [...] Progress Betty Wong - 08/26/2018 1:05 PM [facility] Non Invasive Cardiac Services Test Date: 08/26/2018 Clinic Site: [facility] Supervising Provider: Padma Pizarro Implementation Project Manager: SYDNEE Referring Provider: Padma Pizarro Diagnosis: Non-rheumatic [...]
--- OUTSIDE RECORDS SUMMARY | ~2019-10-07 | XMS | Clinical Summary ---
Demographics + + + | Address | [address] | | | [place] [address] | + + + | Home Phone | | + + + | Preferred Language | Unknown | + + + | Marital Status | | + + + | Mosque Affiliation | Unknown | + + + | Race | Unknown | + + + | Ethnic Group | Unknown | + + + Author + + + | Author | [facility] (Historical as of | | | 05-23-19) | + + + | Organization | [facility] (Historical as of | | | 05-23-19) [...] Team Providers + +------+ + | Care Instructor Creeler Name | Role | Phone | + [...] | | | | Activ | | Sson-Zauda-UYM-Boswe | mouth daily. | | | | [...] | | e | | tablet | Grg-Mxe-Aiu, | | | | | | | [...] + + | Coronary artery disease of [place] artery of [place] heart with | 07/30/2018 | | stable [...] Heart | [place] | | 02/02/ | [id number] | | Stent-07/30/2018Implanted: | | | SCIENTIFIC | | 2020 | [id number] | | 07/30/2018 by Martin, | | | | | | 00 / | | Shanita Gaytan MD (Quantity not | | | | | | /[id number] | | on file) | | | [...] +------+-------+ + | MEDICARE | MEDICA | [id number] | | | [address] | | | RE | | | | [place], [place] [address] | | | IP-OP | | | | | + +--------+ +------+-------+ + | COMMERCIAL OTHER | BANKER | [id number] | | | | | | S [...] Self | [birth year] | Home: | [address] | | | al/Fam | | [phone] | [phone] | [place] | | | bacilio | | | [phone] | [address] | + +--------+ +--------+ + +
--- OUTSIDE RECORDS SUMMARY | ~2019-10-07 | XMS | Encounter Summary ---
Demographics + + + | Address | [address] | | | [place] [address] | + + + | Home Phone | | + + + | Preferred Language | Unknown | + + + | Marital Status | Single | + + + | Christian Affiliation | NON | + + + [...] Team Providers + +------+ + | Care Rake Operator Name | Role | Phone | [...] + | 06/26/ | Telephone | Cardiac Assistant Commissioner | Niki Donnelly RN | Education procedure | | 2018 | | at [address] | [address] | (angiogram, [facility]) | | | | [address] | Saray Isbell [place], | | | | | [facility] | [place] [address] | | | | | [place], [place] | | | | | | [address] | | | | | | [phone] | | | +--------+ + + + [...]
--- OUTSIDE RECORDS SUMMARY | ~2019-10-07 | XMS | Encounter Summary ---
Demographics + + + | Address | [address] | | | [place] [address] | + + + | Home Phone | | + + + | Preferred Language | Unknown | + + + | Marital Status | Single | + + + | Jainism Affiliation | NON | + + + | Race | White | + + + | Ethnic Group | Not or | + + + Author + + + | Author | [facility] | + + + | Organization | [facility] | + + + | Address | Unknown | + + + | Phone | Unavailable | + + + Support + + +---------+ + | Name | Relationship | Address | Phone | + + +---------+ + | Darby Kate | ECON | Unknown | | + + +---------+ + Care Team Providers + +------+ + | Care Patent Searcher Name | Role | Phone | + [...] | | (valve) | [address] | [place], [place] | | | | | insufficienc | [place] | [address] | | | | | y Rheumatic | [address] | Phone: | | | | | tricuspid | Phone: | [phone] | | | | | insufficienc | [phone] | Fax: | | | | | y Pulmonary | Fax: | [phone] | | | | | | [phone] | | | | | | hypertension [...] | 07/01/ | Office | Cardiology at [facility] | Maynor Adams | Mitral valve | | 2017 | Visit | [address] | MD Dayo [address] | insufficiency, | | | | Mailcode: CH9A | Ave [place], [place] | unspecified etiology | | | | [place] [facility] | [address] | (Primary Dx); | | | | and Healing, | [phone] | 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 Blue in [facility] for your heart care. Discuss the options of stenting of the right coronary artery with him in follow up as needed if chest pa in develops 2. Go up to the physicians [place] to meet with Dr. Ordonez, Dr. Tam, [...] Pizarro PA-C in the valve clinic at [phone] if you have a ny questions. documented in this encounter Progress Notes Ken Whitten MA - 07/01/2018 12:00 PM PDTRidgeview Cardiomyopathy Questionnaire Over the past two weeks: [...] Hobbies, recreational activities: EXTREMELY LIMITED 1 b. Working/drafter chief design: EXTREMELY LIMITED 1 c. Visiting outside the [...] and severe MR. Mrs Sapp, lives in [facility] and is brought in by her daughter today who lives w ith her. 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 She was first hospitalized at [facility] in [facility] i n November 2017 with s/s of heart failure. Over the course of the spring she has noticed new and progressive MAYA as well as new LE edema. She was previously active but could no longer walk a 1/4 block. She was re-admitted to the hospital in [facility] in February 2018 again with he art failure. Echo in february was notable for normal to hyperdynamic LV systolic function, severe MAC, severe MR, moderate to severe TR, and mild . 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 She has followed up with Dr Barbara Blue at [facility] and referred to [facility] for consideration of MitraClip . Since February she has had no further decompensated heart failure episodes To expidite her evaluation, she has already been referred and undergone TTE, JUAN MANUEL, CT scan o f chest a week ago a well as angiogrpahy yesterday on 06/30/2018. Symptoms & Exercise/Activity Levels: Lives in [facility] with her Daughter in a 2 [...] afterwards. Her activities are typically quilting for [employer] and the [employer] and sedentary without dyspnea. Any little activty [...] great. She previously was working out at [employer]. She would g o out ot her [employer] groups. Was completely independent In all activities and shopping co oking and cleaning. She typically has lunch outside of the house, cooks her own simple dinne rs, and has oatmeal for breakfast. She has had an appointment for consultation with Dr. Blue who will continue to follow her u p in [facility]. The patient denies rest or [...] Frailty Index Date Taken: 07/01/2018 1. Left Track Broom Operator Strength (kg): 12 Right Track Broom Operator Strength (kg): 10 2. Five Meter Walk [...] measuring <10 mm in diameter.There i s pgvd-ns-ixlit shunting noted on color Doppler. TTE: 06/19/2018 [...] fenestrated secundum atrial septal defect, with intermittent rcuw-tt-ugpse flow via color-flow Doppler. 12. Moderate tricuspid [...] to follow up with Dr. Blue in [facility] for your [facility] care. Discuss the options of stenting of the right coronary artery with him in follow up as needed if chest pain develops 2. Go up to the physicians [place] to meet with Dr. Ordonez, Dr. Tam, [...] Pizarro PA-C in the valve clinic at [phone] if you have a ny questions. The patient and their family agree with the plan. We will follow up with the patient to co ordinate next steps once all relevant data has been completed and reviewed. Maynor Adams MD Medical Facilities Section Director [facility] Cardiovascular [place] documented in thi s encounter Plan of [...]
--- OUTSIDE RECORDS SUMMARY | ~2019-10-07 | XMS | Encounter Summary ---
Demographics + + + | Address | [address] | | | [place] [address] | + + + | Home Phone | | + + + | Preferred Language | Unknown | + + + | Marital Status | Single | + + + | Yazidism Affiliation | NON | + + + [...] Team Providers + +------+ + | Care Hand Therapist Name | Role | Phone | + [...] | | | | | insufficienc | [address] | | | | | | y, | [address] | | | | | | unspecified | [place], [place] | | | | | | etiology | [address] | | | | | | Procedures | Phone: | | | | | | TRANSTHORACI | [phone] | | | | | | C | Fax: | | | | | | ECHOCARDIOGR | [phone] | | | | | | AM, [...] | | | Mitral | Bryan, | [facility] [address] | | | | | valve | Danny Oshea MD | [address] | | | | | insufficienc | [address] | Mailcode: | | | | | y, | [address] | [id number] | | | | | unspecified | [place], [place] | [address] | | | | | etiology | [address] | Building | | | | | Procedures | Phone: | [place], [place] | | | | | TRANSESOPHAG | [phone] | [address] | | | | | EAL | Fax: | Phone: | | | | | ECHOCARDIOGR | [phone] | [phone] | | | | | AM, ADULT | | | | | | | [place] ECHO | | | | | | | HEART,TRANSE | | | | | | | SOPHAGEAL,CO | | | | | | | MPLETE [place] | | | | | | | DOPPLER ECHO | | | | | | | | | | | | | | HEART,LIMITE | | | | | | | D,F/U [place] | | | | | | | [...] | | | | | insufficienc | [address] | | | | | | y, | [address] | | | | | | unspecified | [place], [place] | | | | | | etiology | [address] | | | | | | Procedures | Phone: | | | | | | CTA CHEST - | [phone] | | | | | | GATED W | Fax: | | | | | | CONTRAST | [phone] | | +--------+--------+ + + + + Reason for Visit +--------+ + | Reason | Comments | +--------+ + | Other | [facility] appt | +--------+ + Encounter Details +--------+ + + + + | Date | Type | Department | Care Team | Description | +--------+ + + + + | 05/30/ | Telephone | Cardiology at [facility] | Danny Adams | Other ([facility] appt) | | 2017 | | [address] Oshea MD [address] | | | | | Mailcode: CH9A | [place], [place] | | | | | [facility] | [address] | | | | | and [place], | [phone] | | | | | | | | | | | [place], [place] | | | | | | [address] | | | | | | [phone] | | | +--------+ + + + [...] Note | + + | Service Account, emotion.me In Interface - 06/19/2018 4:06 PM PDT [...] left. | | Mitral valve area: 9.3 fo5Idqwojnmn: 10.7 mmTT: 27 mmSL: 34mm CHEST:The heart [...] formed At | + +---- + | [facility] | [facility] DEPT OF | | [facility] Adult Echocardiography Laboratory [address] | | [address] [place], [place] [address] Ph: | | | Pt Name: ZANDRA JAIME | | | Study Date/Time 06/19/2018 / 9:51:19 AMMRN: [id number] | | | Most recent prior: 06/19/18Acc #: [id number] | | | No. previous echos: 1DOB: 1930 88 years Heart Rate: | | | 83 bpmHeight: 63.0 in Blood Pressure: | | | 136/75 mm/HgWeight: 145.0 lb Gender: | | | FBSA: 1.69 m2 Order ID: | | | [id number] Scratch Brusher: kristen Referring Provider: Danny Oshea | | | Jose [facility] Performed: Transesophageal | | | echocardiogram and Due to incomplete visualization of the mitral valve | | | structure, online 3D reconstruction was clinically indicated and | | | performed under the concurrent supervision of the interpreting | | | ethics instructor.Study Quality: Good.Exam Indication: Mitral | | | [...] septal | | | defect, with intermittent tcoc-zs-taysq flow via | | | color-flow Doppler. [...] | | atrial septal defect, with intermittent onut-si-mdzhh flow via | | | color-flow Doppler.Siemens JUAN MANUEL probe SN# [id number].Transesophageal echo | | | probe was passed by News Videotape Editor: Yes. Fellow participating in exam: | | | Rashard BRITOeport electronically signed by: [id number] Danny | | | Bryan Lewis (06/19/2018 [...] atrial septal defect, with intermittent | | |cxxx-bc-dtmfy flow via color-flow Doppler. | | |Siemens JUAN MANUEL probe SN# [id number]. | | |Transesophageal echo probe was passed by News Videotape Editor: Yes. | | | | | |Fellow participating in exam: Rashard Clarke MD | | |Report electronically signed by: [id number] Danny Adams M.D. (06/19/2018 6:28:58 | | |PM) | | | | | | | | | | | | Final | | + +---- + + + | Procedure Note | + + | Interface, Cardiology Results - 06/19/2018 6:29 PM [facility] | | [facility] Echocardiography Laboratory [address] [place] [address] | | [place], [place] [address] Pt Name: ZANDRA Edward | | MYRANDACallie Study Date/Time 06/19/2018 / 9:51:19 AMMRN: [id number] Most | | recent prior: 06/19/18Acc #: [id number] No. previous echos: 1DOB: | | 1930 88 years Heart Rate: 83 bpmHeight: 63.0 in Blood | | Pressure: 136/75 mm/HgWeight: 145.0 lb Gender: FBSA: | | 1.69 m2 Order ID: [id number]: kristen Referring Provider: | | Danny Garcia Location: [facility] Performed: Transesophageal | | echocardiogram and Due to incomplete visualization of the mitral valve structure, online | | 3D reconstruction was clinically indicated and performed under the concurrent | | supervision of the interpreting ethics instructor.Study Quality: Good.Exam Indication: Mitral | | regurgitationHistory: [...] atrial septal defect, with intermittent | | yywe-ua-hsutp flow via color-flow Doppler. 12. Moderate tricuspid [...] fenestrated secundum atrial septal defect, with intermittent iktj-qs-evwik flow via | | color-flow Doppler.Siemens JUAN MANUEL probe SN# [id number].Transesophageal echo probe was passed | | by News Videotape Editor: Yes.Fellow participating in exam: Rashard Clarke [facility]ITAL[facility]ort electronically | | signed by: [id number] Danny Adams M.D. (06/19/2018 6:28:58 PM) Final [...] secundum atrial septal defect, with intermittent | |llfb-uj-aalld flow via color-flow Doppler. | |Siemens JUAN MANUEL probe SN# [id number]. | |Transesophageal echo probe was passed by News Videotape Editor: Yes. | | | |Fellow participating in exam: Rashard Clarke MD | |Report electronically signed by: [id number] Danny Adams M.D. (06/19/2018 6:28:58 | |PM) | | | | | | | | Final | + + + + + + + | Performing | Address | City/State/Zipcode | Phone Number | | Organization | | | | + + + + + | [facility] DEPT OF | [address] | [place], [place] | | | CARDIOLOGY | [address] | [address] | | + + + + + [...] Performed At | + +- + | [facility] | [facility] DEPT OF | | [facility] Adult Echocardiography Laboratory [address] | CARDIOLOGY | | [address] [place], [place] [address] Ph: | | | Pt Name: ZANDRA JAIME | | | Study Date/Time 06/19/2018 / 7:31:24 [id number] | | | Most recent prior: -[facility] #: [id number] | | | No. previous echos: 0DOB: 1930 88 years Heart Rate: | | | 77 bpmHeight: 63.0 in Blood Pressure: | | | 124/61 mm/HgWeight: 142.0 lb Gender: | | | FBSA: 1.67 m2 Order ID: | | | [id number] Scratch Brusher: Rosanna Keith RDCSSonographer 2:Referring | | | Provider: Danny Garcia [facility] Performed: | | | 2D, Color [...] secundum ASD with minor | | | hthg-pm-gmupp shunting. Patient history has been obtained from [...] Report electronically signed | | | by: [id number] Danny Adams M.D. (06/19/2018, 12:57:18 PM) | [...] | | | |Report electronically signed by: [id number] Danny Adams M.D. (06/19/2018, | | |12:57:18 PM) | | | | | | | | | | | | Final | | + +- + + + | Procedure Note | + + | Interface, Cardiology Results - 06/19/2018 12:57 PM [facility] | | [facility] Echocardiography Laboratory [address] [place] [address] | | [place], [place] [address] Pt Name: ZANDRA JAIME Study Date/Time 06/19/2018 / 7:31:24 [facility] [id number] Most | | recent prior: -[facility] #: [id number] No. previous echos: 0DOB: 1930 88 | | years Heart Rate: 77 bpmHeight: 63.0 in Blood Pressure: 124/61 | | mm/HgWeight: 142.0 lb Gender: FBSA: 1.67 m2 | | Order ID: [id number] Scratch Brusher: Rosanna Keith RDCSSonographer 2:Referring | | Provider: [...] small secundum ASD with | | minor mdjg-gr-hidiv shunting. Patient history has been obtained from [...] | | values Report electronically signed by: [id number] Danny Adams M.D. (06/19/2018, | | 12:57:18 [...] | | | |Report electronically signed by: [id number] Danny Adams M.D. (06/19/2018, | |12:57:18 PM) | | | | | | | | Final | + + + + + + + | Performing | Address | City/State/Zipcode | Phone Number | | Organization | | | | + + + + + | [facility] DEPT OF | [address] | [place], [place] | | | CARDIOLOGY | [address] | [address] | | + + + + + documented in this encounter Visit Diagnoses + + | Diagnosis | + + | Mitral valve insufficiency, unspecified etiology - Primary | + + documented in this encounter"
--- OUTSIDE RECORDS SUMMARY | ~2019-10-07 | XMS | Encounter Summary ---
Demographics + + + | Address | [address] | | | [place] [address] | + + + | Home Phone | | + + + | Preferred Language | Unknown | + + + | Marital Status | Single | + + + | Mormon Affiliation | NON | + + + | Race | White | + + + | Ethnic Group | Not or | + + + Author + + + | Author | [facility] | + + + | Organization | [facility] | + + + | Address | Unknown | + + + | Phone | Unavailable | + + + Support + + +---------+ + | Name | Relationship | Address | Phone | + + +---------+ + | Darby Kate | ECON | Unknown | | + + +---------+ + Care Team Providers + +------+ + | Care Supply Coordinator Name | Role | Phone | + +------+ + | Renan Menendez MD | PCP | | + +------+ + Encounter Details +--------+ + + + + | Date | Type | Department | Care Team | Description | +--------+ + + + + | 08/06/ | Documentati | Cardiology General | Danny Adams | | | 2018 | on | at [facility] [address] MD [address] | | | | | [address] Mailcode: | [place], [place] | | | | | [address] | [address] | | | | | Health and Healing, | [phone] | | | | | | | | | | | [place], [place] | | | | | | [address] | | | | | | [phone] | | | +--------+ + + + [...]
--- OUTSIDE RECORDS SUMMARY | ~2019-10-07 | XMS | Encounter Summary ---
Demographics + + + | Address | [address] | | | [place] [address] | + + + | Home Phone | | + + + | Preferred Language | Unknown | + + + | Marital Status | | + + + | Adventism Affiliation | Unknown | + + + | Race | Unknown | + + + | Ethnic Group | Unknown | + + + Author + + + | Author | [facility] | | | and [place] | + + + | Organization | [facility] | | [...] Team Providers + +------+ + | Care Infrastructure Design Engineer Name | Role | Phone | + +------+ + | Renan Menendez MD | PCP | | + +------+ + Encounter Details +--------+ + + + + | Date | Type | Department | Care Team | Description | +--------+ + + + + | 07/25/ | Orders Only | [facility] | Arnaldo Blue, | | | 2018 | | CARDIOLOGY [place] | MD [address] | | | | | [address] | [place], | | | | | [place], [place] | [place] [address] | | | | | [address] | [phone] | | | | | [phone] | | | +--------+ + + + [...] RAMOS | | | | | | [place] [address] | | | | | | [phone] | | | | | | | | +--------+---------+ + + + documented as of this encounter Visit Diagnoses Not on filedocumented in this encounter"
--- OUTSIDE RECORDS SUMMARY | ~2019-10-07 | XMS | Encounter Summary ---
Demographics + + + | Address | [address] | | | [place] [address] | + + + | Home Phone | | + + + | Preferred Language | Unknown | + + + | Marital Status | Single | + + + | Confucianist Affiliation | NON | + + + [...] Team Providers + +------+ + | Care Production Technician Name | Role | Phone | [...] Roman | | | | | at [facility] | [facility] | | | | | [address] | [place] [address] | | | | | Loop Mailcode: | | | | | | [address] | | | | | | [facility] | | | | | | [place], [place] | | | | | | [address] | | | | | | [phone] | | | +--------+ + + + [...]
--- OUTSIDE RECORDS SUMMARY | ~2019-10-07 | XMS | Encounter Summary ---
Demographics + + + | Address | [address] | | | [place] [address] | + + + | Home Phone | | + + + | Preferred Language | Unknown | + + + | Marital Status | Single | + + + | Shinto Affiliation | NON | + + + [...] Team Providers + +------+ + | Care Argon Tester Name | Role | Phone | + +------+ + | No Pcp Per Patient | PCP | Unavailable | + +------+ + Reason for Visit + + + | Reason | Comments | + + + | Medical Records | [facility] review | | Review | | + + + Encounter Details +--------+ + + + + | Date | Type | Department | Care Team | Description | +--------+ + + + + | 05/21/ | Abstract | Cardiology at [facility] | Unknown . | Medical Records | | 2017 | | [address] | | Review ([facility] review) | | | | Mailcode: CHACHO | | | | | | [facility] | | | | | | and Healing, | | | | | | Building | | | | | | Floor [place], [place] | | | | | | [address] | | | | | | [phone] | | | +--------+ + + + [...] / Images yes Care Everywhere IMPAX 12/12/[address] [facility] LABS CBC, BMP (from last 6 months) [...] Tier 3 Response: Since coming from [facility], will need to consolidate trips if [...] place orders once confirmed. Danny Adams MD Staff Rn [facility] Cardiovascular [place] documented in thi s encounter Plan of Treatment Not on filedocumented as of this encounter Visit Diagnoses Not on filedocumented in this encounter"
--- OUTSIDE RECORDS SUMMARY | ~2019-10-07 | XMS | Encounter Summary ---
Demographics + + + | Address | [address] | | | [place] [address] | + + + | Home Phone [...] Providers + +------+ + | Care Plastic Fabricator Name | Role | Phone | + +------+ + | Renan Menendez MD | PCP | | + +------+ + Encounter Details +--------+ + + + + | Date | Type | Department | Care Team | Description | +--------+ + + + + | 08/13/ | Documentati | Cardiology at [facility] | Danny Adams | | | 2018 | on | [address] MD [address] | | | | | Mailcode: CHZuri | [place], [place] | | | | | [facility] | [address] | | | | | and [place], | [phone] | | | | | | | | | | | [place], [place] | | | | | | [address] | | | | | | [phone] | | | +--------+ + + + [...]
--- OUTSIDE RECORDS SUMMARY | ~2019-10-07 | XMS | Encounter Summary ---
Demographics + + + | Address | [address] | | | [place] [address] | + + + | Home Phone [...] Author + + + | Author | [facility] | + + + | Organization | [facility] | + + + | Address | Unknown | + + + | Phone | Unavailable | + + + Support + + +---------+ + | Name | Relationship | Address | Phone | + + +---------+ + | Darby Kate | ECON | Unknown | | + + +---------+ + Care Team Providers + +------+ + | Care Winery Cellar Hand Name | Role | Phone | [...] | | | | | insufficienc | [place], [place] | [place] | | | | | y Rheumatic | [address] | [address] | | | | | tricuspid | Phone: | Phone: | | | | | insufficienc | [phone] | [phone] | | | | | y Pulmonary | Fax: | Fax: | | | | | | [phone] | [phone] | | | | | hypertension | | | | | | | , | | | | | | | unspecified | | | | | | | Procedures | | | | | | | IN NEW | | | | | | [...] | | | | Mailcode: UHN62 | [place], [place] | | | | | Phys[address] [address] | [address] | | | | | [address], | [phone] | | | | | [place] [address] | | | | | | [phone] | | | +--------+---------+ + + + [...] and severe MR. Mrs Sapp, lives in [facility] and is brought in by her daughter today who lives w ith her. 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 She was first hospitalized at [facility] in [facility] i n November 2017 with s/s of heart failure. Over the course of the spring she has noticed new and progressive MAYA as well as new LE edema. She was previously active but could no longer walk a 1/4 block. She was re-admitted to the hospital in [facility] in February 2018 again with he art failure. Echo in february was notable for normal to hyperdynamic LV systolic function, severe MAC, severe MR, moderate to severe TR, and mild . 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 She has followed up with Dr Barbara Blue at [facility] in the [facility] and referred to [facility] for consideration of MitraClip . Since February she has had no further decompensated heart failure episodes To expidite her evaluation, she has already been referred and undergone TTE, JUAN MANUEL, CT scan o f chest a week ago a well as angiogrpahy yesterday on 06/30/2018. Symptoms & Exercise/Activity Levels: Lives in [facility] with her Daughter in a 2 [...] afterwards. Her activities are typically quilting for [employer] and the [employer] and sedentary without dyspnea. Any little activty [...] Frailty Index Date Taken: 07/01/2018 1. Left Audio Visual Engineer Strength (kg): 12 Right Audio Visual Engineer Strength (kg): 10 2. Five Meter Walk [...] measuring <10 mm in diameter.There i s amen-xo-eknvn shunting noted on color Doppler. TTE: 06/19/2018 [...] fenestrated secundum atrial septal defect, with intermittent ersy-mw-djqcu flow via color-flow Doppler. 12. Moderate tricuspid [...]
--- OUTSIDE RECORDS SUMMARY | ~2019-10-07 | XMS | Encounter Summary ---
Demographics + + + | Address | [address] | | | [place] [address] | + + + | Home Phone [...] Team Providers + +------+ + | Care Immigration Law Specialist Name | Role | Phone | [...] | Catheterizati | Mitral | Bryan, | Theatre Professor | | | | on | valve | Danny Oshea MD | [address] | | | | | stenosis, | [address] | [address] | | | | | unspecified | [address] | Rd [facility] | | | | | etiology | [place], [place] | Hospital | | | | | Procedures | [address] | [place], [place] | | | | | OFFENSIVE COORDINATOR INT | Phone: | [address] | | | | | CORONARY | [phone] | Phone: | | | | | ANGIOGRAM | Fax: | [phone] | | | | | MA R HRT | [phone] | Fax: | | | | | CORONARY | | [phone] | | | | | ARTERY ANGIO [...] + | 06/02/ | Telephone | Cardiac Theatre Professor | Danny Adams | Procedure | | 2017 | | at [facility] [address] MD [address] | | | | | [address] | [place], [place] | | | | | [facility] | [address] | | | | | [place], [place] | [phone] | | | | | [address] | | | | | | [phone] | | | +--------+ + + + [...] + + documented in this encounter Results OFFENSIVE COORDINATOR INT CORONARY ANGIOGRAM (06/30/2018 9:37 AM PDT) + + | Specimen | + + | | + + + + + | Narrative | Performed At | + + + | Procedure performed in the Cardiac Theatre Professor. See procedure notes | [facility] - | | for details. | [facility], | | | POINT OF CARE | | | TESTS | + + + + + + + + | Performing | Address | City/State/Zipcode | Phone Number | | Organization | | | | + + + + + | [facility] | [address] | [place], [place] | | | [facility] | [address] | [address] | | | TESTS | | | [...]
--- OUTSIDE RECORDS SUMMARY | ~2019-10-07 | XMS | Encounter Summary ---
Demographics + + + | Address | [address] | | | [place] [address] | + + + | Home Phone [...] + + + | Author | [facility] | + + + | Organization | [facility] | + + + | Address | Unknown | + + + | Phone | Unavailable | + + + Support + + +---------+ + | Name | Relationship | Address | Phone | + + +---------+ + | Dabry Kate | ECON | Unknown | | + + +---------+ + Care Team Providers + +------+ + | Care Hypnotherapist Name | Role | Phone | + +------+ + | Renan Menendez MD | PCP | | + +------+ + Encounter Details +--------+ + + + + | Date | Type | Department | Care Team | Description | +--------+ + + + + | 07/15/ | Documentati | Cardiology at [facility] | Padma Pizarro | | | 2018 | on | [address] | SAM[place]THA Segovia [address] | | | | | Mailcode: CH9A | [address] [place], | | | | | [facility] | [place] [address] | | | | | and Healing, | [phone] | | | | | | | | | | | [place], [place] | | | | | | [address] | | | | | | [phone] | | | +--------+ + + + [...]
--- OUTSIDE RECORDS SUMMARY | ~2019-10-07 | XMS | Encounter Summary ---
Demographics + + + | Address | [address] | | | [place] [address] | + + + | Home Phone | | + + + | Preferred Language | Unknown | + + + | Marital Status | Single | + + + | Samaritan Affiliation | NON | + + + | Race | White | + + + | Ethnic Group | Not or | + + + Author + + + | Author | [facility] | + + + | Organization | [facility] | + + + | Address | Unknown | + + + | Phone | Unavailable | + + + Support + + +---------+ + | Name | Relationship | Address | Phone | + + +---------+ + | Darby Kate | ECON | Unknown | | + + +---------+ + Care Team Providers + +------+ + | Care Audit Mgr Name | Role | Phone | + [...] | | [address] | [place] [address] | | | | | Mailcode: CH9A | | | | | | [facility] | | | | | | and Healing, | | | | | | Building [address] | | | | | | [place], [place] | | | | | | [address] | | | | | | [phone] | | | +--------+ + + + [...] Progress Betty Wong - 08/26/2018 1:05 PM [facility] Non Invasive Cardiac Services Test Date: 08/26/2018 Clinic Site: [facility] Supervising Provider: Padma Pizarro Store Lead: SYDNEE Referring Provider: Padma Pizarro Diagnosis: Non-rheumatic [...]
--- OUTSIDE RECORDS SUMMARY | ~2019-10-07 | XMS | Encounter Summary ---
Demographics + + + | Address | [address] | | | [place] [address] | + + + | Home Phone | | + + + | Preferred Language | Unknown | + + + | Marital Status | Single | + + + | Christianity Affiliation | NON | + + + [...] Team Providers + +------+ + | Care Colleter Name | Role | Phone | + +------+ + | Renan Mennedez MD | PCP | | + +------+ [...] | | | | | ECHOCARDIOGR | [place], [place] | | | | | | AM, ADULT | [address] | | | | | | | Phone: | | | | | | | [phone] | | | | | | | Fax: | | | | | | | [phone] | | + +--------+ + + + [...] | regurgitatio | [facility] | [address] [facility] | | | | | n | for Health | [facility] | | | | | Procedures | and Healing, | Building | | | | | TRANSESOPHAG | [address], | [place], [place] | | | | | EAL | 9th Floor | [address] | | | | | ECHOCARDIOGR | [place], [place] | Phone: | | | | | AM, ADULT | [address] | [phone] | | | | | [place] ECHO | Phone: | | | | | | HEART,TRANSE | [phone] | | | | | | [place] | Fax: | | | | | | [place] | [phone] | | | | | | DOPPLER ECHO | | | | | | | | | | | | | | HEART,LIMITE | | | | | | | D,F/U [place] | | | | | | | DOPPLER | | | | | | | COLOR FLOW | | | | | | | VELOCITY MAP | | | | | | | [place] | | | | | | | [...] | 08/13/ | Telephone | Cardiology at [facility] | Miladis Dumas, | Surgery Scheduling | | 2018 | | [address] | RN [address] | [facility] | | | | Mailcode: [facility] | [address] | | | | | [facility] | [place], [place] | | | | | and [place], | [address] | | | | | [facility], | | | | | | [place], [place] | | | | | | [address] | | | | | | [phone] | | | +--------+ + + + [...] Performed At | + + + | [facility] Non Invasive Cardiac Services Test Date: 08/26/2018 | | | Clinic Site: [facility] Supervising Provider: Padma Pizarro Litharge Mill Operator: | | | VS Referring Provider: Padma [...] | | | ft. Danny Adams MD Check Totaler Knight | | | Cardiovascular [place] | | + + + documented in this encounter Visit Diagnoses + + | Diagnosis | + + | Non-rheumatic mitral regurgitation - Primary | + + documented in this encounter"
--- OUTSIDE RECORDS SUMMARY | ~2019-10-07 | XMS | Clinical Summary ---
Demographics + + + | Address | [address] | | | [place] [address] | + + + | Home Phone | | + + + | Preferred Language | Unknown | + + + | Marital Status | | + + + | Latter-Day Affiliation | Unknown | + + + | Race | Unknown | + + + | Ethnic Group | Unknown | + + + Author + + + | Author | [facility] (Historical as of | | | 05-23-19) | + + + | Organization | [facility] (Historical as of | | | 05-23-19) [...] Team Providers + +------+ + | Care Coating Engineer Name | Role | Phone | [...] | | | | Activ | | Eljx-Zgqkm-DRY-Boswe | mouth daily. | | | | [...] | | e | | tablet | Kms-Aeu-Hxb, | | | | | | | [...] + + | Coronary artery disease of [place] artery of [place] heart with | 07/30/2018 | | stable [...] Heart | [facility] | | 02/02/ | [id number] | | Stent-07/30/2018Implanted: | | | SCIENTIFIC | | 2020 | [id number] | | 07/30/2018 by Martin, | | | | | | 00 / | | Shanita Gaytan MD (Quantity not | | | | | | /[id number] | | on file) | | | [...] +------+-------+ + | MEDICARE | MEDICA | [id number] | | | [address] | | | RE | | | | [place], [place] [address] | | | IP-OP | | | | | + +--------+ +------+-------+ + | COMMERCIAL OTHER | BANKER | [id number] | | | | | | S [...] Self | [birth year] | Home: | [address] | | | al/Fam | | [phone] | [phone] [place] | | | bacilio | | | [phone] | [address] | + +--------+ +--------+ + +
--- OUTSIDE RECORDS SUMMARY | ~2019-10-07 | XMS | Encounter Summary ---
Demographics + + + | Address | [address] | | | [place] [address] | + + + | Home Phone [...] Author + + + | Author | [facility] | + + + | Organization | [facility] | + + + | Address | Unknown | + + + | Phone | Unavailable | + + + Support + + +---------+ + | Name | Relationship | Address | Phone | + + +---------+ + | Darby Kate | ECON | Unknown | | + + +---------+ + Care Team Providers + +------+ + | Care Record Searcher Name | Role | Phone | + +------+ + | Renan Menendez MD | PCP | | + +------+ + Encounter Details +--------+ + + + + | Date | Type | Department | Care Team | Description | +--------+ + + + + | 08/06/ | Documentati | Cardiology General | Danny Adams | | | 2018 | on | at [facility] [address] MD [address] | | | | | [address] Mailcode: | [place], [place] | | | | | [address] | [address] | | | | | Health and Healing, | [phone] | | | | | | | | | | | [place], [place] | | | | | | [address] | | | | | | [phone] | | | +--------+ + + + [...]
--- OUTSIDE RECORDS SUMMARY | ~2019-10-07 | XMS | Encounter Summary ---
Demographics + + + | Address | [address] | | | [place] [address] | + + + | Home Phone [...] Author + + + | Author | [facility] | + + + | Organization | [facility] | + + + | Address | Unknown | + + + | Phone | Unavailable | + + + Support + + +---------+ + | Name | Relationship | Address | Phone | + + +---------+ + | Darby Kate | ECON | Unknown | | + + +---------+ + Care Team Providers + +------+ + | Care Planer Setup Operator Name | Role | Phone | + +------+ + | Renan Menendez MD | PCP | | + +------+ + Encounter Details +--------+ + + + + | Date | Type | Department | Care Team | Description | +--------+ + + + + | 06/02/ | Procedure | Diagnostic Imaging | | | | 2017 | Pass | Services at [facility] | | | | | | [address] | | | | | | [place] Mailcode: | | | | | | [address] [facility] | | | | | | [place], [place] | | | | | | [address] | | | | | | [phone] | | | +--------+ + + + [...]
--- OUTSIDE RECORDS SUMMARY | ~2019-10-07 | XMS | Encounter Summary ---
Demographics + + + | Address | [address] | | | [place] [address] | + + + | Home Phone | | + + + | Preferred Language | Unknown | + + + | Marital Status | Single | + + + | Faith Affiliation | NON | + + + | Race | White | + + + | Ethnic Group | Not or | + + + Author + + + | Author | [facility] | + + + | Organization | [facility] | + + + | Address | Unknown | + + + | Phone | Unavailable | + + + Support + + +---------+ + | Name | Relationship | Address | Phone | + + +---------+ + | Darby Kate | ECON | Unknown | | + + +---------+ + Care Team Providers + +------+ + | Care Primary Clinician Name | Role | Phone | + [...] | | | | | insufficienc | [address] | | | | | | y, | [address] | | | | | | unspecified | [place], [place] | | | | | | etiology | [address] | | | | | | Procedures | Phone: | | | | | | TRANSTHORACI | [phone] | | | | | | C | Fax: | | | | | | ECHOCARDIOGR | [phone] | | | | | | AM, [...] | | | Mitral | Bryan, | [facility] [address] | | | | | valve | Danny Oshea MD | [address] | | | | | insufficienc | [address] | Mailcode: | | | | | y, | [address] | [address] | | | | | unspecified | [place], [place] | [address] | | | | | etiology | [address] | Building | | | | | Procedures | Phone: | [place], [place] | | | | | TRANSESOPHAG | [phone] | [address] | | | | | EAL | Fax: | Phone: | | | | | ECHOCARDIOGR | [phone] | [phone] | | | | | AM, ADULT | | | | | | | DC ECHO | | | | | | | HEART,TRANSE | | | | | | | SOPHAGEAL,[place] | | | | | | | MPLETE [place] | | | | | | | DOPPLER ECHO | | | | | | | | | | | | | | HEART,LIMITE | | | | | | | D,F/U DC | | | | | | | [...] | | | | | insufficienc | [address] | | | | | | y, | [address] | | | | | | unspecified | [place], [place] | | | | | | etiology | [address] | | | | | | Procedures | Phone: | | | | | | CTA CHEST - | [phone] | | | | | | GATED W | Fax: | | | | | | CONTRAST | [phone] | | +--------+--------+ + + + + Reason for Visit +--------+ + | Reason | Comments | +--------+ + | Other | [facility] appt | +--------+ + Encounter Details +--------+ + + + + | Date | Type | Department | Care Team | Description | +--------+ + + + + | 05/30/ | Telephone | Cardiology at [facility] | Danny Adams | Other ([facility] appt) | | 2017 | | [address] Oshea MD [address] | | | | | Mailcode: CH9A | [place], [place] | | | | | [facility] | [address] | | | | | and [place], | [phone] | | | | | | | | | | | [place], [place] | | | | | | [address] | | | | | | [phone] | | | +--------+ + + + [...] Note | + + | Service Account, [employer] In Interface - 06/19/2018 4:06 PM PDT [...] left. | | Mitral valve area: 9.3 fu4Dtvlmchwy: 10.7 mmTT: 27 mmSL: 34mm CHEST:The heart [...] formed At | + +---- + | [facility] | [facility] DEPT OF | | [facility] Adult Echocardiography Laboratory [address] | | [place], [place] [address] Ph: | | | Pt Name: ZANDRA JAIME | | | Study Date/Time 06/19/2018 / 9:51:19 AMMRN: [id number] | | | Most recent prior: 06/19/18Acc #: [id number] | | | No. previous echos: 1DOB: 1930 88 years Heart Rate: | | | 83 bpmHeight: 63.0 in Blood Pressure: | | | 136/75 mm/HgWeight: 145.0 lb Gender: | | | FBSA: 1.69 m2 Order ID: | | | [id number] Counter Intelligence Technician: kristen Referring Provider: Danny Oshea | | | Jose [facility] Performed: Transesophageal | | | echocardiogram and Due to incomplete visualization of the mitral valve | | | structure, online 3D reconstruction was clinically indicated and | | | performed under the concurrent supervision of the interpreting | | | government affairs fellow.Study Quality: Good.Exam Indication: Mitral | | | [...] septal | | | defect, with intermittent eyuf-qm-dzsay flow via | | | color-flow Doppler. [...] | | atrial septal defect, with intermittent fgyz-um-eznnv flow via | | | color-flow Doppler.Siemens JUAN MANUEL probe SN# [id number].Transesophageal echo | | | probe was passed by Graduate Fellow: Yes. Fellow participating in exam: | | | Rashard BRITOeport electronically signed by: [id number] Danny | | | rByan Lewis (06/19/2018 6:28:58 PM) Final | | [...] atrial septal defect, with intermittent | | |daac-rv-iajir flow via color-flow Doppler. | | |Siemens JUAN MANUEL probe SN# [id number]. | | |Transesophageal echo probe was passed by Graduate Fellow: Yes. | | | | | |Fellow participating in exam: Rashard Clarke MD | | |Report electronically signed by: [id number] Danny Adams M.D. (06/19/2018 6:28:58 | | |PM) | | | | | | | | | | | | Final | | + +---- + + + | Procedure Note | + + | Interface, Cardiology Results - 06/19/2018 6:29 PM [facility] | | [facility] Echocardiography Laboratory [address] [place] [address] | | [place], [place] [address] Pt Name: ZANDRA Edward | | MYRANDACallie Study Date/Time 06/19/2018 / 9:51:19 AMMRN: [id number] Most | | recent prior: 06/19/18Acc #: [id number] No. previous echos: 1DOB: | | 1930 88 years Heart Rate: 83 bpmHeight: 63.0 in Blood | | Pressure: 136/75 mm/HgWeight: 145.0 lb Gender: FBSA: | | 1.69 m2 Order ID: [id number]: kristen Referring Provider: | | Danny Garcia Location: [facility] Performed: Transesophageal | | echocardiogram and Due to incomplete visualization of the mitral valve structure, online | | 3D reconstruction was clinically indicated and performed under the concurrent | | supervision of the interpreting government affairs fellow.Study Quality: Good.Exam Indication: Mitral | | regurgitationHistory: [...] atrial septal defect, with intermittent | | elke-za-jnlfj flow via color-flow Doppler. 12. Moderate tricuspid [...] fenestrated secundum atrial septal defect, with intermittent hfly-lv-upuum flow via | | color-flow Doppler.Siemens JUAN MANUEL probe SN# [id number].Transesophageal echo probe was passed | | by Graduate Fellow: Yes.Fellow participating in exam: Rashard Clarke [facility] electronically | | signed by: [id number] Danny Adams M.D. (06/19/2018 6:28:58 PM) Final [...] secundum atrial septal defect, with intermittent | |btdq-pd-lhjmo flow via color-flow Doppler. | |Siemens JUAN MANUEL probe SN# [id number]. | |Transesophageal echo probe was passed by Graduate Fellow: Yes. | | | |Fellow participating in exam: Rashard Clarke MD | |Report electronically signed by: [id number] Danny Adams M.D. (06/19/2018 6:28:58 | |PM) | | | | | | | | Final | + + + + + + + | Performing | Address | City/State/Zipcode | Phone Number | | Organization | | | | + + + + + | [facility] DEPT OF | [address] | [place], [place] | | | CARDIOLOGY | [address] | [address] | | + + + + + [...] Performed At | + +- + | [facility] | [facility] DEPT OF | | [facility] Adult Echocardiography Laboratory [address] | CARDIOLOGY | | [address], [place] [address] Ph: | | | Pt Name: ZANDRA JAIME | | | Study Date/Time 06/19/2018 / 7:31:24 [id number] | | | Most recent prior: -[facility] #: [id number] | | | No. previous echos: 0DOB: 1930 88 years Heart Rate: | | | 77 bpmHeight: 63.0 in Blood Pressure: | | | 124/61 mm/HgWeight: 142.0 lb Gender: | | | FBSA: 1.67 m2 Order ID: | | | [id number] Counter Intelligence Technician: Rosanna Keith RDCSSonographer 2:Referring | | | Provider: Danny Garcia [facility] Performed: | | | 2D, Color [...] secundum ASD with minor | | | uylr-cz-ipufx shunting. Patient history has been obtained from [...] Report electronically signed | | | by: [id number] Danny Adams M.D. (06/19/2018, 12:57:18 PM) | [...] | | | |Report electronically signed by: [id number] Danny Adams M.D. (06/19/2018, | | |12:57:18 PM) | | | | | | | | | | | | Final | | + +- + + + | Procedure Note | + + | Interface, Cardiology Results - 06/19/2018 12:57 PM [facility] | | [facility] Echocardiography Laboratory [address] [place] [address] | | [place], [place] [address] Pt Name: ZANDRA JAIME Study Date/Time 06/19/2018 / 7:31:24 [facility] [id number] Most | | recent prior: -[facility] #: [id number] No. previous echos: 0DOB: 1930 88 | | years Heart Rate: 77 bpmHeight: 63.0 in Blood Pressure: 124/61 | | mm/HgWeight: 142.0 lb Gender: FBSA: 1.67 m2 | | Order ID: [id number] Counter Intelligence Technician: Rosanna Keith RDCSSonographer 2:Referring | | Provider: [...] small secundum ASD with | | minor jjwc-uq-ttsdd shunting. Patient history has been obtained from [...] | | values Report electronically signed by: [id number] Danny Adams M.D. (06/19/2018, | | 12:57:18 [...] | | | |Report electronically signed by: [id number] Danny Adams M.D. (06/19/2018, | |12:57:18 PM) | | | | | | | | Final | + + + + + + + | Performing | Address | City/State/Zipcode | Phone Number | | Organization | | | | + + + + + | [facility] DEPT OF | [address] | [place], [place] | | | CARDIOLOGY | [address] | [address] | | + + + + + documented in this encounter Visit Diagnoses + + | Diagnosis | + + | Mitral valve insufficiency, unspecified etiology - Primary | + + documented in this encounter"
--- OUTSIDE RECORDS SUMMARY | ~2019-10-07 | XMS | Encounter Summary ---
Demographics + + + | Address | [address] | | | [place] [address] | + + + | Home Phone [...] Author + + + | Author | [facility] | + + + | Organization | [facility] | + + + | Address | Unknown | + + + | Phone | Unavailable | + + + Support + + +---------+ + | Name | Relationship | Address | Phone | + + +---------+ + | Darby Kate | ECON | Unknown | | + + +---------+ + Care Team Providers + +------+ + | Care Urologist Physician Name | Role | Phone | + [...] | | | | | ECHOCARDIOGR | [place], [place] | | | | | | AM, ADULT | [address] | | | | | | | Phone: | | | | | | | [phone] | | | | | | | Fax: | | | | | | | [phone] | | + +--------+ + + + [...] | | | | Non-rheumati | [address] | [address] | | | | | c mitral | Mailcode: | Mailcode: | | | | | regurgitatio | CH9A Center | [address] [facility] | | | | | n | for Health | [facility] | | | | | Procedures | and Healing, | Building | | | | | TRANSESOPHAG | Building 1, | [place], [place] | | | | | EAL | 9th Floor | [address] | | | | | ECHOCARDIOGR | [place], [place] | Phone: | | | | | AM, ADULT | [address] | [phone] | | | | | [place] ECHO | Phone: | | | | | | HEART,TRANSE | [phone] | | | | | | [place] | Fax: | | | | | | MPLETE [place] | [phone] | | | | | | DOPPLER ECHO | | | | | | | | | | | | | | HEART,LIMITE | | | | | | | D,F/U [place] | | | | | | | DOPPLER | | | | | | | COLOR FLOW | | | | | | | VELOCITY MAP | | | | | | | [place] | | | | | | | [...] | 08/13/ | Telephone | Cardiology at [facility] | Miladis Dumas, | Surgery Scheduling | | 2018 | | [address] | RN [address] | [facility]18[facility] | | | | Mailcode: [facility] | [address] | | | | | [facility] | [place], [place] | | | | | and [place], | [address] | | | | | [facility], | | | | | | [place], [place] | | | | | | [address] | | | | | | [phone] | | | +--------+ + + + [...] Performed At | + + + | [facility] Non Invasive Cardiac Services Test Date: 08/26/2018 | | | Clinic Site: [facility] Supervising Provider: Padma Pizarro Speech Language Pathology Assistant: | | | VS Referring Provider: Padma [...] | | | ft. Danny Adams MD Boiler Coverer Knight | | | Cardiovascular [place] | | + + + documented in this encounter Visit Diagnoses + + | Diagnosis | + + | Non-rheumatic mitral regurgitation - Primary | + + documented in this encounter"
--- OUTSIDE RECORDS SUMMARY | ~2019-10-07 | XMS | Encounter Summary ---
Demographics + + + | Address | [address] | | | [place] [address] | + + + | Home Phone [...] Author + + + | Author | [facility] | + + + | Organization | [facility] | + + + | Address | Unknown | + + + | Phone | Unavailable | + + + Support + + +---------+ + | Name | Relationship | Address | Phone | + + +---------+ + | Darby Kate | ECON | Unknown | | + + +---------+ + Care Team Providers + +------+ + | Care Chef Head Name | Role | Phone | + [...] | Event | Non-Invasive Testing | [address] [facility] | | | | | at [facility] [address] | [address] | | | | | [address] | [place], [place] | | | | | Kimberly Mailcode: | [address] | | | | | [address] | [phone] | | | | | [facility] | | | | | | [place], [place] | [place], | | | | | [address] | FILM NUMBERER [address] [facility] | | | | | [phone] | [address] | | | | | | [place], [place] | | | | | | [address] | | | | | | [phone] | | | | | | | [...]
--- OUTSIDE RECORDS SUMMARY | ~2019-10-07 | XMS | Encounter Summary ---
Demographics + + + | Address | [address] | | | [place] [address] | + + + | Home Phone | | + + + | Preferred Language | Unknown | + + + | Marital Status | Single | + + + | Baptism Affiliation | NON | + + + [...] Team Providers + +------+ + | Care Tissue Rewinder Name | Role | Phone | + +------+ + | Renan Menendez MD | PCP | | + +------+ + Encounter Details +--------+ + + + + | Date | Type | Department | Care Team | Description | +--------+ + + + + | 07/15/ | Documentati | Cardiology at [facility] | Padma Pizarro | | | 2018 | on | [address] | [place] [address] | | | | | Mailcode: CH9A | [address] [place], | | | | | [facility] | [place] [address] | | | | | and Healing, | [phone] | | | | | | | | | | | [place], [place] | | | | | | [address] | | | | | | [phone] | | | +--------+ + + + [...]
--- OUTSIDE RECORDS SUMMARY | ~2019-10-07 | XMS | Encounter Summary ---
Demographics + + + | Address | [address] | | | [place] [address] | + + + | Home Phone | | + + + | Preferred Language | Unknown | + + + | Marital Status | | + + + | Voodoo Affiliation | Unknown | + + + | Race | Unknown | + + + | Ethnic Group | Unknown | + + + Author + + + | Author | [facility] | | | and [place] | + + + | Organization | [facility] | | | [...] Team Providers + +------+ + | Care Quarter Seamer Name | Role | Phone | + [...] | | | | [place] | [phone] | | | | | [address] | | | | | | [phone] | | | +--------+ + + + [...] | | | | | [place] [address] | | | | | | [phone] | | | | | | | | +--------+---------+ + + + documented as of this encounter Visit Diagnoses Not on filedocumented in this encounter"
--- OUTSIDE RECORDS SUMMARY | ~2019-10-07 | XMS | Encounter Summary ---
Demographics + + + | Address | [address] | | | [place] [address] | + + + | Home Phone | | + + + | Preferred Language | Unknown | + + + | Marital Status | Single | + + + | Baptist Affiliation | NON | + + + [...] Providers + +------+ + | Care Educational Specialist Name | Role | Phone | [...] Roman | | | | | at [facility] | [facility] | | | | | [address] | [place] [address] | | | | | Loop Mailcode: | | | | | | [address] | | | | | | [facility] | | | | | | [place], [place] | | | | | | [address] | | | | | | [phone] | | | +--------+ + + + [...]
--- OUTSIDE RECORDS SUMMARY | ~2019-10-07 | XMS | Encounter Summary ---
Demographics + + + | Address | [address] | | | [place] [address] | + + + | Home Phone [...] + + + | Author | [facility] | + + + | Organization | [facility] | + + + | Address | Unknown | + + + | Phone | Unavailable | + + + Support + + +---------+ + | Name | Relationship | Address | Phone | + + +---------+ + | Draby Kate | ECON | Unknown | | + + +---------+ + Care Team Providers + +------+ + | Care Wood Miller Name | Role | Phone | + +------+ + | Renan Menendez MD | PCP | | + +------+ + Encounter Details +--------+ + + + + | Date | Type | Department | Care Team | Description | +--------+ + + + + | 07/15/ | Documentati | Cardiology at [facility] | Padma Pizarro | | | 2018 | on | [address] | [address]THA Seg[address] | | | | | Mailcode: CH9A | [address] [place], | | | | | [facility] | [place] [address] | | | | | and Healing, | [phone] | | | | | | | | | | | [place], [place] | | | | | | [address] | | | | | | [phone] | | | +--------+ + + + [...]
--- OUTSIDE RECORDS SUMMARY | ~2019-10-07 | XMS | Encounter Summary ---
Demographics + + + | Address | [address] | | | [place] [address] | + + + | Home Phone [...] + + | Author | [facility] | | | and [place] | + + + | Organization | [facility] | | | [...] Team Providers + +------+ + | Care Potato Chip Maker Name | Role | Phone | + +------+ + | Renan Menendez MD | PCP | | + +------+ + Encounter Details +--------+ + + + + | Date | Type | Department | Care Team | Description | +--------+ + + + + | 07/25/ | Orders Only | [facility] | Arnaldo Blue, | | | 2018 | | CARDIOLOGY [place] | MD [address] | | | | | [address] | [place]ANY [place], | | | | | [place], [place] | [place] [address] | | | | | [address] | [phone] | | | | | [phone] | | | +--------+ + + + [...] RAMOS | | | | | | [place] [address] | | | | | | [phone] | | | | | | | | +--------+---------+ + + + documented as of this encounter Visit Diagnoses Not on filedocumented in this encounter"
--- OUTSIDE RECORDS SUMMARY | ~2019-10-07 | XMS | Clinical Summary ---
Demographics + + + | Address | [address] | | | [place] [address] | + + + | Home Phone | | + + + | Preferred Language | Unknown | + + + | Marital Status | | + + + | Judaism Affiliation | Unknown | + + + | Race | Unknown | + + + | Ethnic Group | Unknown | + + + Author + + + | Author | [facility] | | | and [place] | + + + | Organization | [facility] | | | and [...] Team Providers + +------+ + | Care Demurrage Man Name | Role | Phone | + [...] + + | Coronary artery disease of [place] artery of [place] heart with | 07/30/2018 | | stable [...] | | | | | [place] [address] | | | | | | [phone] | | | | | | | [...] +--------+ +---------+--------+ | MEDICARE | MEDICA | [id number] | 02/04/19 | [phone] | | Medica | | | RE | | 97-Pre | 5 | | re | | | PART A | | sent | | | | | | AND B | | | | | | + +--------+ +--------+ +---------+--------+ | [employer] | BANKER | [id number] | 02/05/20 | [phone] | | Indemn [...] bacilio | | | 0 (Home) | [address] | + +--------+ +--------+ + + Advance Directives + + + + + | Type | Date Recorded | Patient | Explanation | | | | Gang Boss | | + + + + + | Power of | | | | | Rolloff Truck Driver | | | | + + + + + | Advance | | | | | Directive | | | | + + + + +
--- OUTSIDE RECORDS SUMMARY | ~2019-10-07 | XMS | Encounter Summary ---
Demographics + + + | Address | [address] | | | [place] [address] | + + + | Home Phone | | + + + | Preferred Language | Unknown | + + + | Marital Status | Single | + + + | Hinduism Affiliation | NON | + + + [...] + +------+ + | Care Education And Development Manager Name | Role | Phone | [...] | 08/22/ | Telephone | Cardiology at [facility] | Paradise Dumasalessandra Guerra, | Surgery Scheduling | | 2018 | | [address] | RN [address] | (cancel MitraClip on | | | | Mailcode: CH9A | [address] | 08/27/18) | | | | [facility] | [place], [place] | | | | | and Healing, | [address] | | | | | Building [address], | | | | | | [place], [place] | | | | | | [address] | | | | | | [phone] | | | +--------+ + + + [...]
--- OUTSIDE RECORDS SUMMARY | ~2019-10-07 | XMS | Encounter Summary ---
Demographics + + + | Address | [address] | | | [place] [address] | + + + | Home Phone | | + + + | Preferred Language | Unknown | + + + | Marital Status | | + + + | Shinto Affiliation | Unknown | + + + | Race | Unknown | + + + | Ethnic Group | Unknown | + + + Author + + + | Author | [facility] | | | and [place] | + + + | Organization | [facility] | | | and [...] Team Providers + +------+ + | Care R D Manager Name | Role | Phone | [...] | | | | [place] | [phone] | | | | | [address] | | | | | | [phone] | | | +--------+ + + + [...] | | | | | [place] [address] | | | | | | [phone] | | | | | | | | +--------+---------+ + + + documented as of this encounter Visit Diagnoses Not on filedocumented in this encounter"
--- OUTSIDE RECORDS SUMMARY | ~2019-10-07 | XMS | Encounter Summary ---
Demographics + + + | Address | [address] | | | [place] [address] | + + + | Home Phone | | + + + | Preferred Language | Unknown | + + + | Marital Status | Single | + + + | Congregational Affiliation | NON | + + + [...] Team Providers + +------+ + | Care Drain Tile Press Operator Name | Role | Phone | [...] | | | | Mailcode: UHN62 | [place], [place] | | | | | Physician's Alba | [address] | | | | | [address], | [phone] | | | | | [place] [address] | | | | | | [phone] | | | +--------+ + + + [...]
--- OUTSIDE RECORDS SUMMARY | ~2019-10-07 | XMS | Encounter Summary ---
Demographics + + + | Address | [address] | | | [place] [address] | + + + | Home Phone | | + + + | Preferred Language | Unknown | + + + | Marital Status | Single | + + + | Mandaen Affiliation | NON | + + + | Race | White | + + + | Ethnic Group | Not or | + + + Author + + + | Author | [facility] | + + + | Organization | [facility] | + + + | Address | Unknown | + + + | Phone | Unavailable | + + + Support + + +---------+ + | Name | Relationship | Address | Phone | + + +---------+ + | Darby Kate | ECON | Unknown | | + + +---------+ + Care Team Providers + +------+ + | Care Photographer'S Model Name | Role | Phone | + [...] | Catheterizati | Mitral | Bryan, | Body Maker Machine Setter | | | | on | valve | Danny Oshea MD | [address] | | | | | stenosis, | [address] | [address] | | | | | unspecified | [address] | Rd [facility] | | | | | etiology | [place], [place] | Hospital | | | | | Procedures | [address] | [place], [place] | | | | | OCCUPATIONAL THERAPIST'S ASSISTANT INT | Phone: | [address] | | | | | CORONARY | [phone] | Phone: | | | | | ANGIOGRAM | Fax: | [phone] | | | | | [place] R HRT | [phone] | Fax: | | | | | CORONARY | | [phone] | | | | | ARTERY ANGIO [...] + | 06/02/ | Telephone | Cardiac Body Maker Machine Setter | Danny Adams | Procedure | | 2017 | | at [facility] [address] Oshe[address] MD [address] | | | | | [address] | [place], [place] | | | | | [facility] | [address] | | | | | [place], [place] | [phone] | | | | | [address] | | | | | | [phone] | | | +--------+ + + + [...] + + documented in this encounter Results OCCUPATIONAL THERAPIST'S ASSISTANT INT CORONARY ANGIOGRAM (06/30/2018 9:37 AM PDT) + + | Specimen | + + | | + + + + + | Narrative | Performed At | + + + | Procedure performed in the Cardiac Body Maker Machine Setter. See procedure notes | [facility] - | | for details. | [facility], | | | POINT OF CARE | | | TESTS | + + + + + + + + | Performing | Address | City/State/Zipcode | Phone Number | | Organization | | | | + + + + + | [facility] | [address] | [place], [place] | | | [facility] | [address] | [address] | | | TESTS | | | [...]
--- OUTSIDE RECORDS SUMMARY | ~2019-10-07 | XMS | Encounter Summary ---
Demographics + + + | Address | [address] | | | [place] [address] | + + + | Home Phone [...] Author + + + | Author | [facility] | + + + | Organization | [facility] | + + + | Address | Unknown | + + + | Phone | Unavailable | + + + Support + + +---------+ + | Name | Relationship | Address | Phone | + + +---------+ + | Darby Kate | ECON | Unknown | | + + +---------+ + Care Team Providers + +------+ + | Care Customer Solutions Architect Name | Role | Phone | + [...] | | at [facility] | [facility] | | | | | [address] | [place] [address] | | | | | Loop Mailcode: | | | | | | [id number] Abel [address] | | | | | | [facility] | | | | | | [place], [place] | | | | | | [address] | | | | | | [phone] | | | +--------+ + + + [...]
--- OUTSIDE RECORDS SUMMARY | ~2019-10-07 | XMS | Encounter Summary ---
Demographics + + + | Address | [address] | | | [place] [address] | + + + | Home Phone [...] Team Providers + +------+ + | Care Content Producer Name | Role | Phone | + [...] | | | | Mailcode: [id number] | [place], [place] | | | | | [facility] | [address] | | | | | [address] [place], | [phone] | | | | | [place] [address] | | | | | | [phone] | | | +--------+ + + + [...]
--- OUTSIDE RECORDS SUMMARY | ~2019-10-07 | XMS | Encounter Summary ---
Demographics + + + | Address | [address] | | | [place] [address] | + + + | Home Phone | | + + + | Preferred Language | Unknown | + + + | Marital Status | Single | + + + | Nondenominational Affiliation | NON | + + + [...] Team Providers + +------+ + | Care Financial Administrative Assistant Name | Role | Phone | + +------+ + | Renan Menendez MD | PCP | | + +------+ + Encounter Details +--------+ + + + + | Date | Type | Department | Care Team | Description | +--------+ + + + + | 08/13/ | Documentati | Cardiology at [facility] | Danny Adams | | | 2018 | on | [address] MD [address] | | | | | Mailcode: CHuZri | [place], [place] | | | | | [facility] | [address] | | | | | and [place], | [phone] | | | | | | | | | | | [place], [place] | | | | | | [address] | | | | | | [phone] | | | +--------+ + + + [...]
--- OUTSIDE RECORDS SUMMARY | ~2019-10-07 | XMS | Encounter Summary ---
Demographics + + + | Address | [address] | | | [place] [address] | + + + | Home Phone [...] Team Providers + +------+ + | Care Artificial Insemination Technician Name | Role | Phone | [...] | Catheterizati | Mitral | Bryan, | Clinical Practitioner | | | | on | valve | Danny Oshea MD | [address] | | | | | stenosis, | [address] | [address] | | | | | unspecified | [address] | Rd [facility] | | | | | etiology | [place], [place] | [facility] | | | | | Procedures | [address] | [place], [place] | | | | | DIRECTOR OF MEDICAL EDUCATION INT | Phone: | [phone] | | | | | CORONARY | [phone] | Phone: | | | | | ANGIOGRAM | Fax: | [phone] | | | | | [place] R HRT | [phone] | Fax: | | | | | CORONARY | | [phone] | | | | | ARTERY ANGIO [...] + + | 06/30/ | Hospital | [facility] [address] | Elpidio Quinn, | | | 2018 | Encounter | [address] | [address] | | | | | [address] [facility] | [address] [place], | | | | | [place], [place] | [place] [address] | | | | | [address] | [phone] | | | | | [phone] | | | +--------+ + + + [...] immediately. Do not drive yourself to the [facility]. Diet ? Resume your regular diet. [...] emergencies after hours, weekends, and holidays, call [facility] at and ask to have the Pipe Cutter on-call brayan dumont documented in this encounter [...] no complaints. Daughter at bedside, staying in [facility]. Last Vitals: BP 127/56 | Pulse 62 [...] current post-cath car e. 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 Site: [facility] Trang. Recommendations: Patient Status: Day patient Usual [...] | + +--------+ + + + | DIRECTOR OF MEDICAL EDUCATION INT | Routin | 06/30/2018 | Mitral [...] 2017PATIENT DATA:Height 160 cmWeight 76.6 kgBSA 1.76 [id number] PHYSICIAN:Elpidio | | Cheyenne LewisManager Sterile Processing, MedicineDepartment of CardiologyFELLOW:Caesar Gonzalez, | | FellowGeneral CardiologyINDICATIONS:Severe MRREFERRING PHYSICIAN:Danny Adams, | | DebbieManager Sterile Processing, CardiologyPROCEDURES PERFORMED:1. Right heart | | catheterization.2. Selective coronary angiography.MEDICATIONS:1. Heparin IV 3000 | | units.2. Midazolam IV 1 mg.3. Nitroglycerin 200 mcg intra-arterial.4. Verapamil 2 mg | | intra-arterial.CONTRAST:Omnipaque 55 mL.FLUOROSCOPY TIME:6.4 minutes.FLUOROSCOPY | | DAP:4151.0 [id number] OF PROCEDURE:The procedure, its risks, benefits, and | | alternatives, were discussed with the patient and the patient was brought to the cath | | lab in the non-sedated state. A full PARQ was performed. A team pause was performed | | before the start of the procedure. A 7-Northern Irish sheath was placed in the right internal | | jugular vein using ultrasound guidance and micropuncture needle. Through the 7-Northern Irish | | sheath, we introduced a 7-Northern Irish balloon wedge catheter all the way up [...] Quinn Interventional/Structural Heart CardiologistK[facility] | | [place]: 06/30/2018 13:58:20Job #: | | [id number] | |h. Pulmonary artery saturation of 66% [...] |Elpidio Quinn MD | |Attending Interventional/Structural Heart Race Car Mechanic | |[facility] [place] [place] | | | | /[id number] | + + INR (06/30/2018 10:15 AM [...] [facility] | [address] | [place] [address] | | | [address] TEE | JAMARI [...] | | | LABORATORY | | | [facility] | | | SERVICES, | | | [...] | + + + + + | [facility] [employer] | [address] | [place] [address] | | | SERVICES, CORE | JAMARI [...] | + + + + + | [facility] | [address] | [place] [address] | | | MAR[address] | JAMARI [...] (H) | 60 - 99 mg/dL | [facility] - | | | GLUCOSE, | | [...] + + + | [facility] | [address] | [place], [place] | | | HERNAN KAMARA OF [facility] | [address] | [address] | | | TESTS | | | | + + + + + INTRAPROCEDURE IMAGING (06/30/2018 9:53 AM PDT) + + | Specimen | + + | | + + + + + | Narrative | Performed At | + + + | See admission or procedure notes for details of any intraprocedure | | | images obtained. | | + + + DIRECTOR OF MEDICAL EDUCATION INT CORONARY ANGIOGRAM (06/30/2018 9:37 AM PDT) + + | Specimen | + + | | + + + + + | Narrative | Performed At | + + + | Procedure performed in the Cardiac Clinical Practitioner. See procedure notes | [facility] - | | for details. | ANDREINA KAMARA, | | | POINT OF CARE | | | TESTS | + + + + + + + + | Performing | Address | City/State/Zipcode | Phone Number | | Organization | | | | + + + + + | [facility] | [address] | [place], [place] | | | HERNAN KAMARA OF [facility] | [address] | [address] | | | TESTS | | | [...]
--- OUTSIDE RECORDS SUMMARY | ~2019-10-07 | XMS | Encounter Summary ---
Demographics + + + | Address | [address] | | | [place] [address] | + + + | Home Phone [...] Author + + + | Author | [facility] | + + + | Organization | [facility] | + + + | Address | Unknown | + + + | Phone | Unavailable | + + + Support + + +---------+ + | Name | Relationship | Address | Phone | + + +---------+ + | Darby Kate | ECON | Unknown | | + + +---------+ + Care Team Providers + +------+ + | Care Stream Control Officer Name | Role | Phone | [...] | 10/15/ | Telephone | Cardiology at [facility] | Torri Ordonez, | Other (surgery ) | | 2019 | | [address] | [address] [facility] | | | | | Mailcode: CH9A | [address] | | | | | [facility] | [place], [place] | | | | | and Healing, | [address] | | | | | [facility] | [phone] | | | | | Floor [place], [place] | | | | | | [address] | | | | | | [phone] | | | +--------+ + + + [...]
--- OUTSIDE RECORDS SUMMARY | ~2019-10-07 | XMS | Clinical Summary ---
Demographics + + + | Address | [address] | | | [place] [address] | + + + | Home Phone [...] Team Providers + +------+ + | Care Chin Strap Sewer Name | Role | Phone | + +------+ + | Renan Menendez MD | PCP | | + +------+ + Source Comments [facility] is fully live on both [facility] and [facility] Allergies + + + + + [...] review. Team | | decided to offer [id number], pending 3D reconstruction. NICOLE and SC did 3D | | reconstruction, ok to proceed w/procedure. Mina from [facility] will need to be present | | for case. NICOLE talking w/Zana Dumas at [facility]. [facility] has the CT and is working on | | getting Mina's availability.Date of Procedure: Valve Size & Type: 29mm [id number]: | | RFVAnticoag PRE: warfarin, hold x5 [...] 07-03-2018 17:39:25 07/01/18: | | discussed at [facility] and seen at [facility]. 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 Plan is to stent | | the RCA (via primary partition making machine operator), then re-eval in HVC approx 3 mos s/p stent. CHINO said | | to schedule as a 30" visit during her lunch on an [facility] day so that way could be added | | on to [facility] that afternoon if needed.rkt | |Result [...] 17:39:25 | | | |07/01/18: discussed at [facility] and seen at [facility]. 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 Plan is to stent the RCA (via primary partition making machine operator), then re-eval in [facility]VC approx 3 mos s/p stent. CHINO sa id to schedule as | | a 30" visit during her lunch on an [facility] day so that way could be added on to [facility] that aft ernoon if needed. | [...] | | | | | | | [address] | | + +--------+ +--------+ + +--------+ [...] | | al/Fam | | 1930 | [phone] | [place] [address] | | | bacilio | | | 0 (Home) | | | | | | | [phone] | | | | | | | [...]
--- OUTSIDE RECORDS SUMMARY | ~2019-10-07 | XMS | Encounter Summary ---
Demographics + + + | Address | [address] | | | [place] [address] | + + + | Home Phone [...] Providers + +------+ + | Care Potato Pancake Frier Name | Role | Phone | + +------+ + | Renan Menendez MD | PCP | | + +------+ + Encounter Details +--------+ + + + + | Date | Type | Department | Care Team | Description | +--------+ + + + + | 06/19/ | Set Up / Operator | Cardiology at [facility] | Danny Adams | Mitral valve | | 2018 | | [address] | MD Dayo [address] | insufficiency, | | | | Mailcode: CH9A | [place], [place] | unspecified etiology | | | | [place] for [facility] | [address] | (Primary Dx) | | | | and Healing, | [phone] | | | | | | | | | | | Floor [place], [place] | | | | | | [address] | | | | | | [phone] | | | +--------+ + + + [...] RENDON OF | [address] | [place], [place] | | | CARDIOLOGY | [address] | [address] | | + + + + + documented in this encounter Visit Diagnoses + + | Diagnosis | + + | Mitral valve insufficiency, unspecified etiology - Primary | + + documented in this encounter"
--- OUTSIDE RECORDS SUMMARY | ~2019-10-07 | XMS | Encounter Summary ---
Demographics + + + | Address | [address] | | | [place] [address] | + + + | Home Phone | | + + + | Preferred Language | Unknown | + + + | Marital Status | Single | + + + | Yazdanism Affiliation | NON | + + + [...] Team Providers + +------+ + | Care Client Service Representative Name | Role | Phone | + [...] | 10/15/ | Telephone | Cardiology at [facility] | Torri Ordonez, | Other (surgery ) | | 2019 | | [address] | [address] [facility] | | | | | Mailcode: CH9A | [address] | | | | | [facility] | [place], [place] | | | | | and Healing, | [address] | | | | | [facility] | [phone] | | | | | Floor [place], [place] | | | | | | [address] | | | | | | [phone] | | | +--------+ + + + [...]
--- OUTSIDE RECORDS SUMMARY | ~2019-10-07 | XMS | Encounter Summary ---
Demographics + + + | Address | [address] | | | [place] [address] | + + + | Home Phone | | + + + | Preferred Language | Unknown | + + + | Marital Status | Single | + + + | Sikhism Affiliation | NON | + + + | Race | White | + + + | Ethnic Group | Not or | + + + Author + + + | Author | [facility] | + + + | Organization | [facility] | + + + | Address | Unknown | + + + | Phone | Unavailable | + + + Support + + +---------+ + | Name | Relationship | Address | Phone | + + +---------+ + | Darby Kate | ECON | Unknown | | + + +---------+ + Care Team Providers + +------+ + | Care Long Term Care Administrator Name | Role | Phone | + [...] | | | | | insufficienc | [place], [place] | [place] | | | | | y Rheumatic | [address] | [address] | | | | | tricuspid | Phone: | Phone: | | | | | insufficienc | [phone] | [phone] | | | | | y Pulmonary | Fax: | Fax: | | | | | | [phone] | [phone] | | | | | hypertension | | | | | | | , | | | | | | | unspecified | | | | | | | Procedures | | | | | | | [place] | | | | | | [...] | | | | Mailcode: UHN62 | [place], [place] | | | | | [facility] | [address] | | | | | [address], | [phone] | | | | | [place] [address] | | | | | | [phone] | | | +--------+---------+ + + + [...] and severe MR. Mrs Sapp, lives in [facility] and is brought in by her daughter today who lives w ith her. 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 She was first hospitalized at [facility] in [facility] i n November 2017 with s/s of heart failure. Over the course of the spring she has noticed new and progressive MAYA as well as new LE edema. She was previously active but could no longer walk a 1/4 block. She was re-admitted to the hospital in [facility] in February 2018 again with he art failure. Echo in february was notable for normal to hyperdynamic LV systolic function, severe MAC, severe MR, moderate to severe TR, and mild . 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 She has followed up with Dr Barbara Blue at [facility] in the [facility] and referred to [facility] for consideration of MitraClip . Since February she has had no further decompensated heart failure episodes To expidite her evaluation, she has already been referred and undergone TTE, JUAN MANUEL, CT scan o f chest a week ago a well as angiogrpahy yesterday on 06/30/2018. Symptoms & Exercise/Activity Levels: Lives in [facility] with her Daughter in a 2 story [...] afterwards. Her activities are typically quilting for [employer] and the [employer] and sedentary without dyspnea. Any little activty [...] Frailty Index Date Taken: 07/01/2018 1. Left Booker Strength (kg): 12 Right Booker Strength (kg): 10 2. Five Meter Walk [...] measuring <10 mm in diameter.There i s ynts-vc-xpuit shunting noted on color Doppler. TTE: 06/19/2018 [...] fenestrated secundum atrial septal defect, with intermittent edud-jb-egwko flow via color-flow Doppler. 12. Moderate tricuspid [...]
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
--- OUTSIDE RECORDS SUMMARY | ~2019-10-07 | XMS | Encounter Summary ---
Demographics + + + | Address | [address] | | | [place] [address] | + + + | Home Phone | | + + + | Preferred Language | Unknown | + + + | Marital Status | Single | + + + | Taoist Affiliation | NON | + + + [...] Team Providers + +------+ + | Care Finishing Area Operator Name | Role | Phone | + +------+ + | Renan Menendez MD | PCP | | + +------+ + Encounter Details +--------+ + + + + | Date | Type | Department | Care Team | Description | +--------+ + + + + | 08/13/ | Documentati | Cardiology at [facility] | Danny Adams | | | 2018 | on | [address] MD [address] | | | | | Mailcode: CHZuri | [place], [place] | | | | | [facility] | [address] | | | | | and [place], | [phone] | | | | | | | | | | | [place], [place] | | | | | | [address] | | | | | | [phone] | | | +--------+ + + + [...]
--- OUTSIDE RECORDS SUMMARY | ~2019-10-07 | XMS | Encounter Summary ---
Demographics + + + | Address | [address] | | | [place] [address] | + + + | Home Phone [...] Team Providers + +------+ + | Care Fairing Man Name | Role | Phone | + +------+ + | No Pcp Per Patient | PCP | Unavailable | + +------+ + Reason for Visit + + + | Reason | Comments | + + + | Medical Records | [facility] review | | Review | | + + + Encounter Details +--------+ + + + + | Date | Type | Department | Care Team | Description | +--------+ + + + + | 05/21/ | Abstract | Cardiology at [facility] | Unknown . | Medical Records | | 2017 | | [address] | | Review ([facility] review) | | | | Mailcode: CHACHO | | | | | | [facility] | | | | | | and Healing, | | | | | | Building | | | | | | Floor [place], [place] | | | | | | [address] | | | | | | [phone] | | | +--------+ + + + [...] / Images yes Care Everywhere IMPAX 12/12/17 [facility] LABS CBC, BMP (from last [...] Valve Tier 3 Response: Since coming from [facility], will need to consolidate trips [...] place orders once confirmed. Danny Adams MD Speech And Language Clinician [facility] [place] documented in thi s encounter Plan of Treatment Not on filedocumented as of this encounter Visit Diagnoses Not on filedocumented in this encounter"
--- OUTSIDE RECORDS SUMMARY | ~2019-10-07 | XMS | Encounter Summary ---
Demographics + + + | Address | [address] | | | [place] [address] | + + + | Home Phone [...] + + | Author | [facility] | | | and [place] | + + + | Organization | [facility] | | [...] Team Providers + +------+ + | Care Revenue Stamp Clerk Name | Role | Phone | [...] | | | | [place] | [phone] | | | | | [address] | | | | | | [phone] | | | +--------+ + + + [...] | | | | | [place] [address] | | | | | | [phone] | | | | | | | | +--------+---------+ + + + documented as of this encounter Visit Diagnoses Not on filedocumented in this encounter"
--- OUTSIDE RECORDS SUMMARY | ~2019-10-07 | XMS | Encounter Summary ---
Demographics + + + | Address | [address] | | | [place] [address] | + + + | Home Phone | | + + + | Preferred Language | Unknown | + + + | Marital Status | | + + + | Temple Affiliation | Unknown | + + + | Race | Unknown | + + + | Ethnic Group | Unknown | + + + Author + + + | Author | [facility] | | | and [place] | + + + | Organization | [facility] | | | [...] Team Providers + +------+ + | Care Hedis Nurse Name | Role | Phone | + [...] | | | | [place] | [phone] | | | | | [address] | | | | | | [phone] | | | +--------+ + + + [...] | | | | | [place] [address] | | | | | | [phone] | | | | | | | | +--------+---------+ + + + documented as of this encounter Visit Diagnoses Not on filedocumented in this encounter"
--- OUTSIDE RECORDS SUMMARY | ~2019-10-07 | XMS | Encounter Summary ---
Demographics + + + | Address | [address] | | | [place] [address] | + + + | Home Phone [...] Team Providers + +------+ + | Care Tire Groover Name | Role | Phone | + [...] | 08/22/ | Telephone | Cardiology at [facility] | Paradise Dumasalessandra Guerra, | Surgery Scheduling | | 2018 | | [address] | RN [address] | (cancel MitraClip on | | | | Mailcode: CH9A | [address] | 08/27/18) | | | | [facility] | [place], [place] | | | | | and Healing, | [address] | | | | | [address], | | | | | | [place], [place] | | | | | | [address] | | | | | | [phone] | | | +--------+ + + + [...]
--- OUTSIDE RECORDS SUMMARY | ~2019-10-07 | XMS | Encounter Summary ---
Demographics + + + | Address | [address] | | | [place] [address] | + + + | Home Phone | | + + + | Preferred Language | Unknown | + + + | Marital Status | Single | + + + | Hindu Affiliation | NON | + + + [...] Team Providers + +------+ + | Care Drafter Electrical Name | Role | Phone | + [...] + | 06/17/ | Telephone | Cardiac Residence Supervisor | Niki Donnelly RN | Education procedure | | 2018 | | at [facility] [address] | [address] | (JUAN MANUEL) | | | | [address] | [place], | | | | | [facility] | [place] [address] | | | | | [place], [place] | | | | | | [address] | | | | | | [phone] | | | +--------+ + + + [...]
[~2019-10-07 16:41] MED LIST changes: +ASPIR-LOW81 MG PO; +CLOPIDOGREL75 MG PO; +FEOSOL325 MG PO; +METOPROLOL SUCC50 MG PO
--- OUTSIDE RECORDS SUMMARY | 2019-10-07 16:44 | XMS ---
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 Care History Medical/Surgical 11/06/2018 [facility] - PATIENT AND FAMILY WOULD LIKE THIS INFORMATION STATED AND PRESENTED TO THE ED PHYSICIAN RIGHT AWAY WHEN PATIENT IS IN THE ED: - PATIENT DIAGNOSED WITH CHF IN 2018. - STENT PLACED IN 2018 AT [facility] - DR CASTRO IS PATIENT LPN INSTRUCTOR AT [facility]- [phone] - PATIENT HAS SEEN DR BAER AT [facility]- [phone] 11/03/2018 [facility] - Patient is currently established with [facility]. If patient is seen in the ED during business hours. Please contact CHWs at [facility]. Care Recommendation: This patient has had 5 or more Emergency Department visits in the last 12 months.\T\nbsp; Patient requires education on the scope and purpose of the ED as an acute care provider not a Primary Care Provider and should not be utilized for chronic conditions.\T\nbsp; These are guidelines and the provider should exercise clinical judgment when providing care. E.D. VISIT COUNT (12 MO.) 2 [facility]. TOTAL 2 NOTE: Visits indicate total known visits. 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 - Rheumatic mitral stenosis with insufficiency - Unspecified acute lower respiratory infection - Urinary tract infection, site not specified - Unsp Escherichia coli as the cause of diseases classd elswhr - Allergy status to narcotic agent status - termite control technician (current) use of aspirin - termite control technician (current) use of antithrombotics/antiplatelets - Acute on chronic diastolic (congestive) heart failure - Coronary angioplasty status - 1 Type 2 diabetes mellitus without complications - Chronic atrial fibrillation - Essential (primary) hypertension - Other termite control technician (current) drug therapy - Hypothyroidism, unspecified [email or web address]
--- NOTE | 2019-10-07 20:00 | NUR ---
PT ARRIVED TO THE FLOOR VIA STRETCHER AND WAS ALREADY ASSISTED OVER TO THE BED BEFORE THIS RN ENTERED THE ROOM. SHE IS ON 2LNC WITH RR EVEN AND NONLABORED. CALL LIGHT IS CLOSE AND ORIENTED PT TO THE ROOM.
--- NOTE | 2019-10-07 20:35 | NUR ---
ASSISTED PT TO THE RESTROOM AND BACK TO BED. TOOK A STANDING WEIGHT. PT DENIES FURTHER NEEDS AT THIS TIME. CALL LIGHT IS CLOSE.
--- NOTE | 2019-10-07 20:43 | NUR ---
VITALS AND WEIGHT DONE AND CHARTED. TV GUIDE GIVEN. BEDSIDE TABLE AND CALL LIGHT IN REACH.
--- NOTE | 2019-10-07 21:31 | NUR ---
VITALS I&OS AND BLOOD SUGAR DONE AND CHARTED. INFORMED AKIRA ADRIAN OF BLOOD SUGAR. FRESH WATER GIVEN. BEDSIDE TABLE AND CALL LIGHT IN REACH.
--- NOTE | 2019-10-07 21:42 | NUR ---
ASSESSMENT COMPLETED. SCHEDULED MEDS PROVIDED. PT UP TO BR AND BACK TO BED. O2 @ 2L NC. NO OTHER NEEDS,CALL LIGHT IN REACH.
--- NOTE | 2019-10-07 23:20 | NUR ---
PT RESTING IN BED, EYES CLOSED. RR 16, EVEN, UNLABORED. CALL LIGHT IN REACH.
--- NOTE | 2019-10-08 01:16 | NUR ---
PT RESTING IN BED, EYES CLOSED. RR 16, EVEN, UNLABORED. NC O2 @ 2L. CALL LIGHT IN REACH.
--- NOTE | 2019-10-08 01:38 | NUR ---
VITALS AND I&OS DONE AND CHARTED. HELPED PT TO THE BATHROOM AND BACK TO BED. BEDSIDE TABLE AND CALL LIGHT IN REACH.
--- NOTE | 2019-10-08 03:26 | NUR ---
PT AWAKE IN ROOM. ASSESSMNET COMPLETED. LUNG SOUNDS CLEAR. 1+ EDEMA IN BLE. PT TITRATED OFF O2, SPO2 99%. NO OTHER NEEDS, CALL LIGHT IN REACH.
--- NOTE | 2019-10-08 04:30 | NUR ---
PT AWAKE IN ROOM. SPO2 92% ON RA. PT PLACED ON 1L NC O2. NO OTHER NEEDS AT THIS TIME. CALL LIGHT IN REACH.
--- NOTE | 2019-10-08 05:37 | NUR ---
ASSISTED PT TO THE RESTROOM AND BACK TO BED. PT DENIES FURTHER NEEDS AT THIS TIME. CALL LIGHT IS CLOSE.
--- NOTE | 2019-10-08 06:32 | NUR ---
pt used call light to ask for assistance into restroom so "I can brush my teeth, wash my face, and comb my hair" pt tolerated walking very well. No issues at all. Nothing needed at this time.
--- NOTE | 2019-10-08 06:46 | NUR ---
PT SLEPT ON AND OFF LAST NIGHT. SPO2 99% ON 2L NC. SPO2 92% ON ROOM AIR. PT PLACED ON 1L NC. LUNG SOUNDS CLEAR. IV CDI, WNL, FLUSHED WELL.
--- NOTE | 2019-10-08 06:53 | NUR ---
SCHEDULED MED PROVIDED. NO OTHER NEEDS. CALL LIGHT IN REACH.
--- NOTE | 2019-10-08 07:20 | NUR ---
BEDSISE HANDOFF REPORT RECEIVED FROM ENRICHMENT DIRECTOR RN. PT RESTING IN BED. PT ON 1L NC. PT DENIES NEEDS AT THIS TIME.
--- NOTE | 2019-10-08 08:20 | NUR ---
PT RESTING IN BED, JUST RETURNED FROM BATHROOM. PT ON 1L NC, LUNG SOUNDS CLEAR, PT REPORT OF SOB WITH ACTIVITY BUT NOT AT REST. BOWEL TONES ACTIVE, DENIES NAUSEA, TOLERATING BREAKFAST, PROVIDED FRESH WATER PER FLUID RESTRICITION. PT REPORT OF CHRONIC NUMBNESS IN BLE AT BASELINE, TRACE EDEMA. IV LASIX GIVEN PER ORDE.R PT REQUESTING TO REST THIS AM. PT DENIES OTHER NEEDS AT THIS TIME.
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
--- NOTE | 2019-10-08 11:40 | NUR ---
Discussed in IDT.
[2019-10-08] MEDS ORDERED: TURMERIC500 M2 PO (12:14)
[2019-10-08] MEDS ORDERED: EMERGEN-C 1,01000 MG PO (12:15)
--- NOTE | 2019-10-08 12:15 | NUR ---
MED REC COMPLETE
--- NOTE | 2019-10-08 14:04 | NUR ---
PATIENT WAS D/C'D PRIOR TO ME SEEING HER TO REVIEW LOW-SODIUM DIET INFORMATION. WILL CALL HER AT HOME AND SEND INFORMATION IF APPLICABLE.
--- NOTE | 2019-10-08 17:08 | EKG ---
[facility] [address] [facility] [place], [place] [address] Signed Atrial fibrillation Rightward axis Low voltage QRS Cannot rule out Anterior infarct , age undetermined Abnormal ECG No previous ECGs available Confirmed by IZAIAH LUCIO DO ([id number]) on 10/08/2019 5:08:01 PM Electronically Signed By: IZAIAH LUCIO DO 10/08/19 1708 PATIENT NAME: ADDISONZANDRAROLY COELHO Electrocardiogram DATE OF : 34 PHYSICIAN: IZAIAH LUCIO DO REPORT #: [id number] REPORT IS CONFIDENTIAL AND NOT TO BE RELEASED WITHOUT AUTHORIZATION
--- NOTE | 2019-10-12 11:38 | NUR ---
Follow up call completed. Rufina states she is taking advantage of having energy today. she is paying bills and doing laundry. Has scales at home and to getting back in habit of weighing q AM. Was able to state when to call PCP. Today's weigh 140lb. Spoke to mathematics technician during her inpatient stay. Reports she understands what she needs to do to get back on track with low sodium diet. No change in medications post discharge and she does not have concerns with medications. Her f/u with Dr. Menendez is either on or and her daughter will take her for this visit.
== END 2019-10-08 13:30 | disposition home or self-care (01) ==
LOC: ED 16:41 → MS 16:42
PROVIDERS: ADMIT Student in an Organized Health Care Education/Training Program
DX: I11.0 Hypertensive heart disease with heart failure (principal); I50.33 Acute on chronic diastolic (congestive) heart failure; J96.91 Respiratory failure, unspecified with hypoxia; I48.21 Permanent atrial fibrillation; E78.5 Hyperlipidemia, unspecified; E11.9 Type 2 diabetes mellitus without complications; E03.9 Hypothyroidism, unspecified; I25.10 Atherosclerotic heart disease of native coronary artery without angina pectoris; I05.2 Rheumatic mitral stenosis with insufficiency; Z88.5 Allergy status to narcotic agent; Z66 Do not resuscitate; Z95.5 Presence of coronary angioplasty implant and graft; Z91.11 Patient's noncompliance with dietary regimen; Z91.14 Patient's other noncompliance with medication regimen; Z79.01 Long term (current) use of anticoagulants; Z79.84 Long term (current) use of oral hypoglycemic drugs; Z79.82 Long term (current) use of aspirin; Z79.899 Other long term (current) drug therapy
CPT/HCPCS: 36415; 71045; 80048; 83735; 83880; 84484; 85025; 85610; 93005; 93010; 96374; 96376; 99285-25; G0378; J1815; J1940

== ENCOUNTER 2021-04-02 19:01 | Emergency (ER) | payer MEDICARE, OTHER ==
[~2021-04-02 19:01] MED LIST changes: +EMERGEN-C 1,01000 MG PO; +TURMERIC500 M2 PO
--- OUTSIDE RECORDS SUMMARY | 2021-04-02 19:10 | XMS ---
PreManage Notification: ZANDRA JAIME Security Hydraulic Boom Operator Events No recent Security Events currently on file CRITERIA MET - [facility] - Has Care Guidelines CARE PROVIDERS MERVIN SIDHU Internal Medicine 11/03/2018-Current PHONE: Unknown Ángela has no Care Guidelines for this patient. Care History Medical/Surgical 10/08/2019 [facility] Patient was admitted.\T\nbsp; Has scheduled follow up for 10/26/2019.\T\nbsp; 11/06/2018 [facility] - PATIENT AND FAMILY WOULD LIKE THIS INFORMATION STATED AND PRESENTED TO THE ED PHYSICIAN RIGHT AWAY WHEN PATIENT IS IN THE ED: - PATIENT DIAGNOSED WITH CHF IN 2018. - STENT PLACED IN 2018 AT [facility] - DR CASTRO IS PATIENT GOLD PLATER AT [facility]- [phone] - PATIENT HAS SEEN DR BAER AT [facility]- [phone] 11/03/2018 [facility] - Patient is currently established with [facility]. If patient is seen in the ED during business hours. Please contact CHWs at [facility]. Care Recommendation: This patient has had 5 [...] providing care. E.D. VISIT COUNT (12 MO.) 1 SAVANA Cervantes TOTAL 1 NOTE: Visits indicate total known visits. ED/UCC VISIT TRACKING (12 MO.) 04/02/2021 19:02 SAVANA Go[place] TYPE: Emergency COMPLAINT: - FALL INPATIENT VISIT TRACKING (12 MO.) No inpatient visits to display in this time frame [id number]
--- NOTE | 2021-04-03 12:21 | EKG ---
[facility] [address] [facility] [place] [address] Signed Atrial fibrillation with premature ventricular or aberrantly conducted complexes Left axis deviation Abnormal ECG When compared with ECG of 07-OCT-2019 16:42, QRS axis shifted left Confirmed by IZAIAH LUCIO DO ([id number]) on 04/03/2021 12:21:38 PM Electronically Signed By: IZAIAH LUCIO DO 04/03/21 1221 PATIENT NAME: SUJATHADAVIDZANDRA Electrocardiogram DATE OF : 34 PHYSICIAN: IZAIAH LUCIO DO REPORT #: [id number] REPORT IS CONFIDENTIAL AND NOT TO BE RELEASED WITHOUT AUTHORIZATION
== END 2021-04-02 20:47 | disposition short-term general hospital (02) ==
LOC: ED 19:01
DX: S06.6X9A Traumatic subarachnoid hemorrhage with loss of consciousness of unspecified duration, initial encounter (principal); W10.9XXA Fall (on) (from) unspecified stairs and steps, initial encounter; R79.1 Abnormal coagulation profile; I48.91 Unspecified atrial fibrillation; I50.9 Heart failure, unspecified; I11.0 Hypertensive heart disease with heart failure; E03.9 Hypothyroidism, unspecified; Z88.5 Allergy status to narcotic agent; Z79.899 Other long term (current) drug therapy; Z79.01 Long term (current) use of anticoagulants; Z79.82 Long term (current) use of aspirin; Z20.822 Contact with and (suspected) exposure to COVID-19
CPT/HCPCS: 70450; 71045; 72125; 80053; 81001; 82150; 82553; 83605; 83690; 85025; 85610; 85730; 93005; 93010; 96374; 96375; 96376; 99285-25; C9132; C9803; G0480; J2405; J3430; U0003